=== PATIENT | male | born 1940 | race Caucasian/White ===

== ENCOUNTER → 2017-01-19 | Outpatient (CLI) | payer OTHER ==
[~2017-01-19] MED LIST: ASCO10003 PO; ASPI81TA28 PO; ATOR-24 PO; CHOL1CAP67 PO; CLR/5 PO; CRG25 PO; CYAN100T PO; DUTA0.5C PO; FEBU80TA PO; HMLI SC; INSDGIPEN SQ; LEVO150T PO; MAGN400T6 PO; OXGN; POTA75TA PO; PRED20TA2 PO; SILO8CAP PO; TRAM-10 PO
--- NOTE | 2017-01-19 14:30 | DIAGNOSTIC IMAGING REPORT ---
CHEST 2 VIEWS ROUTINE CLINICAL HISTORY: R06.2 [id number] COMPARISON STUDY: 02/19/2014 FINDINGS: The cardiac and mediastinal contours are normal. There is no evidence of focal pulmonary consolidation. There is no evidence of failure. No pleural effusions are visualized.[ There are surgical clips at the cervicothoracic inlet. IMPRESSION: No active disease in the chest. Electronically signed by: Jet Rivero M.D. 01/19/2017 2:28 PM Dictated Date/Time: 01/19/2017 2:28 PM
== END | disposition home or self-care (01) ==
LOC: C.RAD1850 13:52
PROVIDERS: ATTEND Internal Medicine Pulmonary Disease
DX: R06.2 Wheezing (principal)

== ENCOUNTER → 2017-04-30 | Outpatient (CLI) | payer OTHER ==
[2017-04-30 12:39] LABS: URINE APPEARANCE CLEAR (CLEAR); URINE BILIRUBIN NEG (NEG); URINE COLOR YELLOW; URINE EPITHELIAL CELL AUTO 0-5 /lpf (0-5); URINE NITRITE NEG (NEG); URINE SPECIFIC GRAVITY 1.015 (1.000-1.030); UROBILINOGEN NEG (NEG)
[2017-04-30 12:40] LABS: MANUAL MICROSCOPIC REQUIRED? NO; REVIEW REQ? NO
[2017-04-30 12:53] LABS: HEMATOCRIT 38.5 % (42-52); MEAN CELL VOLUME 90.2 fL (80-100); MEAN CORPUSCULAR HEMOGLOBIN 31.4 pg (25-34); MEAN CORPUSCULAR HGB CONC 34.8 g/dl (32-36); MEAN PLATELET VOLUME 10.1 fL (7.4-10.4); PLATELET COUNT 127 K/uL (130-400); RED BLOOD COUNT 4.27 M/uL (4.7-6.1); WHITE BLOOD COUNT 5.67 K/uL (4.8-10.8)
[2017-04-30 13:12] LABS: BLOOD UREA NITROGEN 25 mg/dl (7-18); CALCIUM 9.2 mg/dl (8.5-10.1); CARBON DIOXIDE 29 mmol/L (21-32); CHLORIDE 105 mmol/L (98-107); GLUCOSE 118 mg/dl (70-99); POTASSIUM 4.4 mmol/L (3.5-5.1); SODIUM 141 mmol/L (136-145)
[2017-04-30 13:13] LABS: PHOSPHORUS 2.6 mg/dl (2.5-4.9)
[2017-04-30 13:21] LABS: ESTIMATED AVERAGE GLUCOSE 131 mg/dl; HA1C FLAG Normal (Normal)
[2017-04-30 13:59] LABS: URINE PROTIEN/CREAT RATIO 0.1 (0-0.2); URINE TOTAL PROTEIN 11.4 mg/dl (0-11.9)
== END | disposition home or self-care (01) ==
LOC: C.LABPVFM 10:58
PROVIDERS: ATTEND Internal Medicine Nephrology
DX: N28.1 Cyst of kidney, acquired (principal); D64.9 Anemia, unspecified; N18.3 Chronic kidney disease, stage 3 (moderate); I12.9 Hypertensive chronic kidney disease with stage 1 through stage 4 chronic kidney disease, or unspecified chronic kidney disease; E11.21 Type 2 diabetes mellitus with diabetic nephropathy; E11.22 Type 2 diabetes mellitus with diabetic chronic kidney disease

== ENCOUNTER → 2017-11-05 | Outpatient (CLI) | payer OTHER ==
[2017-11-05 12:49] LABS: HEMATOCRIT 38.2 % (42-52); HEMOGLOBIN 13.4 g/dL (14.0-18.0); MEAN CELL VOLUME 91.6 fL (80-100); MEAN CORPUSCULAR HEMOGLOBIN 32.1 pg (25-34); MEAN CORPUSCULAR HGB CONC 35.1 g/dl (32-36); PLATELET COUNT 141 K/uL (130-400); RED CELL DISTRIBUTION WIDTH CV 13.4 % (11.5-14.5); RED CELL DISTRIBUTION WIDTH SD 44.3 fL (36.4-46.3); WHITE BLOOD COUNT 5.63 K/uL (4.8-10.8)
[2017-11-05 12:58] LABS: ALBUMIN 3.8 gm/dl (3.4-5.0); ALT/SGPT 34 U/L (12-78); AST/SGOT 24 U/L (15-37); BLOOD UREA NITROGEN 21 mg/dl (7-18); CALCIUM 9.2 mg/dl (8.5-10.1); CARBON DIOXIDE 29 mmol/L (21-32); CREATININE 1.89 mg/dl (0.60-1.40); GLUCOSE 155 mg/dl (70-99); POTASSIUM 4.5 mmol/L (3.5-5.1); SODIUM 139 mmol/L (136-145); URIC ACID 6.8 mg/dl (2.6-7.2)
[2017-11-05 13:01] LABS: ALKALINE PHOSPHATASE 100 U/L (45-117); TOTAL PROTEIN 7.1 gm/dl (6.4-8.2)
== END | disposition home or self-care (01) ==
LOC: C.LABPVFM 09:32
PROVIDERS: ATTEND Internal Medicine Nephrology
DX: E03.9 Hypothyroidism, unspecified (principal); E78.5 Hyperlipidemia, unspecified; I10 Essential (primary) hypertension; R60.9 Edema, unspecified; N25.81 Secondary hyperparathyroidism of renal origin; E64.9 Sequelae of unspecified nutritional deficiency; N18.3 Chronic kidney disease, stage 3 (moderate)

== ENCOUNTER → 2018-01-07 | Outpatient (CLI) | payer OTHER ==
--- NOTE | 2018-01-07 16:54 | DIAGNOSTIC IMAGING REPORT ---
R HAND MIN 3 VIEWS ROUTINE HISTORY: 77 years-old Male HAND PAIN acute right hand pain without reported trauma COMPARISON: None available TECHNIQUE: 3 views of the right hand FINDINGS: Mild radiocarpal with mild to moderate triscaphe the and first carpometacarpal osteoarthritis. Subcortical cystic changes are seen within the lunate. Mostly mild degenerative changes are also seen throughout the metacarpophalangeal joints with multidigit mild to moderate interphalangeal degenerative changes. There is no acute fracture or subluxation identified. Mild marginal spurring about the ulnar styloid. Soft tissues are unremarkable without opaque foreign body. IMPRESSION: 1. No acute fracture or subluxation. 2. Degenerative changes as above. The above report was generated using voice recognition software. It may contain grammatical, syntax or spelling errors. Electronically signed by: Alfred Staley M.D. 01/07/2018 4:52 PM Dictated Date/Time: 01/07/2018 4:51 PM
== END | disposition home or self-care (01) ==
LOC: C.LAB1850 16:10
PROVIDERS: ATTEND Physician Assistant
DX: M79.641 Pain in right hand (principal)

== ENCOUNTER → 2018-05-29 | Outpatient (CLI) | payer OTHER | END | disposition home or self-care (01) | LOC: C.LABPVFM 11:06 | PROVIDERS: ATTEND Internal Medicine | DX: E03.9 Hypothyroidism, unspecified (principal); E11.21 Type 2 diabetes mellitus with diabetic nephropathy ==

== ENCOUNTER → 2018-06-03 | Day surgery (SDC) | payer OTHER ==
[~2018-06-03] VITALS: Ht 175.3 cm; Wt 108.0 kg
[2018-06-03 08:49] VITALS: BP 146/89; PULSE 57; TEMP 36.6; O2SAT 95; Ht 175.3 cm; Wt 108.0 kg
[2018-06-03 11:51] VITALS: BP 150/90; PULSE 55; TEMP 36.5; O2SAT 95
== END | disposition home or self-care (01) ==
LOC: C.MTU 08:29
PROVIDERS: ATTEND Internal Medicine
DX: R14.0 Abdominal distension (gaseous) (principal)

== ENCOUNTER 2020-01-02 08:08 | Observation (INO) ==
--- NOTE | 2019-12-26 12:41 | PAT Medication Instructions ---
Medication Instructions Date of Service December 26, 2019 Home Medications Medication Instructions Recorded desloratadine 5 mg tablet 5 mg PO DAILY PRN #90 tab 10/28/19 carvedilol 25 mg tablet 50 mg PO BID #360 tab 12/23/19 albuterol sulfate 90 mcg/actuation aerosol inhaler 2 puffs INH Q6H PRN aspirin 81 mg tablet,delayed release 81 mg PO QAM magnesium oxide 500 mg tablet 500 mg PO PM omega-3 fatty acids-fish oil 360 mg-1,200 mg capsule 1 cap PO BID potassium gluconate 595 mg (99 mg) tablet,extended release 595 mg PO PM insulin lispro 100 unit/mL subcutaneous pen 0 units SQ AC ] desloratadine 5 mg tablet 5 mg PO DAILY PRN clotrimazole 1 % topical cream 1 appln TOP QAM PRN carvedilol 25 mg tablet 50 mg PO BID atorvastatin [Lipitor] 40 mg PO PM cholecalciferol (vitamin D3) [Vitamin D3] 2,000 unit PO PM dutasteride 0.5 mg PO PM febuxostat [Uloric] 80 mg PO QAM insulin glargine [Lantus Solostar U-100 Insulin] 18 unit SQ QAM levothyroxine 175 mcg PO QAM silodosin 8 mg PO QAM venlafaxine 75 mg PO BID STOP taking 2 weeks before surgery (or as soon as possible if surgery is within 2 weeks) omega-3 fatty acids-fish oil 360 mg-1,200 mg capsule 1 cap PO BID STOP taking 48 hours before surgery febuxostat [Uloric] 80 mg PO QAM STOP taking 24 hours before surgery clotrimazole 1 % topical cream 1 appln TOP QAM PRN DO NOT take the morning of surgery insulin lispro 100 unit/mL subcutaneous pen 0 units SQ AC desloratadine 5 mg tablet 5 mg PO DAILY PRN Take morning of surgery With a small sip of water, OTHERWISE NOTHING TO EAT OR DRINK AFTER MIDNIGHT: albuterol sulfate 90 mcg/actuation aerosol inhaler 2 puffs INH Q6H PRN (use if needed; please bring with you to hospital day of surgery if possible) carvedilol 25 mg tablet 50 mg PO BID levothyroxine 175 mcg PO QAM venlafaxine 75 mg PO BID Take evening before surgery albuterol sulfate 90 mcg/actuation aerosol inhaler 2 puffs INH Q6H PRN (if needed) magnesium oxide 500 mg tablet 500 mg PO PM potassium gluconate 595 mg (99 mg) tablet,extended release 595 mg PO PM insulin lispro 100 unit/mL subcutaneous pen 0 units SQ AC desloratadine 5 mg tablet 5 mg PO DAILY PRN (if needed) carvedilol 25 mg tablet 50 mg PO BID atorvastatin [Lipitor] 40 mg PO PM cholecalciferol (vitamin D3) [Vitamin D3] 2,000 unit PO PM dutasteride 0.5 mg PO PM venlafaxine 75 mg PO BID Insulin Dependent Diabetic Patients * Test your blood sugar the morning of surgery * If Blood Sugar is GREATER THAN 150, take HALF of your regular dose of: insulin glargine [Lantus Solostar U-100 Insulin] take 9 units * If Blood Sugar is LESS THAN 150, DO NOT TAKE ANY: insulin glargine [Lantus Solostar U-100 Insulin] Other Notes If you have any questions please call us at [phone] or [phone] or [phone] or [phone]
--- NOTE | 2019-12-26 13:25 | Anesthesiology Consultation ---
Date of Service December 26, 2019 Assessment & Plan (1) Encounter for pre-operative examination: CHECK BSG AM DOS Chart Review Chart Review: Acceptable Risk for Surgery (pending stress test 12/31 and final cardiology clearance) and Patient seen in Pre Admission Testing Teaching & Discussion Instructed NPO after midnight before surgery, except medications with 15 cc of water. Medication instructions provided according to the PAT guidelines. History Surgery Operation Date: 01/02/20 12:30 Proposed Procedures p Right Total Knee Arthroplasty - Alhaji Aden MD Height/Weight Height: 5 ft 9.5 in Weight: 115.9 kg Allergies Allergy/AdvReac Type Severity Reaction Status Date / Time Penicillins Allergy Unknown RASH Verified 12/26/19 11:09 lactose Allergy Gastrointestinal Verified 12/26/19 11:09 Upset Medications Home Medications Medication Instructions Recorded Confirmed Last Taken albuterol sulfate 90 mcg/actuation 2 puffs INH Q6H PRN 05/28/19 12/26/19 Unknown aerosol inhaler aspirin 81 mg tablet,delayed 81 mg PO QAM tab 05/28/19 12/26/19 Unknown release magnesium oxide 500 mg tablet 500 mg PO PM tab 05/28/19 12/26/19 Unknown omega-3 fatty acids-fish oil 360 1 cap PO BID cap 05/28/19 12/26/19 Unknown mg-1,200 mg capsule potassium gluconate 595 mg (99 mg) 595 mg PO PM tab 05/28/19 12/26/19 Unknown tablet,extended release CPAP Machine #1 ea 10/13/19 12/26/19 Unknown insulin lispro 100 unit/mL 0 units SQ AC ml 10/13/19 12/26/19 Unknown subcutaneous pen desloratadine 5 mg tablet 5 mg PO DAILY PRN #90 tab 10/28/19 12/26/19 Unknown clotrimazole 1 % topical cream 1 appln TOP QAM PRN gm 11/17/19 12/26/19 Unknown pen needle, diabetic 32 gauge x #10 ea 11/17/19 12/26/19 Unknown " carvedilol 25 mg tablet 50 mg PO BID #360 tab 12/23/19 12/26/19 Unknown atorvastatin [Lipitor] 40 mg PO PM 12/25/19 12/26/19 Unknown cholecalciferol (vitamin D3) 2,000 unit PO PM 12/25/19 12/26/19 Unknown [Vitamin D3] dutasteride 0.5 mg PO PM 12/25/19 12/26/19 Unknown febuxostat [Uloric] 80 mg PO QAM 12/25/19 12/26/19 Unknown glucose sensor,implant-dexamet 12/25/19 12/26/19 Unknown insulin glargine [Lantus Solostar 18 unit SQ QAM 12/25/19 12/26/19 Unknown U-100 Insulin] levothyroxine 175 mcg PO QAM 12/25/19 12/26/19 Unknown silodosin 8 mg PO QAM 12/25/19 12/26/19 Unknown venlafaxine 75 mg PO BID 12/25/19 12/26/19 Unknown tamsulosin 0.4 mg capsule 0.4 mg PO DAILY #90 cap 12/26/19 Unknown Past Medical History Medical History (Updated 12/29/19 @ 09:30 by Raymond Costello) Acquired claw toe of left foot Acquired claw toe of right foot Acquired hallux valgus of right foot Anemia Attention or concentration deficit Benign prostatic hyperplasia Chronic back pain CKD (chronic kidney disease), stage III [place] [place] per [place]17 office visit note. Cor pulmonale Diabetes type 2, uncontrolled Dilated cardiomyopathy Per 12/23 cardio note, "Most recent echo with low normal LV systolic function. No current signs or symptoms of pulmonary vascular congestion." Dyslipidemia Erectile dysfunction Gout Hx of thyroid cancer WITH REMOVAL NO CHEMO Hypertension Lumbosacral radiculopathy at L5 Mild asthma Does not use Albuterol, has just in case Obstructive sleep apnea CPAP Osteoarthritis Personal history of diabetic foot ulcer No open wounds currently, skin being monitored by multiple specialties. Postural dizziness Hx, no issues with currently. Restrictive lung disease RARE RES. INH USE> WELL CONTROLLED Secondary hyperparathyroidism Sensorineural hearing loss (SNHL) of both ears Spinal stenosis Type 2 diabetes mellitus with diabetic neuropathy Exercise / Class Metabolic Activity III < 4 Walking/Shop/Light housework (USing walker for ambulation, denies SOB or CP but limited functional capacity due to knee pain/foot issues) Past Family History Family History Father Myocardial infarction Hypertension Sister Coronary heart disease Hypertension Brother Hypertension Thyroid cancer Mother Pulmonary embolism Grandmother (Maternal) Stroke Denies family history of Ovarian cancer Prostate cancer Breast cancer Colorectal cancer Past Surgical History Surgical History (Updated 12/29/19 @ 09:26 by Raymond Costello) H/O: knee surgery RIGHT History of cardiac cath [place] MANY YEARS AGO> NO STENTS History of colonoscopy History of thyroidectomy History of tonsillectomy History of tooth extraction Hx of bilateral cataract extraction Past Anesthesia History No Hx of Anesthesia Complications and No Family Hx of Anesthesia Complications History of PONV No Hx of Motion Sickness and History of PONV (only with ether as a child) Social History Smoking Status: Never smoker Do You Dip or Chew Tobacco: No Hx Alcohol Use: No Hx Substance Use: No substance use type: does not use Review of Systems Pt denies any recent chest pain, shortness of breath, palpitations, cough, fever or URI. Physical Exam Vital Signs BP: 153/72 P: 56bpm SPO2: 96% RA T: 98.0 F R: 18 ENMT Mouth: + macroglossia; no dental restorations, no chipped teeth and no loose teeth Mallampati Class: II Uvula and tonsils surgically absent. Neck + short neck, + thick neck and + limited neck extension (mildly) Respiratory normal respiratory effort Auscultation: lungs clear to auscultation bilaterally Cardiovascular Rate/Rhythm: regular rate and regular rhythm Heart Sounds: no murmur Extremities: no edema Testing Laboratory Results PT 10.8 Seconds (9.0-12.0) 12/26/19 13:40 INR 1.1 (0.9-1.1) 12/26/19 13:40 APTT 23.0 Seconds (21.0-31.0) 12/26/19 13:40 Hemoglobin A1c 6.7 % (4.5-5.6) H 12/26/19 13:40 Blood Type A Positive 12/26/19 13:40 Antibody Screen NEGATIVE 12/26/19 13:40 12/17/19 WBC: 6.47 H/H: 13.6/39.3 PLATELETS: 145 SODIUM: 139 POTASSIUM: 4.1 CHLORIDE: 102 CO2: 34 BUN: 19 CREATININE: 1.78 GLUCOSE: 166 Electrocardiogram Date: 12/26/19 Findings: + NSR @ (61bpm) Chest X-Ray Date: 12/26/19 Findings: + NAD
--- NOTE | 2019-12-26 14:06 | XRay Report ---
XR chest Pre-admission PA/Lat CLINICAL HISTORY: Preoperative chest COMPARISON STUDY: No previous studies for comparison. FINDINGS: The heart is borderline enlarged. There is no failure. There is no focal pulmonary consolid ation. There are no pleural effusions. There are surgical clips projected over the cervicothoracic in let in the midline. There is ankylosis of the dorsal spine. IMPRESSION: No active disease in the chest. ACT 112: Negative or not required by law. Electronically signed by: Jet Rivero M.D. 12/26/2019 2:04 PM
[2019-12-26 15:24] LABS: INR 1.1 (0.9-1.1); Partial Thromboplastin Ratio 0.8; Prothrombin Time 10.8 Seconds (9.0-12.0)
--- NOTE | 2019-12-26 18:38 | Electrocardiogram Report ---
Test Reason : Blood Pressure : / mmHG Vent. Rate : 061 BPM Atrial Rate : 061 BPM P-R Int : 144 ms QRS Dur : 098 ms QT Int : 446 ms P-R-T Axes : 064 048 050 degrees QTc Int : 448 ms Normal sinus rhythm Normal ECG When compared with ECG of 27-SEP-2018 20:09, No significant change was found Confirmed by Wally Friedman ([id number]) on 12/26/2019 6:37:50 PM Referred By: Alhaji dAen Confirmed By:Henry Friedman
[2019-12-27 06:22] LABS: Estimated Average Glucose 146 mg/dl; Hemoglobin A1C 6.7 % (4.5-5.6)
[~2020-01-02 08:08] MED LIST changes: +ACETAMINOPHEN 500 MG TAB PO SCH; -ASCO10003 PO; -ASPI81TA28 PO; -ATOR-24 PO; +BUPIVACAINE 0.5 % 5 MG/1 ML PF 10ML VIAL ONE; +BUPIVACAINE LIPOSOME/PF 266 MG, BUPIVACAINE/EPINEPHRINE 50 ML, SODIUM CHLORIDE 0.9% 30 ... INFIL SCH; +BUPIVACAINE/EPINEPHRINE 0.25% 1:200,000 30 ML VIAL ONE; +CEFAZOLIN 2000MG 2,000 MG/15 ML SYR IV SCH; -CHOL1CAP67 PO; -CLR/5 PO; -CRG25 PO; -CYAN100T PO; +DEXAMETHASONE SOD INJ 4 MG/ML VIAL ONE; -DUTA0.5C PO; +EPINEPHrine INJ 1 MG/ML AMP ONE; +FAMOTIDINE 20 MG TAB PO SCH; -FEBU80TA PO; +GABAPENTIN 300 MG CAP PO SCH; -HMLI SC; -INSDGIPEN SQ; -LEVO150T PO; +LR 500ML BOLUS, THEN 15ML/HR IV SCH; +LR 60ML/HR IV SCH; -MAGN400T6 PO; +METOCLOPRAMIDE HCL 10 MG TABLET PO SCH; -OXGN; -POTA75TA PO; -PRED20TA2 PO; +ROPIVACAINE 0.5% 5 MG/ML 30 ML VIAL ONE; -SILO8CAP PO; -TRAM-10 PO; +TRANEXAMIC ACID 1,000 MG x 1 **For Topical Use TOP SCH
--- NOTE | 2020-01-02 08:44 | History & Physical Bridge Note ---
Date of Service January 02, 2020 History & Physical Bridge Note I have examined the patient, reviewed the History & Physical and in the interval since the performance of the History & Physical I have noted the following changes of clinical significance: no changes noted
[2020-01-02] MEDS ORDERED: TRANEXAMIC ACID / 0.7% NACL 1000MG/100ML BAG IV ONE (09:23)
[2020-01-02 09:35] LABS: Basophils # (auto) 0.02 K/uL (0-0.2); Basophils % (auto) 0.3 %; Eosinophils # (auto) 0.24 K/uL (0-0.5); Eosinophils % (auto) 3.5 %; Hematocrit (blood only) 36.4 % (42-52); Hemoglobin 12.4 g/dL (14.0-18.0); Immature Granulocytes # (auto) 0.02 K/uL (0.00-0.02); Immature Granulocytes % (auto) 0.3 %; Lymphocytes # (auto) 1.17 K/uL (1.2-3.4); Lymphocytes % (auto) 16.8 %; Mean Corpuscular Hemoglobin 31.7 pg (25-34); Mean Corpuscular Volume 93.1 fL (80-100); Mean Platelet Volume 10.1 fL (7.4-10.4); Monocytes # (auto) 0.52 K/uL (0.11-0.59); Monocytes % (auto) 7.5 %; Neutrophils # (auto) 4.98 K/uL (1.4-6.5); Neutrophils % (auto) 71.6 %; Platelet Count 128 K/uL (130-400); RDW Coefficient of Variation 13.6 % (11.5-14.5); RDW Standard Deviation 45.6 fL (36.4-46.3); Red Blood Count 3.91 M/uL (4.7-6.1); White Blood Count 6.95 K/uL (4.8-10.8)
[2020-01-02 09:43] LABS: Mean Corpuscular Hgb Conc 34.1 g/dL (32-36)
[2020-01-02] MEDS ORDERED: MIDAZOLAM HCL 1 MG/ML 2ML VIAL ONE ×2 (09:46)
[2020-01-02] MEDS ORDERED: PROPOFOL IV EMULSION 10 MG/ML 20 ML VIAL IV ONE (10:07)
[2020-01-02] MEDS ORDERED: LIDOCAINE HCL 2% 2 ML VIAL/AMP(20MG/ML) INFIL ONE (10:07)
[2020-01-02] MEDS ORDERED: BUPIVACAINE LIPOSOME 1.3% 266 MG/20 ML VIAL ONE (10:32)
[2020-01-02] MEDS ORDERED: SODIUM CHLORIDE 0.9% PF 50 ML VIAL ONE (10:32)
[2020-01-02] MEDS ORDERED: BUPIVACAINE/EPINEPHRINE 0.25% 1:200,000 30 ML VIAL ONE (10:32)
[2020-01-02] MEDS ORDERED: BACITRACIN INJ 50,000 UNIT VIAL ONE (10:32)
[2020-01-02] MEDS ORDERED: ePHEDrine sulfate 50 MG/ML AMP IV PRN (11:34)
[2020-01-02] MEDS ORDERED: ATROPINE SULFATE 0.1 MG/ML 10ML SYR IV PRN (11:34)
[2020-01-02] MEDS ORDERED: LABETALOL HCL IV 5 MG/ML 20ML IV ONE (11:42)
[2020-01-02] MEDS ORDERED: HydrALAZINE HCL 20 MG/ML VIAL ONE (11:42)
[2020-01-02] MEDS ORDERED: TRANEXAMIC ACID 1,000 MG **IV Intra-op IV SCH (12:08)
--- NOTE | 2020-01-02 12:38 | Post Operative Brief Note ---
PG Immediate Post Op with CF Date of Surgery January 02, 2020 Pre & Post Diagnosis Operation Date: 01/02/20 10:40 Pre-Op Diagnosis: Right Knee Degenerative Joint disease Post-Op Diagnosis: Right Knee Degenerative Joint disease I identified the patient and participated in the time-out.: Yes Procedure Operation Date: 01/02/20 10:40 Actual Procedures p Right Total Knee Arthroplasty cemented(Right) - Alhaji Aden MD Surgeon Alhaji Aden MD Credit Intern Panfilo, PAC Estimated Blood Loss 100 Findings Consistent with Post-Op Diagnosis Fluids 1500 cc Specimens Specimen Description: A. Right knee bone and tissue Drains Pabon Catheter Anesthesia Type Spinal MAC Disposition Accompanied Patient To Recovery: No Disposition: Recovery Room
--- NOTE | 2020-01-02 12:53 | Operative Report ---
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 He had pretty extensive grade 4 pave-at-pckb disease in all 3 compartments most severe in the medial side. He had an area of punctate hemorrhage of the medial femoral condyle which looks quite ulcerated. He had a moderate-sized joint effusion. Fixed varus deformity to his knee. He had osteophytes in all 3 compartments. Fluids 1500 cc. Specimens Right knee sent for pathology. Drains None. Anesthesia Type Spinal MAC Complications none Disposition Accompanied Patient To Recovery: No Disposition: Recovery Room Indications Patient is a 79-year-old gentleman is had a several year history of increasing right knee pain discomfort. This is unresponsive conservative care. X-rays showed advanced medial compartment arthritis. Failed all conservative care and elected proceed with total knee arthroplasty. Description of Procedure Operative implants consist of: 1. Biomet Vanguard size 65 right posterior by femoral component. 2. Biomet size 75 tibial tray. 3. 12 mm posterior box polyethylene insert. 4. 31 x 8 all poly-patella. Patient was taken to the operating room identified and placed on the operating table supine position protectors were properly padded. IV antibiotics arrived by anesthesia team. A spinal anesthetic and abductor canal block had provided in the holding area. Pabon catheter was placed in sterile fashion. Right thigh turn was then placed in the right lower extremities and prepped draped in usual sterile fashion. The right leg was elevated exsanguinated use of an Esmarch interspace at 300 mmHg. An anterior approach to the right knee was then performed to longitudinal incision centered over the patella. Sharp dissection was carried through subcutaneous tissue down to the extensor mechanism. A medial parapatellar arthrotomy incision was made. Some subperiosteal dissection was carried out medially. The fat pad was resected from each patella tendon. Lateral patellofemoral ligament was released. Patella was subluxated laterally and the knee was flexed. The osteophytes were taken off distal femur. The ACL and PCL were then released from distal femur the tibia subluxated anteriorly. The external tibial alignment jig was then placed in the interface of the tibia and adjusted 14 mm medially. Proximal tibial cut was made to move about 2 mm of bone from most efficient aspect medial tibial plateau. Some osteophytes were taken off medial and posterior medially. The tibia sized to a size 75. Attention drawn the femur. The distal femur was entered with a sharp drop with intramedullary canal was suction. A right 6 degree valgus cutting guide was placed. This femoral cutting block was pinned in place but distal femoral cut was made to take an additional 3 mm bone off distal femur. Femur was then sized to a size 65. We did downsize a slightly. The AP cutting block was pinned parallel to the epicondylar axis which was 3 degrees of external rotation. Anterior cut, anterior chamfer, posterior cut, posterior chamfer cuts were made. Box cutting guide was placed in just slight lateral box cut was made. The knee was flexed. The remnants of the medial lateral menisci were excised. The osteophytes were taken off the posterior aspect of the femur. Trial femoral component was placed. The tibial tray was pinned in maximum external rotation and the drill and stem punch were used to create defect in proximal tip for the tibial tray. Knee was then trialed and the 12 mm insert fit most appropriately. Attention drawn the patella. The patella was cleaned of all soft tissues. Patella thickness measured 23 mm in thickness was cut down to 14. Was sized to a size 31 patella. Locals were drilled for 31 patella. Lateral osteophyte is moved. Patella button was placed. Knee was taken through range of motion and the patella tracked nicely with no thumbs test. Attention drawn to placing permanent components. All trial components were removed and removed. Bone plug was placed in the disc femur limit blood loss put a double batch [place]os G cement was mixed. Biomet Vanguard size 65 right posterior by femoral component, size 75 tibial tray, a 12 mm posterior box polyethylene insert, and a 31 x 8 all poly-patella were then cemented in place. Knee was brought out into full extension total cement hardened. Final cement check was then performed. The wound was irrigated with extensive muscle pulsatile lavage solution. The patient did receive 1 g of tranexamic acid. The tourniquet was then let down for final tourniquet time of 62 minutes. Hemostasis assured use electrocautery. Extensor mechanism closed with combination 1 PDS suture and #1 Vicryl suture in [id number] fashion. Extensor mechanism checked found to be intact and subcutaneous tissue then closed with 2 Dexon suture in buried knot fashion skin was closed skin gayathri. Leg was then cleaned dried a sterile dressing composed Xeroform, 4 x 4's, sterile cast padding, Emre bandage were applied. Patient then transferred to the recovery room in stable condition. Patient tolerated procedure well no complications. I attest to the content of the Intraoperative Record and any orders documented therein. Any exceptions are noted below.
--- NOTE | 2020-01-02 13:16 | XRay Report ---
RIGHT KNEE 2 VIEWS History: Right total knee arthroplasty. Degenerative arthritis. Postop. FINDINGS: The patient is status post a right total knee arthroplasty. The hardware is intact. No frac ture or dislocation. Skin gayathri are in place. IMPRESSION: Right total knee arthroplasty. No evidence for hardware complication. ACT 112: Negative or not required by law. Electronically signed by: Chris Adam M.D. 01/02/2020 1:15 PM
--- NOTE | 2020-01-02 13:51 | Anesthesiology Progress Note ---
Date of Service January 02, 2020 Anesthesia Post Procedure Vital Signs Vital Signs: Temp Pulse Pulse Resp BP Pulse Ox 01/02/20 13:40 36.5 C 60 12 145/78 H 95 01/02/20 13:30 58 L 19 137/78 97 01/02/20 13:20 56 L 23 144/75 H 98 01/02/20 13:10 59 L 13 142/77 H 98 01/02/20 13:00 61 13 149/80 H 98 01/02/20 12:50 60 14 152/82 H 98 01/02/20 12:44 36.8 C 62 14 139/84 98 01/02/20 09:02 36.7 C 62 18 178/94 H 95 Pain Intensity Right Knee: Pain Intensity: 0 Transfer of Care Handoff Completed per policy Notes Mental Status: alert / awake / arousable Patient Amnestic to Procedure: Yes Nausea / Vomiting: adequately controlled Pain: adequately controlled Airway Patency, RR, SpO2: stable & adequate BP & HR: stable & adequate Hydration State: stable & adequate Neuraxial Anesthesia: was administered and sensory block is resolving Anesthetic Complications: no major complications apparent
[2020-01-02] MEDS: SODIUM CHLORIDE 0.9% 1000ML 1,000 ML IV SCH ×2 (14:00→21:45)
[2020-01-02] MEDS ORDERED: NO NSAIDS SCH (14:08)
[2020-01-02] MEDS ORDERED: CARBOHYDRATES FOR HYPOGLYCEMIA PO PRN (14:08)
[2020-01-02] MEDS ORDERED: METOCLOPRAMIDE HCL INJ 5 MG/ML 2 ML VIAL IV PRN (14:08)
[2020-01-02] MEDS ORDERED: DEXTROSE 50% 50 ML SYRINGE IV PRN (14:08)
[2020-01-02] MEDS ORDERED: ALBUTEROL HFA INHALER 8.5 GM INH PRN (14:08)
[2020-01-02] MEDS ORDERED: GLUCAGON FOR INJ 1 MG VIAL SQ PRN (14:08)
[2020-01-02] MEDS ORDERED: CLOTRIMAZOLE 1% CR 15 GM TUBE TOP PRN (14:08)
[2020-01-02] MEDS ORDERED: bisacodyL 10 MG SUPP PR PRN (14:08)
[2020-01-02] MEDS ORDERED: MAGNESIUM HYDROXIDE SUSP 30 ML UDC PO PRN (14:08)
[2020-01-02] MEDS ORDERED: LORATADINE 10 MG TAB PO PRN (14:08)
[2020-01-02] MEDS ORDERED: GLUCOSE 10 TABS/TUBE PO PRN (14:08)
[2020-01-02] MEDS ORDERED: ONDANSETRON INJ 2 MG/ML 2 ML VIAL IV PRN (14:08)
[2020-01-02] MEDS ORDERED: GLUCOSE 40% GEL 15 GM TUBE PO PRN (14:08)
[2020-01-02] MEDS ORDERED: ALUMINUM/MAGNESIUM SUSP 30 ML UDC PO PRN (14:08)
[2020-01-02] MEDS ORDERED: NALOXONE HCL 0.4 MG/1 ML VIAL/CARP IV PRN (14:08)
[2020-01-02] MEDS ORDERED: PHARMACY GLYCEMIC MGMT CONSULT PRN (14:24)
[2020-01-02] MEDS: ACETAMINOPHEN 500 MG TAB PO SCH ×2 (15:22→21:47)
--- NOTE | 2020-01-02 15:54 | Pharmacy Report ---
Glycemic Control Consultation - Date of Service January 02, 2020 - Scope Scope: Glycemic Pharmacist consulted for glycemic control and to write orders per [facility] inpatient glycemic control protocol. - Objective Weight: 114.3 kg Accuchecks BSG (last 24hrs): 01/02/20 01/02/20 09:42 12:50 POC Glucose 146 H 123 H HbA1c: Hemoglobin A1c 6.7 % (4.5-5.6) H 12/26/19 13:40 - Recent Pertinent Medications Outpatient Anti-diabetic Regimen: * Lantus 18 units daily * Humalog 12 units w/ breakfast, 10 w/ lunch, 10 / dinner (this is per a sliding scale depending on his BSG, these are usual doses) * A1c = 6.7 % 12/26/19 The patient received this AM: * Lantus 8 units Risk Factors for Insulin Resistance: * Steroids: no dexamethasone administered perioperatively * Recent Surgery: POD 0 s/p R TKA * Diet: NPO -> T2DM - Assessment & Plan Assessment & Plan: ASSESSMENT: * 79 y/o male admitted s/p R TKA. He is well controlled on basal + bolus insulin as an outpatient. * He took ~half of his basal dose this AM in preparation for surgery. When I spoke with him and his , he had barely eaten lunch. Postop BSG was 123 mg/dL. Will not plan to give additional basal today, in light of reduced PO intake and current BSGs. Can plan to increase to full outpatient dose of basal tomorrow, depending on fasting BSG. * Bolus insulin will be provided using patient's weight/ stress level ~2 PLAN FOR INPATIENT GLYCEMIC CONTROL: * Basal insulin * Lantus qAM per the following scale: * 13 units for BSG < 140 * 18 units for BSG 140 or above * Bolus insulin * NovoLog per scale ACHS or Q6hrs while NPO * Goal Range: Low 110 mg/dL - High 140 mg/dL * Correction Factor: 25 mg/dL/unit * Nutritional / Prandial insulin per carb ratio of 1 unit per 8 grams CHO consumed Discharge Recommendations: * A1c 6.7% on 12/26/19 * Goal A1c < 7% * Recommend to resume outpatient regimen on discharge Thank you.
--- NOTE | 2020-01-02 16:07 | Hospitalist Consultation ---
Date of Consultation January 02, 2020 Assessment & Plan (1) Status post total right knee replacement: -Pain management, bowel regimen and DVT prophylaxis per the primary team -Follow a.m. CBC and BMP -Continue NSS at 125 mL an hour overnight then DC -PT/OT consults (2) Dilated cardiomyopathy: (3) Cor pulmonale: (4) Hypertension: (5) Dyslipidemia: -The patient follows with Dr. Carias as outpatient, underwent dobutamine stress echocardiogram prior to surgery -Continue carvedilol 50 mg bid, atorvastatin 40 mg qpm, baby aspirin ( currently asa BID for dvt ppx) (6) Restrictive lung disease: -Patient does not require albuterol inhaler as outpatient (7) Obstructive sleep apnea: -Continue CPAP (8) Diabetes type 2, uncontrolled: -HH/DM diet -ISS with Ppqm-[id number]-gwimuhcn insulin glargine 18 U qam -A1c = 6.8 on 12/26/2019 (9) Anemia: -History of such, hemoglobin stable at 12.4, baseline is around 13, follow with a.m. CBC (10) Gout: -Continue Uloric (11) Vitamin D deficiency: -Continue supplementation 2000 u qpm (12) Obesity: -BMI = 37.2 (13) Lumbosacral radiculopathy at L5: -Noted, continue pain management, PT/OT (14) History of thyroidectomy: - hx of such, continue levothyroxine 175 mcg daily (15) Benign prostatic hyperplasia: -Continue Rapaflo, Flomax, Avodart (16) DVT prophylaxis: -asa 81 mg BID, ambulatory per primary team CODE: FULL Dispo: From home Thank you for involving us in the care of Mr. Bass. Please do not hesitate to call with questions or concerns. At this time medicine service will follow along. Supervising Physician Co-Signing Physician Notes I have seen and examined patient with Rose Marie Gay PA-C and I agree with the assessment and plan. History of Present Illness Attending Physician: Alhaji Aden MD History of Present Illness This is a 79 yo M with PMHx of dilated cardiomyopathy, HTN, HLD, cor pulmonale, and DM type II, CKD stage III, restrictive lung disease, secondary hyperparathyroidism, CAROLANN on CPAP, mild asthma, gout, anemia, BPH, spinal stenosis, osteoarthritis, and history of thyroid cancer s/p thyroidectomy who presented for elective total right knee arthroplasty by Dr. Aden on 01/02/2020. The patient is doing well, his pain is very well controlled, he has no acute complaints. [facility] He lives at home with his . Patient notes that his last bowel movement was 2 days ago, typically has 1 every day. Discussion regarding bowel regimen was held at bedside. Patient has eaten lunch without any difficulty, nausea or vomiting. He has not yet gotten up out of bed. Allergies Allergy/AdvReac Type Severity Reaction Status Date / Time Penicillins Allergy Unknown RASH Verified 01/02/20 08:52 lactose Allergy Gastrointestinal Verified 12/26/19 11:09 Upset Home Medications Home Medications Medication Instructions Recorded Confirmed Type albuterol sulfate 90 mcg/actuation 2 puffs INH Q6H PRN 05/28/19 01/02/20 History aerosol inhaler aspirin 81 mg tablet,delayed 81 mg PO QAM tab 05/28/19 01/02/20 History release magnesium oxide 500 mg tablet 500 mg PO PM tab 05/28/19 01/02/20 History omega-3 fatty acids-fish oil 360 1 cap PO BID cap 05/28/19 01/02/20 History mg-1,200 mg capsule potassium gluconate 595 mg (99 mg) 595 mg PO PM tab 05/28/19 01/02/20 History tablet,extended release CPAP Machine #1 ea 10/13/19 12/26/19 History insulin lispro 100 unit/mL 0 units SQ AC ml 10/13/19 01/02/20 History subcutaneous pen desloratadine 5 mg tablet 5 mg PO DAILY PRN #90 tab 10/28/19 12/26/19 Rx clotrimazole 1 % topical cream 1 appln TOP QAM PRN gm 11/17/19 12/26/19 History pen needle, diabetic 32 gauge x #10 ea 11/17/19 12/26/19 History " carvedilol 25 mg tablet 50 mg PO BID #360 tab 12/23/19 01/02/20 Rx atorvastatin [Lipitor] 40 mg PO PM 12/25/19 01/02/20 History cholecalciferol (vitamin D3) 2,000 unit PO PM 12/25/19 01/02/20 History [Vitamin D3] dutasteride [Avodart] 0.5 mg PO PM 12/25/19 01/02/20 History febuxostat [Uloric] 80 mg PO QAM 12/25/19 01/02/20 History glucose sensor,implant-dexamet 12/25/19 12/26/19 History insulin glargine [Lantus Solostar 18 unit SQ QAM 12/25/19 01/02/20 History U-100 Insulin] levothyroxine 175 mcg PO QAM 12/25/19 01/02/20 History silodosin [Rapaflo] 8 mg PO QAM 12/25/19 01/02/20 History venlafaxine 75 mg PO BID 12/25/19 12/26/19 History tamsulosin [Flomax] 0.4 mg PO DAILY 01/02/20 01/02/20 History Patient History Family History Father Myocardial infarction Hypertension Sister Coronary heart disease Hypertension Brother Hypertension Thyroid cancer Mother Pulmonary embolism Grandmother (Maternal) Stroke Denies family history of Ovarian cancer Prostate cancer Breast cancer Colorectal cancer Social History Preferred Language: [place] Communication Ability: Effective Visual Impairment: No Limitations Hearing Ability: Normal Casing Soaker Required: No Beliefs That Will Affect Care: None marital status: Current Living Situation: Family Other Information That Helps Us Care for You: No Feels Safe at Home: Yes Safety Concerns: Feels Safe At This Time Smoking Status: Never smoker Do You Dip or Chew Tobacco: No ; Second Hand Exposure: No ; Tobacco Cessation Education Requested by Patient: No Hx Alcohol Use: No Hx Substance Use: No Childhood Exposure to Second-Hand Smoke: Yes (Uncle and Aunts) Review of Systems Review of Systems: Constitutional: No fever, sweats or chills Eyes: No diplopia, no worsening or blurred vision ENT: normal hearing, no trouble swallowing Respiratory: No cough, sputum, dyspnea at rest or on exertion Cardiovascular: No chest pain, tightness or palpitations Abdomen: No pain, nausea, vomiting, diarrhea or constipation, Last bm 2d ago Musculoskeletal: No joint pain, calf pain, swelling Neurologic: No weakness, + slight numbness into the R foot s/p surgery but improving. No other numbness/tingling, or balance problems Psychiatric: No anxiety or depression Skin: No rash or itch Physical Exam Physical Exam: General: awake, alert, no apparent distress Head: Normocephalic, atraumatic ENT: PERRL, EOMI, no pharyngeal exudate, mucous membranes moist Chest: Clear to auscultation, on room air, no adventitious breath sounds Cardiac: Regular rate and rhythm, no murmur, no JVD, normal peripheral pulses, good capillary refill Abdominal: NABS x 4 quadrants, soft, nontender to palpation, no rebound, guarding or tenderness, + urinary catheter in place draining clear yellow urine Extremities: Normal inspection, +Right knee in CYNTHIA, icepack in place, hemovac, no peripheral edema or erythema, calfs nontender to palpation Psych: Normal mood and affect Neuro: AAO x 3, strength intact bilaterally and rated 5/5, no motor deficits, speech is clear, no peripheral sensory deficits Results & Data ([facility]) Vital Signs (Past 12 Hours) Vital Signs Temp Pulse Pulse Pulse Pulse Resp BP 01/02/20 14:56 36.5 C 56 L 16 119/77 01/02/20 14:30 54 L 18 139/81 01/02/20 14:08 36.4 C L 58 L 14 136/74 01/02/20 13:40 36.5 C 60 12 145/78 H 01/02/20 13:30 58 L 19 137/78 01/02/20 13:20 56 L 23 144/75 H 01/02/20 13:10 59 L 13 142/77 H 01/02/20 13:00 61 13 149/80 H 01/02/20 12:50 60 14 152/82 H 01/02/20 12:44 36.8 C 62 14 139/84 01/02/20 09:02 36.7 C 62 18 178/94 H Pulse Ox 01/02/20 14:56 95 01/02/20 14:30 96 01/02/20 14:08 98 01/02/20 13:40 95 01/02/20 13:30 97 01/02/20 13:20 98 01/02/20 13:10 98 01/02/20 13:00 98 01/02/20 12:50 98 01/02/20 12:44 98 01/02/20 09:02 95 PG Care Time/CCT Total # of Minutes Spent Total Time Spent with Patient: Total time spent is greater than 50% in coordination of care (as documented) at patient's floor/unit and/or counseling patient: Coding Level of Care Code 25125 Inpt Consult Level 3 Diagnoses Status post total right knee replacement Z96.651 Dilated cardiomyopathy I42.0 Cor pulmonale I27.81 Hypertension I10 Dyslipidemia E78.5 Restrictive lung disease J98.4 Obstructive sleep apnea G47.33 Diabetes type 2, uncontrolled E11.65 Anemia D64.9 Gout M10.9 Vitamin D deficiency E55.9 Obesity E66.9 Lumbosacral radiculopathy at L5 M54.17 History of thyroidectomy Z98.890 Benign prostatic hyperplasia N40.0 DVT prophylaxis Z29.9
[2020-01-02] MEDS ORDERED: NON-FORMULARY MEDICATION (Insulin Lispro [Humalog Kwikpen Insulin] 0 UNITS) SQ SCH (16:30)
[2020-01-02] MEDS: FERROUS GLUCONATE 324 MG TAB PO SCH (17:47)
[2020-01-02] MEDS: ASCORBIC ACID 500 MG TAB PO SCH (17:47)
[2020-01-02] MEDS: INSULIN ASPART 100 UNITS/ML 3 ML PEN SC SCH ×2 (17:49→20:46)
[2020-01-02] MEDS: CEFAZOLIN 2000MG 2,000 MG/15 ML SYR IV SCH (17:51)
--- NOTE | 2020-01-02 18:32 | Progress Notes ---
DATE: 01/02/2020 SUBJECTIVE: 79-year-old gentleman postop from right knee replacement. He is doing well. Not having any pain yet. No chest pain or shortness of breath. Not feeling dizzy or lightheaded. OBJECTIVE: VITAL SIGNS: Temperature 36.6. Vital signs stable. GENERAL: Shows a pleasant, middle-aged male. He is sitting up in bed, looks pretty comfortable. LUNGS: Clear to auscultation. HEART: Regular rate and rhythm. ABDOMEN: Soft, nontender, nondistended. EXTREMITIES: Grossly neurovascularly intact except as follows: Examination of the right leg reveals the leg to be well aligned. Dressing is clean, dry, and intact. He can dorsiflex and plantarflex his foot appropriately. He is neurologically intact. X-RAYS: X-rays of the right knee from recovery room reviewed. It shows right cemented posterior stabilized total knee arthroplasty. Components looked to be in good position. No signs of problems. ASSESSMENT: 79-year-old gentleman with multiple medical comorbidities including diabetes and cardiomyopathy postop from right knee replacement, doing well. His pain is controlled. He is neurologically intact. PLAN: 1. DVT prophylaxis including thigh-high TEDS, SCDs, and aspirin. We are going to use one baby aspirin twice a day. He normally takes one aspirin a day. His creatinine is normally elevated. We are going to avoid all other additional NSAIDs to protect his kidneys. 2. PT/OT. Weight bear as tolerated. Right total knee protocol. 3. Pain control. We are going to use Tylenol around the clock for pain control along with oxycodone as needed. We will use some Nucynta twice a day. We will hold on any NSAIDs due to his renal function. 4. IV antibiotics x24 hours. 5. Medical management. We have consulted the medicine service for medical assistance with any medical issues including diabetes. 6. Disposition: He is hoping to be discharged to rehab or longterm facility for a brief rehab stay once medically stable.
[2020-01-02] MEDS ORDERED: TRANEXAMIC ACID / 0.7% NACL 1,000 MG/100 ML BAG IV SCH (19:00)
[2020-01-02] MEDS: OXYCODONE HCL IR 5 MG TAB (IMMEDIATE RELEASE) PO PRN (20:00)
[2020-01-02] MEDS ORDERED: NON-FORMULARY MEDICATION (Potassium Gluconate 595 MG) PO SCH (21:00)
[2020-01-02] MEDS: SENNA 8.6 MG TAB PO SCH (21:45)
[2020-01-02] MEDS: carvediloL 25 MG TAB PO SCH (21:46)
[2020-01-02] MEDS: ATORVASTATIN 40 MG TAB PO SCH (21:46)
[2020-01-02] MEDS: MAGNESIUM OXIDE 400 MG TAB PO SCH (21:46)
[2020-01-02] MEDS: OMEGA-3 (PURIFIED FISH OIL) 1 GM CAP PO SCH (21:46)
[2020-01-02] MEDS: DOCUSATE SODIUM 100 MG CAP PO SCH (21:46)
[2020-01-02] MEDS: ASPIRIN 81 MG ECTAB PO SCH (21:47)
[2020-01-02] MEDS: CHOLECALCIFEROL 1,000 UNITS 25 MCG TAB PO SCH (21:48)
[2020-01-02] MEDS: TAPENTADOL HCL ER 50 MG TABCR PO SCH (21:49)
[2020-01-02] MEDS: HYDROmorphone INJ 0.5 MG/0.5 ML SYR IV PRN (23:48)
[2020-01-03] MEDS: CEFAZOLIN 2000MG 2,000 MG/15 ML SYR IV SCH (02:04)
[2020-01-03] MEDS: OXYCODONE HCL IR 5 MG TAB (IMMEDIATE RELEASE) PO PRN ×4 (02:14→21:55)
[2020-01-03] MEDS: HYDROmorphone INJ 0.5 MG/0.5 ML SYR IV PRN ×2 (06:00→20:44)
[2020-01-03] MEDS: LEVOTHYROXINE SODIUM 175 MCG TABLET PO SCH (06:01)
[2020-01-03] MEDS: ACETAMINOPHEN 500 MG TAB PO SCH ×3 (06:01→21:54)
[2020-01-03 06:12] LABS: Hematocrit (blood only) 32.3 % (42-52); Hemoglobin 11.2 g/dL (14.0-18.0); Mean Corpuscular Hemoglobin 32.3 pg (25-34); Mean Corpuscular Hgb Conc 34.7 g/dL (32-36); Mean Corpuscular Volume 93.1 fL (80-100); Mean Platelet Volume 10.1 fL (7.4-10.4); Platelet Count 114 K/uL (130-400); RDW Coefficient of Variation 13.8 % (11.5-14.5); RDW Standard Deviation 46.1 fL (36.4-46.3); Red Blood Count 3.47 M/uL (4.7-6.1)
[2020-01-03 06:50] LABS: BUN Creatinine Ratio 11.5 (10-20); Calcium 8.3 mg/dl (8.5-10.1); Creatinine Clr Calc Pharmacy 41.7 ml/min; Est GFR (African American) 39.8; Est GFR (Non-African American) 34.4
[2020-01-03] MEDS: DOCUSATE SODIUM 100 MG CAP PO SCH ×2 (07:48→20:40)
[2020-01-03] MEDS: TAMSULOSIN HCL 0.4 MG CAP PO SCH (08:41)
[2020-01-03] MEDS: TAPENTADOL HCL ER 50 MG TABCR PO SCH ×2 (08:41→20:44)
[2020-01-03] MEDS: ASPIRIN 81 MG ECTAB PO SCH ×2 (08:41→20:41)
[2020-01-03] MEDS: OMEGA-3 (PURIFIED FISH OIL) 1 GM CAP PO SCH ×2 (08:41→20:41)
[2020-01-03] MEDS: VENLAFAXINE HCL XR 75 MG CAPXR PO SCH (08:41)
[2020-01-03] MEDS: ASCORBIC ACID 500 MG TAB PO SCH ×2 (08:41→17:33)
[2020-01-03] MEDS: FERROUS GLUCONATE 324 MG TAB PO SCH ×2 (08:41→17:33)
[2020-01-03] MEDS: carvediloL 25 MG TAB PO SCH ×2 (08:41→20:41)
[2020-01-03] MEDS: MULTIVITAMIN TAB PO SCH (08:41)
[2020-01-03] MEDS: INSULIN GLARGINE SOLOSTAR 100 UNITS/ML 3 ML PEN SQ SCH (08:46)
[2020-01-03] MEDS: INSULIN ASPART 100 UNITS/ML 3 ML PEN SC SCH ×4 (08:46→22:20)
--- NOTE | 2020-01-03 10:16 | Orthopedic Progress Note ---
Date of Service January 03, 2020 Assessment & Plan (1) Status post total right knee replacement: ASSESSMENT: 79-year-old gentleman with multiple medical comorbidities including diabetes and cardiomyopathy postop from right knee replacement, doing well on postop day 1. Continues to require parenteral pain control. Should remain inpatient for mobilization. Appreciate multidisciplinary care. PLAN: Continue plan of care directed by Dr. Aden 1. DVT prophylaxis including thigh-high TEDS, SCDs, and aspirin. We are going to use one baby aspirin twice a day. He normally takes one aspirin a day. His creatinine is normally elevated. We are going to avoid all other additional NSAIDs to protect his kidneys. 2. PT/OT. Weight bear as tolerated. Right total knee protocol. 3. Pain control. We are going to use Tylenol around the clock for pain control along with oxycodone as needed. We will use some Nucynta twice a day. We will hold on any NSAIDs due to his renal function. 4. Medical management. Appreciate medicine service for medical assistance with any medical issues including diabetes. 6. Disposition: He is hoping to be discharged to rehab or residential facility for a brief rehab stay once medically stable, potentially tomorrow or Sunday. Present on Admission?: Yes Subjective He states that he does have significant pain. Nursing is provided medications just within the hour. Otherwise, he denies any nausea/vomiting, shortness of breath and feels otherwise well. Review of Systems Review of Systems: All systems reviewed & are unremarkable except as noted in HPI & below Physical Exam Constitutional: WD/WN, vitals as above well developed, well nourished and + well hydrated; no acute distress Respiratory: normal respiratory effort; no respiratory distress and no labored breathing Cardiovascular: Extremities: normal capillary refill; no calf tenderness and no pedal edema Musculoskeletal: Right lower extremity: Emre wrap clean dry and intact. Positive quadricep activity, tib ant, gastrocsoleus, EHL. Sensation grossly intact to light touch. 2+ DP pulse. Results & Data ([facility]) Vital Signs (Past 12 Hours) Vital Signs Temp Pulse Resp BP Pulse Ox 01/03/20 07:24 37.1 C 73 18 129/76 93 01/03/20 02:45 36.4 C L 64 18 128/77 92 01/02/20 23:40 37.2 C 66 16 138/86 94 Laboratory Tests 01/03/20 05:51 Hgb 11.2 L Hct 32.3 L PG Care Time/CCT Total # of Minutes Spent Total Time Spent with Patient: Total time spent is greater than 50% in coordination of care (as documented) at patient's floor/unit and/or counseling patient: Coding Level of Care Code None Diagnoses Status post total right knee replacement Z96.651
[2020-01-03] MEDS ORDERED: SODIUM CHLORIDE 0.9% 1000ML 1,000 ML IV SCH (14:30)
--- NOTE | 2020-01-03 16:28 | Hospitalist Progress Note ---
Date of Service January 03, 2020 Assessment & Plan (1) Status post total right knee replacement: -Pain management, bowel regimen and DVT prophylaxis per the primary team - Will continue gentle hydration of 1 L at 80 mL/hr - monitor urine output - DVT prophylaxis - ASA 81 mg BID - Continue PT/OT (2) Dilated cardiomyopathy: - No H/O obstructive CAD; no ischemic changes on prior stress testing - STABLE - Continue ASA; Atorvastatin 40 mg daily, Carvedilol 50 mg BID (3) Cor pulmonale: - No acute decompensation - monitor fluid balance (4) Hypertension: - Continue Carvedilol (5) Dyslipidemia: - Continue Atorvastatin (6) Restrictive lung disease: - Patient does not require albuterol inhaler as outpatient; stable pulmonary status (7) Obstructive sleep apnea: - Continue CPAP HS (8) Diabetes type 2, uncontrolled: - BSGs acceptable - Appreciate glycemic management (9) Anemia: -History of such, hemoglobin stable, baseline is around 13 - continue to monitor (10) Lumbosacral radiculopathy at L5: - Noted, continue pain management, PT/OT (11) History of thyroidectomy: - Continue Levothyroxine 175 mcg daily (12) Benign prostatic hyperplasia: - Continue Rapaflo, Flomax, Avodart (13) DVT prophylaxis: - ASA 81 mg BID, ambulatory per primary team Thank you for involving us in the care of Mr. Bass. Please do not hesitate to call with questions or concerns. At this time medicine service will follow along. Admission and Anticipated Discharge Date Admission Date: January 02, 2020 Subjective Biggest complaint is pain. Reports having some oxycodone before my visit. Tolerating his diet without issue. No CP or SOB. Verbalizes no other complaints. Review of Systems Constitutional: no fever and no chills Respiratory: no cough and no dyspnea Cardiovascular: no chest pain and no lightheadedness Gastrointestinal: no abdominal pain, no nausea, no vomiting, no constipation and no diarrhea/loose stools Genitourinary: no dysuria Musculoskeletal: + joint pain (Right knee) Integumentary: no rash Physical Exam Constitutional: WD/WN, vitals as above Eyes: + anicteric sclerae ENMT: Ears: no hearing impairment Neck: trachea midline Respiratory: normal respiratory effort, lungs clear to auscultation Cardiovascular: RRR, no murmur, no edema Vessels: no JVD Gastrointestinal (Abdomen): Inspection/Auscultation: normal bowel sounds Percussion/Palpation: abdomen soft; abdomen nontender Musculoskeletal: Head/Neck/Chest: normocephalic and head atraumatic CYNTHIA wrap applied to majority of RLE - did not remove Skin: no rashes, warm and dry Psychiatric: A+Ox3, euthymic affect Results & Data ([facility]) Vital Signs (Past 12 Hours) Vital Signs Temp Pulse Resp BP Pulse Ox 01/03/20 15:52 37.3 C 87 18 163/93 H 92 01/03/20 11:50 37.2 C 73 16 155/90 H 96 01/03/20 07:24 37.1 C 73 18 129/76 93 PG Care Time/CCT Total # of Minutes Spent Total Time Spent with Patient: Total time spent is greater than 50% in coordination of care (as documented) at patient's floor/unit and/or counseling patient: Coding Level of Care Code 48693 Inpt Consult Level 2 Diagnoses Status post total right knee replacement Z96.651 Dilated cardiomyopathy I42.0 Cor pulmonale I27.81 Hypertension I10 Dyslipidemia E78.5 Restrictive lung disease J98.4 Obstructive sleep apnea G47.33 Diabetes type 2, uncontrolled E11.65 Anemia D64.9 Lumbosacral radiculopathy at L5 M54.17 History of thyroidectomy Z98.890 Benign prostatic hyperplasia N40.0 DVT prophylaxis Z29.9
[2020-01-03] MEDS ORDERED: SILODOSIN PO SCH (17:00)
[2020-01-03] MEDS ORDERED: DUTASTERIDE PO SCH (17:00)
[2020-01-03] MEDS: SENNA 8.6 MG TAB PO SCH (20:40)
[2020-01-03] MEDS: ATORVASTATIN 40 MG TAB PO SCH (20:41)
[2020-01-03] MEDS: CHOLECALCIFEROL 1,000 UNITS 25 MCG TAB PO SCH (20:41)
[2020-01-03] MEDS: MAGNESIUM OXIDE 400 MG TAB PO SCH (20:42)
[2020-01-04] MEDS: OXYCODONE HCL IR 5 MG TAB (IMMEDIATE RELEASE) PO PRN ×2 (06:04→12:34)
[2020-01-04] MEDS: LEVOTHYROXINE SODIUM 175 MCG TABLET PO SCH (06:05)
[2020-01-04] MEDS: ACETAMINOPHEN 500 MG TAB PO SCH (06:05)
[2020-01-04] MEDS: INSULIN ASPART 100 UNITS/ML 3 ML PEN SC SCH ×2 (08:37→12:30)
[2020-01-04] MEDS: INSULIN GLARGINE SOLOSTAR 100 UNITS/ML 3 ML PEN SQ SCH (08:38)
[2020-01-04] MEDS: VENLAFAXINE HCL XR 75 MG CAPXR PO SCH (08:39)
[2020-01-04] MEDS: carvediloL 25 MG TAB PO SCH (08:39)
[2020-01-04] MEDS: MULTIVITAMIN TAB PO SCH (08:39)
[2020-01-04] MEDS: DOCUSATE SODIUM 100 MG CAP PO SCH (08:39)
[2020-01-04] MEDS: OMEGA-3 (PURIFIED FISH OIL) 1 GM CAP PO SCH (08:39)
[2020-01-04] MEDS: FERROUS GLUCONATE 324 MG TAB PO SCH (08:39)
[2020-01-04] MEDS: TAMSULOSIN HCL 0.4 MG CAP PO SCH (08:39)
[2020-01-04] MEDS: ASCORBIC ACID 500 MG TAB PO SCH (08:39)
[2020-01-04] MEDS: ASPIRIN 81 MG ECTAB PO SCH (08:39)
[2020-01-04] MEDS: TAPENTADOL HCL ER 50 MG TABCR PO SCH (08:45)
[2020-01-04] MEDS ORDERED: ULORIC PO SCH (09:00)
[2020-01-04] MEDS ORDERED: DUTASTERIDE PO SCH (09:00)
--- NOTE | 2020-01-04 10:14 | Orthopedic Progress Note ---
Date of Service January 04, 2020 Assessment & Plan (1) Status post total right knee replacement: ASSESSMENT: 79-year-old gentleman with multiple medical comorbidities including diabetes and cardiomyopathy postop from right knee replacement, doing well on postop day 2. PLAN: Continue plan of care directed by Dr. Aden 1. DVT prophylaxis including thigh-high TEDS, SCDs, and aspirin. We are going to use one baby aspirin twice a day. He normally takes one aspirin a day. His creatinine is normally elevated. We are going to avoid all other additional NSAIDs to protect his kidneys. 2. PT/OT. Weight bear as tolerated. Right total knee protocol. 3. Pain control. We are going to use Tylenol around the clock for pain control along with oxycodone as needed. We will hold on any NSAIDs due to his renal function. 4. Medical management. [facility] medicine service for medical assistance with any medical issues including diabetes. 6. Disposition: Plan for discharge to [facility] today Present on Admission?: Yes Subjective Sitting at the bedside with his son in the room. He reports no issues. He thinks pains and recently well controlled with current oral regimen. He is aware that [facility] would be the next destination and agreeable for transfer there today. Review of Systems Review of Systems: All systems reviewed & are unremarkable except as noted in HPI & below Physical Exam Constitutional: WD/WN, vitals as above well developed, well nourished and + well hydrated; no acute distress Respiratory: normal respiratory effort; no respiratory distress and no labored breathing Cardiovascular: Extremities: normal capillary refill; no calf tenderness and no pedal edema Musculoskeletal: Right lower extremity: Wound covered by his KATEY hose with some areas of spotting serosanguineous drainage, as expected. Positive quadricep activity, tib ant, gastrocsoleus, EHL. Sensation grossly intact to light touch. 2+ DP pulse. Results & Data ([facility]) Vital Signs (Past 12 Hours) Vital Signs Temp Pulse Resp BP Pulse Ox 01/04/20 07:55 36.7 C 81 16 149/81 H 92 01/03/20 23:28 36.9 C 01/03/20 23:11 38.1 C H 94 H 18 161/82 H 91 PG Care Time/CCT Total # of Minutes Spent Total Time Spent with Patient: Total time spent is greater than 50% in coordination of care (as documented) at patient's floor/unit and/or counseling patient: Coding Level of Care Code None Diagnoses Status post total right knee replacement Z96.651
--- NOTE | 2020-01-04 10:58 | Discharge Summary ---
Date of Service January 04, 2020 Admission HPI Per Admitting Provider 79-year-old male with active related right knee pain who is indicated for right total knee replacement by Dr. Aden Admission Exam Per Admitting Provider Appears well, no acute distress, pleasant and conversant Right knee range of motion limited by pain Principal Diagnosis Right knee degenerative joint disease Discharge Exam Constitutional WD/WN, vitals as above well developed, well nourished and + well hydrated; no acute distress ENMT external ear and nose normal, oropharynx normal Neck trachea midline, no thyromegaly Respiratory normal respiratory effort; no respiratory distress and no labored breathing Cardiovascular Extremities: normal capillary refill; no calf tenderness and no edema Musculoskeletal Right knee wound well approximated with expected spotting serous sanguinous drainage. Range of motion 5 to 95 degrees. Discharge Data Allergies Allergy/AdvReac Type Severity Reaction Status Date / Time Penicillins Allergy Unknown RASH Verified 01/02/20 08:52 lactose Allergy Gastrointestinal Verified 12/26/19 11:09 Upset Consultations 01/02/20 14:08 Consult Case Management - Discharge Planning Routine Consult Hospitalist Stat Procedures Performed Operation Date: 01/02/20 10:40 Actual Procedures p Right Total Knee Arthroplasty cemented(Right) - Alhaji Aden MD Ordered Studies 01/02/20 05:00 US - OR guided needle placemen Routine Hospital Course (1) Status post total right knee replacement: He was admitted after right total knee arthroplasty for standard postoperative care. He made progress without complication regards to mobilization, pain control and stability with regard to his medical comorbidities. On postoperative day 2, he was found stable for transfer to an available bed at [facility] for inpatient rehabilitation. He will follow- up as an outpatient with Dr. Aden. Total Time Total Time Spent Total Time Spent (In Minutes): 30 Total Time Includes: Examination of the Patient, Discharge Planning, Medication Reconciliation and Other Discharge Plan Discharge Items Patient Disposition: Transfer Inpatient Rehab Fac Reason For Visit: Right Knee DJD Discharge Diagnosis: Right knee degenerative joint disease Activity: Per Instructions section Non-emergency contact: Surgeon Call non-emergency contact if: your pain is not controlled and your temperature is above 101.5 Follow-up/Referrals: Tien Jeter MD [Primary Care Provider] - Alhaji Aden MD [Physician] - Diet: Carb Consistent or DM2 Addtl Attending Provider Instructions: See discharge planning section Stand-Alone Forms: [facility] Skilled Items Patient informed of condition?: Yes Discharge Level of Care: Acute rehab Communicable Disease: No Lines: None Urinary Catheter: No Medications and DC Order Prescriptions: New multivitamin [Daily-Jonathon] Tablet 1 tab PO QAM 90 Days Qty: 90 RF: 0 sennosides [Senokot] 8.6 mg Tablet 17.2 mg PO HS 30 Days Qty: 60 RF: 0 aspirin 81 mg Tablet,Delayed Release (Dr/Ec) 81 mg PO BID 42 Days Qty: 84 RF: 0 acetaminophen 500 mg Tablet 1,000 mg PO Q8 60 Days Qty: 360 RF: 0 ascorbic acid (vitamin C) [Vitamin C] 500 mg Tablet 500 mg PO BIDM 30 Days Qty: 60 RF: 0 docusate sodium 100 mg Capsule 100 mg PO BID 30 Days Qty: 60 RF: 0 oxycodone 5 mg Tablet 5 - 10 mg PO Q6H PRN (Reason: pain) 14 Days Qty: 20 RF: 0 ferrous gluconate 324 mg (38 mg iron) Tablet 324 mg PO BIDM 30 Days Qty: 60 RF: 0 Continued desloratadine [Clarinex] 5 mg tablet 5 mg PO DAILY PRN (Reason: allergies) Qty: 90 RF: 3 clotrimazole 1 % cream 1 appln TOP QAM PRN (Reason: Rash) RF: 0 albuterol sulfate [ProAir HFA] 90 mcg/actuation HFA aerosol inhaler 2 puffs INH Q6H PRN (Reason: Shortness Of Breath) RF: 0 (DME) CPAP Machine Misc See Dose Instructions .ROUTE .MEDSUPPLY Qty: 1 RF: 0 insulin lispro [Humalog KwikPen Insulin] 100 unit/mL insulin pen 0 units SQ AC RF: 0 (DME) pen needle, diabetic [BD Ultra-Fine Uzma Pen Needle] 32 gauge x 5/32" needle See Dose Instructions .ROUTE .MEDSUPPLY Qty: 10 RF: 0 carvedilol [Coreg] 25 mg tablet 50 mg PO BID Qty: 360 RF: 3 omega-3 fatty acids-fish oil [Fish Oil] 360-1,200 mg capsule 1 cap PO BID RF: 0 magnesium oxide 500 mg tablet 500 mg PO PM RF: 0 potassium gluconate 595 mg (99 mg) tablet extended release 595 mg PO PM RF: 0 atorvastatin [Lipitor] 40 mg tablet 40 mg PO PM RF: 0 levothyroxine 175 mcg tablet 175 mcg PO QAM RF: 0 venlafaxine 75 mg capsule,extended release 24hr 75 mg PO BID RF: 0 dutasteride [Avodart] 0.5 mg capsule 0.5 mg PO PM RF: 0 Lantus Solostar U-100 Insulin 100 unit/mL (3 mL) insulin pen 18 unit SQ QAM RF: 0 cholecalciferol (vitamin D3) [Vitamin D3] 2,000 unit tablet 2,000 unit PO PM RF: 0 febuxostat [Uloric] 80 mg tablet 80 mg PO QAM RF: 0 silodosin [Rapaflo] 8 mg capsule 8 mg PO QAM RF: 0 (DME) glucose sensor,implant-dexamet Device SUBCUT RF: 0 tamsulosin [Flomax] 0.4 mg capsule 0.4 mg PO DAILY RF: 0 Discontinued aspirin 81 mg tablet,delayed release (DR/EC) 81 mg PO QAM RF: 0 Discharge Orders: Discharge Order (Routine); Ordered 01/04/20 Ordered By: Heath Alvarez Admission Data Admit Date/Time: 01/02/20 12:45 Attending Provider: Alhaji Aden Admit Provider: Alhaji Aden Primary Care Provider: Tien Jeter Other Providers: [facility] ; Candido Friedman Other Interventions: Discharge Summary Assessment (RN) Last Done: 01/04/20 10:12 Coding Level of Care Code D/C Day Management <30 mins Diagnoses Status post total right knee replacement Z96.651
== END 2020-01-04 13:32 ==
LOC: ASU 08:08 → 3E 08:08

== ENCOUNTER 2024-02-17 16:16 | Inpatient (IN) ==
--- OUTSIDE RECORDS SUMMARY | 2024-02-17 16:19 | External Medical Summary | Continuity of Care Document ---
Author Name Unknown Organization [facility] [address] [facility] [address] [id number] Care Team Providers Care Leading Firefighter Name Role Phone Tien Jeter Primary Care Physician [phone] [facility]counter [facility] [id number] Date(s): 02/14/24 - 02/14/24 [facility] [address] [facility] [address] [place] [phone] [place] Encounter Diagnosis History of basal cell carcinoma of skin(Discharge Diagnosis) - 02/14/24 History of malignant melanoma of skin(Discharge Diagnosis) - 02/14/24 Seborrheic keratoses(Discharge Diagnosis) - 02/14/24 Discharge Disposition: Home or Self Care Attending Physician: MD Blair Thomas A Allergies, Adverse Reactions, Alerts Substance Reaction Severity Status penicillins unknown Active Assessment and Plan Extracted from: Title:Clinical Document Author:MD Rossy, Tomeka Todd Date:02/14/24 OUTPATIENT NOTE Name: JONY SAMUEL Patient Number:1 [id number] : 1940 Date of Service: 02/14/2024 _ Jony Samuel returns for reevaluation. 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 Both sites are clear of recurrence. He occasionally picks at keratotic papules present on the arm. These appears inflamed seborrheic keratoses. They are not otherwise bothering him and he would prefer not to have them treated. He has numerous seborrheic keratoses present on the back which require no further treatment unless they bother him. Review of systems medications allergies as noted on the chart. The patient is in stable health. Recently moved from [facility] back to the [place] area on [facility]. Examination reveals pleasant well-nourished white male with type I skin is alert and oriented x 3 with normal mood and affect. Examination of the scalp, head, neck, back, chest, arms, hands, fingers, abdominal area reveals findings as noted above, many seborrheic keratoses present on the back which do not appear atypical and is otherwise unremarkable. The patient will return in 6 months for reevaluation. Medications alfuzosin 10 mg oral tablet, extended release Start: 07/04/18 17:00:00 EDT, 1 tab, PO, Daily Start Date: 07/04/18 Status: Ordered aspirin 81 mg oral tablet Start: 12/26/12 16:25:00, 1 tab, PO, Daily, tab Start Date: 12/26/12 Status: Ordered Coreg 25 mg oral tablet Start: 12/26/12 16:26:00, 2 tab, PO, bid Start Date: 12/26/12 Status: Ordered desloratadine 5 mg oral tablet, disintegrating Start: 06/03/14 8:30:00, 1 tab, PO, Daily, PRN: as needed for allergy symptoms Start Date: 06/03/14 Status: Ordered finasteride 5 mg oral tablet Start: 07/04/18 17:01:00 EDT, 1 tab, PO, Daily Start Date: 07/04/18 Status: Ordered HumaLOG Start: 06/03/14 8:33:00, 5 unit =, subQ, plus sliding scale at supper Start Date: 06/03/14 Status: Ordered HumaLOG KwikPen Start: 07/04/18 17:01:00 EDT, See Instructions, Inject 3-4 units with dinner plus sliding scale Start Date: 07/04/18 Status: Ordered hydrocortisone 2.5% topical cream Start: 02/08/22 11:04:00 EDT, 1 appl, topical, bid, Disp# 20 g, Refills: 0, apply to face until clear and then as needed, Pharmacy: [facility] Start Date: 02/08/22 Status: Ordered Lantus Start: 06/03/14 8:33:00 EDT, 9 unit =, subQ, Daily, 12-15 units depending on bs Start Date: 06/03/14 Status: Ordered levothyroxine Start: 05/19/20 14:54:00 EDT, 175 mcg =, takes for 6 days Start Date: 05/19/20 Status: Ordered Lipitor 40 mg oral tablet Start: 12/26/12 16:27:00, 1 tab, PO, Daily Start Date: 12/26/12 Status: Ordered magnesium oxide 500 mg oral tablet Start: 07/04/18 17:05:00 EDT, 1 tab, PO, Daily Start Date: 07/04/18 Status: Ordered MiraLax oral powder for reconstitution Start: 08/06/18 15:00:00 EDT, 17 g =, PO, Daily, Disp# 255 g, Refills: 11, , other Start Date: 08/06/18 Status: Ordered potassium gluconate 595 mg (99 mg elemental potassium) oral tablet Start: 07/04/18 17:06:00 EDT, See Instructions, 1 tab po daily Start Date: 07/04/18 Status: Ordered ProAir HFA 90 mcg/inh inhalation aerosol Start: 07/04/18 17:07:00 EDT, 2 puff, inhaled, qid, PRN: as needed for wheezing Start Date: 07/04/18 Status: Ordered Rapaflo 4 mg oral capsule Start: 05/19/20 14:54:00 EDT, 1 cap, PO, Daily Start Date: 05/19/20 Status: Ordered triamcinolone 0.1% topical cream Start: 03/17/21 15:28:00 EDT, 1 appl, topical, bid, Disp# 15 g, Refills: 2, apply to dermatitis on trunk until clear, Pharmacy: [facility] Start Date: 03/17/21 Status: Ordered Uloric 80 mg oral tablet Start: 07/04/18 17:08:00 EDT, 1 tab, PO, Daily Start Date: 07/04/18 Status: Ordered venlafaxine 225 mg oral tablet, extended release Start: 06/24/19 11:08:00 EDT, 1 tab, PO, Daily Start Date: 06/24/19 Status: Ordered Vitamin C Start: 06/03/14 8:31:00, 500 mg =, PO, Daily Start Date: 06/03/14 Status: Ordered Vitamin D3 2000 intl units oral capsule Start: 07/04/18 17:09:00 EDT, 1 cap, PO, bid Start Date: 07/04/18 Status: Ordered Mental Status 02/14/24 Barriers to Learning one year None evide nt Mandatory Health Literacy Documentation Yes Health Literacy Communication Barriers N ever Primary Language Occitan Problem List Condition Confirmation Course Effective Dates Status Health St atus Informant Abnormal Kidney Function Confirmed Active Chronic heart failure Confirmed Active Diabetes mellitus Confirmed Active Dysplastic nevus Confirmed Active Hypertension Confirmed Active Hypothyroid Confirmed Active Joint pain Confirmed Active Lentigo maligna Confirmed Active SK (seborrheic keratosis) Confirmed Active Sleep apnea Confirmed Active SOB (shortness of breath) Confirmed Active Toric intraocular lens implant 1 Confirmed Active 1right and left eye. Diagnosis Diagnosis Type Effective Dates Health Status Clinical Service Informant History of basal cell carcinoma of skin Discharge Diagnosis 02/14/24 History of malignant melanoma of skin Discharge Diagnosis 02/14/24 Seborrheic keratoses Discharge Diagnosis 02/14/24 Procedures Procedure Date Related Diagnosis Body Site Status Mohs' micrographic surgery 11/07/21 Completed Shave biopsy 09/28/21 Completed Shave biopsy of skin 06/24/19 Comp leted Shave biopsy and cauterisati on of skin 1 12/17/18 Completed Hydrogen breath test 2 10/08/18 Co mpleted Ultrasound 3 09/11/18 Completed Mohs surgery 06/2015 Completed Shave biopsy 4 06/03/15 Completed Colonoscopy 5 03/04/14 Completed 1ED&C left extensor forearm 2The elevation of hydrogen 22 points above its baseline associated with symptoms of nausea and gas is consistent with a diagnosis of lactose intolerance. 3Fatty infiltration of liver 4cm upper pole right renal cyst Mild prominence extra hepatic common bile duct at 8mm. The intrahepatic ducts are normal 4left cheek 5The examined portion of the ileum was normal. One 3 mm polyp in the cecum. Resected and retrieved. Diverticulosis in the sigmoid colon. Internal hemorrhoids. pathology results: 1) Duodenun, biopsy: benign duodenal mucosa. No diagnostic abnormality 2) Cecum, polypectomy: Colonic mucosa with hyperplastic changes 3) Colon, transverse polypectomy: tubular adenoma. Social History Social History Type Response Smoking Status Never smoked cigaret anupam Sex Male Outpatient Note * MD Rossy, Elder Todd: PERFORM Event Display: .Outpt Note Authored Date: [id number] OUTPATIENT NOTE Name: JONY SAMUEL Patient Number:[id number] : 1940 Date of Service: 02/14/2024 _ Jony Samuel returns for reevaluation. 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 Both sites are clear of recurrence. He occasionally picks at keratotic papules present on the arm. These appears inflamed seborrheic keratoses. They are not otherwise bothering him and he would prefer not to have them treated. He has numerous seborrheic keratoses present on the back which require no further treatment unless they bother him. Review of systems medications allergies as noted on the chart. The patient is in stable health. Recently moved from [facility] to the [facility] on [facility]. Examination reveals pleasant well-nourished white male with type I skin is alert and oriented x 3 with normal mood and affect. Examination of the scalp, head, neck, back, chest, arms, hands, fingers,abdominal area reveals findings as noted above, many seborrheic keratoses present on the back whichdo not appear atypical and is otherwise unremarkable. The patient will return in 6 months for reevaluation. Electronic Signature on File Electronically Reviewed/Signed by: Elder Blair MD Author Signature Dt/Tm:02/14/2024 02:56 PM Department of Dermatology [facility] Patient Care team information Care Team Personnel Name: MD Jeter Jeffrey W Position: Referring DIRECT Member Role: Primary Care Provider Address: Address: [facility] [address] [place] [address] Care Team Related Persons Name: LIZZIE PEEWEE Deutsch Address: [address] [phone]
[2024-02-17 16:59] LABS: Basophils # (auto) 0.03 K/uL (0.00-0.20); Basophils % (auto) 0.4 %; Eosinophils % (auto) 2.5 %; Hematocrit (blood only) 39.3 % (42.0-52.0); Hemoglobin 14.1 g/dl (14.0-18.0); Immature Granulocytes # (auto) 0.03 K/uL (0.01-0.20); Immature Granulocytes % (auto) 0.4 %; Lymphocytes # (auto) 1.56 K/uL (1.20-3.40); Lymphocytes % (auto) 19.6 %; Mean Corpuscular Hemoglobin 32.4 pg (25.0-34.0); Mean Corpuscular Hgb Conc 35.9 g/dL (32.0-36.0); Mean Corpuscular Volume 90.3 fL (80.0-100.0); Mean Platelet Volume 10.3 fL (9.4-12.4); Monocytes % (auto) 7.5 %; Neutrophils # (auto) 5.55 K/uL (1.40-6.50); Neutrophils % (auto) 69.6 %; Platelet Count 155 K/uL (130-400); RDW Coefficient of Variation 12.8 % (11.5-14.5); RDW Standard Deviation 42.5 fL (36.4-46.3); Red Blood Count 4.35 M/uL (4.70-6.10); White Blood Count 7.97 K/ul (4.8-10.8)
--- NOTE | 2024-02-17 17:05 | Emergency Department Note ---
Impression & Plan Acute respiratory failure with hypoxia, CHF (congestive heart failure) ED Provider Note NAME: NAVDEEP SAMUEL AGE: 83 SEX: M : 1940 ARRIVES VIA: Walk-In INFORMANT: Patient, ED PROVIDER(S): Josiah Hayward MD CHIEF COMPLAINT: Chest heaviness, shortness of breath MEDICAL DECISION MAKING: Patient presented due to concern for worsening shortness of breath and chest heaviness. The patient was noted to be fairly hypertensive and I was concerned for hypertensive urgency and associated heart failure. IV was established and blood work was obtained. EKG performed along with a chest x-ray. Patient was also ordered IV Lasix nitro and BiPAP. Patient's blood work shows a normal white count hemoglobin and platelet count with normal kidney function and electrolytes BSG at 231 troponin is not elevated. The patient's BNP was elevated at 331. Urinalysis does not show evidence of blood or infection. Upon reassessment the patient's breathing difficulties were significantly improved. Chest x-ray without overt pulmonary edema the patient does not have significant pretibial edema I do believe the patient's hypertension playing a role. I did speak to the on-call hospitalist Dr. Patterson and the patient was admitted to the medicine service. Critical Care: I have personally spent 45 minutes of critical care time in direct management of this patient. This includes bedside care, interpretation of diagnostic studies, and testing, discussion with consultants, patient, and family members, and other require inpatient management activities. This 45 minutes is in excess of all separately billable procedures. Discussion w/ other healthcare providers: Dr. Patterson, inpatient medicine service Prior /Outside records reviewed: I reviewed a cardiology visit from November 08, [address] Shields. Known history of dilated cardiomyopathy dyslipidemia hypertension CAROLANN CKD. Per assessment patient with prior history of cardiomyopathy with follow-up echoes with normal LV and RV systolic function. Known history of peripheral edema. Reviewed a dobutamine stress echocardiogram from January 01, 2020 which was negative echo and EKG for myocardial ischemia 62% max predicted heart rate. Resting echo with normal biventricular systolic function moderate concentric LVH and grade 1 left ventricular diastolic dysfunction. Differential diagnosis: Reactive airway disease, pneumonia, pneumothorax, COPD, CHF, ACS, pulmonary embolism, musculoskeletal, GERD as well as other pathologies were considered. Diagnostics, as interpreted by me: ECG: Normal sinus rhythm, rate 69, prolonged QT, no ST elevations Cardiac monitoring: An order was placed for continuous cardiac monitoring. The monitor shows a rate of 72 with sinus rhythm. Patient was placed on pulse oximetry Medical decision rules: none Imaging studies: I informally interpreted the patient's chest x-ray does not show obvious pneumonia or pneumothorax with formal report to follow. HPI: Patient presents with at bedside due to concern for worsening weakness fatigue and shortness of breath. The patient does have a prior history of heart failure and has followed with Dr. Bearden although has been told that he has been doing quite well from heart failure standpoint with fairly normal function. does not know the last time that he had an echocardiogram that are scheduled for 1 the next time that they go to the office. Patient has been too weak to even get up to go to the bathroom as the patient has required sitting on the floor. Patient has had cough with productive sputum beginning on Sunday. Patient does feel as though his chest is heavy and full. Patient is also had some associated urinary incontinence. Patient also does complain of burning with urination does have a history of UTI and the is unsure as whether or not he had similar symptoms at that time. They have had some recent stress as [facility] Patient denies any increase in salt or processed foods in the diet. No significant leg swelling. PAST MEDICAL HISTORY: See Below PAST SURGICAL HISTORY: See Below SOCIAL HISTORY: See Below HOME MEDICATIONS: See Below ALLERGIES: See Below VITALS: See Below PHYSICAL EXAMINATION: GENERAL: Mildly ill but nontoxic in appearance. EYE EXAM: Normal conjunctiva. PERRL, no anisocoria and EOM's grossly intact w/o pain. OROPHARYNX: Moist mucus membranes, grossly normal dentition. NECK: Trachea midline, no stridor. LUNGS: Decreased breath sounds at the right base. Normal chest wall mechanics. HEART: NSR, no MRG. ABDOMEN: Abdomen soft, non-tender, no masses, no rebound or guarding. BACK: No CVA TTP. SKIN: No rashes and no bruising. UPPER EXTREMITIES: Upper extremities are grossly normal. LOWER EXTREMITIES: Grossly normal, trace pretibial edema without any calf pain or erythema no asymmetry. NEURO EXAM: Fatigable GCS 14 opens eyes to voice,, cranial nerves II-XII grossly intact, normal speech, moves all 4 extremities. 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 Postural dizziness Hx, no issues with currently. Osteoarthritis Hx of thyroid cancer WITH REMOVAL NO CHEMO Spinal stenosis Diabetes type 2, uncontrolled Gout Anemia Attention or concentration deficit Benign prostatic hyperplasia CKD (chronic kidney disease), stage III Cor pulmonale Dilated cardiomyopathy Per 12/23 cardio note, "Most recent echo with low normal LV systolic function. No current signs or symptoms of pulmonary vascular congestion." Dyslipidemia Erectile dysfunction Lumbosacral radiculopathy at L5 Obstructive sleep apnea CPAP Restrictive lung disease RARE RES. INH USE> WELL CONTROLLED Secondary hyperparathyroidism 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 Acquired claw toe of left foot Acquired claw toe of right foot Acquired hallux valgus of right foot Chronic back pain Mild asthma Does not use Albuterol, has just in case Hypertension Surgical History Hx of bilateral cataract extraction History of colonoscopy History of tooth extraction History of tonsillectomy History of cardiac cath [place] MANY YEARS AGO> NO STENTS H/O: knee surgery RIGHT History of thyroidectomy Family History Father Myocardial infarction Hypertension Sister Coronary heart disease Hypertension Brother Hypertension Thyroid cancer Mother Pulmonary embolism Grandmother (Maternal) Stroke Denies family history of Ovarian cancer Prostate cancer Breast cancer Colorectal cancer Social History Smoking Status: Former smoker Second Hand Exposure: No; Do You Dip or Chew Tobacco: No; Hx Alcohol Use: No Hx Substance Use: No Preferred Language: Persian Communication Ability: Effective Visual Impairment: No Limitations Hearing Ability: Normal Garment Alteration Examiner Required: No Beliefs That Will Affect Care: None marital status: Current Living Situation: Spouse current occupational status: retired Feels Safe at Home: Yes Safety Concerns: Feels Safe At This Time Childhood Exposure to Second-Hand Smoke: Yes (Uncle and Aunts) Physical Activity Frequency: Does not Exercise Seatbelt Use: always Assistive Devices: Cane and CPAP Allergies Allergies Allergy/AdvReac Type Severity Reaction Status Date / Time Penicillins Allergy Unknown HAPPENED Verified 02/17/24 22:10 A CHILD--RASH lactose AdvReac Intermediate Gastrointestinal Verified 02/17/24 22:10 Upset Home Meds Home Medications Medication Instructions Recorded Confirmed magnesium oxide 400 mg PO PM 05/28/19 02/17/24 potassium gluconate 595 mg (99 mg) 595 mg PO PM 05/28/19 02/17/24 tablet,extended release cholecalciferol (vitamin D3) 50 2,000 unit PO QAM 12/25/19 02/17/24 mcg (2,000 unit) tablet (Vitamin D3) blood-glucose sensor (Dexcom G6 01/23/22 11/08/23 Sensor device) multivitamin (Daily Multi-Vitamin 1 tab PO DAILY 02/07/23 02/17/24 tablet) blood sugar diagnostic (Contour 03/28/23 11/08/23 Next Test Strips) aspirin 81 mg tablet,delayed 81 mg PO DAILY 05/03/23 02/17/24 release (Adult Low Dose Aspirin) Previous Rx's Medication Instructions Recorded albuterol sulfate 90 mcg/actuation 2 puff inhalation Q6H PRN 01/10/22 aerosol inhaler (ProAir HFA) Shortness Of Breath #6.7 grams CPAP Machine #1 ea 02/15/22 clindamycin HCl 300 mg capsule 600 mg (2 x 300 mg) PO ONCE #4 caps 02/27/23 clotrimazole 1 % topical cream 1 applic topical BID PRN Rash 90 03/28/23 days #90 grams atorvastatin 40 mg tablet (Lipitor) 40 mg PO PM #90 tabs 11/06/23 desloratadine 5 mg tablet 5 mg PO DAILY PRN allergies #90 11/06/23 (Clarinex) tabs BD Ultra-Fine Uzma Pen Needle 32 #400 ea 12/13/23 gauge x 5/32" (pen needle, diabetic) dutasteride 0.5 mg capsule 0.5 mg PO DAILY #30 caps 12/13/23 silodosin 8 mg capsule (Rapaflo) 8 mg PO DAILY #30 caps 12/13/23 levothyroxine 137 mcg tablet 137 mcg PO DAILY 90 days #90 tabs 03/13/24 carvedilol 25 mg tablet (Coreg) 50 mg (2 x 25 mg) PO BID #360 tabs 01/25/24 febuxostat 80 mg tablet (Uloric) 80 mg PO QAM #90 tabs 01/25/24 venlafaxine 75 mg capsule,extended 75 mg PO TID #270 caps 01/25/24 release 24 hr Basaglar KwikPen U-100 Insulin 100 40 unit (0.4 mL) subcut DAILY #15 02/11/24 unit/mL (3 mL) subcutaneous mL (insulin glargine) insulin lispro 100 unit/mL See Rx Instructions subcut 02/11/24 subcutaneous pen (Admelog SoloStar USEASDIRECTD #15 mL U-) Results & Data (ED) Vital Signs Vital Signs - 24 hr 02/17/24 16:24 02/17/24 16:29 02/17/24 16:30 Temperature 36.9 C Temperature Source Temporal Artery Scan Pulse Rate 67 Pulse Rate from SpO2 Sensor Respiratory Rate 16 Respiratory Effort / Characteristics Non-Labored Spontaneous Respiratory Depth Normal Respiratory Pattern Blood Pressure 165/99 H Blood Pressure Mean 121 Pulse Oximetry 94 96 Oxygen Delivery Method Room Air Room Air Room Air Fraction of Inspired Oxygen Sepsis Recent Fever Within 48 Hours No Sepsis New/Unexplained Change in Mental Status No Sepsis Action Taken by Nursing No Action Required Pulse Oximetry Post Tiitration 94 02/17/24 16:50 02/17/24 17:00 02/17/24 17:00 Temperature Temperature Source Pulse Rate 66 66 Pulse Rate from SpO2 Sensor 65 66 Respiratory Rate 16 13 Respiratory Effort / Characteristics Respiratory Depth Respiratory Pattern Blood Pressure 180/101 H Blood Pressure Mean 129 Pulse Oximetry 98 95 Oxygen Delivery Method Fraction of Inspired Oxygen Sepsis Recent Fever Within 48 Hours Sepsis New/Unexplained Change in Mental Status Sepsis Action Taken by Nursing Pulse Oximetry Post Tiitration 02/17/24 17:15 02/17/24 17:30 02/17/24 17:31 Temperature Temperature Source Pulse Rate 66 69 Pulse Rate from SpO2 Sensor 70 Respiratory Rate 16 Respiratory Effort / Characteristics Respiratory Depth Respiratory Pattern Blood Pressure 192/104 H Blood Pressure Mean 149 Pulse Oximetry 97 Oxygen Delivery Method Fraction of Inspired Oxygen Sepsis Recent Fever Within 48 Hours Sepsis New/Unexplained Change in Mental Status Sepsis Action Taken by Nursing Pulse Oximetry Post Tiitration 02/17/24 17:31 04/21/24 17:46 02/17/24 17:46 Temperature Temperature Source Pulse Rate 71 67 Pulse Rate from SpO2 Sensor 71 67 Respiratory Rate 22 16 Respiratory Effort / Characteristics Respiratory Depth Respiratory Pattern Blood Pressure 186/113 H Blood Pressure Mean 148 Pulse Oximetry 96 97 Oxygen Delivery Method Fraction of Inspired Oxygen Sepsis Recent Fever Within 48 Hours Sepsis New/Unexplained Change in Mental Status Sepsis Action Taken by Nursing Pulse Oximetry Post Tiitration 02/17/24 18:00 02/17/24 18:00 02/17/24 18:05 Temperature Temperature Source Pulse Rate 65 64 Pulse Rate from SpO2 Sensor 64 Respiratory Rate 20 16 Respiratory Effort / Characteristics Spontaneous Respiratory Depth Normal Respiratory Pattern Regular Blood Pressure 185/106 H Blood Pressure Mean 149 Pulse Oximetry 96 96 Oxygen Delivery Method Fraction of Inspired Oxygen 24 Sepsis Recent Fever Within 48 Hours Sepsis New/Unexplained Change in Mental Status Sepsis Action Taken by Nursing Pulse Oximetry Post Tiitration Home Medications Current Medication List: was personally reviewed by me Laboratory Data Attestation: I reviewed the patient's lab results. 02/20/24 06:10 02/21/24 06:20 Lab Results 02/17/24 02/17/24 02/17/24 Range/Units 16:41 17:15 17:30 WBC 7.97 (4.8-10.8) K/ul RBC 4.35 L (4.70-6.10) M/uL Hgb 14.1 (14.0-18.0) g/dl Hct 39.3 L (42.0-52.0) % MCV 90.3 (80.0-100.0) fL MCH 32.4 (25.0-34.0) pg MCHC 35.9 (32.0-36.0) g/dL RDW Std Deviation 42.5 (36.4-46.3) fL RDW Coeff of [place] 12.8 (11.5-14.5) % Plt Count 155 (130-400) K/uL MPV 10.3 (9.4-12.4) fL Immature Gran % (Auto) 0.4 % Neut % (Auto) 69.6 % Lymph % (Auto) 19.6 % M[place]racken % (Auto) 7.5 % Eos % (Auto) 2.5 % Baso % (Auto) 0.4 % Neut # (Auto) 5.55 (1.40-6.50) K/uL Lymph # (Auto) 1.56 (1.20-3.40) K/uL [place] # (Auto) 0.60 H (0.11-0.59) K/uL Eos # (Auto) 0.20 (0.00-0.50) K/uL Baso # (Auto) 0.03 (0.00-0.20) K/uL Immature Gran # (Auto) 0.03 (0.01-0.20) K/uL PT 10.9 (9.0-12.0) Seconds INR 1.0 (0.9-1.1) APTT 25 (21-31) Seconds PTT Ratio 0.9 Sodium 137 (136-145) mmol/L Potassium 4.2 (3.5-5.1) mmol/L Chloride 103 (98-107) mmol/L Carbon Dioxide 27 (21-32) mmol/L Anion Gap 7 (3-11) BUN 22 (6-23) mg/dl Creatinine 1.40 (0.6-1.4) mg/dl Est Cr Clr Drug Dosing Not Reportable Est GFR ( Amer) 54.2 ml/min Est GFR (Non-Af Amer) 46.8 ml/min BUN/Creatinine Ratio 15.7 (10-20) Glucose 231 H (70-99(Fasting)) mg/dl Calcium 9.5 (8.6-10.3) mg/dl Magnesium (1.7-2.4) mg/dl Total Bilirubin 0.8 (0.2-1.0) mg/dl AST 21 (13-39) U/L ALT 21 (7-52) U/L Alkaline Phosphatase 99 (34-104) U/L Troponin I High Sens 18.1 (0-20) pg/ml B-Natriuretic Peptide (0-100) pg/ml Total Protein 6.9 (6.0-8.3) gm/dl Albumin 3.9 (3.4-5.0) gm/dl Globulin 3.0 (2.5-4.0) gm/dl Albumin/Globulin Ratio 1.3 (0.9-2) Urine Color Yellow Urine Appearance Clear (Clear) Urine pH 7.5 (4.5-7.5) Ur Specific [place] 1.016 (1.000-1.030) Urine Protein 1+ H (Negative) Urine Glucose (UA) Trace H (Negative) Urine Ketones Negative (Negative) Urine Blood Negative (Negative) Urine Nitrite Negative (Negative) Urine Bilirubin Negative (Negative) Urine Urobilinogen Negative (Negative) Ur Leukocyte Esterase Negative (Negative) Urine WBC (Auto) 0-5 (0-5) /hpf Urine RBC (Auto) 0-2 (0-2) /hpf U Hyaline Cast (Auto) 0-2 (0-2) /lpf U Epithel Cells (Auto) 0-2 (0-2) /hpf Urine Bacteria (Auto) None Seen (None Seen) SARS-CoV-2 (PCR) NEGATIVE (Negative) Influenza Type A (PCR) Negative (Neg) Influenza Type B (PCR) Negative (Neg) RSV (RT-PCR) Negative (Neg) 02/17/24 Range/Units 18:25 WBC (4.8-10.8) K/ul RBC (4.70-6.10) M/uL Hgb (14.0-18.0) g/dl Hct (42.0-52.0) % MCV (80.0-100.0) fL MCH (25.0-34.0) pg MCHC (32.0-36.0) g/dL RDW Std Deviation (36.4-46.3) fL RDW Coeff of [place] (11.5-14.5) % Plt Count (130-400) K/uL MPV (9.4-12.4) fL Immature Gran % (Auto) % Neut % (Auto) % Lymph % (Auto) % M[place]racken % (Auto) % Eos % (Auto) % Baso % (Auto) % Neut # (Auto) (1.40-6.50) K/uL Lymph # (Auto) (1.20-3.40) K/uL [place]rack[place] # (Auto) (0.11-0.59) K/uL Eos # (Auto) (0.00-0.50) K/uL Baso # (Auto) (0.00-0.20) K/uL Immature Gran # (Auto) (0.01-0.20) K/uL PT (9.0-12.0) Seconds INR (0.9-1.1) APTT (21-31) Seconds PTT Ratio Sodium (136-145) mmol/L Potassium (3.5-5.1) mmol/L Chloride (98-107) mmol/L Carbon Dioxide (21-32) mmol/L Anion Gap (3-11) BUN (6-23) mg/dl Creatinine (0.6-1.4) mg/dl Est Cr Clr Drug Dosing Est GFR ( Amer) ml/min Est GFR (Non-Af Amer) ml/min BUN/Creatinine Ratio (10-20) Glucose (70-99(Fasting)) mg/dl Calcium (8.6-10.3) mg/dl Magnesium 1.8 (1.7-2.4) mg/dl Total Bilirubin (0.2-1.0) mg/dl AST (13-39) U/L ALT (7-52) U/L Alkaline Phosphatase (34-104) U/L Troponin I High Sens 21.1 H (0-20) pg/ml B-Natriuretic Peptide 331 H (0-100) pg/ml Total Protein (6.0-8.3) gm/dl Albumin (3.4-5.0) gm/dl Globulin (2.5-4.0) gm/dl Albumin/Globulin Ratio (0.9-2) Urine Color Urine Appearance (Clear) Urine pH (4.5-7.5) Ur Specific [place] (1.000-1.030) Urine Protein (Negative) Urine Glucose (UA) (Negative) Urine Ketones (Negative) Urine Blood (Negative) Urine Nitrite (Negative) Urine Bilirubin (Negative) Urine Urobilinogen (Negative) Ur Leukocyte Esterase (Negative) Urine WBC (Auto) (0-5) /hpf Urine RBC (Auto) (0-2) /hpf U Hyaline Cast (Auto) (0-2) /lpf U Epithel Cells (Auto) (0-2) /hpf Urine Bacteria (Auto) (None Seen) SARS-CoV-2 (PCR) (Negative) Influenza Type A (PCR) (Neg) Influenza Type B (PCR) (Neg) RSV (RT-PCR) (Neg) Administered Medications Aspirin (Aspirin 81 Mg Ectab) 81 mg PO DAILY FANI Stop: 03/19/24 08:59 Last Admin: 02/21/24 08:29 Dose: 81 mg Documented By: Admin: 02/20/24 08:39 Dose: 81 mg Documented By: WIL(2) Admin: 02/19/24 09:09 Dose: 81 mg Documented By: RUTH ANN Admin: 02/18/24 09:01 Dose: 81 mg Documented By: Atorvastatin Calcium (Atorvastatin 40 Mg Tab) 40 mg PO PM FANI Stop: 03/19/24 20:59 Last Admin: 02/20/24 20:42 Dose: 40 mg Documented By: Admin: 02/19/24 19:54 Dose: 40 mg Documented By: Admin: 02/18/24 20:32 Dose: 40 mg Documented By: REJI Carvedilol (Carvedilol 25 Mg Tab) 50 mg PO BID FANI Stop: 03/19/24 08:59 Last Admin: 02/21/24 08:30 Dose: 50 mg Documented By: Admin: 02/20/24 20:42 Dose: 50 mg Documented By: Admin: 02/20/24 08:39 Dose: 50 mg Documented By: WIL(2) Admin: 02/19/24 19:54 Dose: 50 mg Documented By: Admin: 02/19/24 09:10 Dose: 50 mg Documented By: RUTH ANN Admin: 02/18/24 21:14 Dose: 50 mg Documented By: Admin: 02/18/24 09:01 Dose: 50 mg Documented By: Clopidogrel Bisulfate (Clopidogrel Bisulfate 75 Mg Tab) 75 mg PO QAM FANI Stop: 03/21/24 08:59 Last Admin: 02/21/24 08:30 Dose: 75 mg Documented By: Admin: 02/20/24 09:27 Dose: 75 mg Documented By: WIL(2) Heparin Sodium (Porcine) (Heparin Sod 5,000 Unit/0.5 Ml Vial) 5,000 units SQ Q8 FANI Stop: 03/18/24 22:48 Last Admin: 02/21/24 13:42 Dose: 5,000 units Documented By: Admin: 02/21/24 05:27 Dose: 5,000 units Documented By: Admin: 02/20/24 20:41 Dose: 5,000 units Documented By: Admin: 02/20/24 13:13 Dose: 5,000 units Documented By: WIL(2) Admin: 02/20/24 06:20 Dose: 5,000 units Documented By: Admin: 02/19/24 21:58 Dose: 5,000 units Documented By: Admin: 02/19/24 12:43 Dose: 5,000 units Documented By: Admin: 02/19/24 06:08 Dose: 5,000 units Documented By: Admin: 02/18/24 20:32 Dose: 5,000 units Documented By: Admin: 02/18/24 14:54 Dose: 5,000 units Documented By: [facility] Admin: 02/18/24 05:48 Dose: 5,000 units Documented By: Admin: 02/17/24 23:46 Dose: 5,000 units Documented By: DAVID Insulin Aspart (Insulin Aspart Per Unit Charge) 0 units SC ACHS FANI Stop: 03/19/24 00:00 Last Admin: 02/21/24 12:13 Dose: 7 units Documented By: WIL Co-signed By: EDUARD Admin: 02/21/24 08:28 Dose: 5 units Documented By: WIL Co-signed By: KJS Admin: 02/20/24 20:42 Dose: Not Given Documented By: Admin: 02/20/24 17:21 Dose: Not Given Documented By: WIL(2) Admin: 02/20/24 12:21 Dose: Not Given Documented By: WIL(2) Admin: 02/20/24 08:42 Dose: Not Given Documented By: WIL(2) Admin: 02/19/24 19:53 Dose: Not Given Documented By: Admin: 02/19/24 17:27 Dose: 4 units Documented By: RUTH ANN Co-signed By: OO Admin: 02/19/24 12:41 Dose: 3 units Documented By: RUTH ANN Co-signed By: OO Admin: 02/19/24 08:48 Dose: Not Given Documented By: Admin: 02/18/24 19:39 Dose: Not Given Documented By: Admin: 02/18/24 17:18 Dose: Not Given Documented By: Admin: 02/18/24 11:52 Dose: Not Given Documented By: Insulin Glargine (Lantus Per Unit Charge) 20 units SQ DAILY FANI Stop: 03/19/24 08:59 Last Admin: 02/21/24 08:28 Dose: 20 units Documented By: WIL Co-signed By: EDUARD Admin: 02/20/24 08:44 Dose: 20 units Documented By: WIL(2) Co-signed By: KIA Admin: 02/19/24 09:10 Dose: 20 units Documented By: RUTH ANN Co-signed By: KIA Admin: 02/18/24 09:37 Dose: 20 units Documented By: Co-signed By: MORGAN Levothyroxine Sodium (Levothyroxine Sodium 137 Mcg Tablet) 137 mcg PO DAILYBB FANI Stop: 03/20/24 09:29 Last Admin: 02/21/24 05:27 Dose: 137 mcg Documented By: Admin: 02/20/24 07:15 Dose: 137 mcg Documented By: WIL(2) Admin: 02/19/24 10:10 Dose: 137 mcg Documented By: RUTH ANN Melatonin (Melatonin 3 Mg Tab) 3 mg PO HS PRN PRN Reason: Sleep Stop: 03/19/24 21:26 Last Admin: 02/21/24 00:34 Dose: 3 mg Documented By: Admin: 02/19/24 23:30 Dose: 3 mg Documented By: Admin: 02/18/24 21:47 Dose: 3 mg Documented By: REJI Miscellaneous (Febuxostat 80mg: Order Awaiting Action) 1 each N/A QS FANI Stop: 03/20/24 15:59 Last Admin: 02/21/24 14:13 Dose: Not Given Documented By: Admin: 02/21/24 08:27 Dose: Not Given Documented By: Admin: 02/20/24 22:44 Dose: Not Given Documented By: Admin: 02/20/24 16:06 Dose: Not Given Documented By: WIL(2) Admin: 02/20/24 08:42 Dose: Not Given Documented By: WIL(2) Admin: 02/20/24 01:30 Dose: Not Given Documented By: Admin: 02/19/24 13:56 Dose: Not Given Documented By: RUTH ANN Pantoprazole Sodium (Pantoprazole 40 Mg Tab) 40 mg PO DAILY FANI Stop: 02/23/24 09:01 Last Admin: 02/21/24 08:29 Dose: 40 mg Documented By: Admin: 02/20/24 13:12 Dose: 40 mg Documented By: WIL(2) Polyethylene Glycol (Polyethylene (Miralax) 17 Gm Pack) 17 gm PO DAILY FANI Stop: 03/22/24 09:44 Last Admin: 02/21/24 12:13 Dose: 17 gm Documented By: WIL Venlafaxine HCl (Venlafaxine Hcl Xr 75 Mg Capxr) 75 mg PO TID FANI Stop: 03/19/24 08:59 Last Admin: 02/21/24 13:42 Dose: 75 mg Documented By: Admin: 02/21/24 08:29 Dose: 75 mg Documented By: Admin: 02/20/24 20:41 Dose: 75 mg Documented By: Admin: 02/20/24 13:13 Dose: 75 mg Documented By: WIL(2) Admin: 02/20/24 08:41 Dose: 75 mg Documented By: WIL(2) Admin: 02/19/24 19:54 Dose: 75 mg Documented By: Admin: 02/19/24 12:43 Dose: 75 mg Documented By: Admin: 02/19/24 09:10 Dose: 75 mg Documented By: Admin: 02/18/24 20:32 Dose: 75 mg Documented By: Admin: 02/18/24 15:08 Dose: 75 mg Documented By: Admin: 02/18/24 09:01 Dose: 75 mg Documented By: Vitamin D (Cholecalciferol 25 Mcg (1000 Units) Tab) 50 mcg PO QAM [facility] Stop: 03/20/24 09:29 Last Admin: 02/21/24 08:29 Dose: 50 mcg Documented By: Admin: 02/20/24 08:41 Dose: 50 mcg Documented By: WIL(2) Admin: 02/19/24 10:09 Dose: 50 mcg Documented By: KTManpreet Discontinued Medications Bisacodyl (Bisacodyl 10 Mg Supp) 10 mg CA NOW STA Stop: 02/21/24 09:36 Last Admin: 02/21/24 11:51 Dose: Not Given Documented By: WIL Bupivacaine HCl/Epinephrine Bitart (Bupivacaine/Epinephrine 0.25% 1:200,000 30 Ml Vial) Confirm Administered Dose 30 ml .ROUTE .STK-MED ONE Stop: 02/21/24 09:10 Last Admin: 02/21/24 11:27 Dose: Not Given Documented By: WIL Carvedilol (Carvedilol 25 Mg Tab) 50 mg PO NOW ONE Stop: 02/17/24 21:55 Last Admin: 02/17/24 23:02 Dose: 50 mg Documented By: BHUMIKA Furosemide (Furosemide 40 Mg/4 Ml Vial) 40 mg IV NOW STA Stop: 02/17/24 17:52 Last Admin: 02/17/24 18:13 Dose: 40 mg Documented By: MEGGAN Cefepime HCl 2,000 mg/ Syringe 20 mls @ 5 mls/min IV NOW STA; Protocol Stop: 02/17/24 20:13 Last Admin: 02/17/24 21:14 Dose: 5 mls/min Documented By: MAXX Cefepime HCl 2,000 mg/ Syringe 20 mls @ 5 mls/min IV Q12H FANI; Protocol Stop: 02/25/24 07:59 Last Admin: 02/20/24 08:45 Dose: 5 mls/min Documented By: WIL(2) Admin: 02/19/24 19:53 Dose: 5 mls/min Documented By: Admin: 02/19/24 09:09 Dose: 5 mls/min Documented By: RUTH ANN Admin: 02/18/24 19:39 Dose: 5 mls/min Documented By: AKJolene Admin: 02/18/24 08:59 Dose: 5 mls/min Documented By: MS Pantoprazole Sodium 40 mg/ (Syringe) 10 mls @ 5 mls/min IV DAILY@1100 FANI Stop: 03/19/24 10:59 Last Admin: 02/19/24 10:10 Dose: 5 mls/min Documented By: Admin: 02/18/24 11:50 Dose: 5 mls/min Documented By: MS Sodium Chloride (Nss) 500 mls @ 80 mls/hr IV .Q6H15M FANI Stop: 03/20/24 11:29 Last Infusion: 02/20/24 12:20 Dose: Infused Documented By: WIL(2) Admin: 02/20/24 08:42 Dose: Not Given Documented By: CM(2) Admin: 02/20/24 05:09 Dose: 80 mls/hr Documented By: Infusion: 02/20/24 01:30 Dose: Infused Documented By: AKJolene Admin: 02/19/24 19:53 Dose: 80 mls/hr Documented By: AKJolene Infusion: 02/19/24 19:40 Dose: Infused Documented By: Admin: 02/19/24 12:42 Dose: 80 mls/hr Documented By: KTS Insulin Aspart (Insulin Aspart Per Unit Charge) 0 units SC ACHS FANI Stop: 03/18/24 22:48 Last Admin: 02/17/24 22:55 Dose: Not Given Documented By: DLH Insulin Aspart (Insulin Aspart Per Unit Charge) 0 units SC Q6 FANI Stop: 03/18/24 22:48 Last Admin: 02/18/24 05:48 Dose: Not Given Documented By: Admin: 02/17/24 23:52 Dose: Not Given Documented By: DL Nitroglycerin (Nitroglycerin Sl 0.4 Mg/Tab Tab) 0.4 mg SL NOW STA Stop: 02/17/24 17:52 Last Admin: 02/17/24 18:11 Dose: 0.4 mg Documented By: YURYE Nitroglycerin (Nitroglycerin 2% Ointment 30gm Tube) 1 inch EXT Q6H [facility] Stop: 03/18/24 20:44 Last Admin: 02/18/24 08:59 Dose: Not Given Documented By: Admin: 02/18/24 03:51 Dose: Not Given Documented By: Admin: 02/17/24 21:14 Dose: 1 inch Documented By: MAXX Perflutren Lipid Microsphere (Perflutren Lipid Microsphere (Definity)) 2 ml IV ONCE ONE Stop: 02/20/24 07:17 Last Admin: 02/20/24 07:17 Dose: 2 ml Documented By: NENA Triamcinolone Acetonide (Triamcinolone Acet 40 Mg/Ml Vial) 40 mg IA ONCE ONE Stop: 02/21/24 08:23 Last Admin: 02/21/24 11:27 Dose: Not Given Documented By: WIL Imaging Data Radiologist's Impression: Chest X-Ray 02/17/24 16:30 XR chest 1V not portable CLINICAL HISTORY: Chest pain, nonspecific COMPARISON STUDY: Chest radiograph September 07, 2023. Chest CT December 27, 2020. FINDINGS: Lung volumes are normal. Lungs are clear. There is no pneumothorax or pleural effusion. There is mild cardiomegaly. Mediastinal contours are normal. There is no evidence for pulmonary edema. Surgical clips from thyroidectomy are incidentally noted. IMPRESSION: No acute cardiopulmonary findings. ACT 112: Negative or not required by law. Electronically signed by: Cristian Bach M.D. 02/17/2024 5:08 PM Discharge Plan Visit Data Chief Complaint: Shortness of Breath/Dyspnea Stated Complaint: DIFFICULTY BREATHING ED Provider: Josiah Hayward Discharge Problem: Acute respiratory failure with hypoxia, CHF (congestive heart failure) Patient Disposition: Admitted As Inpatient Discharge Instructions Interventions: ED Discharge Assessment Last Done: 02/17/24 22:30 Discharge Problem: CHF (congestive heart failure) Qualifiers: Heart failure type: unspecified Heart failure chronicity: acute Qualified Code(s): I50.9 - Heart failure, unspecified
--- NOTE | 2024-02-17 17:09 | XRay Report ---
XR chest 1V not portable CLINICAL HISTORY: Chest pain, nonspecific COMPARISON STUDY: Chest radiograph September 07, 2023. Chest CT December 27, 2020. FINDINGS: Lung volumes are normal. Lungs are clear. There is no pneumothorax or pleural effusion. The re is mild cardiomegaly. Mediastinal contours are normal. There is no evidence for pulmonary edema. S urgical clips from thyroidectomy are incidentally noted. IMPRESSION: No acute cardiopulmonary findings. ACT 112: Negative or not required by law. Electronically signed by: Cristian Bach M.D. 02/17/2024 5:08 PM
[2024-02-17 17:16] LABS: Alanine Aminotransferase 21 U/L (7-52); Albumin Globulin Ratio 1.3 (0.9-2); Albumin Level 3.9 gm/dl (3.4-5.0); Alkaline Phosphatase 99 U/L (34-104); Anion Gap 7 (3-11); Aspartate Aminotransferase 21 U/L (13-39); BUN Creatinine Ratio 15.7 (10-20); Bilirubin,Total 0.8 mg/dl (0.2-1.0); Blood Urea Nitrogen 22 mg/dl (6-23); Calcium 9.5 mg/dl (8.6-10.3); Carbon Dioxide 27 mmol/L (21-32); Chloride 103 mmol/L (98-107); Est GFR (African American) 54.2 ml/min; Est GFR (Non-African American) 46.8 ml/min; Glucose 231 mg/dl (70-99(Fasting)); Potassium 4.2 mmol/L (3.5-5.1); Sodium 137 mmol/L (136-145); Total Protein 6.9 gm/dl (6.0-8.3)
[2024-02-17 17:23] LABS: Troponin I High Sensitivity 18.1 pg/ml (0-20)
[2024-02-17 17:26] LABS: Partial Thromboplastin Ratio 0.9; Partial Thromboplastin Time 25 Seconds (21-31); Prothrombin Time 10.9 Seconds (9.0-12.0)
[2024-02-17 17:46] LABS: Appearance Urine Clear (Clear); Bacteria Urine Automated None Seen (None Seen); Bilirubin Urine Negative (Negative); Blood Urine Negative (Negative); Cast Urine Automated 0-2 /lpf (0-2); Color Urine Yellow; Epithelial Cell Urine Auto 0-2 /hpf (0-2); Glucose Urine UA Trace (Negative); Ketones Urine Negative (Negative); Leukocyte Esterase Urine Negative (Negative); Nitrite Urine Negative (Negative); Protein Urine 1+ (Negative); RBC Urine Automated 0-2 /hpf (0-2); Specific Gravity Urine 1.016 (1.000-1.030); Urobilinogen Urine Negative (Negative); WBC Urine Automated 0-5 /hpf (0-5); pH Urine 7.5 (4.5-7.5)
[2024-02-17] MEDS: NITROGLYCERIN SL 0.4 MG/TAB TAB SL STA (18:11)
[2024-02-17 18:13] LABS: Influenza A virus by PCR Negative (Neg); Influenza B virus by PCR Negative (Neg); RSV by PCR Negative (Neg); SARS CoV2 RNA(COVID-19) Ceph NEGATIVE (Negative)
[2024-02-17] MEDS: FUROSEMIDE 40 MG/4 ML VIAL IV STA (18:13)
[2024-02-17 19:04] LABS: Magnesium 1.8 mg/dl (1.7-2.4)
[2024-02-17 19:10] LABS: Troponin I High Sensitivity 21.1 pg/ml (0-20)
--- NOTE | 2024-02-17 20:09 | History & Physical Report ---
Date of Service February 17, 2024 Assessment & Plan (1) Acute respiratory failure with hypoxia: (2) Diabetic nephropathy associated with type 2 diabetes mellitus: (3) Type 2 diabetes mellitus with insulin therapy: (4) DM (diabetes mellitus), type 2 with neurological complications: (5) Complex sleep apnea syndrome: (6) Aspiration pneumonitis: (7) BPH with obstruction/lower urinary tract symptoms: (8) CKD (chronic kidney disease), stage III: (9) Dilated cardiomyopathy: (10) Obstructive sleep apnea: (11) Restrictive lung disease: Plan Acute respiratory failure with hypoxia/complex sleep apnea syndrome- Likely combination of aspiration pneumonitis and CHF Placed on BiPAP by the ED with improved comfort of breathing, will attempt to taper as his symptoms improve. He does usually wear CPAP at bedtime The patient will be admitted to telemetry for serial cardiac enzymes, serial EKG's, cardiac rhythm monitoring and a 2-D echocardiogram with Dopplers. Aspiration pneumonitis- Patient had an episode of nausea and vomiting 2 nights ago, and reports he developed shortness of breath shortly thereafter He also has an intermittent history of coughing with eating Order MRSA swab Cefepime 2 g IV every 12 hours DuoNebs every 2 hours as needed His episode of aspiration appeared to be an isolated event associated with an episode of nausea and vomiting, as opposed to an ongoing issue. He may however if he looks to be recurrent, need a speech evaluation Elevated troponin/dilated cardiomyopathy/hypertension- The patient will be admitted to telemetry for serial cardiac enzymes, serial EKG's, cardiac rhythm monitoring and a 2-D echocardiogram with Dopplers. Most recent echo from 01/01/2020 with ejection fraction 55% Troponin 21.1, likely associated with CKD Blood pressure was significantly elevated in the emergency department to 180s to 190s systolic He was placed on Nitropaste for blood pressure control, as at the time was unclear if he will be able to take oral medications He did receive his evening carvedilol with subsequent good control of his blood pressure, and we will continue He did receive furosemide 40 mg IV x 1 in the ED He probably does have some element of volume overload, indicated by his creatinine 1.40, which is significantly better than his baseline creatinine of 1.67 Repeat laboratories in a.m. Diabetes mellitus- Reduce glargine from 40 to 20 units subcu daily, until diet normalizes CKD- Baseline creatinine appears to be around 1.67, with admission creatinine 1.40, which presumptively secondary to some mild fluid overload Repeat laboratories in a.m. BPH with LUTS- Follow urine culture and sensitivity results Question of possibility of prostatitis contributing to general lethargy symptoms Cefepime IV as above History of Present Illness Chief Complaint: The patient presents to the emergency department due to worsening shortness of breath, nausea and vomiting, cough with eating, and generalized chest discomfort for the past 2 days Primary Care Provider: Tien Jeter MD The patient is a 83-year-old male with past medical history including diabetes mellitus on chronic insulin, peripheral neuropathy, complex sleep apnea syndrome, BPH with LUTS, urinary tract infection, gout, hypothyroidism, CKD stage III, dilated cardiomyopathy, dyslipidemia, hypertension and chronic back pain. The patient has had worsening shortness of breath and coughing over the past 48 hours. His notes that he has been having some nausea with vomiting, and coughs regularly when he eats. The symptoms began shortly after a episode of nausea and vomiting 2 nights ago. Allergies Allergy/AdvReac Type Severity Reaction Status Date / Time Penicillins Allergy Unknown HAPPENED Verified 02/17/24 22:10 A CHILD--RASH lactose AdvReac Intermediate Gastrointestinal Verified 02/17/24 22:10 Upset Home Medications Medication Instructions Recorded Confirmed Type magnesium oxide 400 mg PO PM 05/28/19 02/17/24 History potassium gluconate 595 mg (99 mg) 595 mg PO PM 05/28/19 02/17/24 History tablet,extended release cholecalciferol (vitamin D3) 50 2,000 unit PO QAM 12/25/19 02/17/24 History mcg (2,000 unit) tablet (Vitamin D3) albuterol sulfate 90 mcg/actuation 2 puff inhalation Q6H PRN 01/10/22 02/17/24 Rx aerosol inhaler (ProAir HFA) Shortness Of Breath #6.7 grams blood-glucose sensor (Dexcom G6 01/23/22 11/08/23 History Sensor device) CPAP Machine #1 ea 02/15/22 11/08/23 Rx multivitamin (Daily Multi-Vitamin 1 tab PO DAILY 02/07/23 02/17/24 History tablet) clindamycin HCl 300 mg capsule 600 mg (2 x 300 mg) PO ONCE #4 caps 02/27/23 02/17/24 Rx blood sugar diagnostic (Contour 03/28/23 11/08/23 History Next Test Strips) clotrimazole 1 % topical cream 1 applic topical BID PRN Rash 90 03/28/23 02/17/24 Rx days #90 grams aspirin 81 mg tablet,delayed 81 mg PO DAILY 05/03/23 02/17/24 History release (Adult Low Dose Aspirin) atorvastatin 40 mg tablet (Lipitor) 40 mg PO PM #90 tabs 11/06/23 02/17/24 Rx desloratadine 5 mg tablet 5 mg PO DAILY PRN allergies #90 11/06/23 02/17/24 Rx (Clarinex) tabs BD Ultra-Fine Uzma Pen Needle 32 #400 ea 12/13/23 Rx gauge x 5/32" (pen needle, diabetic) dutasteride 0.5 mg capsule 0.5 mg PO DAILY #30 caps 12/13/23 02/17/24 Rx silodosin 8 mg capsule (Rapaflo) 8 mg PO DAILY #30 caps 12/13/23 02/17/24 Rx levothyroxine 137 mcg tablet 137 mcg PO DAILY 90 days #90 tabs 01/09/24 02/17/24 Rx carvedilol 25 mg tablet (Coreg) 50 mg (2 x 25 mg) PO BID #360 tabs 01/25/24 02/17/24 Rx febuxostat 80 mg tablet (Uloric) 80 mg PO QAM #90 tabs 01/25/24 02/17/24 Rx venlafaxine 75 mg capsule,extended 75 mg PO TID #270 caps 01/25/24 02/17/24 Rx release 24 hr Basaglar KwikPen U-100 Insulin 100 40 unit (0.4 mL) subcut DAILY #15 02/11/24 02/17/24 Rx unit/mL (3 mL) subcutaneous mL (insulin glargine) insulin lispro 100 unit/mL See Rx Instructions subcut 02/11/24 02/17/24 Rx subcutaneous pen (Admelog SoloStar USEASDIRECTD #15 mL U-) Past Med/Surg History Medical History Diabetes mellitus type 2, uncontrolled Left knee DJD Risk for falls 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 Injury of cervical spine Fracture of T7 vertebra BPH loc w urin obs/LUTS Personal history of diabetic foot ulcer Postural dizziness Osteoarthritis Hx of thyroid cancer Spinal stenosis Diabetes type 2, uncontrolled Gout Anemia Attention or concentration deficit Benign prostatic hyperplasia CKD (chronic kidney disease), stage III Cor pulmonale Dilated cardiomyopathy Dyslipidemia Erectile dysfunction Lumbosacral radiculopathy at L5 Obstructive sleep apnea Restrictive lung disease Secondary hyperparathyroidism 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 Acquired claw toe of left foot Acquired claw toe of right foot Acquired hallux valgus of right foot Chronic back pain Mild asthma Hypertension Surgical History Hx of bilateral cataract extraction History of colonoscopy History of tooth extraction History of tonsillectomy History of cardiac cath H/O: knee surgery History of thyroidectomy Family History Father Myocardial infarction Hypertension Sister Coronary heart disease Hypertension Brother Hypertension Thyroid cancer Mother Pulmonary embolism Grandmother (Maternal) Stroke Denies family history of Ovarian cancer Prostate cancer Breast cancer Colorectal cancer Social History Smoking Status: Former smoker Second Hand Exposure: No; Do You Dip or Chew Tobacco: No; Hx Alcohol Use: No Hx Substance Use: No Preferred Language: Turkish Communication Ability: Effective Visual Impairment: No Limitations Hearing Ability: Normal [employer] Information Center Required: No Beliefs That Will Affect Care: None marital status: Current Living Situation: Spouse current occupational status: retired Feels Safe at Home: Yes Safety Concerns: Feels Safe At This Time Childhood Exposure to Second-Hand Smoke: Yes (Uncle and Aunts) Physical Activity Frequency: Does not Exercise Seatbelt Use: always Assistive Devices: Glasses Review of Systems Review of Systems: The patient denies palpitations, lower extremity swelling, sore throat, fevers, chills, sweats, diarrhea , constipation, abdominal pain, pelvic pain, blood in urine or stool, dysuria, urinary frequency or urgency, lightheadedness, dizziness, headache, memory loss, loss of consciousness, rash, abnormal bruising or bleeding, focal weakness, numbness or tingling in arms or legs, generalized arthralgias or myalgias, back or neck pain, or night sweats. The review of systems is otherwise negative other than for that already noted above, and at least 10 systems have been reviewed. Physical Exam Physical Exam: The patient is awake, alert and oriented 3, well developed and well nourished, normocephalic and atraumatic, lying in bed and in no acute distress. HEENT--PERRL, EOMI, mucous membranes and oropharynx dry. Neck--supple. No JVD. No bruits. Thyroid normal, trachea midline, no adenopathy. Heart--normal S1 and S2. No murmurs, rubs or gallops. Lungs--clear bilaterally, no respiratory distress, no accessory muscle use. Abdomen--normal bowel sounds and soft. Nontender. Nondistended, no hernias or masses, no organomegaly. Extremities--no cyanosis or clubbing. No edema. Dermatologic--normal skin turgor, normal color, no abnormal lymph nodes, no rash. Neurologic--cranial nerves II through XII grossly intact. Rheumatologic--normal range of motion. Psychiatric--normal affect. Results & Data Results & Data Vital Signs (Past 12 Hours) Vital Signs Temp Pulse Resp BP Pulse Ox O2 Del Method FiO2 02/17/24 18:05 64 16 96 24 02/17/24 18:00 185/106 H 02/17/24 18:00 65 20 96 02/17/24 17:46 67 16 97 02/17/24 17:46 186/113 H 02/17/24 17:31 71 22 96 02/17/24 17:31 192/104 H 02/17/24 17:30 69 16 97 02/17/24 17:15 66 02/17/24 17:00 66 13 95 02/17/24 17:00 180/101 H 02/17/24 16:50 66 16 98 02/17/24 16:30 96 Room Air 02/17/24 16:29 Room Air 02/17/24 16:24 36.9 C 67 16 165/99 H 94 Room Air Laboratory Results Laboratory Results WBC 7.97 K/ul (4.8-10.8) 02/17/24 16:41 RBC 4.35 M/uL (4.70-6.10) L 02/17/24 16:41 Hgb 14.1 g/dl (14.0-18.0) 02/17/24 16:41 Hct 39.3 % (42.0-52.0) L 02/17/24 16:41 MCV 90.3 fL (80.0-100.0) 02/17/24 16:41 MCH 32.4 pg (25.0-34.0) 02/17/24 16:41 MCHC 35.9 g/dL (32.0-36.0) 02/17/24 16:41 RDW Std Deviation 42.5 fL (36.4-46.3) 02/17/24 16:41 RDW Coeff of [place] 12.8 % (11.5-14.5) 02/17/24 16:41 Plt Count 155 K/uL (130-400) 02/17/24 16:41 MPV 10.3 fL (9.4-12.4) 02/17/24 16:41 Immature Gran % (Auto) 0.4 % 02/17/24 16:41 Neut % (Auto) 69.6 % 02/17/24 16:41 Lymph % (Auto) 19.6 % 02/17/24 16:41 [place] % (Auto) 7.5 % 02/17/24 16:41 Eos % (Auto) 2.5 % 02/17/24 16:41 Baso % (Auto) 0.4 % 02/17/24 16:41 Neut # (Auto) 5.55 K/uL (1.40-6.50) 02/17/24 16:41 Lymph # (Auto) 1.56 K/uL (1.20-3.40) 02/17/24 16:41 [place] # (Auto) 0.60 K/uL (0.11-0.59) H 02/17/24 16:41 Eos # (Auto) 0.20 K/uL (0.00-0.50) 02/17/24 16:41 Baso # (Auto) 0.03 K/uL (0.00-0.20) 02/17/24 16:41 Immature Gran # (Auto) 0.03 K/uL (0.01-0.20) 02/17/24 16:41 PT 10.9 Seconds (9.0-12.0) 02/17/24 16:41 INR 1.0 (0.9-1.1) 02/17/24 16:41 APTT 25 Seconds (21-31) 02/17/24 16:41 PTT Ratio 0.9 02/17/24 16:41 Sodium 137 mmol/L (136-145) 02/17/24 16:41 Potassium 4.2 mmol/L (3.5-5.1) 02/17/24 16:41 Chloride 103 mmol/L (98-107) 02/17/24 16:41 Carbon Dioxide 27 mmol/L (21-32) 02/17/24 16:41 Anion Gap 7 (3-11) 02/17/24 16:41 BUN 22 mg/dl (6-23) 02/17/24 16:41 Creatinine 1.40 mg/dl (0.6-1.4) 02/17/24 16:41 Est Cr Clr Drug Dosing Not Reportable 02/17/24 16:41 Est GFR ( Amer) 54.2 ml/min 02/17/24 16:41 Est GFR (Non-Af Amer) 46.8 ml/min 02/17/24 16:41 BUN/Creatinine Ratio 15.7 (10-20) 02/17/24 16:41 Glucose 231 mg/dl (70-99(Fasting)) H 02/17/24 16:41 POC Glucose 85 mg/dl (70-99) 02/17/24 22:54 Calcium 9.5 mg/dl (8.6-10.3) 02/17/24 16:41 Magnesium 1.8 mg/dl (1.7-2.4) 02/17/24 18:25 Total Bilirubin 0.8 mg/dl (0.2-1.0) 02/17/24 16:41 AST 21 U/L (13-39) 02/17/24 16:41 ALT 21 U/L (7-52) 02/17/24 16:41 Alkaline Phosphatase 99 U/L (34-104) 02/17/24 16:41 Troponin I High Sens 25.6 pg/ml (0-20) H 02/17/24 20:39 B-Natriuretic Peptide 331 pg/ml (0-100) H 02/17/24 18:25 Total Protein 6.9 gm/dl (6.0-8.3) 02/17/24 16:41 Albumin 3.9 gm/dl (3.4-5.0) 02/17/24 16:41 Globulin 3.0 gm/dl (2.5-4.0) 02/17/24 16:41 Albumin/Globulin Ratio 1.3 (0.9-2) 02/17/24 16:41 Urine Color Yellow 02/17/24 17:30 Urine Appearance Clear (Clear) 02/17/24 17:30 Urine pH 7.5 (4.5-7.5) 02/17/24 17:30 Ur Specific [place] 1.016 (1.000-1.030) 02/17/24 17:30 Urine Protein 1+ (Negative) H 02/17/24 17:30 Urine Glucose (UA) Trace (Negative) H 02/17/24 17:30 Urine Ketones Negative (Negative) 02/17/24 17:30 Urine Blood Negative (Negative) 02/17/24 17:30 Urine Nitrite Negative (Negative) 02/17/24 17:30 Urine Bilirubin Negative (Negative) 02/17/24 17:30 Urine Urobilinogen Negative (Negative) 02/17/24 17:30 Ur Leukocyte Esterase Negative (Negative) 02/17/24 17:30 Urine WBC (Auto) 0-5 /hpf (0-5) 02/17/24 17:30 Urine RBC (Auto) 0-2 /hpf (0-2) 02/17/24 17:30 U Hyaline Cast (Auto) 0-2 /lpf (0-2) 02/17/24 17:30 U Epithel Cells (Auto) 0-2 /hpf (0-2) 02/17/24 17:30 Urine Bacteria (Auto) None Seen (None Seen) 02/17/24 17:30 Nasal Screen MRSA (PCR) Negative (Negative) 02/17/24 23:00 SARS-CoV-2 (PCR) NEGATIVE (Negative) 02/17/24 17:15 Influenza Type A (PCR) Negative (Neg) 02/17/24 17:15 Influenza Type B (PCR) Negative (Neg) 02/17/24 17:15 RSV (RT-PCR) Negative (Neg) 02/17/24 17:15 Impressions Chest X-Ray 02/17/24 16:30 XR chest 1V not portable CLINICAL HISTORY: Chest pain, nonspecific COMPARISON STUDY: Chest radiograph September 07, 2023. Chest CT December 27, 2020. FINDINGS: Lung volumes are normal. Lungs are clear. There is no pneumothorax or pleural effusion. There is mild cardiomegaly. Mediastinal contours are normal. There is no evidence for pulmonary edema. Surgical clips from thyroidectomy are incidentally noted. IMPRESSION: No acute cardiopulmonary findings. ACT 112: Negative or not required by law. Electronically signed by: Cristian Bach M.D. 02/17/2024 5:[address] 02/17/24 19:58 Exam(s): CT CHEST Without Contrast EXAM: CT Chest Without Intravenous Contrast CLINICAL HISTORY: Reason for exam: acute respiratory failure with hypoxia. TECHNIQUE: Axial computed tomography images of the chest without intravenous contrast. Automated exposure control was utilized for the study. A dose lowering technique was utilized adhering to the principles of ALARA. COMPARISON: No relevant prior studies available. FINDINGS: Lungs: Unremarkable. No mass. No consolidation. Pleural space: Unremarkable. No pneumothorax. No significant effusion. Heart: Cardiomegaly. No significant pericardial effusion. No significant coronary artery calcifications. Bones/joints: Degenerative changes of the spine. No acute fracture. No dislocation. Soft tissues: Unremarkable. Vasculature: Atherosclerotic changes of the aorta. No thoracic aortic aneurysm. Lymph nodes: Unremarkable. No enlarged lymph nodes. IMPRESSION: No acute findings in the chest. Electronically signed by: Mando Pan MD 02/17/24 20:56 PM Code Status & VTE Plan Code Status DNR/DNI VTE Prophylaxis Plan VTE Prophylaxis will be ordered: Yes PG Care Time/CCT Total # of Minutes Spent Total Time Spent with Patient: Total time spent is greater than 50% in coordination of care (as documented) at patient's floor/unit and/or counseling patient: Coding Level of Care Code 71608 INT INP/OBS CARE 3/75MIN Diagnoses Acute respiratory failure with hypoxia J96.01 Diabetic nephropathy associated with type 2 diabetes mellitus E11.21 Type 2 diabetes mellitus with insulin therapy E11.9; Z79.4 DM (diabetes mellitus), type 2 with neurological complications E11.49 Complex sleep apnea syndrome G47.31 Aspiration pneumonitis J69.0 BPH with obstruction/lower urinary tract symptoms N40.1; N13.8 CKD (chronic kidney disease), stage III N18.3 Dilated cardiomyopathy I42.0 Obstructive sleep apnea G47.33 Restrictive lung disease J98.4
--- NOTE | 2024-02-17 20:57 | CT Scan Report ---
Exam(s): CT CHEST Without Contrast EXAM: CT Chest Without Intravenous Contrast CLINICAL HISTORY: Reason for exam: acute respiratory failure with hypoxia. TECHNIQUE: Axial computed tomography images of the chest without intravenous contrast. Automated exposure control was utilized for the study. A dose lowering technique was utilized adhering to the principles of ALARA. COMPARISON: No relevant prior studies available. FINDINGS: Lungs: Unremarkable. No mass. No consolidation. Pleural space: Unremarkable. No pneumothorax. No significant effusion. Heart: Cardiomegaly. No significant pericardial effusion. No significant coronary artery calcifications. Bones/joints: Degenerative changes of the spine. No acute fracture. No dislocation. Soft tissues: Unremarkable. Vasculature: Atherosclerotic changes of the aorta. No thoracic aortic aneurysm. Lymph nodes: Unremarkable. No enlarged lymph nodes. IMPRESSION: No acute findings in the chest. Electronically signed by: Mando Pan MD 02/17/24 20:56 PM
[2024-02-17] MEDS: CEFEPIME 2,000 MG in SYRINGE 0 ML IV STA (21:14)
[2024-02-17] MEDS: NITROGLYCERIN 2% OINTMENT 30GM TUBE EXT SCH (21:14)
[2024-02-17] MEDS ORDERED: GLUCOSE 40% GEL 15 GM TUBE PO PRN (22:49)
[2024-02-17] MEDS ORDERED: ONDANSETRON INJ 2 MG/ML 2 ML VIAL IV PRN (22:49)
[2024-02-17] MEDS ORDERED: ACETAMINOPHEN 1000 MG/100 ML IV IV PRN (22:49)
[2024-02-17] MEDS ORDERED: GLUCAGON FOR INJ 1 MG VIAL SQ PRN (22:49)
[2024-02-17] MEDS ORDERED: DEXTROSE 50% 50 ML SYRINGE IV PRN (22:49)
[2024-02-17] MEDS ORDERED: GLUCOSE 10 TAB/TUBE PO PRN (22:49)
[2024-02-17] MEDS ORDERED: CARBOHYDRATES FOR HYPOGLYCEMIA PO PRN (22:49)
[2024-02-17] MEDS: INSULIN ASPART PER UNIT CHARGE SC SCH ×2 (22:55→23:52)
[2024-02-17] MEDS: carvediloL 25 MG TAB PO ONE (23:02)
[2024-02-17] MEDS ORDERED: ACETAMINOPHEN 1,000 MG/100 ML VIAL IV PRN (23:45)
[2024-02-17] MEDS: HEPARIN SOD 5,000 UNIT/0.5 ML VIAL SQ SCH (23:46)
[2024-02-18] MEDS ORDERED: ALBUT/IPRATROP 3MG/0.5MG NEB 3 ML VIAL NEB PRN (02:25)
[2024-02-18 07:45] LABS: Basophils # (auto) 0.04 K/uL (0.00-0.20); Basophils % (auto) 0.4 %; Eosinophils # (auto) 0.21 K/uL (0.00-0.50); Eosinophils % (auto) 2.1 %; Hemoglobin 14.8 g/dl (14.0-18.0); Immature Granulocytes # (auto) 0.04 K/uL (0.01-0.20); Immature Granulocytes % (auto) 0.4 %; Lymphocytes % (auto) 20.2 %; Mean Corpuscular Hemoglobin 32.1 pg (25.0-34.0); Mean Corpuscular Hgb Conc 35.2 g/dL (32.0-36.0); Mean Corpuscular Volume 91.1 fL (80.0-100.0); Mean Platelet Volume 10.2 fL (9.4-12.4); Monocytes # (auto) 0.72 K/uL (0.11-0.59); Monocytes % (auto) 7.3 %; Neutrophils # (auto) 6.87 K/uL (1.40-6.50); Neutrophils % (auto) 69.6 %; Platelet Count 158 K/uL (130-400); RDW Coefficient of Variation 13.2 % (11.5-14.5); RDW Standard Deviation 43.6 fL (36.4-46.3); Red Blood Count 4.61 M/uL (4.70-6.10); White Blood Count 9.88 K/ul (4.8-10.8)
[2024-02-18 08:16] LABS: Albumin Level 3.9 gm/dl (3.4-5.0); BUN Creatinine Ratio 16.2 (10-20); Calcium 9.8 mg/dl (8.6-10.3); Creatinine Clr Calc Pharmacy 46.3 ml/min; Est GFR (African American) 48.3 ml/min; Est GFR (Non-African American) 41.7 ml/min; Magnesium 1.8 mg/dl (1.7-2.4); Phosphorus 4.1 mg/dl (2.5-4.9); Potassium 3.6 mmol/L (3.5-5.1)
[2024-02-18 08:22] LABS: Troponin I High Sensitivity 20.7 pg/ml (0-20)
[2024-02-18] MEDS: CEFEPIME 2,000 MG in SYRINGE 0 ML IV SCH (08:59)
[2024-02-18] MEDS: VENLAFAXINE HCL XR 75 MG CAPXR PO SCH (09:01)
[2024-02-18] MEDS: carvediloL 25 MG TAB PO SCH (09:01)
[2024-02-18] MEDS: ASPIRIN 81 MG ECTAB PO SCH (09:01)
[2024-02-18 09:07] LABS: Estimated Average Glucose 160 mg/dl; Hemoglobin A1C 7.2 % (4.5-5.6)
[2024-02-18] MEDS: LANTUS PER UNIT CHARGE SQ SCH (09:37)
--- NOTE | 2024-02-18 10:43 | Electrocardiogram Report ---
Test Reason : Blood Pressure : / mmHG Vent. Rate : 069 BPM Atrial Rate : 069 BPM P-R Int : 142 ms QRS Dur : 112 ms QT Int : 468 ms P-R-T Axes : -01 005 024 degrees QTc Int : 501 ms Normal sinus rhythm Incomplete left bundle block Minimal voltage criteria for LVH, may be normal variant ( R in aVL ) Nonspecific ST abnormality Prolonged QT Abnormal ECG When compared with ECG of 26-APR-2021 14:35, No significant change was found Confirmed by Tien Lyons ([id number]) on 02/18/2024 10:43:07 AM Referred By: Tein Jeter Confirmed By:Tien Lyons
--- NOTE | 2024-02-18 10:58 | Electrocardiogram Report ---
Test Reason : Blood Pressure : / mmHG Vent. Rate : 066 BPM Atrial Rate : 066 BPM P-R Int : 164 ms QRS Dur : 112 ms QT Int : 498 ms P-R-T Axes : 057 032 042 degrees QTc Int : 522 ms Sinus rhythm with occasional Premature atrial complexes Incomplete left bundle block Prolonged QT Abnormal ECG When compared with ECG of 17-FEB-2024 16:33, (unconfirmed) No significant change Confirmed by Tien Lyons ([id number]) on 02/18/2024 10:57:52 AM Referred By: Tein Jeter Confirmed By:Tien Lyons
[2024-02-18] MEDS ORDERED: Nursing to Pharmacy Communication SCH (11:00)
--- NOTE | 2024-02-18 11:05 | Hospitalist Progress Note ---
Date of Service February 18, 2024 Assessment & Plan (1) Acute respiratory failure with hypoxia: (2) Diabetic nephropathy associated with type 2 diabetes mellitus: (3) Type 2 diabetes mellitus with insulin therapy: (4) DM (diabetes mellitus), type 2 with neurological complications: (5) Complex sleep apnea syndrome: (6) Aspiration pneumonitis: (7) BPH with obstruction/lower urinary tract symptoms: (8) CKD (chronic kidney disease), stage III: (9) Dilated cardiomyopathy: (10) Obstructive sleep apnea: (11) Restrictive lung disease: Plan Transient hypoxia following suspected aspiration pneumonitis Now resolved following BiPAP and supplemental oxygen. Patient currently saturating well on room air. Will continue CPAP at bedtime which he wears at home. Aspiration pneumonitis- Patient had an episode of nausea and vomiting 2 nights prior to admission, and reports he developed shortness of breath shortly thereafter He also has an intermittent history of coughing with eating MRSA is negative Empirically continue cefepime 2 g IV every 12 hours DuoNebs every 2 hours as needed History of dilated cardiomyopathy: Repeat 2D echo pending, last ejection fraction was 55% Patient appears compensated, BNP 300 Will continue to monitor input and output Daily weight Continue home medications. Elevated troponin: Probably due to demand ischemia from transient hypoxia, could also be chronically elevated due to CKD No evidence of chest pain or ST changes on EKG. Deconditioning: Patient's describes physical deconditioning weakness lethargy Has a history of thyroidectomy, will check free T4 levels Physical therapy on board Diabetes mellitus- Reduce glargine from 40 to 20 units subcu daily, until diet normalizes CKD- Baseline creatinine appears to be around 1.67, with admission creatinine 1.40, which presumptively secondary to some mild fluid overload Repeat laboratories in a.m. BPH with LUTS- Follow urine culture and sensitivity results Question of possibility of prostatitis contributing to general lethargy symptoms Cefepime IV as above Admission and Anticipated Discharge Date Admission Date: February 17, 2024 Subjective Patient seen and examined, awake and alert but appears very lethargic Review of Systems Review of Systems: All systems reviewed are negative, apart from the ones contained in the history. Physical Exam Physical Exam: The patient is awake, alert and oriented 3, well developed and well nourished, normocephalic and atraumatic, lying in bed and in no acute distress. HEENT--PERRL, EOMI, mucous membranes and oropharynx mildly dry Neck--supple. No JVD. No bruits. Thyroid normal, trachea midline, no adenopathy. Heart--normal S1 and S2. No murmurs, rubs or gallops. Lungs--clear bilaterally, no respiratory distress, no accessory muscle use. Abdomen--normal bowel sounds and soft. Extremities--no cyanosis or clubbing. No edema. Dermatologic--normal skin turgor, normal color, no abnormal lymph nodes, no rash. Neurologic--cranial nerves II through XII grossly intact. Rheumatologic--normal range of motion. Psychiatric--normal affect. Results & Data Results & Data Vital Signs (Past 12 Hours) Vital Signs Temp Pulse Pulse Resp BP BP Pulse Ox 02/18/24 10:13 63 17 97 02/18/24 08:00 02/18/24 07:08 97.7 F 76 19 145/82 H 94 02/18/24 07:00 65 02/18/24 03:00 97.7 F 64 16 97/64 L 96 02/18/24 02:32 64 18 94 02/18/24 01:58 63 137/83 94 02/18/24 00:00 72 02/17/24 23:20 02/17/24 23:09 97.5 F L 72 19 161/104 H 98 O2 Del Method FiO2 02/18/24 10:13 25 02/18/24 08:00 Room Air 02/18/24 07:08 Room Air 02/18/24 07:00 02/18/24 03:00 BiPAP 02/18/24 02:32 25 02/18/24 01:58 BiPAP 02/18/24 00:00 02/17/24 23:20 BiPAP 02/17/24 23:09 BiPAP PG Care Time/CCT Total # of Minutes Spent Total Time Spent with Patient: Total time spent is greater than 50% in coordination of care (as documented) at patient's floor/unit and/or counseling patient: Coding Level of Care Code 73827 SUB INP/OBS CARE 2/35MIN Diagnoses Acute respiratory failure with hypoxia J96.01 Diabetic nephropathy associated with type 2 diabetes mellitus E11.21 Type 2 diabetes mellitus with insulin therapy E11.9; Z79.4 DM (diabetes mellitus), type 2 with neurological complications E11.49 Complex sleep apnea syndrome G47.31 Aspiration pneumonitis J69.0 BPH with obstruction/lower urinary tract symptoms N40.1; N13.8 CKD (chronic kidney disease), stage III N18.3 Dilated cardiomyopathy I42.0 Obstructive sleep apnea G47.33 Restrictive lung disease J98.4 Time Spent (min) 35
[2024-02-18 11:46] LABS: T4 Free Thyroxine 1.23 ng/dl (0.61-1.60)
[2024-02-18] MEDS: PANTOprazole 40 MG in SYRINGE 0 ML IV SCH (11:50)
[2024-02-18] MEDS: INSULIN ASPART PER UNIT CHARGE SC SCH (11:52)
--- NOTE | 2024-02-18 17:09 | CT Scan Report ---
HEAD CT NONCONTRAST CT DOSE: 703.85 mGy.cm HISTORY: encephalopathy, right arm weakness TECHNIQUE: Multiaxial CT images of the head were performed without the use of intravenous contrast. A utomated exposure control was utilized for this study. A dose lowering technique was utilized adheri ng to the principles of ALARA. Comparison: Head CT 04/26/2021. Findings: The paranasal sinuses and mastoid air cells are clear. The calvarium and skull base are int act. There is no mass, hematoma, midline shift, acute infarct. White matter hypodensity is nonspecifi c but suggestive of microvascular ischemic change. The ventricles and sulci demonstrate mild age-rela stew involutional changes. Impression: No acute intracranial abnormality. Atrophy and microvascular ischemic changes. ACT 112: Negative or not required by law. Electronically signed by: Chris Adam M.D. 02/18/2024 5:08 PM
[2024-02-18] MEDS: ATORVASTATIN 40 MG TAB PO SCH (20:32)
[2024-02-18] MEDS: MELATONIN 3 MG TAB PO PRN (21:47)
[2024-02-19 07:28] LABS: Basophils # (auto) 0.04 K/uL (0.00-0.20); Basophils % (auto) 0.5 %; Eosinophils # (auto) 0.25 K/uL (0.00-0.50); Eosinophils % (auto) 2.9 %; Hematocrit (blood only) 40.8 % (42.0-52.0); Hemoglobin 14.1 g/dl (14.0-18.0); Immature Granulocytes # (auto) 0.03 K/uL (0.01-0.20); Immature Granulocytes % (auto) 0.4 %; Lymphocytes # (auto) 1.22 K/uL (1.20-3.40); Lymphocytes % (auto) 14.3 %; Mean Corpuscular Hemoglobin 32.3 pg (25.0-34.0); Mean Corpuscular Hgb Conc 34.6 g/dL (32.0-36.0); Mean Corpuscular Volume 93.6 fL (80.0-100.0); Mean Platelet Volume 10.2 fL (9.4-12.4); Monocytes # (auto) 0.73 K/uL (0.11-0.59); Monocytes % (auto) 8.5 %; Neutrophils # (auto) 6.28 K/uL (1.40-6.50); Neutrophils % (auto) 73.4 %; Platelet Count 142 K/uL (130-400); RDW Coefficient of Variation 13.2 % (11.5-14.5); RDW Standard Deviation 45.5 fL (36.4-46.3); Red Blood Count 4.36 M/uL (4.70-6.10); White Blood Count 8.55 K/ul (4.8-10.8)
[2024-02-19 08:09] LABS: Albumin Level 3.8 gm/dl (3.4-5.0); Calcium 9.5 mg/dl (8.6-10.3); Magnesium 1.9 mg/dl (1.7-2.4); Potassium 4.1 mmol/L (3.5-5.1)
[2024-02-19 08:15] LABS: BUN Creatinine Ratio 18.5 (10-20); Creatinine Clr Calc Pharmacy 35.6 ml/min; Est GFR (African American) 35.2 ml/min; Est GFR (Non-African American) 30.4 ml/min; Phosphorus 4.2 mg/dl (2.5-4.9)
[2024-02-19] MEDS ORDERED: ALBUTEROL HFA 8 GM INHALER INH PRN (09:23)
[2024-02-19] MEDS: CHOLECALCIFEROL 25 MCG (1000 UNITS) TAB PO SCH (10:09)
[2024-02-19] MEDS: LEVOTHYROXINE SODIUM 137 MCG TABLET PO SCH (10:10)
--- NOTE | 2024-02-19 11:32 | Hospitalist Progress Note ---
Date of Service February 19, 2024 Assessment & Plan (1) Acute respiratory failure with hypoxia: (2) Diabetic nephropathy associated with type 2 diabetes mellitus: (3) Type 2 diabetes mellitus with insulin therapy: (4) DM (diabetes mellitus), type 2 with neurological complications: (5) Complex sleep apnea syndrome: (6) Aspiration pneumonitis: (7) BPH with obstruction/lower urinary tract symptoms: (8) CKD (chronic kidney disease), stage III: (9) Dilated cardiomyopathy: (10) Obstructive sleep apnea: (11) Restrictive lung disease: Plan Transient hypoxia following suspected aspiration pneumonitis Now resolved following BiPAP and supplemental oxygen. Patient currently saturating well on room air. Will continue CPAP at bedtime which he wears at home. Aspiration pneumonitis- Patient had an episode of nausea and vomiting 2 nights prior to admission, and reports he developed shortness of breath shortly thereafter He also has an intermittent history of coughing with eating MRSA is negative Empirically continue cefepime 2 g IV every 12 hours DuoNebs every 2 hours as needed Cultures are negative so far History of dilated cardiomyopathy: Appears compensated, chest x-ray did not show any evidence of pulmonary congestion. Repeat 2D echo pending, last ejection fraction was 55% Patient appears compensated, BNP 300 Will continue to monitor input and output Daily weight Continue home medications. Elevated troponin: Probably due to demand ischemia from transient hypoxia, could also be chronically elevated due to CKD No evidence of chest pain or ST changes on EKG. Deconditioning: Patient's describes physical deconditioning weakness lethargy Has a history of thyroidectomy, will check free T4 levels Physical therapy on board Diabetes mellitus- Reduce glargine from 40 to 20 units subcu daily, until diet normalizes CKD- Baseline creatinine appears to be around 1.67, with admission creatinine 1.40, which presumptively secondary to some mild fluid overload Repeat laboratories in a.m. BPH with LUTS- Follow urine culture and sensitivity results Question of possibility of prostatitis contributing to general lethargy symptoms Cefepime IV as above Obstructive sleep apnea: At home patient uses BiPAP at night Will continue the same here in the hospital. Admission and Anticipated Discharge Date Admission Date: February 17, 2024 Subjective Patient seen and examined, awake and alert, on BiPAP Review of Systems Review of Systems: All systems reviewed are negative, apart from the ones contained in the history. Physical Exam Physical Exam: The patient is awake, alert and oriented 3, well developed and well nourished, normocephalic and atraumatic, lying in bed and in no acute distress. HEENT--PERRL, EOMI, mucous membranes and oropharynx mildly dry Neck--supple. No JVD. No bruits. Thyroid normal, trachea midline, no adenopathy. Heart--normal S1 and S2. No murmurs, rubs or gallops. Lungs--clear bilaterally, no respiratory distress, no accessory muscle use. Abdomen--normal bowel sounds and soft. Extremities--no cyanosis or clubbing. No edema. Dermatologic--normal skin turgor, normal color, no abnormal lymph nodes, no rash. Neurologic--cranial nerves II through XII grossly intact. Rheumatologic--normal range of motion. Psychiatric--normal affect. Results & Data Results & Data Vital Signs (Past 12 Hours) Vital Signs Temp Pulse Pulse Resp BP Pulse Ox O2 Del Method 02/19/24 07:30 98.6 F 79 20 155/98 H 95 BiPAP 02/19/24 07:20 85 22 96 02/19/24 03:06 98.2 F 75 19 134/77 98 BiPAP 02/19/24 02:54 16 94 FiO2 02/19/24 07:30 02/19/24 07:20 25 02/19/24 03:06 02/19/24 02:54 25 PG Care Time/CCT Total # of Minutes Spent Total Time Spent with Patient: Total time spent is greater than 50% in coordination of care (as documented) at patient's floor/unit and/or counseling patient: Coding Level of Care Code 18503 SUB INP/OBS CARE 2/35MIN Diagnoses Acute respiratory failure with hypoxia J96.01 Diabetic nephropathy associated with type 2 diabetes mellitus E11.21 Type 2 diabetes mellitus with insulin therapy E11.9; Z79.4 DM (diabetes mellitus), type 2 with neurological complications E11.49 Complex sleep apnea syndrome G47.31 Aspiration pneumonitis J69.0 BPH with obstruction/lower urinary tract symptoms N40.1; N13.8 CKD (chronic kidney disease), stage III N18.3 Dilated cardiomyopathy I42.0 Obstructive sleep apnea G47.33 Restrictive lung disease J98.4 Time Spent (min) 35
[2024-02-19] MEDS: SODIUM CHLORIDE 0.9% 500 ML IV SCH (12:42)
--- NOTE | 2024-02-19 18:42 | Fluoroscopy Report ---
MODIFIED BARIUM SWALLOW CLINICAL HISTORY: assess for aspiration COMPARISON STUDY: None. FLUOROSCOPY TIME: 1.54 minutes. Ka, r: 23.3 mGy. TECHNIQUE: A modified barium swallow was performed in conjunction with Speech Pathology. The patient ingested varying consistencies of barium containing material. Video fluoroscopy was performed. FINDINGS: No aspiration was identified within liquids, nectar thick liquids, pudding or cookie and pu dding consistencies. Moderate residuals were noted within the vallecula with multiple consistencies. Epiglottic inversion was normal. Laryngeal elevation was normal. IMPRESSION: 1. No tracheal aspiration. Mild residuals with several consistencies. 2. Full recommendations by Speech pathology to follow. ACT 112: Negative or not required by law. Electronically signed by: Cristian Bach M.D. 02/19/2024 6:41 PM
--- NOTE | 2024-02-20 01:20 | Magnetic Resonance Report ---
Exam(s): MRI HEAD Without Contrast EXAM: MR Head Without Intravenous Contrast CLINICAL HISTORY: Reason for exam: right weakness. TECHNIQUE: Magnetic resonance images of the head/brain without intravenous contrast in multiple planes. COMPARISON: CT head 02/18/24 FINDINGS: Brain: Diffusion restriction measuring 7 mm in the posterior limb of the left internal capsule consistent with acute/subacute lacunar infarct. No other foci of diffusion restriction. No hemorrhage. Confluent periventricular and deep cerebral white matter FLAIR signal hyperintensity in keeping with chronic small vessel ischemic disease. Generalized parenchymal volume loss. Proximal intracranial flow voids appear normal. Ventricles: Enlarged ventricles due to volume loss. No hydrocephalus. Bones/joints: Unremarkable. No acute fracture. Sinuses: Unremarkable as visualized. No acute sinusitis. Mastoid air cells: Unremarkable as visualized. No mastoid effusion. Orbits: Bilateral lens replacements. IMPRESSION: Patient restriction measuring 7 mm in the posterior limb of the left internal capsule consistent with acute/subacute lacunar infarct. Communications: Call Doctor Other Electronically signed by: Mike Clark M.D. 02/20/24 01:20 AM
[2024-02-20] MEDS ORDERED: PHARMACIST DISCHARGE MED REC CONSULT PRN (01:48)
--- NOTE | 2024-02-20 01:53 | Communication Note ---
Date of Service: February 20, 2024 Notified by [facility] of new acute infarct involving the posterior limb of the left internal capsule consistent with lacunar infarct. -Will order NIHSS q shift and NeuroChecks -Echo with bubble study -Continue ASA and Atorvastatin -PT/OT evaluation [place], [place] [phone] Magnetic Resonance Report Patient: NAVDEEP SAMUEL Admit Date: 02/17/24 MR#: [id number] Address[address]: [address] [facility] Acct ID:[id number] Address[address]: [address] Date: 1940 [facility] Zip: [place] [address] Age: 83 Location: 2S Sex: M Room/Bed: [facility] Att Phy: Aneesh Lenz MD Diagnosis: ACUTE RESPIRATORY FAILURE WITH HYPOXIA Mag Phy: Tien Jeter MD Service Date: 02/20/24 Fam Phy: Interpreting Phy: Mike Clark MDAdmit Phy: Ever Carrasco MD Ordering Phy: Aneesh Lenz MD cc: ~ ADDENDUM ADDENDUM: 02/20/24 01:49 Call Doctor Regarding Other, called on 02/19 01: 49 (-04:00) Electronically signed by: Mike Clark M.D. Electronically signed by: Mike Clark M.D. 02/20/24 01:20 AM ADDENDUM END Exam(s): MRI HEAD Without Contrast EXAM: MR Head Without Intravenous Contrast CLINICAL HISTORY: Reason for exam: right weakness. TECHNIQUE: Magnetic resonance images of the head/brain without intravenous contrast in multiple planes. COMPARISON: CT head 02/18/24 FINDINGS: Brain: Diffusion restriction measuring 7 mm in the posterior limb of the left internal capsule consistent with acute/subacute lacunar infarct. No other foci of diffusion restriction. No hemorrhage. Confluent periventricular and deep cerebral white matter FLAIR signal hyperintensity in keeping with chronic small vessel ischemic disease. Generalized parenchymal volume loss. Proximal intracranial flow voids appear normal. Ventricles: Enlarged ventricles due to volume loss. No hydrocephalus. Bones/joints: Unremarkable. No acute fracture. Sinuses: Unremarkable as visualized. No acute sinusitis. Mastoid air cells: Unremarkable as visualized. No mastoid effusion. Orbits: Bilateral lens replacements. IMPRESSION: Patient restriction measuring 7 mm in the posterior limb of the left internal capsule consistent with acute/subacute lacunar infarct. Communications: Call Doctor Other Electronically signed by: Mike Clark M.D. 02/20/24 01:20 AM Dictated: 02/20/24119 Transcribed: 02/20/24119
--- NOTE | 2024-02-20 03:29 | Magnetic Resonance Report ---
Exam(s): MRI RIGHT SHOULDER Without Contrast EXAM: MR Right Upper Extremity Without Intravenous Contrast, Shoulder CLINICAL HISTORY: Reason for exam: pain, weakness. TECHNIQUE: Multiplanar magnetic resonance images of the right shoulder without intravenous contrast. COMPARISON: No relevant prior studies available. FINDINGS: Acromion is type 1/2 on sagittal images. There is moderate osteoarthritis of the acromioclavicular joint. There is no significant subacromial enthesopathy. There is trace volume of fluid in the subacromial/subdeltoid bursa. There is tendinopathy of the supraspinatus tendon with partial-thickness low-grade articular-sided tearing of the anterior tendon near the footprint. There is mild muscle atrophy. There is no significant muscle edema. There is low-grade partial-thickness, articular-sided and intrasubstance tearing of the infraspinatus tendon at the footprint. There is no significant muscle atrophy or edema. Teres minor muscle and tendon are unremarkable. There is tendinopathy of the subscapularis tendon with low-grade partial- thickness articular-sided tearing of the tendon at the footprint. There is no significant muscle atrophy or edema. There is moderate osteoarthritis of the glenohumeral joint with regions of moderate chondral loss. There is global degeneration and tearing of the labrum. Long head biceps tendon is intact and demonstrates tendinopathy of the intra-articular segment and mild medial subluxation of the level of the charlie. There is a glenohumeral joint effusion which is decompressed and of the subscapularis recess. There is an 18 mm body within the subscapularis recess. Cystic change in the greater tuberosity reflects overlying enthesopathy. There is no acute fracture or dislocation. Deltoid muscle appears unremarkable. IMPRESSION: 1. Moderate osteoarthritis of the glenohumeral joint. Global labral degeneration and tearing. Joint effusion with 18 mm body in the subscapularis recess. 2. Rotator cuff tendinopathy, with partial-thickness tears of the supraspinatus, infraspinatus, subscapularis tendons. Atrophy of the supraspinatus muscle. 3. Intact long head biceps tendon with tendinopathy of the intra- articular segment and mild medial subluxation at the level of the charlie. 4. Moderate osteoarthritis of the acromioclavicular joint. 5. Trace fluid in the subacromial/subdeltoid bursa. Electronically signed by: Mike Clark M.D. 02/20/24 03:27 AM
[2024-02-20 06:57] LABS: Basophils # (auto) 0.04 K/uL (0.00-0.20); Basophils % (auto) 0.5 %; Eosinophils # (auto) 0.23 K/uL (0.00-0.50); Eosinophils % (auto) 2.8 %; Hematocrit (blood only) 39.6 % (42.0-52.0); Hemoglobin 13.2 g/dl (14.0-18.0); Immature Granulocytes # (auto) 0.03 K/uL (0.01-0.20); Immature Granulocytes % (auto) 0.4 %; Lymphocytes # (auto) 1.23 K/uL (1.20-3.40); Mean Corpuscular Hemoglobin 31.7 pg (25.0-34.0); Mean Corpuscular Hgb Conc 33.3 g/dL (32.0-36.0); Mean Corpuscular Volume 95.2 fL (80.0-100.0); Mean Platelet Volume 10.6 fL (9.4-12.4); Monocytes # (auto) 0.66 K/uL (0.11-0.59); Neutrophils # (auto) 6.02 K/uL (1.40-6.50); Neutrophils % (auto) 73.3 %; Platelet Count 130 K/uL (130-400); RDW Coefficient of Variation 13.2 % (11.5-14.5); RDW Standard Deviation 45.6 fL (36.4-46.3); Red Blood Count 4.16 M/uL (4.70-6.10); White Blood Count 8.21 K/ul (4.8-10.8)
[2024-02-20] MEDS: PERFLUTREN LIPID MICROSPHERE (DEFINITY) IV ONE (07:17)
[2024-02-20 07:30] LABS: Albumin Level 3.8 gm/dl (3.4-5.0); BUN Creatinine Ratio 21.8 (10-20); Calcium 9.2 mg/dl (8.6-10.3); Chol HDL Ratio 4.1 (0-5); Est GFR (African American) 35.9 ml/min; Phosphorus 3.3 mg/dl (2.5-4.9); Potassium 4.1 mmol/L (3.5-5.1)
[2024-02-20] MEDS: CLOPIDOGREL BISULFATE 75 MG TAB PO SCH (09:27)
--- NOTE | 2024-02-20 10:09 | Neurology Consultation ---
Date of Consultation February 20, 2024 Assessment & Plan (1) Ischemic stroke: History of Present Illness Attending Physician: Aneesh Lenz MD History of Present Illness pt noted rt side weakness since Sunday (2 days). he felt his rt arm weak and rt leg feeling weak. this morning about the same. mri brain noted for ischemic stroke on left posterior internal capsule. pt otherwise stable. admission HPI: The patient is a 83-year-old male with past medical history including diabetes mellitus on chronic insulin, peripheral neuropathy, complex sleep apnea syndrome, BPH with LUTS, urinary tract infection, gout, hypothyroidism, CKD stage III, dilated cardiomyopathy, dyslipidemia, hypertension and chronic back pain. The patient has had worsening shortness of breath and coughing over the past 48 hours. His notes that he has been having some nausea with vomiting, and coughs regularly when he eats. The symptoms began shortly after a episode of nausea and vomiting 2 nights ago. Allergies Allergy/AdvReac Type Severity Reaction Status Date / Time Penicillins Allergy Unknown HAPPENED Verified 02/17/24 22:10 A CHILD--RASH lactose AdvReac Intermediate Gastrointestinal Verified 02/17/24 22:10 Upset Home Medications Medication Instructions Recorded Confirmed Type magnesium oxide 400 mg PO PM 05/28/19 02/17/24 History potassium gluconate 595 mg (99 mg) 595 mg PO PM 05/28/19 02/17/24 History tablet,extended release cholecalciferol (vitamin D3) 50 2,000 unit PO QAM 12/25/19 02/17/24 History mcg (2,000 unit) tablet (Vitamin D3) albuterol sulfate 90 mcg/actuation 2 puff inhalation Q6H PRN 01/10/22 02/17/24 Rx aerosol inhaler (ProAir HFA) Shortness Of Breath #6.7 grams blood-glucose sensor (Dexcom G6 01/23/22 11/08/23 History Sensor device) CPAP Machine #1 ea 02/15/22 11/08/23 Rx multivitamin (Daily Multi-Vitamin 1 tab PO DAILY 02/07/23 02/17/24 History tablet) clindamycin HCl 300 mg capsule 600 mg (2 x 300 mg) PO ONCE #4 caps 02/27/23 02/17/24 Rx blood sugar diagnostic (Contour 03/28/23 11/08/23 History Next Test Strips) clotrimazole 1 % topical cream 1 applic topical BID PRN Rash 90 03/28/23 02/17/24 Rx days #90 grams aspirin 81 mg tablet,delayed 81 mg PO DAILY 05/03/23 02/17/24 History release (Adult Low Dose Aspirin) atorvastatin 40 mg tablet (Lipitor) 40 mg PO PM #90 tabs 11/06/23 02/17/24 Rx desloratadine 5 mg tablet 5 mg PO DAILY PRN allergies #90 11/06/23 02/17/24 Rx (Clarinex) tabs BD Ultra-Fine Uzma Pen Needle 32 #400 ea 12/13/23 Rx gauge x 5/32" (pen needle, diabetic) dutasteride 0.5 mg capsule 0.5 mg PO DAILY #30 caps 12/13/23 02/17/24 Rx silodosin 8 mg capsule (Rapaflo) 8 mg PO DAILY #30 caps 12/13/23 02/17/24 Rx levothyroxine 137 mcg tablet 137 mcg PO DAILY 90 days #90 tabs 01/09/24 02/17/24 Rx carvedilol 25 mg tablet (Coreg) 50 mg (2 x 25 mg) PO BID #360 tabs 01/25/24 02/17/24 Rx febuxostat 80 mg tablet (Uloric) 80 mg PO QAM #90 tabs 01/25/24 02/17/24 Rx venlafaxine 75 mg capsule,extended 75 mg PO TID #270 caps 01/25/24 02/17/24 Rx release 24 hr Basaglar KwikPen U-100 Insulin 100 40 unit (0.4 mL) subcut DAILY #15 02/11/24 02/17/24 Rx unit/mL (3 mL) subcutaneous mL (insulin glargine) insulin lispro 100 unit/mL See Rx Instructions subcut 02/11/24 02/17/24 Rx subcutaneous pen (Admelog SoloStar USEASDIRECTD #15 mL U-) Patient History Medical History (Updated 02/20/24 @ 10:08 by Markell Veras MD) Ischemic stroke Diabetes mellitus type 2, uncontrolled Left knee DJD Risk for falls 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 Injury of cervical spine Fracture of T7 vertebra BPH loc w urin obs/LUTS Personal history of diabetic foot ulcer No open wounds currently, skin being monitored by multiple specialties. Postural dizziness Hx, no issues with currently. Osteoarthritis Hx of thyroid cancer WITH REMOVAL NO CHEMO Spinal stenosis Diabetes type 2, uncontrolled Gout Anemia Attention or concentration deficit Benign prostatic hyperplasia CKD (chronic kidney disease), stage III Cor pulmonale Dilated cardiomyopathy Per 12/23 cardio note, "Most recent echo with low normal LV systolic function. No current signs or symptoms of pulmonary vascular congestion." Dyslipidemia Erectile dysfunction Lumbosacral radiculopathy at L5 Obstructive sleep apnea CPAP Restrictive lung disease RARE RES. INH USE> WELL CONTROLLED Secondary hyperparathyroidism 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 Acquired claw toe of left foot Acquired claw toe of right foot Acquired hallux valgus of right foot Chronic back pain Mild asthma Does not use Albuterol, has just in case Hypertension Surgical History Hx of bilateral cataract extraction History of colonoscopy History of tooth extraction History of tonsillectomy History of cardiac cath [place] MANY YEARS AGO> NO STENTS H/O: knee surgery RIGHT History of thyroidectomy Family History Father Myocardial infarction Hypertension Sister Coronary heart disease Hypertension Brother Hypertension Thyroid cancer Mother Pulmonary embolism Grandmother (Maternal) Stroke Denies family history of Ovarian cancer Prostate cancer Breast cancer Colorectal cancer Social History Smoking Status: Former smoker Second Hand Exposure: No; Do You Dip or Chew Tobacco: No; Hx Alcohol Use: No Hx Substance Use: No Preferred Language: Polish Communication Ability: Effective Visual Impairment: No Limitations Hearing Ability: Normal Bag Cutter Required: No Beliefs That Will Affect Care: None marital status: Current Living Situation: Spouse current occupational status: retired Feels Safe at Home: Yes Safety Concerns: Feels Safe At This Time Childhood Exposure to Second-Hand Smoke: Yes (Uncle and Aunts) Physical Activity Frequency: Does not Exercise Seatbelt Use: always Assistive Devices: Cane and CPAP Review of Systems Review of Systems: All systems reviewed & are unremarkable except as noted in Subjective Constitutional: as per Subjective / HPI Eyes: as per Subjective / HPI Ear, Nose, Mouth, Throat: as per Subjective / HPI Respiratory: as per Subjective / HPI Cardiovascular: as per Subjective / HPI Gastrointestinal: as per Subjective / HPI Musculoskeletal: as per Subjective / HPI Integumentary: as per Subjective / HPI Neurologic: as per Subjective / HPI Psychiatric: as per Subjective / HPI Endocrine: as per Subjective / HPI Hematologic / Lymphatic: as per Subjective / HPI Allergy / Immunological: as per Subjective / HPI Exam (Neuro) Physical Exam: HEENT: normocephalic Neuro: Mental: AOx4, fluent speech, normal comprehension, no apraxia, no L/R confusion, no neglect CN: PERRL, Full EOM, rt lower face droop, intact sensation t/o face, midline T/U/P, 5/5 SCM/traps. Motor: No abnormal movements, normal tone and bulk, RUE: 2/5 t/o proximally, 3/5 distally, RLE: 4/5 t/o. left side 5/5 t/o. Coord: intact left arm. DTR: 1+ sym b/l Gait: deferred. Impression: 83 yo male with acute rt hemiparesis (arm greater than leg) from left ischemic stroke at the poterior limb of internal capsule. Likely lacunar infarct from vascular changes and perhaps hypoxic event. overall stable. he had onset of symptoms 2 days ago. Recommendations: 1. Standard stroke work up as planned 2. antiplatelet therapy: * DAPT (dual antiplatelet therapy): start for pts with ABCD2 score 4 or higher. Initial loading dose with ASA 325mg and Plavix 300mg (if pt has not been started), then ASA 81mg daily and Plavix 75mg daily. continue for 90 days . After that, can continue single antiplatelet therapy (either ASA or Plavix). 3. Images: TTE with bubble, carotid u/s for this pt given his poor kidney function rather than CTA. 4. Permissive Hypertension for next 24 h rs. Keep SBP goal range less than 220. Avoid hypotension. Do not stop beta-madelin if on it. 6. Long-term SBP goal less than 130. 7. Plenty of hydration including IV flui d if possible (use isotonic solution) next 1-2 days. Avoid hypovolemia and hypotension. 8. Initiate DVT prevention therapy. 9. Avoid hypoglycemia, serum glucose goa l during hospitalization: 140-180. 10. Long-term HgA1c goal less than 7. 11. Start statin if not on it and no abs olute contraindication, long-term LDL goal less than 70. 12. Head of bed up 30 degrees if possibl e. 14. Telemetry monitoring. Consider intermediate cardiac monitoring, i.e. MCOT (mobile cardiac outpatient telemetry) or ICM (insertable quality assurance monitor chassis, e.g. LINQ), if never had intermediate cardiac monitoring done previously. And if found to have atrial flutter or fibrillation, should consider anticoagulation therapy if no contraindication. 15. Fall precaution and aspiration preca ution. 16. Consult physical and occupational th erapy evaluation. please call again if new question. Chart reviewed I have spent more than 50% educating patient about potential diagnosis and neurological evaluation and coordinating care with patient's treatment team. Total time spent (including chart review and coordination of care): 60 min (this includes chart review). Results & Data Vital Signs (Past 12 Hours) Vital Signs Temp Pulse Pulse Resp BP Pulse Ox O2 Del Method 02/20/24 08:00 Nasal Cannula 02/20/24 07:21 36.5 C 65 19 141/68 H 96 Nasal Cannula 02/20/24 03:00 37 C 62 18 105/70 95 Room Air, CPAP 02/20/24 02:32 73 16 95 02/19/24 22:30 36.8 C 64 18 150/80 H 94 Nasal Cannula 02/19/24 22:21 64 O2 Flow Rate FiO2 02/20/24 08:00 2 02/20/24 07:21 2.0 02/20/24 03:00 02/20/24 02:32 25 02/19/24 22:30 1 02/19/24 22:21 PG Care Time/CCT Total # of Minutes Spent Total Time Spent with Patient: Total time spent is greater than 50% in coordination of care (as documented) at patient's floor/unit and/or counseling patient: Coding Level of Care Code 02439 IN/OBS CONSULT LVL 4,60M Diagnoses Ischemic stroke I63.9
--- NOTE | 2024-02-20 10:32 | Orthopedic Consultation ---
Date of Service February 20, 2024 Assessment & Plan (1) Osteoarthritis of right shoulder: I had a long discussion today with the patient about his right shoulder pathology with ample amount of time for the patient ask any questions or state any concerns. All questions and concerns were answered to the patient's satisfaction. At this point, it does look like most of his findings to the right shoulder are chronic in nature. I do not feel that with everything going on that he would benefit from a shoulder injection at this time. He will more than likely need to start working with therapy for his stroke. This may also help him with his shoulder pain as well. If his shoulder pain does become a new issue, I did discuss that he would more likely benefit from an glenohumeral intra-articular steroid injection. I also discussed that this would be better completed by interventional radiology under fluoroscopy or he can follow-up in our office with one of our sports medicine physicians who utilizes ultrasound to better pinpoint the glenohumeral joint. He may follow-up with found any orthopedics upon discharge if he wishes. Please [place] text to reach out to [facility] orthopedics if this patient situation is to change. History of Present Illness Reason for Consultation: . Right shoulder pain/effusion Requesting Physician: . Attending Physician: Aneesh Lenz MD . Jony is an 83-year-old gentleman who is quite fatigued this morning who does not provide a great history to me on evaluation. I did discuss patient presentation with the nurse today to get a history on him today. He notes that the patient arrived here at [facility] on February 17, 2024 after having worsening of shortness of breath and coughing. He was admitted onto the floor with respiratory failure with hypoxia/complex sleep apnea syndrome, aspiration pneumonia, elevated troponin/dilated cardiomyopathy/hypertension and numerous other chronic medical issues. Unfortunately, earlier this morning he had a new acute infarct that is affecting his right side of his body. He is currently not able to perform any functions with the right arm. Orthopedics was consulted this morning due to right shoulder pain that was present yesterday. Today, the patient does not note any discomfort to the right shoulder most likely secondary to the ischemic stroke that he underwent earlier this morning. He denies any other concerns today. Allergies Allergy/AdvReac Type Severity Reaction Status Date / Time Penicillins Allergy Unknown HAPPENED Verified 02/17/24 22:10 A CHILD--RASH lactose AdvReac Intermediate Gastrointestinal Verified 02/17/24 22:10 Upset Home Medications Medication Instructions Recorded Confirmed Type magnesium oxide 400 mg PO PM 05/28/19 02/17/24 History potassium gluconate 595 mg (99 mg) 595 mg PO PM 05/28/19 02/17/24 History tablet,extended release cholecalciferol (vitamin D3) 50 2,000 unit PO QAM 12/25/19 02/17/24 History mcg (2,000 unit) tablet (Vitamin D3) albuterol sulfate 90 mcg/actuation 2 puff inhalation Q6H PRN 01/10/22 02/17/24 Rx aerosol inhaler (ProAir HFA) Shortness Of Breath #6.7 grams blood-glucose sensor (Dexcom G6 01/23/22 11/08/23 History Sensor device) CPAP Machine #1 ea 02/15/22 11/08/23 Rx multivitamin (Daily Multi-Vitamin 1 tab PO DAILY 02/07/23 02/17/24 History tablet) clindamycin HCl 300 mg capsule 600 mg (2 x 300 mg) PO ONCE #4 caps 02/27/23 02/17/24 Rx blood sugar diagnostic (Contour 03/28/23 11/08/23 History Next Test Strips) clotrimazole 1 % topical cream 1 applic topical BID PRN Rash 90 03/28/23 02/17/24 Rx days #90 grams aspirin 81 mg tablet,delayed 81 mg PO DAILY 05/03/23 02/17/24 History release (Adult Low Dose Aspirin) atorvastatin 40 mg tablet (Lipitor) 40 mg PO PM #90 tabs 11/06/23 02/17/24 Rx desloratadine 5 mg tablet 5 mg PO DAILY PRN allergies #90 11/06/23 02/17/24 Rx (Clarinex) tabs BD Ultra-Fine Uzma Pen Needle 32 #400 ea 12/13/23 Rx gauge x 5/32" (pen needle, diabetic) dutasteride 0.5 mg capsule 0.5 mg PO DAILY #30 caps 12/13/23 02/17/24 Rx silodosin 8 mg capsule (Rapaflo) 8 mg PO DAILY #30 caps 12/13/23 02/17/24 Rx levothyroxine 137 mcg tablet 137 mcg PO DAILY 90 days #90 tabs 01/09/24 02/17/24 Rx carvedilol 25 mg tablet (Coreg) 50 mg (2 x 25 mg) PO BID #360 tabs 01/25/24 02/17/24 Rx febuxostat 80 mg tablet (Uloric) 80 mg PO QAM #90 tabs 01/25/24 02/17/24 Rx venlafaxine 75 mg capsule,extended 75 mg PO TID #270 caps 01/25/24 02/17/24 Rx release 24 hr Basaglar KwikPen U-100 Insulin 100 40 unit (0.4 mL) subcut DAILY #15 02/11/24 02/17/24 Rx unit/mL (3 mL) subcutaneous mL (insulin glargine) insulin lispro 100 unit/mL See Rx Instructions subcut 02/11/24 02/17/24 Rx subcutaneous pen (Admelog SoloStar USEASDIRECTD #15 mL U-) Past Med/Surg History Medical History (Updated 02/20/24 @ 10:34 by Allen Shoemaker PA-C) Ischemic stroke Diabetes mellitus type 2, uncontrolled Left knee DJD Risk for falls 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 Injury of cervical spine Fracture of T7 vertebra BPH loc w urin obs/LUTS Personal history of diabetic foot ulcer No open wounds currently, skin being monitored by multiple specialties. Postural dizziness Hx, no issues with currently. Osteoarthritis Hx of thyroid cancer WITH REMOVAL NO CHEMO Spinal stenosis Diabetes type 2, uncontrolled Gout Anemia Attention or concentration deficit Benign prostatic hyperplasia CKD (chronic kidney disease), stage III Cor pulmonale Dilated cardiomyopathy Per 12/23 cardio note, "Most recent echo with low normal LV systolic function. No current signs or symptoms of pulmonary vascular congestion." Dyslipidemia Erectile dysfunction Lumbosacral radiculopathy at L5 Obstructive sleep apnea CPAP Restrictive lung disease RARE RES. INH USE> WELL CONTROLLED Secondary hyperparathyroidism 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 Acquired claw toe of left foot Acquired claw toe of right foot Acquired hallux valgus of right foot Chronic back pain Mild asthma Does not use Albuterol, has just in case Hypertension Surgical History Hx of bilateral cataract extraction History of colonoscopy History of tooth extraction History of tonsillectomy History of cardiac cath [place] MANY YEARS AGO> NO STENTS H/O: knee surgery RIGHT History of thyroidectomy Family History Father Myocardial infarction Hypertension Sister Coronary heart disease Hypertension Brother Hypertension Thyroid cancer Mother Pulmonary embolism Grandmother (Maternal) Stroke Denies family history of Ovarian cancer Prostate cancer Breast cancer Colorectal cancer Social History Smoking Status: Former smoker Second Hand Exposure: No; Do You Dip or Chew Tobacco: No; Hx Alcohol Use: No Hx Substance Use: No Preferred Language: Guyanese Communication Ability: Effective Visual Impairment: No Limitations Hearing Ability: Normal Neurosurgery Physician Required: No Beliefs That Will Affect Care: None marital status: Current Living Situation: Spouse current occupational status: retired Feels Safe at Home: Yes Safety Concerns: Feels Safe At This Time Childhood Exposure to Second-Hand Smoke: Yes (Uncle and Aunts) Physical Activity Frequency: Does not Exercise Seatbelt Use: always Assistive Devices: Cane and CPAP Review of Systems All systems reviewed & are unremarkable except as noted in HPI & below. Physical Exam .HEENT: normocephalic Mental: AOx4, fluent speech, normal comprehension, no apraxia, no L/R confusion, no neglect CN: PERRL, Full EOM, rt lower face droop, intact sensation t/o face, midline T/U/P, 5/5 SCM/traps. Musculoskeletal On physical examination of right shoulder, exam is severely limited due to ischemic stroke affecting the right right side. His right arm is flaccid and not able to do active range of motion. Passive range of motion in all planes with the right shoulder did not elicit any discomfort. +2 radial pulse. Less than 2-second capillary refill. Results & Data Results & Data Laboratory Results . Diagnostic Findings Shoulder MRI 02/20/24 00:01 Exam(s): MRI RIGHT SHOULDER Without Contrast EXAM: MR Right Upper Extremity Without Intravenous Contrast, Shoulder CLINICAL HISTORY: Reason for exam: pain, weakness. TECHNIQUE: Multiplanar magnetic resonance images of the right shoulder without intravenous contrast. COMPARISON: No relevant prior studies available. FINDINGS: Acromion is type 1/2 on sagittal images. There is moderate osteoarthritis of the acromioclavicular joint. There is no significant subacromial enthesopathy. There is trace volume of fluid in the subacromial/subdeltoid bursa. There is tendinopathy of the supraspinatus tendon with partial-thickness low-grade articular-sided tearing of the anterior tendon near the footprint. There is mild muscle atrophy. There is no significant muscle edema. There is low-grade partial-thickness, articular-sided and intrasubstance tearing of the infraspinatus tendon at the footprint. There is no significant muscle atrophy or edema. Teres minor muscle and tendon are unremarkable. There is tendinopathy of the subscapularis tendon with low-grade partial- thickness articular-sided tearing of the tendon at the footprint. There is no significant muscle atrophy or edema. There is moderate osteoarthritis of the glenohumeral joint with regions of moderate chondral loss. There is global degeneration and tearing of the labrum. Long head biceps tendon is intact and demonstrates tendinopathy of the intra-articular segment and mild medial subluxation of the level of the charlie. There is a glenohumeral joint effusion which is decompressed and of the subscapularis recess. There is an 18 mm body within the subscapularis recess. Cystic change in the greater tuberosity reflects overlying enthesopathy. There is no acute fracture or dislocation. Deltoid muscle appears unremarkable. IMPRESSION: 1. Moderate osteoarthritis of the glenohumeral joint. Global labral degeneration and tearing. Joint effusion with 18 mm body in the subscapularis recess. 2. Rotator cuff tendinopathy, with partial-thickness tears of the supraspinatus, infraspinatus, subscapularis tendons. Atrophy of the supraspinatus muscle. 3. Intact long head biceps tendon with tendinopathy of the intra- articular segment and mild medial subluxation at the level of the charlie. 4. Moderate osteoarthritis of the acromioclavicular joint. 5. Trace fluid in the subacromial/subdeltoid bursa. Electronically signed by: Mike Clark M.D. 02/20/24 03:27 AM PG Care Time/CCT Total # of Minutes Spent Total Time Spent with Patient: Total time spent is greater than 50% in coordination of care (as documented) at patient's floor/unit and/or counseling patient: Coding Level of Care Code 04070 IN/OBS CONSULT LVL 2,35M Diagnoses Primary osteoarthritis of right shoulder M19.011 Osteoarthritis type: primary (1) Osteoarthritis of right shoulder Osteoarthritis type: primary Qualified Code(s): M19.011 - Primary osteoarthritis, right shoulder
--- NOTE | 2024-02-20 10:47 | Pharmacy Report ---
- Date of Service February 20, 2024 - Pharmacy CVA/TIA Medication Review Medications to Prevent Stroke handout has been added to the patients discharge packet. Antiplatelet(s) * aspirin 81 mg daily * plavix 75 mg daily Cholesterol * High intensity statin: atorvastatin 40 mg daily DVT Prophylaxis * Heparin SQ Therapeutic Anticoagulation * No history of Afib/Aflutter noted per provider notes Type 2 Diabetes * Patient has T2DM, but per provider, a diabetes medication with proven CVD benefit will be deferred to their outpatient provider due to familiarity with risks/benefits of such therapies. "Medications to prevent stroke" handout has already been added to the patient's discharge packet, which instructs the patient to follow up with their outpatient provider to evaluate which diabetes medication with proven CVD benefit is best for them
--- NOTE | 2024-02-20 11:53 | Hospitalist Progress Note ---
Date of Service February 20, 2024 Assessment & Plan (1) Acute respiratory failure with hypoxia: (2) Diabetic nephropathy associated with type 2 diabetes mellitus: (3) Type 2 diabetes mellitus with insulin therapy: (4) DM (diabetes mellitus), type 2 with neurological complications: (5) Complex sleep apnea syndrome: (6) Aspiration pneumonitis: (7) BPH with obstruction/lower urinary tract symptoms: (8) CKD (chronic kidney disease), stage III: (9) Dilated cardiomyopathy: (10) Obstructive sleep apnea: (11) Restrictive lung disease: (12) Acute CVA (cerebrovascular accident): (13) Osteoarthritis: Plan Patient was noted to have weakness in the right upper extremity and also some facial asymmetry CT scan did not show any acute pathology, however MRI was done MRI showed a 7 mm posterior limb of the left internal capsule acute/subacute lacunar infarct Patient already on aspirin and statin, Plavix has been added 2D echo has been done, result pending Physical therapy has been consulted Appreciate neurology recommendations. Transient hypoxia following suspected aspiration pneumonitis Now resolved following BiPAP and supplemental oxygen. Patient currently saturating well on room air. Will continue CPAP at bedtime which he wears at home. Aspiration pneumonitis- Patient had an episode of nausea and vomiting 2 nights prior to admission, and reports he developed shortness of breath shortly thereafter He also has an intermittent history of coughing with eating MRSA is negative, cultures negative Discontinue antibiotics DuoNebs every 2 hours as needed History of dilated cardiomyopathy: Appears compensated, chest x-ray did not show any evidence of pulmonary congestion. Repeat 2D echo pending, last ejection fraction was 55% Patient appears compensated, BNP 300 Will continue to monitor input and output Daily weight Continue home medications. Elevated troponin: Probably due to demand ischemia from transient hypoxia, could also be chronically elevated due to CKD No evidence of chest pain or ST changes on EKG. Deconditioning: Patient's describes physical deconditioning weakness lethargy Has a history of thyroidectomy, will check free T4 levels Physical therapy on board Diabetes mellitus- Reduce glargine from 40 to 20 units subcu daily, until diet normalizes CKD- Baseline creatinine appears to be around 1.67, with admission creatinine 1.40, which presumptively secondary to some mild fluid overload Repeat laboratories in a.m. BPH with LUTS- Continue home medications. Obstructive sleep apnea: At home patient uses BiPAP at night Will continue the same here in the hospital. Right shoulder osteoarthritis: Some pain and tenderness in the right shoulder MRI shoulder showed evidence of small 18 mm effusion and signs of degenerative changes consistent with osteoarthritis Orthopedics consulted no treatment for now. Recommend IR if shoulder injection is needed. Admission and Anticipated Discharge Date Admission Date: February 17, 2024 Subjective Patient seen and examined, awake and alert, on BiPAP Review of Systems Review of Systems: All systems reviewed are negative, apart from the ones contained in the history. Physical Exam Physical Exam: The patient is awake, alert and oriented 3, well developed and well nourished, normocephalic and atraumatic, lying in bed and in no acute distress. HEENT--PERRL, EOMI, mucous membranes and oropharynx mildly dry Neck--supple. No JVD. No bruits. Thyroid normal, trachea midline, no adenopathy. Heart--normal S1 and S2. No murmurs, rubs or gallops. Lungs--clear bilaterally, no respiratory distress, no accessory muscle use. Abdomen--normal bowel sounds and soft. Extremities--no cyanosis or clubbing. No edema. Dermatologic--normal skin turgor, normal color, no abnormal lymph nodes, no rash. Neurologic--cranial nerves II through XII grossly intact. Rheumatologic--normal range of motion. Psychiatric--normal affect. Results & Data Results & Data Vital Signs (Past 12 Hours) Vital Signs Temp Pulse Pulse Resp BP Pulse Ox O2 Del Method 02/20/24 08:00 Nasal Cannula 02/20/24 07:21 97.7 F 65 19 141/68 H 96 Nasal Cannula 02/20/24 03:00 98.6 F 62 18 105/70 95 Room Air, CPAP 02/20/24 02:32 73 16 95 O2 Flow Rate FiO2 02/20/24 08:00 2 02/20/24 07:21 2.0 02/20/24 03:00 02/20/24 02:32 25 PG Care Time/CCT Total # of Minutes Spent Total Time Spent with Patient: Total time spent is greater than 50% in coordination of care (as documented) at patient's floor/unit and/or counseling patient: Coding Level of Care Code 66455 SUB INP/OBS CARE 2/35MIN Diagnoses Acute respiratory failure with hypoxia J96.01 Diabetic nephropathy associated with type 2 diabetes mellitus E11.21 Type 2 diabetes mellitus with insulin therapy E11.9; Z79.4 DM (diabetes mellitus), type 2 with neurological complications E11.49 Complex sleep apnea syndrome G47.31 Aspiration pneumonitis J69.0 BPH with obstruction/lower urinary tract symptoms N40.1; N13.8 CKD (chronic kidney disease), stage III N18.3 Dilated cardiomyopathy I42.0 Obstructive sleep apnea G47.33 Restrictive lung disease J98.4 Acute CVA (cerebrovascular accident) I63.9 Osteoarthritis M19.90 Time Spent (min) 35
[2024-02-20] MEDS: PANTOprazole 40 MG TAB PO SCH (13:12)
--- NOTE | 2024-02-20 14:58 | XCELERA ---
[id number] \\[id number]
[2024-02-21 07:08] LABS: BUN Creatinine Ratio 26.1 (10-20); Calcium 9.1 mg/dl (8.6-10.3); Creatinine Clr Calc Pharmacy 40.1 ml/min; Est GFR (African American) 41.1 ml/min; Est GFR (Non-African American) 35.5 ml/min
--- NOTE | 2024-02-21 11:22 | Hospitalist Progress Note ---
Date of Service February 21, 2024 Assessment & Plan (1) Acute respiratory failure with hypoxia: (2) Diabetic nephropathy associated with type 2 diabetes mellitus: (3) Type 2 diabetes mellitus with insulin therapy: (4) DM (diabetes mellitus), type 2 with neurological complications: (5) Complex sleep apnea syndrome: (6) Aspiration pneumonitis: (7) BPH with obstruction/lower urinary tract symptoms: (8) CKD (chronic kidney disease), stage III: (9) Dilated cardiomyopathy: (10) Obstructive sleep apnea: (11) Restrictive lung disease: (12) Acute CVA (cerebrovascular accident): (13) Osteoarthritis: Plan Patient was noted to have weakness in the right upper extremity and also some facial asymmetry CT scan did not show any acute pathology, however MRI was done MRI showed a 7 mm posterior limb of the left internal capsule acute/subacute lacunar infarct Patient already on aspirin and statin, Plavix has been added 2D echo has been done, no evidence of shunt Physical therapy has been consulted Appreciate neurology recommendations. Transient hypoxia following suspected aspiration pneumonitis Now resolved following BiPAP and supplemental oxygen. Patient currently saturating well on room air. Will continue CPAP at bedtime which he wears at home. Aspiration pneumonitis- Patient had an episode of nausea and vomiting 2 nights prior to admission, and reports he developed shortness of breath shortly thereafter He also has an intermittent history of coughing with eating MRSA is negative, cultures negative Discontinue antibiotics DuoNebs every 2 hours as needed History of dilated cardiomyopathy: Appears compensated, chest x-ray did not show any evidence of pulmonary congestion. Repeat 2D echo pending, last ejection fraction was 55% Patient appears compensated, BNP 300 Will continue to monitor input and output Daily weight Continue home medications. Elevated troponin: Probably due to demand ischemia from transient hypoxia, could also be chronically elevated due to CKD No evidence of chest pain or ST changes on EKG. Deconditioning: Patient's describes physical deconditioning weakness lethargy Has a history of thyroidectomy, will check free T4 levels Physical therapy on board Diabetes mellitus- Reduce glargine from 40 to 20 units subcu daily, until diet normalizes CKD-stage III Creatinine is at baseline BPH with LUTS- Continue home medications. Obstructive sleep apnea: At home patient uses BiPAP at night Will continue the same here in the hospital. Right shoulder osteoarthritis: Some pain and tenderness in the right shoulder MRI showed evidence of a low-grade partial-thickness, articular sided and intrasubstance tearing of the infraspinatus tendon at the footprint. Also moderate osteoarthritis of the glenohumeral joint. There is global degeneration and tearing of the labrum. Orthopedics consulted no treatment for now. Recommend IR if shoulder injection as needed. Admission and Anticipated Discharge Date Admission Date: February 17, 2024 Subjective Patient seen and examined, awake and alert, on BiPAP Review of Systems Review of Systems: All systems reviewed are negative, apart from the ones contained in the history. Physical Exam Physical Exam: The patient is awake, alert and oriented 3, well developed and well nourished, normocephalic and atraumatic, lying in bed and in no acute distress. HEENT--PERRL, EOMI, mucous membranes and oropharynx mildly dry Neck--supple. No JVD. No bruits. Thyroid normal, trachea midline, no adenopathy. Heart--normal S1 and S2. No murmurs, rubs or gallops. Lungs--clear bilaterally, no respiratory distress, no accessory muscle use. Abdomen--normal bowel sounds and soft. Extremities--no cyanosis or clubbing. No edema. Dermatologic--normal skin turgor, normal color, no abnormal lymph nodes, no rash. Neurologic--cranial nerves II through XII grossly intact. Rheumatologic--normal range of motion. Psychiatric--normal affect. Results & Data Results & Data Vital Signs (Past 12 Hours) Vital Signs Temp Pulse Pulse Resp BP Pulse Ox O2 Del Method 02/21/24 08:00 64 02/21/24 07:12 97.9 F 59 L 17 146/74 H 96 Nasal Cannula 02/21/24 03:53 98.1 F 61 20 131/79 96 CPAP 02/21/24 03:30 54 L 19 97 02/20/24 23:50 60 17 96 O2 Flow Rate FiO2 02/21/24 08:00 02/21/24 07:12 2.0 02/21/24 03:53 02/21/24 03:30 25 02/20/24 23:50 25 PG Care Time/CCT Total # of Minutes Spent Total Time Spent with Patient: Total time spent is greater than 50% in coordination of care (as documented) at patient's floor/unit and/or counseling patient: Coding Level of Care Code 19025 SUB INP/OBS CARE 235MIN Diagnoses Acute respiratory failure with hypoxia J96.01 Diabetic nephropathy associated with type 2 diabetes mellitus E11.21 Type 2 diabetes mellitus with insulin therapy E11.9; Z79.4 DM (diabetes mellitus), type 2 with neurological complications E11.49 Complex sleep apnea syndrome G47.31 Aspiration pneumonitis J69.0 BPH with obstruction/lower urinary tract symptoms N40.1; N13.8 CKD (chronic kidney disease), stage III N18.3 Dilated cardiomyopathy I42.0 Obstructive sleep apnea G47.33 Restrictive lung disease J98.4 Acute CVA (cerebrovascular accident) I63.9 Osteoarthritis M19.90 Time Spent (min) 35
[2024-02-21] MEDS: BUPIVACAINE/EPINEPHRINE 0.25% 1:200,000 30 ML VIAL ONE (11:27)
[2024-02-21] MEDS: TRIAMCINOLONE ACET 40 MG/ML VIAL IA ONE (11:27)
[2024-02-21] MEDS: bisacodyL 10 MG SUPP PR STA (11:51)
[2024-02-21] MEDS: POLYETHYLENE (MIRALAX) 17 GM PACK PO SCH (12:13)
--- NOTE | 2024-02-21 12:47 | Fluoroscopy Report ---
Fluoroscopic-guided right shoulder steroid injection INDICATION: Osteoarthritis; right shoulder pain PROCEDURE: Procedure and risks were explained. Informed consent was obtained. A final timeout was com pleted. The right shoulder was prepped and draped in sterile fashion. 1% lidocaine was utilized for s kin anesthesia. Utilizing fluoroscopic guidance, a 22-gauge spinal needle was advanced into the right shoulder joint space. Approximately 1 mL of iodinated contrast was injected confirming intra-articular needle positi on. Permanent spot images were obtained. Next, a solution consisting of 40 mg/mL of Kenalog and 3 mL of 0.25% Marcaine was injected into the shoulder joint. The needle was removed and Band-Aid applied. The patient tolerated the procedure well. Total fluoroscopy time 31 seconds. Study dose 8.53 mGy. IMPRESSION: Right shoulder injection as detailed above. Performed, dictated, and signed by Isaac Cruz PA-C; to be co-signed by Dr. Chris Adam. Electronically signed by: Chris Adam M.D. 02/21/2024 12:55 PM
[2024-02-21 17:49] LABS: Appearance Urine Clear (Clear); Bilirubin Urine Negative (Negative); Blood Urine 2+ (Negative); Color Urine Yellow; Glucose Urine UA Negative (Negative); Ketones Urine Negative (Negative); Leukocyte Esterase Urine Negative (Negative); Nitrite Urine Negative (Negative); Protein Urine 2+ (Negative); Specific Gravity Urine 1.025 (1.000-1.030); Urobilinogen Urine Negative (Negative); pH Urine 5.5 (4.5-7.5)
[2024-02-21 18:22] LABS: Bacteria Urine None Seen (None Seen); Hyaline Casts Urine Present /lpf (None Presnt)
[2024-02-22 07:11] LABS: BUN Creatinine Ratio 26.2 (10-20); Calcium 8.9 mg/dl (8.6-10.3); Creatinine Clr Calc Pharmacy 41.5 ml/min; Est GFR (African American) 42.3 ml/min; Est GFR (Non-African American) 36.5 ml/min; Potassium 4.7 mmol/L (3.5-5.1)
--- NOTE | 2024-02-22 10:33 | Hospitalist Progress Note ---
Date of Service February 22, 2024 Assessment & Plan (1) Acute respiratory failure with hypoxia: (2) Diabetic nephropathy associated with type 2 diabetes mellitus: (3) Type 2 diabetes mellitus with insulin therapy: (4) DM (diabetes mellitus), type 2 with neurological complications: (5) Complex sleep apnea syndrome: (6) Aspiration pneumonitis: (7) BPH with obstruction/lower urinary tract symptoms: (8) CKD (chronic kidney disease), stage III: (9) Dilated cardiomyopathy: (10) Obstructive sleep apnea: (11) Restrictive lung disease: (12) Acute CVA (cerebrovascular accident): (13) Osteoarthritis: (14) HFrEF (heart failure with reduced ejection fraction): Plan Acute/sub acute stroke: Patient was noted to have weakness in the right upper extremity and also some facial asymmetry CT scan did not show any acute pathology, however MRI was done MRI showed a 7 mm posterior limb of the left internal capsule acute/subacute lacunar infarct Patient already on aspirin and statin, Plavix has been added 2D echo has been done, no evidence of shunt Physical therapy has been consulted Appreciate neurology recommendations. Transient hypoxia following suspected aspiration pneumonitis Now resolved following BiPAP and supplemental oxygen. Patient currently saturating well on room air. Will continue CPAP at bedtime which he wears at home. Aspiration pneumonitis- Patient had an episode of nausea and vomiting 2 nights prior to admission, and reports he developed shortness of breath shortly thereafter He also has an intermittent history of coughing with eating MRSA is negative, cultures negative Discontinue antibiotics DuoNebs every 2 hours as needed History of dilated cardiomyopathy: Appears compensated, chest x-ray did not show any evidence of pulmonary congestion. Repeat 2D echo EF35-45%, in December 2023, ECHO ejection fraction was 55% Patient appears compensated, BNP 79 Will continue to monitor input and output Daily weight Continue home medications. Elevated troponin: Probably due to demand ischemia from transient hypoxia, could also be chronically elevated due to CKD No evidence of chest pain or ST changes on EKG. Deconditioning: Patient's describes physical deconditioning weakness lethargy Physical therapy on board Diabetes mellitus- Reduce glargine from 40 to 20 units subcu daily, until diet normalizes Blood glucose has been under good control CKD-stage III Creatinine is at baseline BPH with LUTS- Continue home medications. Obstructive sleep apnea: At home patient uses BiPAP at night Will continue the same here in the hospital. Right shoulder osteoarthritis: Some pain and tenderness in the right shoulder MRI showed evidence of a low-grade partial-thickness, articular sided and intrasubstance tearing of the infraspinatus tendon at the footprint. Also moderate osteoarthritis of the glenohumeral joint. There is global degeneration and tearing of the labrum. Pain is better after steroid injection Heart failure with Reduced EF: 2 D ECHO shoed EF 35-40% Patient appears compensated BNP 79 Refer to outpatient cardiology follow up [facility] has approved Admission and Anticipated Discharge Date Admission Date: February 17, 2024 Subjective Patient seen and examined, awake and alert, right sided weakness, shoulkder pain is better Review of Systems Review of Systems: All systems reviewed are negative, apart from the ones contained in the history. Physical Exam Physical Exam: The patient is awake, alert and oriented 3, well developed and well nourished, normocephalic and atraumatic, lying in bed and in no acute distress. HEENT--PERRL, EOMI, mucous membranes and oropharynx mildly dry Neck--supple. No JVD. No bruits. Thyroid normal, trachea midline, no adenopathy. Heart--normal S1 and S2. No murmurs, rubs or gallops. Lungs--clear bilaterally, no respiratory distress, no accessory muscle use. Abdomen--normal bowel sounds and soft. Extremities--no cyanosis or clubbing. No edema. Dermatologic--normal skin turgor, normal color, no abnormal lymph nodes, no rash. Neurologic--cranial nerves II through XII grossly intact. Rheumatologic--normal range of motion. Psychiatric--normal affect. Results & Data Results & Data Vital Signs (Past 12 Hours) Vital Signs Temp Pulse Pulse Resp BP Pulse Ox O2 Del Method 02/22/24 07:41 53 L 02/22/24 07:41 Nasal Cannula 02/22/24 07:15 97.3 F L 59 L 17 175/73 H 97 Nasal Cannula 02/22/24 03:30 56 L 20 96 02/22/24 03:00 97.5 F L 59 L 16 167/100 H 97 CPAP 02/21/24 23:35 76 24 96 02/21/24 23:00 97.5 F L 68 16 156/101 H 96 CPAP O2 Flow Rate FiO2 02/22/24 07:41 02/22/24 07:41 2 02/22/24 07:15 2 02/22/24 03:30 25 02/22/24 03:00 02/21/24 23:35 25 02/21/24 23:00 PG Care Time/CCT Total # of Minutes Spent Total Time Spent with Patient: Total time spent is greater than 50% in coordination of care (as documented) at patient's floor/unit and/or counseling patient: Coding Level of Care Code 79570 SUB INP/OBS CARE 2/35MIN Diagnoses Acute respiratory failure with hypoxia J96.01 Diabetic nephropathy associated with type 2 diabetes mellitus E11.21 Type 2 diabetes mellitus with insulin therapy E11.9; Z79.4 DM (diabetes mellitus), type 2 with neurological complications E11.49 Complex sleep apnea syndrome G47.31 Aspiration pneumonitis J69.0 BPH with obstruction/lower urinary tract symptoms N40.1; N13.8 CKD (chronic kidney disease), stage III N18.3 Dilated cardiomyopathy I42.0 Obstructive sleep apnea G47.33 Restrictive lung disease J98.4 Acute CVA (cerebrovascular accident) I63.9 Osteoarthritis M19.90 HFrEF (heart failure with reduced ejection fraction) I50.20 Time Spent (min) 35
[2024-02-22] MEDS: amLODIPine BESYLATE 5 MG TAB PO ONE (12:08)
--- NOTE | 2024-02-22 12:38 | Electrocardiogram Report ---
Test Reason : Blood Pressure : / mmHG Vent. Rate : 066 BPM Atrial Rate : 066 BPM P-R Int : 146 ms QRS Dur : 110 ms QT Int : 472 ms P-R-T Axes : 026 007 049 degrees QTc Int : 494 ms Poor data quality, interpretation may be adversely affected Normal sinus rhythm Incomplete left bundle block Prolonged QT Abnormal ECG When compared with ECG of 18-FEB-2024 06:05, Premature atrial complexes are no longer Present Incomplete left bundle block is now Present Confirmed by Tien Lyons ([id number]) on 02/22/2024 12:38:27 PM Referred By: Tien Jeter Confirmed By:Tien Lyons
[2024-02-22] MEDS: bisacodyL 10 MG SUPP PR STA (13:01)
--- NOTE | 2024-02-22 15:22 | Discharge Summary ---
Date of Service February 22, 2024 Admission HPI Per Admitting Provider The patient is a 83-year-old male with past medical history including diabetes mellitus on chronic insulin, peripheral neuropathy, complex sleep apnea syndrome, BPH with LUTS, urinary tract infection, gout, hypothyroidism, CKD stage III, dilated cardiomyopathy, dyslipidemia, hypertension and chronic back pain. The patient has had worsening shortness of breath and coughing over the past 48 hours. His notes that he has been having some nausea with vomiting, and coughs regularly when he eats. The symptoms began shortly after a episode of nausea and vomiting 2 nights ago. Principal Diagnosis acute stroke Discharge Exam The patient is awake, alert and oriented 3, well developed and well nourished, normocephalic and atraumatic, lying in bed and in no acute distress. HEENT--PERRL, EOMI, mucous membranes and oropharynx mildly dry Neck--supple. No JVD. No bruits. Thyroid normal, trachea midline, no adenop athy. Heart--normal S1 and S2. No murmurs, rubs or gallops. Lungs--clear bilaterally, no respiratory distress, no accessory muscle use. Abdomen--normal bowel sounds and soft. Extremities--no cyanosis or clubbing. No edema. Dermatologic--normal skin turgor, normal color, no abnormal lymph nodes, no rash. Neurologic--right hemiparesis, facial droop, slurred speech Rheumatologic--normal range of motion. Psychiatric--normal affect. Discharge Data Allergies Allergy/AdvReac Type Severity Reaction Status Date / Time Penicillins Allergy Unknown HAPPENED Verified 02/17/24 22:10 A CHILD--RASH lactose AdvReac Intermediate Gastrointestinal Verified 02/17/24 22:10 Upset Consultations 02/17/24 19:09 ED Decision to Admit Stat 02/20/24 08:30 Consult Orthopedic Surgery Routine 02/20/24 09:44 Consult Neurology Routine Ordered Studies 02/17/24 19:58 CT chest diagnostic wo con Stat 02/18/24 15:28 CT head/brain wo con Routine 02/19/24 13:45 FL video swallow Routine 02/20/24 00:01 MR brain wo con Routine MR shoulder RT wo con Routine 02/21/24 10:30 IR inj majr joint sh,hip,kn RT Routine Hospital Course (1) Acute respiratory failure with hypoxia: (2) Diabetic nephropathy associated with type 2 diabetes mellitus: (3) Type 2 diabetes mellitus with insulin therapy: (4) DM (diabetes mellitus), type 2 with neurological complications: (5) Complex sleep apnea syndrome: (6) Aspiration pneumonitis: (7) BPH with obstruction/lower urinary tract symptoms: (8) CKD (chronic kidney disease), stage III: (9) Dilated cardiomyopathy: (10) Obstructive sleep apnea: (11) Restrictive lung disease: (12) Acute CVA (cerebrovascular accident): (13) Osteoarthritis: (14) HFrEF (heart failure with reduced ejection fraction): Plan Acute/sub acute stroke: Patient was noted to have weakness in the right upper extremity and also some facial asymmetry CT scan did not show any acute pathology, however MRI was done MRI showed a 7 mm posterior limb of the left internal capsule acute/subacute lacunar infarct Patient already on aspirin and statin, Plavix has been added for 21 days, then discontinue and continue only ASA and Statin 2D echo has been done, no evidence of shunt Physical therapy has been consulted Appreciate neurology recommendations. Transient hypoxia following suspected aspiration pneumonitis Now resolved following BiPAP and supplemental oxygen. Patient currently saturating well on room air. Will continue CPAP at bedtime which he wears at home. Aspiration pneumonitis- Patient had an episode of nausea and vomiting 2 nights prior to admission, and reports he developed shortness of breath shortly thereafter He also has an intermittent history of coughing with eating MRSA is negative, cultures negative Discontinue antibiotics DuoNebs every 2 hours as needed History of dilated cardiomyopathy: Appears compensated, chest x-ray did not show any evidence of pulmonary congestion. Repeat 2D echo EF35-45%, in December 2023, ECHO ejection fraction was 55% Patient appears compensated, BNP 79 Will continue to monitor input and output Daily weight Continue home medications. Elevated troponin: Probably due to demand ischemia from transient hypoxia, could also be chronically elevated due to CKD No evidence of chest pain or ST changes on EKG. Deconditioning: Patient's describes physical deconditioning weakness lethargy Physical therapy on board Diabetes mellitus- Reduce glargine from 40 to 20 units subcu daily, until diet normalizes Blood glucose has been under good control CKD-stage III Creatinine is at baseline BPH with LUTS- Continue home medications. Obstructive sleep apnea: At home patient uses BiPAP at night Will continue the same here in the hospital. Right shoulder osteoarthritis: Some pain and tenderness in the right shoulder MRI showed evidence of a low-grade partial-thickness, articular sided and intrasubstance tearing of the infraspinatus tendon at the footprint. Also moderate osteoarthritis of the glenohumeral joint. There is global degeneration and tearing of the labrum. Pain is better after steroid injection Heart failure with Reduced EF: 2 D ECHO shoed EF 35-40% Patient appears compensated BNP 79 Refer to outpatient cardiology follow up [facility] has approved Total Time Total Time Spent Total Time Spent (In Minutes): 35 Discharge Plan Discharge Items Patient Disposition: Transfer Inpatient Rehab Fac Reason For Visit: ACUTE RESPIRATORY FAILURE WITH HYPOXIA Discharge Diagnosis: Acute stroke Activity: Resume your previous activity Non-emergency contact: Primary Care Provider and Medical Records Coordinator Call non-emergency contact if: you have any medication questions Follow-up/Referrals: Tien Jeter MD [Primary Care Provider] - Diet: Regular Addtl Attending Provider Instructions: Please make appointment to see a steam drier operator regarding your 2D echo results which showed that the ejection fraction dropped from 55% to 40% Also make appointment to follow-up with a regular PCP. Pending Studies at Discharge: No Stand-Alone Forms: My [facility] [place] [facility], Medications to Prevent Stroke Skilled Items Patient informed of condition?: Yes DNR: Yes Discharge Level of Care: Skilled Communicable Disease: No Discharge Prognosis: Improving Lines: None Urinary Catheter: No Medications and DC Order Prescriptions: New clopidogrel 75 mg Tablet 75 mg PO QAM 20 Days Qty: 20 0RF amlodipine [Norvasc] 5 mg Tablet 5 mg PO QAM 30 Days Qty: 30 0RF pantoprazole 40 mg Tablet,Delayed Release (Dr/Ec) 40 mg PO DAILY 30 Days Qty: 30 0RF Continued albuterol sulfate [ProAir HFA] 90 mcg/actuation HFA aerosol inhaler 2 puff INH Q6H PRN (Reason: Shortness Of Breath) Qty: 6.7 1RF atorvastatin [Lipitor] 40 mg tablet 40 mg PO PM Qty: 90 3RF desloratadine [Clarinex] 5 mg tablet 5 mg PO DAILY PRN (Reason: allergies) Qty: 90 3RF (DME) pen needle, diabetic [BD Ultra-Fine Uzma Pen Needle] 32 gauge x 5/32" needle See Dose Instructions .ROUTE .MEDSUPPLY Qty: 400 3RF Rx Instructions: Inject insulin 4 times a day dutasteride 0.5 mg capsule 0.5 mg PO DAILY Qty: 30 5RF silodosin [Rapaflo] 8 mg capsule 8 mg PO DAILY Qty: 30 5RF Rx Instructions: must administer with a meal/food levothyroxine 137 mcg tablet 137 mcg PO DAILY 90 Days Qty: 90 1RF carvedilol [Coreg] 25 mg tablet 50 mg PO BID Qty: 360 3RF venlafaxine 75 mg capsule,extended release 24hr 75 mg PO TID Qty: 270 3RF Rx Instructions: 75 mg PO three times a day; febuxostat [Uloric] 80 mg tablet 80 mg PO QAM Qty: 90 3RF insulin glargine [Basaglar KwikPen U-100 Insulin] 100 unit/mL (3 mL) insulin pen 40 unit subcut DAILY Qty: 15 0RF insulin lispro [Admelog SoloStar U-100 Insulin] 100 unit/mL insulin pen See Rx Instructions subcut USEASDIRECTD Qty: 15 2RF Rx Instructions: Subcut, per sliding scale, typically 28 units with breakfast; 6 units with lunch; 6 units with supper; MDD 50 units (DME) Dexcom G6 Sensor Device See Rx Instructions .Route Patient Comments: Per patient, new script is needed. Rx Instructions: As directed (DME) CPAP Machine Misc See Dose Instructions .ROUTE .MEDSUPPLY Qty: 1 0RF Rx Instructions: ASV EPAP 5-15, PS 5-18, max pressure 25, auto rate T&B aspirin [Adult Low Dose Aspirin] 81 mg tablet,delayed release (DR/EC) 81 mg PO DAILY multivitamin [Daily Multi-Vitamin] Tablet 1 tab PO DAILY (DME) Contour Next Test Strips Strip See Rx Instructions .ROUTE .MEDSUPPLY Rx Instructions: Test blood sugar once daily PRN-Dexcom clotrimazole 1 % cream 1 applic TOP BID PRN (Reason: Rash) 90 Days Qty: 90 0RF Rx Instructions: apply to affected area of feet for 1 month magnesium oxide 500 mg tablet 400 mg PO PM cholecalciferol (vitamin D3) [Vitamin D3] 2,000 unit tablet 2,000 unit PO QAM Discontinued clindamycin HCl 300 mg capsule 600 mg PO ONCE Qty: 4 2RF Rx Instructions: TAKE 2 300MG TABLETS 1 HOUR BEFORE DENTAL PROCEDURE potassium gluconate 595 mg (99 mg) tablet extended release 595 mg PO PM Discharge Orders: Discharge Order (Routine); Ordered 02/22/24 Ordered By: Aneesh Lenz Admission Data Admit Date/Time: 02/17/24 20:08 Attending Provider: Aneesh Lenz Admit Provider: Ever Carrasco Primary Care Provider: Tien Jeter Other Providers: Ever Carrasco; Alhaji Aden; Markell Veras; [facility] Other Interventions: Discharge Summary Assessment (RN) Last Done: 02/22/24 12:17 Coding Level of Care Code 30947 INP/OBS DISCH >30 MIN Diagnoses Acute respiratory failure with hypoxia J96.01 Diabetic nephropathy associated with type 2 diabetes mellitus E11.21 Type 2 diabetes mellitus with insulin therapy E11.9; Z79.4 DM (diabetes mellitus), type 2 with neurological complications E11.49 Complex sleep apnea syndrome G47.31 Aspiration pneumonitis J69.0 BPH with obstruction/lower urinary tract symptoms N40.1; N13.8 CKD (chronic kidney disease), stage III N18.3 Dilated cardiomyopathy I42.0 Obstructive sleep apnea G47.33 Restrictive lung disease J98.4 Acute CVA (cerebrovascular accident) I63.9 Osteoarthritis M19.90 HFrEF (heart failure with reduced ejection fraction) I50.20 Time Spent (min) 35
[2024-02-23] MEDS ORDERED: amLODIPine BESYLATE 5 MG TAB PO SCH (09:00)
== END 2024-02-22 15:22 | DRG 189 ==
LOC: ED 16:16 → 2S 20:08 → SUATTDRO 20:08 → 2S 22:30
DX: I50.20 Unspecified systolic (congestive) heart failure; Z88.0 Allergy status to penicillin; N41.9 Inflammatory disease of prostate, unspecified; J69.0 Pneumonitis due to inhalation of food and vomit; E78.5 Hyperlipidemia, unspecified; I69.351 Hemiplegia and hemiparesis following cerebral infarction affecting right dominant side; E11.22 Type 2 diabetes mellitus with diabetic chronic kidney disease; G47.39 Other sleep apnea; I63.81 Other cerebral infarction due to occlusion or stenosis of small artery; Z66 Do not resuscitate; N40.1 Benign prostatic hyperplasia with lower urinary tract symptoms; I42.0 Dilated cardiomyopathy; Z79.82 Long term (current) use of aspirin; M10.9 Gout, unspecified; Z79.4 Long term (current) use of insulin; I24.89 Other forms of acute ischemic heart disease; I16.0 Hypertensive urgency; I13.0 Hypertensive heart and chronic kidney disease with heart failure and stage 1 through stage 4 chronic kidney disease, or unspecified chronic kidney disease; N18.30 Chronic kidney disease, stage 3 unspecified; Z87.891 Personal history of nicotine dependence; J98.4 Other disorders of lung; J96.01 Acute respiratory failure with hypoxia; E11.49 Type 2 diabetes mellitus with other diabetic neurological complication; M19.011 Primary osteoarthritis, right shoulder

== ENCOUNTER 2025-01-06 22:57 | Inpatient (IN) ==
[2025-01-06] MEDS: ALBUT/IPRATROP 3MG/0.5MG NEB 3 ML VIAL INH STA (23:37)
[2025-01-06 23:46] LABS: Base Excess VBG 5.8 mEq/L; HCO3 VBG 33 mmol/L; Oxygen Saturation VBG < 60.0 %; PCO2 VBG 55 mmHg (38-50); PO2 VBG 23 mmHg; pH VBG 7.38 (7.36-7.41)
[2025-01-06 23:51] LABS: Basophils # (auto) 0.03 K/uL (0.00-0.20); Basophils % (auto) 0.3 %; Eosinophils # (auto) 0.18 K/uL (0.00-0.50); Hemoglobin 13.3 g/dl (14.0-18.0); Immature Granulocytes # (auto) 0.02 K/uL (0.01-0.20); Immature Granulocytes % (auto) 0.2 %; Lymphocytes # (auto) 1.69 K/uL (1.20-3.40); Mean Corpuscular Hemoglobin 30.1 pg (25.0-34.0); Mean Corpuscular Hgb Conc 33.3 g/dL (32.0-36.0); Mean Corpuscular Volume 90.5 fL (80.0-100.0); Mean Platelet Volume 11.3 fL (9.4-12.4); Monocytes # (auto) 0.63 K/uL (0.11-0.59); Monocytes % (auto) 7.1 %; Neutrophils # (auto) 6.34 K/uL (1.40-6.50); Neutrophils % (auto) 71.4 %; Platelet Count 154 K/uL (130-400); RDW Coefficient of Variation 14.1 % (11.5-14.5); RDW Standard Deviation 46.3 fL (36.4-46.3); Red Blood Count 4.42 M/uL (4.70-6.10); White Blood Count 8.89 K/ul (4.8-10.8)
--- NOTE | 2025-01-06 23:56 | Emergency Department Note ---
History of Present Illness General Chief complaint: Shortness of Breath/Dyspnea Stated complaint: SOB Time Seen by Provider: 01/06/25 23:12 History of Present Illness This is an 84-year-old male presenting to the emergency department for evaluation of shortness of breath. Patient's symptoms began over the past 2 to 3 days and have progressively worsened. He does have a history of diabetes, dilated cardiomyopathy, sleep apnea, and CHF. He feels like he is unable to take a deep breath. No fevers or chills. He does not have any known exposure to disease. He does not require oxygen at home, but is requiring 4 L to stay close to 99% in the ER. No changes in medications. He rates his discomfort a 5/10. Home Medications Medication Instructions Recorded Confirmed Type magnesium oxide 400 mg PO PM 05/28/19 01/07/25 History cholecalciferol (vitamin D3) 50 2,000 unit PO QAM 12/25/19 01/07/25 History mcg (2,000 unit) tablet (Vitamin D3) blood-glucose sensor (Dexcom G6 01/23/22 12/03/24 History Sensor device) CPAP Machine #1 ea 02/15/22 12/03/24 Rx multivitamin (Daily Multi-Vitamin 1 tab PO QAM 02/07/23 01/07/25 History tablet) blood sugar diagnostic (Contour 03/28/23 12/03/24 History Next Test Strips) aspirin 81 mg tablet,delayed 81 mg PO QAM 05/03/23 01/07/25 History release (Adult Low Dose Aspirin) BD Ultra-Fine Uzma Pen Needle 32 #400 ea 04/09/24 12/03/24 Rx gauge x 5/32" (pen needle, diabetic) clindamycin HCl 300 mg capsule 600 mg (2 x 300 mg) PO ONCE #2 caps 09/08/24 01/07/25 Rx clotrimazole 1 % topical cream 1 applic topical BID PRN Rash #90 10/07/24 01/07/25 Rx grams insulin glargine 100 unit/mL (3 24 unit subcut QPM 10/07/24 01/07/25 History mL) subcutaneous pen (Basaglar KwikPen U-100 Insulin) insulin lispro 100 unit/mL See Rx Instructions subcut 10/07/24 01/07/25 History subcutaneous pen (Admelog SoloStar USEASDIRECTD U-) atorvastatin 40 mg tablet (Lipitor) 40 mg PO PM #90 tabs 11/18/24 01/07/25 Rx carvedilol 25 mg tablet (Coreg) 25 mg PO BID #180 tabs 11/18/24 01/07/25 Rx febuxostat 80 mg tablet (Uloric) 80 mg PO QAM #90 tabs 11/18/24 01/07/25 Rx venlafaxine 150 mg 150 mg PO .COMPLEX #90 caps 11/18/24 01/07/25 Rx capsule,extended release 24 hr venlafaxine 75 mg capsule,extended 75 mg PO .COMPLEX #90 caps 11/18/24 01/07/25 Rx release 24 hr desloratadine 5 mg tablet 5 mg PO DAILY PRN allergies #90 11/26/24 01/07/25 Rx (Clarinex) tabs silodosin 8 mg capsule (Rapaflo) 8 mg PO DAILY #90 caps 12/16/24 01/07/25 Rx ketoconazole 2 % topical cream 1 applic topical BID #60 grams 12/19/24 01/07/25 Rx albuterol sulfate 90 mcg/actuation 2 puff inhalation Q6H PRN 01/07/25 01/07/25 History aerosol inhaler Shortness Of Breath Or Wheezing dutasteride 0.5 mg capsule 0.5 mg PO QAM 01/07/25 01/07/25 History levothyroxine 150 mcg tablet 150 mcg PO DAILYBB 01/07/25 01/07/25 History Allergies Allergy/AdvReac Type Severity Reaction Status Date / Time Penicillins Allergy Unknown HAPPENED Verified 01/07/25 00:49 A CHILD--RASH lactose AdvReac Intermediate Gastrointestinal Verified 01/07/25 00:49 Upset Past Med/Surg History Problem List Elevated troponin (Acute) CHF (congestive heart failure) (Acute) Acute dyspnea (Acute) Abnormality of gait and mobility History of CVA with residual deficit Falls Bradycardia Pain of right calf (Acute) HFrEF (heart failure with reduced ejection fraction) CHF (congestive heart failure) (Acute) Osteoarthritis Osteoarthritis of right shoulder Ischemic stroke Acute respiratory failure with hypoxia (Acute) Aspiration pneumonitis 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), 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 Risk for falls Acromioclavicular joint separation, type 3 BPH with obstruction/lower urinary tract symptoms Loss of protective sensation of skin of foot Constipation Left knee DJD UTI symptoms Fall (Acute) Low back pain (Acute) Type 2 diabetes mellitus BPH loc w urin obs/LUTS Status post total right knee replacement Postural dizziness Gout attack Hypomagnesemia Hypothyroidism Foot deformity Diabetic peripheral neuropathy associated with type 2 diabetes mellitus Personal history of diabetic foot ulcer Tinea pedis Uncontrolled type 2 diabetes mellitus with neurologic complication, with long- term current use of insulin Obesity Right knee DJD Antiplatelet or antithrombotic long-term use PT'S REPORTS JUST ASPIRIN Vitamin D deficiency Anemia Attention or concentration deficit CKD (chronic kidney disease), stage III Cor pulmonale Dilated cardiomyopathy Per 12/23 cardio note, "Most recent echo with low normal LV systolic function. No current signs or symptoms of pulmonary vascular congestion." Dyslipidemia Erectile dysfunction Lumbosacral radiculopathy at L5 Obstructive sleep apnea CPAP Restrictive lung disease RARE RES. INH USE> WELL CONTROLLED Secondary hyperparathyroidism Sensorineural hearing loss (SNHL) of both ears Acquired claw toe of left foot Acquired claw toe of right foot Acquired hallux valgus of right foot Hypertension Mild asthma Does not use Albuterol, has just in case Chronic back pain History of thyroidectomy Medical History Acute CVA (cerebrovascular accident) Diabetes mellitus type 2, uncontrolled Injury of cervical spine Fracture of T7 vertebra Personal history of diabetic foot ulcer No open wounds currently, skin being monitored by multiple specialties. Postural dizziness Hx, no issues with currently. Hx of thyroid cancer WITH REMOVAL NO CHEMO Spinal stenosis Diabetes type 2, uncontrolled Gout Benign prostatic hyperplasia Type 2 diabetes mellitus with diabetic neuropathy Surgical History Hx of bilateral cataract extraction History of colonoscopy History of tooth extraction History of tonsillectomy History of cardiac cath [place] MANY YEARS AGO> NO STENTS H/O: knee surgery RIGHT Family History Father Myocardial infarction Hypertension Sister Coronary heart disease Hypertension Brother Hypertension Thyroid cancer Mother Pulmonary embolism Grandmother (Maternal) Stroke Denies family history of Ovarian cancer Prostate cancer Breast cancer Colorectal cancer Social History Smoking Status: Unknown if ever smoked Second Hand Exposure: No; Do You Dip or Chew Tobacco: No; Hx Alcohol Use: No Hx Substance Use: No Preferred Language: Sinhala Communication Ability: Effective Visual Impairment: No Limitations Hearing Ability: Normal Scrubber Machine Tender Required: No Beliefs That Will Affect Care: None marital status: Current Living Situation: Spouse current occupational status: retired Other Information That Helps Us Care for You: No Feels Safe at Home: Yes Childhood Exposure to Second-Hand Smoke: Yes (Uncle and Aunts) Physical Activity Frequency: Does not Exercise Seatbelt Use: always Assistive Devices: Cane, Glasses and Walker Review of Systems A total of 10 systems reviewed and were otherwise negative Physical Exam Vital Signs Vital Signs - 24 hr 01/06/25 23:03 01/06/25 23:05 01/06/25 23:05 Temperature 36.7 C Temperature Source Oral Pulse Rate 81 80 Pulse Rate from SpO2 Sensor 81 Pulse Rhythm Regular Pulse Strength Normal Respiratory Rate 21 28 H Respiratory Effort / Characteristics Non-Labored Spontaneous Respiratory Depth Deep Blood Pressure 162/104 H 162/104 H Blood Pressure Mean 123 123 Pulse Oximetry 96 97 Oxygen Delivery Method Room Air Room Air Room Air Oxygen Flow Rate 93 Sepsis Recent Fever Within 48 Hours No Sepsis New/Unexplained Change in Mental Status No Sepsis Action Taken by Nursing No Action Required 01/06/25 23:36 01/06/25 23:41 01/07/25 00:12 Temperature Temperature Source Pulse Rate 75 70 Pulse Rate from SpO2 Sensor 75 66 Pulse Rhythm Pulse Strength Respiratory Rate 27 H 20 Respiratory Effort / Characteristics Respiratory Depth Blood Pressure 174/111 H 161/111 H Blood Pressure Mean 132 127 Pulse Oximetry 100 100 99 Oxygen Delivery Method Nasal Cannula Nasal Cannula Nasal Cannula Oxygen Flow Rate 4 4 4 Sepsis Recent Fever Within 48 Hours Sepsis New/Unexplained Change in Mental Status Sepsis Action Taken by Nursing VITALS: Vitals are noted on the nurse's note and reviewed by myself. Vital signs with hypoxia on room air. This improves with nasal cannula oxygen. GENERAL: Elderly white male, who is speaking in short sentences HEAD: Normocephalic atraumatic. MOUTH: Mucous membranes moist. Tonsils are not enlarged. Pharynx without erythema, blood, or exudate. Uvula midline. Airway patent. NECK: Supple without nuchal rigidity. No lymphadenopathy. No thyromegaly. Cervical spine is nontender. HEART: Regular rate and rhythm without murmurs gallops or rubs. LUNGS: Diminished breath sounds throughout with scattered rhonchi ABDOMEN: Positive normal bowel sounds x 4. Soft, nontender, without masses or organomegaly. No guarding or rebound tenderness. MUSCULOSKELETAL: No muscle atrophy, erythema, or edema noted. Full range of motion in all extremities. Course Administered Medications Cefepime HCl (Maxipime 2000mg) 2,000 mg in 20 mls @ 5 mls/min IV Q12H [facility]; Protocol Stop: 01/14/25 00:59 Last Admin: 01/07/25 01:17 Dose: 5 mls/min Documented By: SOFIE Discontinued Medications Albuterol (Albut/Ipratrop 3mg/0.5mg Neb 3 Ml Vial) 3 ml INH NOW STA Stop: 01/06/25 23:19 Last Admin: 01/06/25 23:37 Dose: 3 ml Documented By: SOFIE Azithromycin (Azithromycin 250 Mg Tab) 500 mg PO NOW ONE Stop: 01/07/25 00:24 Last Admin: 01/07/25 01:17 Dose: 500 mg Documented By: SOFIE Furosemide (Furosemide 40 Mg/4 Ml Vial) 40 mg IV ONE ONE Stop: 01/07/25 00:17 Last Admin: 01/07/25 00:23 Dose: 40 mg Documented By: SOFIE Ceftriaxone Sodium (Rocephin) 2,000 mg in 50 mls @ 100 mls/hr IV NOW STA Stop: 01/07/25 00:52 Last Admin: 01/07/25 00:39 Dose: Not Given Documented By: SOFIE Medical Decision Making Differential Diagnosis Differential diagnosis includes, but is not limited to: Myocardial infarction, dysrhythmia, pericarditis, pneumothorax, aortic aneurysm/dissection, DVT/PE, anxiety, GERD, PUD, electrolyte imbalance, thyroid disorder, pneumonia, bronchitis, pancreatitis, and others Laboratory Data 01/06/25 23:30 01/06/25 23:30 Lab Results 01/06/25 Range/Units 23:30 WBC 8.89 (4.8-10.8) K/ul RBC 4.42 L (4.70-6.10) M/uL Hgb 13.3 L (14.0-18.0) g/dl Hct 40.0 L (42.0-52.0) % MCV 90.5 (80.0-100.0) fL MCH 30.1 (25.0-34.0) pg MCHC 33.3 (32.0-36.0) g/dL RDW Std Deviation 46.3 (36.4-46.3) fL RDW Coeff of [place] 14.1 (11.5-14.5) % Plt Count 154 (130-400) K/uL MPV 11.3 (9.4-12.4) fL Immature Gran % (Auto) 0.2 % Neut % (Auto) 71.4 % Lymph % (Auto) 19.0 % [place] % (Auto) 7.1 % Eos % (Auto) 2.0 % Baso % (Auto) 0.3 % Neut # (Auto) 6.34 (1.40-6.50) K/uL Lymph # (Auto) 1.69 (1.20-3.40) K/uL [place] # (Auto) 0.63 H (0.11-0.59) K/uL Eos # (Auto) 0.18 (0.00-0.50) K/uL Baso # (Auto) 0.03 (0.00-0.20) K/uL Immature Gran # (Auto) 0.02 (0.01-0.20) K/uL PT 11.7 (9.0-12.0) Seconds INR 1.1 (0.9-1.1) APTT 25 (21-31) Seconds PTT Ratio 0.9 VBG pH 7.38 (7.36-7.41) VBG pCO2 55 H (38-50) mmHg VBG pO2 23 mmHg VBG HCO3 33 mmol/L VBG O2 Saturation < 60.0 % VBG Base Excess 5.8 mEq/L Sodium 141 (136-145) mmol/L Potassium 4.1 (3.5-5.1) mmol/L Chloride 103 (98-107) mmol/L Carbon Dioxide 34 H (21-32) mmol/L Anion Gap 4 (3-11) BUN 27 H (6-23) mg/dl Creatinine 1.39 (0.6-1.4) mg/dl Est Cr Clr Drug Dosing 48.9 ml/min eGFR 50.62 BUN/Creatinine Ratio 19.4 (10-20) Glucose 202 H (70-99(Fasting)) mg/dl Calcium 9.6 (8.6-10.3) mg/dl Magnesium 1.8 (1.7-2.4) mg/dl Total Bilirubin 1.1 H (0.2-1.0) mg/dl AST 16 (13-39) U/L ALT 14 (7-52) U/L Alkaline Phosphatase 106 H (34-104) U/L Troponin I High Sens 26.8 H (0-20) pg/ml B-Natriuretic Peptide 805 H (0-100) pg/ml Total Protein 7.0 (6.0-8.3) gm/dl Albumin 4.2 (3.4-5.0) gm/dl Globulin 2.8 (2.5-4.0) gm/dl Albumin/Globulin Ratio 1.5 (0.9-2) Adenovirus (PCR) Not Detected (NotDetected) B. pertussis DNA (PCR) Not Detected (NotDetected) B.parapertussis DNA PCR Not Detected (NotDetected) C. pneumoniae DNA (PCR) Not Detected (NotDetected) Coronavirus OC43 (PCR) Not Detected (NotDetected) Coronavirus HKU1 (PCR) Not Detected (NotDetected) Coronavirus 229E (PCR) Not Detected (NotDetected) SARS-CoV-2 (PCR) Not Detected (NotDetected) Coronavirus NL63 (PCR) Not Detected (NotDetected) Human Metapneumovir PCR Not Detected (NotDetected) Influenza Type A (PCR) Not Detected (NotDetected) Influenza Type B (PCR) Not Detected (NotDetected) M. pneumoniae (PCR) Not Detected (NotDetected) Parainfluenza 1 (PCR) Not Detected (NotDetected) Parainfluenza 2 (PCR) Not Detected (NotDetected) Parainfluenza 3 (PCR) Not Detected (NotDetected) Parainfluenza 4 (PCR) Not Detected (NotDetected) RSV (PCR) Not Detected (NotDetected) Entero/Rhino (PCR) Not Detected (NotDetected) Imaging Data Radiologist's Impression: Chest X-Ray 01/06/25 23:18 Exam(s): XR CXR 1 VIEW EXAM: XR Chest, 1 View CLINICAL HISTORY: Reason for exam: Dyspnea. TECHNIQUE: Frontal view of the chest. COMPARISON: 02/17/2024. FINDINGS: Surgical clips are seen Lungs: There is some increased opacity at the lung bases.. Pleural space: No pleural effusion is seen. No pneumothorax. Heart: The heart is top normal in size.. Mediastinum: There is uncoiling of thoracic aorta.. Bones/joints: There are degenerative changes in the spine.. IMPRESSION: There are bibasilar areas of infiltrate and/or atelectasis. Electronically signed by: Mario Mcgee MD 01/07/25 00:34 AM MDM Narrative Physical exam and history were performed. Nursing notes, EMR, and Medication List were personally reviewed. No social concerns were identified as barriers to patients care. History was provided by the Patient and who is at bedside. Patient appears to have difficulty breathing bringing him to the ER. On arrival to the ER he is concerning. He is speaking in short sentences and with some poor air movement. IV access was established and labs were obtained. Chest x-ray performed. Patient was given a DuoNeb here in the ER. An order was placed for continuous cardiac monitoring. The monitor shows a rate of 81 with normal sinus rhythm. Patient's blood work is as above and was reviewed. He does not have a significantly elevated white blood cell count, gross anemia, bandemia, or significant electrolyte imbalance. pCO2 is elevated at 55. BUN is 27 and creatinine 1.39. Glucose is 202 and BNP is 805. He was given IV Lasix. Troponin is slightly elevated at 26, however he has had an elevated troponin in the past and this could be from his shortness of breath or chronic underlying cardiac disease. Chest x-ray was performed and reviewed by myself and radiology, appearing to show bibasilar infiltrates. Case was discussed with my attending who remained involved in care decision making. Antibiotics were ordered. Escalation of care was considered, and felt necessary. The patient did have some improvement of symptoms after the DuoNeb, however clinically he will likely need more attention to stabilize. I did discuss the case with the [facility]. Please see their dictation for further patient course, plan, and disposition. The chart was completed utilizing Dragon Speech Voice Recognition Software. Grammatical errors, random word insertions, pronoun errors, and incomplete sentences are an occasional consequence of this system due to software limitations, ambient noise, and hardware issues. Any formal questions or concerns about the content, text, or information contained within the body of this dictation should be directly addressed to the provider for clarification. Impression & Plan Acute dyspnea, CHF (congestive heart failure), Elevated troponin Discharge Plan Visit Data Chief Complaint: Shortness of Breath/Dyspnea Stated Complaint: SOB ED Provider: Basilia Tyson ED Midlevel Provider: Alhaji Corbett Discharge Problem: Acute dyspnea, CHF (congestive heart failure), Elevated troponin Patient Disposition: Admitted As Inpatient Discharge Instructions Interventions: ED Discharge Assessment Last Done: 01/07/25 01:26
[2025-01-07 00:08] LABS: Albumin Globulin Ratio 1.5 (0.9-2); Albumin Level 4.2 gm/dl (3.4-5.0); BUN Creatinine Ratio 19.4 (10-20); Bilirubin,Total 1.1 mg/dl (0.2-1.0); Calcium 9.6 mg/dl (8.6-10.3); Creatinine Clr Calc Pharmacy 48.9 ml/min; Globulin 2.8 gm/dl (2.5-4.0); Magnesium 1.8 mg/dl (1.7-2.4); Potassium 4.1 mmol/L (3.5-5.1)
[2025-01-07 00:14] LABS: Troponin I High Sensitivity 26.8 pg/ml (0-20)
[2025-01-07 00:19] LABS: INR 1.1 (0.9-1.1); Partial Thromboplastin Ratio 0.9; Partial Thromboplastin Time 25 Seconds (21-31); Prothrombin Time 11.7 Seconds (9.0-12.0)
[2025-01-07] MEDS: FUROSEMIDE 40 MG/4 ML VIAL IV ONE (00:23)
[2025-01-07] MEDS ORDERED: ALBUT/IPRATROP 3MG/0.5MG NEB 3 ML VIAL NEB PRN (00:29)
[2025-01-07 00:34] LABS: Adenovirus PCR Not Detected (NotDetected); Bordetella parapertussis PCR Not Detected (NotDetected); Bordetella pertussis PCR Not Detected (NotDetected); Chlamydia pneumoniae PCR Not Detected (NotDetected); Coronavirus 229E PCR Not Detected (NotDetected); Coronavirus CoV-2 (COVID19)PCR Not Detected (NotDetected); Coronavirus HKU1 PCR Not Detected (NotDetected); Coronavirus NL63 PCR Not Detected (NotDetected); Coronavirus OC43PCR Not Detected (NotDetected); Human Metapneumovirus PCR Not Detected (NotDetected); Influenza A PCR Not Detected (NotDetected); Influenza B PCR Not Detected (NotDetected); Mycoplasma pneumoniae PCR Not Detected (NotDetected); Parainfluenza Virus 1 PCR Not Detected (NotDetected); Parainfluenza Virus 2 PCR Not Detected (NotDetected); Parainfluenza Virus 3 PCR Not Detected (NotDetected); Parainfluenza Virus 4 PCR Not Detected (NotDetected); Respiratory Syncytial VirusPCR Not Detected (NotDetected); Rhinovirus/Enterovirus PCR Not Detected (NotDetected)
--- NOTE | 2025-01-07 00:35 | XRay Report ---
Exam(s): XR CXR 1 VIEW EXAM: XR Chest, 1 View CLINICAL HISTORY: Reason for exam: Dyspnea. TECHNIQUE: Frontal view of the chest. COMPARISON: 02/17/2024. FINDINGS: Surgical clips are seen Lungs: There is some increased opacity at the lung bases.. Pleural space: No pleural effusion is seen. No pneumothorax. Heart: The heart is top normal in size.. Mediastinum: There is uncoiling of thoracic aorta.. Bones/joints: There are degenerative changes in the spine.. IMPRESSION: There are bibasilar areas of infiltrate and/or atelectasis. Electronically signed by: Mario Mcgee MD 01/07/25 00:34 AM
[2025-01-07] MEDS: cefTRIAXone SODIUM 2,000 MG/50 ML BAG IV STA (00:39)
--- NOTE | 2025-01-07 00:42 | History & Physical Report ---
Date of Service January 07, 2025 Assessment & Plan (1) Acute respiratory failure with hypoxia: (2) Multifocal pneumonia: (3) HFrEF (heart failure with reduced ejection fraction): (4) Aspiration pneumonitis: (5) Elevated troponin: Plan The patient is a 84-year-old male with a past medical history including CVA with residual deficits, HFrEF, ischemic stroke, history of acute respiratory failure with hypoxia, history of aspiration pneumonitis, diabetic nephropathy, diabetes mellitus with insulin therapy, complex sleep apnea syndrome wearing BiPAP, BPH with LUTS, hypothyroidism, personal history of diabetic foot ulcer, dilated cardiomyopathy, cor pulmonale, CKD stage III, and history of thyroidectomy.The patient presents to the emergency department with complaint of 2 to 3 days of progressively worsening shortness of breath, dyspnea on exertion, and productive cough,, as noted by his , who is in attendance. His most recent hospitalization was 02/16-02/21/2026, for similar symptoms with acute respiratory failure with hypoxia, pneumonia and COPD exacerbation at that time. His reports that he does not go outside at all, that she does all the shopping for him and takes care of him. Upon questioning, she does report that he oftentimes clears his throat when he eats, and tends to cough a bit when he eats. There have been questions about whether he may be an aspiration risk in the past. Workup in the emergency department included BioFire testing which was negative, chest x-ray suggestive of bibasilar infiltrates and right middle lobe infiltrate. From the ED he received the following: Ceftriaxone 2 g IV which was discontinued for given, azithromycin 500 mg p.o., furosemide 40 mg IV, and a DuoNeb treatment. He was then referred for evaluation for admission to the [facility]. Acute respiratory failure with hypoxia/multifocal-aspiration pneumonia/HFrEF exacerbation- Cefepime 2 g IV every 12 hours Doxycycline 100 mg IV every 12 hours DuoNebs every 2 hours as needed Mucinex 600 mg p.o. every 12 hours Aspiration precautions Patient has had multiple speech evaluations in the past per his Elevated troponin/HFrEF/hypertension- The patient will be admitted to telemetry for serial cardiac enzymes, serial EKG's, cardiac rhythm monitoring Continue aspirin, carvedilol Given furosemide 40 mg IV in ED, continue every morning Troponin 26.8, with follow-up pending BNP 803 Chronic medical conditions: Diabetes mellitus-insulin glargine and SSI as noted BPH with LUTS-continue silodosin or substitute and dutasteride Anxiety/depression-continue venlafaxine Hyperlipidemia-continue atorvastatin and aspirin Hypothyroidism-continue levothyroxine Obstructive sleep apnea-continue CPAP machine/BiPAP with settings as marked History of Present Illness Chief Complaint: The patient presents to the emergency department with complaint of 2 to 3 days of progressively worsening shortness of breath, dyspnea on exertion, and productive cough,, as noted by his , who is in attendance. His most recent hospitalization was 02/16-02/21/2026, for similar symptoms with acute respiratory failure with hypoxia, pneumonia and COPD exacerbation at that time. His reports that he does not go outside at all, that she does all the shopping for him and takes care of him. Upon questioning, she does report that he oftentimes clears his throat when he eats, and tends to cough a bit when he eats. There have been questions about whether he may be an aspiration risk in the past. Primary Care Provider: Tien Jeter MD The patient is a 84-year-old male with a past medical history including CVA with residual deficits, HFrEF, ischemic stroke, history of acute respiratory failure with hypoxia, history of aspiration pneumonitis, diabetic nephropathy, diabetes mellitus with insulin therapy, complex sleep apnea syndrome wearing BiPAP, BPH with LUTS, hypothyroidism, personal history of diabetic foot ulcer, dilated cardiomyopathy, cor pulmonale, CKD stage III, and history of thyroidectomy.The patient presents to the emergency department with complaint of 2 to 3 days of progressively worsening shortness of breath, dyspnea on exertion, and productive cough,, as noted by his , who is in attendance. His most recent hospitalization was 02/16-02/21/2026, for similar symptoms with acute respiratory failure with hypoxia, pneumonia and COPD exacerbation at that time. His reports that he does not go outside at all, that she does all the shopping for him and takes care of him. Upon questioning, she does report that he oftentimes clears his throat when he eats, and tends to cough a bit when he eats. There have been questions about whether he may be an aspiration risk in the past. Workup in the emergency department included BioFire testing which was negative, chest x-ray suggestive of bibasilar infiltrates and right middle lobe infiltrate. From the ED he received the following: Ceftriaxone 2 g IV which was discontinued for given, azithromycin 500 mg p.o., furosemide 40 mg IV, and a DuoNeb treatment. [facility] Allergies Allergy/AdvReac Type Severity Reaction Status Date / Time Penicillins Allergy Unknown HAPPENED Verified 01/07/25 00:49 A CHILD--RASH lactose AdvReac Intermediate Gastrointestinal Verified 01/07/25 00:49 Upset Home Medications Medication Instructions Recorded Confirmed Type magnesium oxide 400 mg PO PM 05/28/19 01/07/25 History cholecalciferol (vitamin D3) 50 2,000 unit PO QAM 12/25/19 01/07/25 History mcg (2,000 unit) tablet (Vitamin D3) blood-glucose sensor (Dexcom G6 01/23/22 12/03/24 History Sensor device) CPAP Machine #1 ea 02/15/22 12/03/24 Rx multivitamin (Daily Multi-Vitamin 1 tab PO QAM 02/07/23 01/07/25 History tablet) blood sugar diagnostic (Contour 03/28/23 12/03/24 History Next Test Strips) aspirin 81 mg tablet,delayed 81 mg PO QAM 05/03/23 01/07/25 History release (Adult Low Dose Aspirin) BD Ultra-Fine Uzma Pen Needle 32 #400 ea 04/09/24 12/03/24 Rx gauge x 5/32" (pen needle, diabetic) clindamycin HCl 300 mg capsule 600 mg (2 x 300 mg) PO ONCE #2 caps 09/08/24 01/07/25 Rx clotrimazole 1 % topical cream 1 applic topical BID PRN Rash #90 10/07/24 01/07/25 Rx grams insulin glargine 100 unit/mL (3 24 unit subcut QPM 10/07/24 01/07/25 History mL) subcutaneous pen (Basaglar KwikPen U-100 Insulin) insulin lispro 100 unit/mL See Rx Instructions subcut 10/07/24 01/07/25 History subcutaneous pen (Admelog SoloStar USEASDIRECTD U-) atorvastatin 40 mg tablet (Lipitor) 40 mg PO PM #90 tabs 11/18/24 01/07/25 Rx carvedilol 25 mg tablet (Coreg) 25 mg PO BID #180 tabs 11/18/24 01/07/25 Rx febuxostat 80 mg tablet (Uloric) 80 mg PO QAM #90 tabs 11/18/24 01/07/25 Rx venlafaxine 150 mg 150 mg PO .COMPLEX #90 caps 11/18/24 01/07/25 Rx capsule,extended release 24 hr venlafaxine 75 mg capsule,extended 75 mg PO .COMPLEX #90 caps 11/18/24 01/07/25 Rx release 24 hr desloratadine 5 mg tablet 5 mg PO DAILY PRN allergies #90 11/26/24 01/07/25 Rx (Clarinex) tabs silodosin 8 mg capsule (Rapaflo) 8 mg PO DAILY #90 caps 12/16/24 01/07/25 Rx ketoconazole 2 % topical cream 1 applic topical BID #60 grams 12/19/24 01/07/25 Rx albuterol sulfate 90 mcg/actuation 2 puff inhalation Q6H PRN 01/07/25 01/07/25 History aerosol inhaler Shortness Of Breath Or Wheezing dutasteride 0.5 mg capsule 0.5 mg PO QAM 01/07/25 01/07/25 History levothyroxine 150 mcg tablet 150 mcg PO DAILYBB 01/07/25 01/07/25 History Past Med/Surg History Problem List Multifocal pneumonia Elevated troponin (Acute) CHF (congestive heart failure) (Acute) Acute dyspnea (Acute) Abnormality of gait and mobility History of CVA with residual deficit Falls Bradycardia Pain of right calf (Acute) HFrEF (heart failure with reduced ejection fraction) CHF (congestive heart failure) (Acute) Osteoarthritis Osteoarthritis of right shoulder Ischemic stroke Acute respiratory failure with hypoxia (Acute) Aspiration pneumonitis 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), 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 Risk for falls Acromioclavicular joint separation, type 3 BPH with obstruction/lower urinary tract symptoms Loss of protective sensation of skin of foot Constipation Left knee DJD UTI symptoms Fall (Acute) Low back pain (Acute) Type 2 diabetes mellitus BPH loc w urin obs/LUTS Status post total right knee replacement Postural dizziness Gout attack Hypomagnesemia Hypothyroidism Foot deformity Diabetic peripheral neuropathy associated with type 2 diabetes mellitus Personal history of diabetic foot ulcer Tinea pedis Uncontrolled type 2 diabetes mellitus with neurologic complication, with long- term current use of insulin Obesity Right knee DJD Antiplatelet or antithrombotic long-term use PT'S REPORTS JUST ASPIRIN Vitamin D deficiency Anemia Attention or concentration deficit CKD (chronic kidney disease), stage III Cor pulmonale Dilated cardiomyopathy Per 12/23 cardio note, "Most recent echo with low normal LV systolic function. No current signs or symptoms of pulmonary vascular congestion." Dyslipidemia Erectile dysfunction Lumbosacral radiculopathy at L5 Obstructive sleep apnea CPAP Restrictive lung disease RARE RES. INH USE> WELL CONTROLLED Secondary hyperparathyroidism Sensorineural hearing loss (SNHL) of both ears Acquired claw toe of left foot Acquired claw toe of right foot Acquired hallux valgus of right foot Hypertension Mild asthma Does not use Albuterol, has just in case Chronic back pain History of thyroidectomy Medical History Acute CVA (cerebrovascular accident) Diabetes mellitus type 2, uncontrolled Injury of cervical spine Fracture of T7 vertebra Personal history of diabetic foot ulcer No open wounds currently, skin being monitored by multiple specialties. Postural dizziness Hx, no issues with currently. Hx of thyroid cancer WITH REMOVAL NO CHEMO Spinal stenosis Diabetes type 2, uncontrolled Gout Benign prostatic hyperplasia Type 2 diabetes mellitus with diabetic neuropathy Surgical History Hx of bilateral cataract extraction History of colonoscopy History of tooth extraction History of tonsillectomy History of cardiac cath [place] MANY YEARS AGO> NO STENTS H/O: knee surgery RIGHT Family History Father Myocardial infarction Hypertension Sister Coronary heart disease Hypertension Brother Hypertension Thyroid cancer Mother Pulmonary embolism Grandmother (Maternal) Stroke Denies family history of Ovarian cancer Prostate cancer Breast cancer Colorectal cancer Social History Smoking Status: Unknown if ever smoked Second Hand Exposure: No; Do You Dip or Chew Tobacco: No; Hx Alcohol Use: No Hx Substance Use: No Preferred Language: [place] Communication Ability: Effective Visual Impairment: No Limitations Hearing Ability: Normal Medical Or Surgical Instrument Maker Required: No Beliefs That Will Affect Care: None marital status: Current Living Situation: Spouse current occupational status: retired Other Information That Helps Us Care for You: No Feels Safe at Home: Yes Childhood Exposure to Second-Hand Smoke: Yes (Uncle and Aunts) Physical Activity Frequency: Does not Exercise Seatbelt Use: always Assistive Devices: Cane, Glasses and Walker Review of Systems Review of Systems: The patient denies chest pain, palpitations, lower extremity swelling, sore throat, fevers, chills, sweats, nausea, vomiting, diarrhea , constipation, abdominal pain, pelvic pain, blood in urine or stool, dysuria, urinary frequency or urgency, lightheadedness, dizziness, headache, loss of consciousness, rash, abnormal bruising or bleeding, focal weakness, numbness or tingling in arms or legs, generalized arthralgias or myalgias, back or neck pain, or night sweats. The review of systems is otherwise negative other than for that already noted above, and at least 10 systems have been reviewed. Physical Exam Physical Exam: The patient is awake, alert and oriented 3, well developed and well nourished, normocephalic and atraumatic, lying in bed and in no acute distress. HEENT--PERRL, EOMI, mucous membranes and oropharynx dry. Neck--supple. No JVD. No bruits. Thyroid normal, trachea midline, no adenopathy. Heart--normal S1 and S2. No murmurs, rubs or gallops. Lungs--overall decreased breath sounds throughout, no respiratory distress, no accessory muscle use. Abdomen--normal bowel sounds and soft. Nontender. Nondistended, no hernias or masses, no organomegaly. Extremities--no cyanosis or clubbing. No edema. Dermatologic--normal skin turgor, normal color, no abnormal lymph nodes, no rash. Neurologic--cranial nerves II through XII grossly intact. Rheumatologic--normal range of motion. Psychiatric--normal affect. Results & Data Results & Data Vital Signs (Past 12 Hours) Vital Signs Temp Pulse Resp BP Pulse Ox O2 Del Method O2 Flow Rate 01/06/25 23:41 100 Nasal Cannula 4 01/06/25 23:05 Room Air 93 01/06/25 23:05 36.7 C 80 28 H 162/104 H 97 Room Air Laboratory Results Laboratory Results WBC 8.89 K/ul (4.8-10.8) 01/06/25 23: RBC 4.42 M/uL (4.70-6.10) L 01/06/25 23:30 Hgb 13.3 g/dl (14.0-18.0) L 01/06/25 23: Hct 40.0 % (42.0-52.0) L 01/06/25: MCV 90.5 fL (80.0-100.0) 01/06/25 23: MCH 30.1 pg (25.0-34.0) 01/06/25: MCHC 33.3 g/dL (32.0-36.0) 01/06/25: RDW Std Deviation 46.3 fL (36.4-46.3) 01/06/25: RDW Coeff of [place] 14.1 % (11.5-14.5) 01/06/25: Plt Count 154 K/uL (130-400) 01/06/25: MPV 11.3 fL (9.4-12.4) 01/06/25 23: Immature Gran % (Auto) 0.2 % 01/06/25: Neut % (Auto) 71.4 % 01/06/25: Lymph % (Auto) 19.0 % 01/06/25: [place] % (Auto) 7.1 % 01/06/25: Eos % (Auto) 2.0 % 01/06/25: Baso % (Auto) 0.3 % 01/06/25 23:30 Neut # (Auto) 6.34 K/uL (1.40-6.50) 01/06/25 23:30 Lymph # (Auto) 1.69 K/uL (1.20-3.40) 01/06/25 23: [place] # (Auto) 0.63 K/uL (0.11-0.59) H 01/06/25 23:30 Eos # (Auto) 0.18 K/uL (0.00-0.50) 01/06/25 23: Baso # (Auto) 0.03 K/uL (0.00-0.20) 01/06/25 23:30 Immature Gran # (Auto) 0.02 K/uL (0.01-0.20) 01/06/25 23:30 PT 11.7 Seconds (9.0-12.0) 01/06/25 23:30 INR 1.1 (0.9-1.1) 01/06/25 23:30 APTT 25 Seconds (21-31) 01/06/25 23:30 PTT Ratio 0.9 01/06/25 23:30 VBG pH 7.38 (7.36-7.41) 01/06/25 23:30 VBG pCO2 55 mmHg (38-50) H 01/06/25 23:30 VBG pO2 23 mmHg 01/06/25 23:30 VBG HCO3 33 mmol/L 01/06/25 23:30 VBG O2 Saturation < 60.0 % 01/06/25 23:30 VBG Base Excess 5.8 mEq/L 01/06/25 23:30 Sodium 141 mmol/L (136-145) 01/06/25 23:30 Potassium 4.1 mmol/L (3.5-5.1) 01/06/25 23:30 Chloride 103 mmol/L (98-107) 01/06/25 23:30 Carbon Dioxide 34 mmol/L (21-32) H 01/06/25 23:30 Anion Gap 4 (3-11) 01/06/25 23:30 BUN 27 mg/dl (6-23) H 01/06/25 23:30 Creatinine 1.39 mg/dl (0.6-1.4) 01/06/25 23:30 Est Cr Clr Drug Dosing 48.9 ml/min 01/06/25 23:30 eGFR 50.62 01/06/25 23:30 BUN/Creatinine Ratio 19.4 (10-20) 01/06/25 23:30 Glucose 202 mg/dl (70-99(Fasting)) H 01/06/25 23:30 Lactate 1.8 mmol/L (0.4-2.0) 01/07/25 01:11 Calcium 9.6 mg/dl (8.6-10.3) 01/06/25 23:30 Magnesium 1.8 mg/dl (1.7-2.4) 01/06/25 23:30 Total Bilirubin 1.1 mg/dl (0.2-1.0) H 01/06/25 23:30 AST 16 U/L (13-39) 01/06/25 23:30 ALT 14 U/L (7-52) 01/06/25 23:30 Alkaline Phosphatase 106 U/L (34-104) H 01/06/25 23:30 Troponin I High Sens 26.1 pg/ml (0-20) H 01/07/25 01:13 B-Natriuretic Peptide 805 pg/ml (0-100) H 01/06/25 23:30 Total Protein 7.0 gm/dl (6.0-8.3) 01/06/25 23:30 Albumin 4.2 gm/dl (3.4-5.0) 01/06/25 23: Globulin 2.8 gm/dl (2.5-4.0) 01/06/25 23:30 Albumin/Globulin Ratio 1.5 (0.9-2) 01/06/25 23:30 Urine Color Yellow 01/07/25 00:50 Urine Appearance Clear (Clear) 01/07/25 00:50 Urine pH 6.0 (4.5-7.5) 01/07/25 00:50 Ur Specific [place] 1.020 (1.000-1.030) 01/07/25 00:50 Urine Protein 1+ (Negative) H 01/07/25 00:50 Urine Glucose (UA) Negative (Negative) 01/07/25 00:50 Urine Ketones Negative (Negative) 01/07/25 00:50 Urine Blood Negative (Negative) 01/07/25 00:50 Urine Nitrite Negative (Negative) 01/07/25 00:50 Urine Bilirubin Negative (Negative) 01/07/25 00:50 Urine Urobilinogen Negative (Negative) 01/07/25 00:50 Ur Leukocyte Esterase Negative (Negative) 01/07/25 00:50 Urine WBC (Auto) 0-5 /hpf (0-5) 01/07/25 00:50 Urine RBC (Auto) 0-2 /hpf (0-2) 01/07/25 00:50 U Hyaline Cast (Auto) 0-2 /lpf (0-2) 01/07/25 00:50 U Epithel Cells (Auto) 0-2 /hpf (0-2) 01/07/25 00:50 Urine Bacteria (Auto) None Seen (None Seen) 01/07/25 00:50 Adenovirus (PCR) Not Detected (NotDetected) 01/06/25 23:30 B. pertussis DNA (PCR) Not Detected (NotDetected) 01/06/25 23:30 B.parapertussis DNA PCR Not Detected (NotDetected) 01/06/25 23:30 C. pneumoniae DNA (PCR) Not Detected (NotDetected) 01/06/25 23:30 Coronavirus OC43 (PCR) Not Detected (NotDetected) 01/06/25 23:30 Coronavirus HKU1 (PCR) Not Detected (NotDetected) 01/06/25 23:30 Coronavirus 229E (PCR) Not Detected (NotDetected) 01/06/25 23:30 SARS-CoV-2 (PCR) Not Detected (NotDetected) 01/06/25 23:30 Coronavirus NL63 (PCR) Not Detected (NotDetected) 01/06/25 23:30 Human Metapneumovir PCR Not Detected (NotDetected) 01/06/25 23:30 Influenza Type A (PCR) Not Detected (NotDetected) 01/06/25 23:30 Influenza Type B (PCR) Not Detected (NotDetected) 01/06/25 23:30 M. pneumoniae (PCR) Not Detected (NotDetected) 01/06/25 23:30 Parainfluenza 1 (PCR) Not Detected (NotDetected) 01/06/25 23:30 Parainfluenza 2 (PCR) Not Detected (NotDetected) 01/06/25 23:30 Parainfluenza 3 (PCR) Not Detected (NotDetected) 01/06/25 23:30 Parainfluenza 4 (PCR) Not Detected (NotDetected) 01/06/25 23:30 RSV (PCR) Not Detected (NotDetected) 01/06/25 23:30 Entero/Rhino (PCR) Not Detected (NotDetected) 01/06/25 23:30 Impressions Chest X-Ray 01/06/25 23:18 Exam(s): XR CXR 1 VIEW EXAM: XR Chest, 1 View CLINICAL HISTORY: Reason for exam: Dyspnea. TECHNIQUE: Frontal view of the chest. COMPARISON: 02/17/2024. FINDINGS: Surgical clips are seen Lungs: There is some increased opacity at the lung bases.. Pleural space: No pleural effusion is seen. No pneumothorax. Heart: The heart is top normal in size.. Mediastinum: There is uncoiling of thoracic aorta.. Bones/joints: There are degenerative changes in the spine.. IMPRESSION: There are bibasilar areas of infiltrate and/or atelectasis. Electronically signed by: Mario Mcgee MD 01/07/25 00:34 AM Code Status & VTE Plan VTE Prophylaxis Plan VTE Prophylaxis will be ordered: Yes PG Care Time/CCT Total # of Minutes Spent Total Time Spent with Patient: Total time spent is greater than 50% in coordination of care (as documented) at patient's floor/unit and/or counseling patient: Coding Level of Care Code 84673 INT INP/OBS CARE 3/75MIN Diagnoses Acute respiratory failure with hypoxia J96.01 Multifocal pneumonia J18.9 HFrEF (heart failure with reduced ejection fraction) I50.20 Aspiration pneumonitis J69.0 Elevated troponin R79.89
[2025-01-07] MEDS: CEFEPIME 2000MG 2,000 MG/20 ML SYR IV SCH (01:17)
[2025-01-07] MEDS: AZITHROMYCIN 250 MG TAB PO ONE (01:17)
[2025-01-07 01:21] LABS: Appearance Urine Clear (Clear); Bacteria Urine Automated None Seen (None Seen); Bilirubin Urine Negative (Negative); Blood Urine Negative (Negative); Cast Urine Automated 0-2 /lpf (0-2); Color Urine Yellow; Epithelial Cell Urine Auto 0-2 /hpf (0-2); Glucose Urine UA Negative (Negative); Ketones Urine Negative (Negative); Leukocyte Esterase Urine Negative (Negative); Nitrite Urine Negative (Negative); Protein Urine 1+ (Negative); RBC Urine Automated 0-2 /hpf (0-2); Urobilinogen Urine Negative (Negative); WBC Urine Automated 0-5 /hpf (0-5)
[2025-01-07] MEDS ORDERED: ACETAMINOPHEN 325 MG TAB PO PRN (01:37)
[2025-01-07] MEDS ORDERED: ONDANSETRON INJ 2 MG/ML 2 ML VIAL IV PRN (01:37)
--- NOTE | 2025-01-07 03:31 | Emergency Department Note ---
ED Visit Note I was consulted by the Advanced Practice Provider. I personally made/approved the management plan and take responsibility for the patient management. I performed a substantive portion of the visit. This includes the aspects of X- ray interpretation, bedside physical exam and history taking. Patient was medicated with IV Lasix and a DuoNeb treatment. Chest x-ray is concerning for a right perihilar infiltrate. IV ceftriaxone and azithromycin were added. Patient's case was discussed with Dr. Patterson of the hospitalist service to evaluate the patient for admission and further management. Please refer to Alhaji Corbett PA-C's notes for further details of the history, physical and visit. .
[2025-01-07] MEDS ORDERED: ALBUTEROL HFA 8 GM INHALER INH PRN (04:23)
[2025-01-07] MEDS ORDERED: NON-FORMULARY MEDICATION (Cpap Machine misc) SCH (04:30)
[2025-01-07] MEDS ORDERED: GLUCOSE 10 TAB/TUBE PO PRN (04:45)
[2025-01-07] MEDS ORDERED: DEXTROSE 50% 50 ML SYRINGE IV PRN (04:45)
[2025-01-07] MEDS ORDERED: GLUCOSE 40% GEL 15 GM TUBE PO PRN (04:45)
[2025-01-07] MEDS ORDERED: GLUCAGON FOR INJ 1 MG VIAL SQ PRN (04:45)
[2025-01-07] MEDS ORDERED: CARBOHYDRATES FOR HYPOGLYCEMIA PO PRN (04:45)
[2025-01-07] MEDS: LEVOTHYROXINE SODIUM 150 MCG TABLET PO SCH (06:26)
[2025-01-07 07:53] LABS: Albumin Level 3.8 gm/dl (3.4-5.0); Calcium 9.4 mg/dl (8.6-10.3); Creatinine Clr Calc Pharmacy 49.1 ml/min; Phosphorus 3.9 mg/dl (2.5-4.9); Potassium 3.7 mmol/L (3.5-5.1)
[2025-01-07] MEDS: CHOLECALCIFEROL 25 MCG (1000 UNITS) TAB PO SCH (08:51)
[2025-01-07] MEDS: FINASTERIDE 5 MG TAB PO SCH (08:52)
[2025-01-07] MEDS: TAMSULOSIN HCL 0.4 MG CAP PO SCH (08:52)
[2025-01-07] MEDS: ASPIRIN 81 MG ECTAB PO SCH (08:52)
[2025-01-07] MEDS: LORATADINE 10 MG TAB PO PRN (08:52)
[2025-01-07] MEDS: carvediloL 25 MG TAB PO SCH (08:52)
[2025-01-07] MEDS: VENLAFAXINE HCL XR 150 MG CAPXR PO SCH (08:52)
[2025-01-07] MEDS: FEBUXOSTAT 40 MG TABLET PO SCH (08:52)
[2025-01-07] MEDS: guaiFENesin 600 MG TABCR PO SCH (08:52)
[2025-01-07] MEDS: FUROSEMIDE 40 MG/4 ML VIAL IV SCH (08:53)
[2025-01-07] MEDS: DOXYCYCLINE HYCLATE 100 MG in DEXTROSE 5% MINI-B 100 ML IV SCH (08:53)
[2025-01-07] MEDS: MULTIVITAMIN TAB PO SCH (08:55)
[2025-01-07] MEDS: HEPARIN SOD 5,000 UNIT/0.5 ML VIAL SQ SCH (08:59)
[2025-01-07] MEDS: VENLAFAXINE HCL XR 75 MG CAPXR PO SCH (10:01)
--- NOTE | 2025-01-07 11:05 | Hospitalist Progress Note ---
Date of Service January 07, 2025 Assessment & Plan (1) Acute respiratory failure with hypoxia: (2) Multifocal pneumonia: (3) HFrEF (heart failure with reduced ejection fraction): (4) Aspiration pneumonitis: (5) Elevated troponin: Plan The patient is a 84-year-old male with a past medical history including CVA with residual deficits, HFrEF, ischemic stroke, history of acute respiratory failure with hypoxia, history of aspiration pneumonitis, diabetic nephropathy, diabetes mellitus with insulin therapy, complex sleep apnea syndrome wearing BiPAP, BPH with LUTS, hypothyroidism, personal history of diabetic foot ulcer, dilated cardiomyopathy, cor pulmonale, CKD stage III, and history of thyroidectomy.The patient presents to the emergency department with complaint of 2 to 3 days of progressively worsening shortness of breath, dyspnea on exertion, and productive cough, Acute respiratory failure with hypoxia/multifocal-aspiration pneumonia/HFrEF exacerbation- Presents with cough, SOB Found to have PNA on chest x ray cultures obtained Emprircally started on Cefepime 2 g IV every 12 hours and Doxycycline 100 mg IV every 12 hours DuoNebs every 2 hours as needed Mucinex 600 mg p.o. every 12 hours Aspiration precautions Patient has had multiple speech evaluations in the past per his Elevated troponin Likely due to demand ischemia monitor on telemetry for serial cardiac enzymes, serial EKG's, cardiac rhythm monitoring Continue aspirin, carvedilol Troponin 26.8, with follow-up pending HFwrEF BNP 803 Continue Lasix 40mg monitor I/O, daily weights Chronic medical conditions: Diabetes mellitus-insulin glargine and SSI as noted BPH with LUTS-continue silodosin or substitute and dutasteride Anxiety/depression-continue venlafaxine Hyperlipidemia-continue atorvastatin and aspirin Hypothyroidism-continue levothyroxine Obstructive sleep apnea-continue CPAP machine/BiPAP with settings as marked Admission and Anticipated Discharge Date Admission Date: January 07, 2025 Subjective Patient seen and examined, says his symptoms improved Review of Systems Review of Systems: All systems reviewed are negative, apart from the ones contained in the history. Physical Exam Physical Exam: The patient is awake, alert and oriented 3, well developed and well nourished, normocephalic and atraumatic, lying in bed and in no acute distress. HEENT--PERRL, EOMI, mucous membranes and oropharynx mildly dry Neck--supple. No JVD. No bruits. Thyroid normal, trachea midline, no adenopathy. Heart--normal S1 and S2. No murmurs, rubs or gallops. Lungs--clear bilaterally, no respiratory distress, no accessory muscle use. Abdomen--normal bowel sounds and soft. Extremities--no cyanosis or clubbing. No edema. Dermatologic--normal skin turgor, normal color, no abnormal lymph nodes, no rash. Neurologic--cranial nerves II through XII grossly intact. Rheumatologic--normal range of motion. Psychiatric--normal affect. Results & Data Results & Data Vital Signs (Past 12 Hours) Vital Signs Temp Pulse Pulse Resp BP BP Pulse Ox 01/07/25 09:06 01/07/25 08:27 97.9 F 69 18 146/81 H 93 01/07/25 06:31 16 97 01/07/25 02:59 98.2 F 76 18 107/68 96 01/07/25 01:53 01/07/25 01:43 97.5 F L 18 128/83 100 01/07/25 01:26 01/07/25 01:06 71 16 168/107 H 99 01/07/25 00:42 69 18 157/90 H 98 01/07/25 00:12 70 20 161/111 H 99 01/06/25 23:41 100 01/06/25 23:36 75 27 H 174/111 H 100 01/06/25 23:05 01/06/25 23:05 98.1 F 80 28 H 162/104 H 97 01/06/25 23:03 81 21 162/104 H 96 O2 Del Method O2 Flow Rate 01/07/25 09:06 Nasal Cannula 2 01/07/25 08:27 Nasal Cannula 2 01/07/25 06:31 Nasal Cannula 2 01/07/25 02:59 Nasal Cannula 2.0 01/07/25 01:53 Nasal Cannula 01/07/25 01:43 Nasal Cannula 4 01/07/25 01:26 Nasal Cannula 4 01/07/25 01:06 Nasal Cannula 4 01/07/25 00:42 Nasal Cannula 4 01/07/25 00:12 Nasal Cannula 4 01/06/25 23:41 Nasal Cannula 4 01/06/25 23:36 Nasal Cannula 4 01/06/25 23:05 Room Air 93 01/06/25 23:05 Room Air 03/11/25 23:03 Room Air PG Care Time/CCT Total # of Minutes Spent Total Time Spent with Patient: Total time spent is greater than 50% in coordination of care (as documented) at patient's floor/unit and/or counseling patient: Coding Level of Care Code 43260 SUB INP/OBS CARE 2/35MIN Diagnoses Acute respiratory failure with hypoxia J96.01 Multifocal pneumonia J18.9 HFrEF (heart failure with reduced ejection fraction) I50.20 Aspiration pneumonitis J69.0 Elevated troponin R79.89 Time Spent (min) 35
[2025-01-07] MEDS: MAGNESIUM OXIDE 400 MG TAB PO SCH (20:14)
[2025-01-07] MEDS: ATORVASTATIN 40 MG TAB PO SCH (20:14)
[2025-01-07] MEDS: LANTUS PER UNIT CHARGE SQ SCH (20:14)
[2025-01-07] MEDS: MELATONIN 3 MG TAB PO PRN (23:24)
[2025-01-08 05:42] LABS: Basophils # (auto) 0.03 K/uL (0.00-0.20); Basophils % (auto) 0.4 %; Eosinophils # (auto) 0.26 K/uL (0.00-0.50); Eosinophils % (auto) 3.4 %; Hematocrit (blood only) 37.7 % (42.0-52.0); Hemoglobin 12.7 g/dl (14.0-18.0); Immature Granulocytes # (auto) 0.02 K/uL (0.01-0.20); Immature Granulocytes % (auto) 0.3 %; Lymphocytes # (auto) 1.06 K/uL (1.20-3.40); Lymphocytes % (auto) 14.1 %; Mean Corpuscular Hemoglobin 30.5 pg (25.0-34.0); Mean Corpuscular Hgb Conc 33.7 g/dL (32.0-36.0); Mean Corpuscular Volume 90.4 fL (80.0-100.0); Mean Platelet Volume 11.2 fL (9.4-12.4); Monocytes # (auto) 0.68 K/uL (0.11-0.59); Neutrophils # (auto) 5.49 K/uL (1.40-6.50); Neutrophils % (auto) 72.8 %; Platelet Count 132 K/uL (130-400); RDW Coefficient of Variation 14.1 % (11.5-14.5); RDW Standard Deviation 46.3 fL (36.4-46.3); Red Blood Count 4.17 M/uL (4.70-6.10); White Blood Count 7.54 K/ul (4.8-10.8)
[2025-01-08 05:58] LABS: Albumin Globulin Ratio 1.5 (0.9-2); Albumin Level 3.8 gm/dl (3.4-5.0); BUN Creatinine Ratio 18.3 (10-20); Bilirubin,Total 1.4 mg/dl (0.2-1.0); Calcium 9.4 mg/dl (8.6-10.3); Creatinine Clr Calc Pharmacy 33.7 ml/min; Globulin 2.6 gm/dl (2.5-4.0); Magnesium 1.8 mg/dl (1.7-2.4); Potassium 4.1 mmol/L (3.5-5.1); Total Protein 6.4 gm/dl (6.0-8.3)
--- NOTE | 2025-01-08 06:36 | Electrocardiogram Report ---
Test Reason : Blood Pressure : */* mmHG Vent. Rate : 77 BPM Atrial Rate : 77 BPM P-R Int : 152 ms QRS Dur : 114 ms QT Int : 434 ms P-R-T Axes : 45 34 55 degrees QTcB Int : 491 ms Normal sinus rhythm with fusion complex Nonspecific ST abnormality Prolonged QT Abnormal ECG When compared with ECG of 19-Feb-2024 11:14, Fusion comples is now present Confirmed by Isreal Franco ([id number] on 01/08/2025 6:36:40 AM Referred By: REFERRED SELF Confirmed By: Isreal Franco
--- NOTE | 2025-01-08 10:49 | Hospitalist Progress Note ---
Date of Service January 08, 2025 Assessment & Plan (1) Acute respiratory failure with hypoxia: (2) Multifocal pneumonia: (3) HFrEF (heart failure with reduced ejection fraction): (4) Aspiration pneumonitis: (5) Elevated troponin: Plan The patient is a 84-year-old male with a past medical history including CVA with residual deficits, HFrEF, ischemic stroke, history of acute respiratory failure with hypoxia, history of aspiration pneumonitis, diabetic nephropathy, diabetes mellitus with insulin therapy, complex sleep apnea syndrome wearing BiPAP, BPH with LUTS, hypothyroidism, personal history of diabetic foot ulcer, dilated cardiomyopathy, cor pulmonale, CKD stage III, and history of thyroidectomy.The patient presents to the emergency department with complaint of 2 to 3 days of progressively worsening shortness of breath, dyspnea on exertion, and productive cough, Acute respiratory failure with hypoxia/multifocal-aspiration pneumonia/HFrEF exacerbation- Presents with cough, SOB Found to have PNA on chest x ray cultures obtained Empirically started on Cefepime 2 g IV every 12 hours and Doxycycline 100 mg IV every 12 hours DuoNebs every 2 hours as needed Mucinex 600 mg p.o. every 12 hours Aspiration precautions Patient has had multiple speech evaluations in the past per his Elevated troponin Likely due to demand ischemia monitor on telemetry for serial cardiac enzymes, serial EKG's, cardiac rhythm monitoring Continue aspirin, carvedilol Troponin 26.8, with follow-up pending Cardiomyopathy: Follows up with cardiology Per cardiology outpatient note, "Prior history of cardiomyopathy. His left ventricular systolic function subsequently normalized on follow-up echoes. However, echocardiogram in January 2024 with moderate LV systolic dysfunction. Repeat echocardiogram March 2024 with moderate LV systolic dysfunction. ( EF 30- 35%). Moderate global LV hypokinesis. No obvious etiology for the decrease in LV systolic function. No signs of pulmonary vascular congestion on exam today. He and his have declined any significant changes in his medical therapy to be tailored to treatment of his left ventricular systolic dysfunction. Some therapies contraindicated by his renal dysfunction. They have declined referral for consideration of implant of ICD/biventricular pacemaker." BNP 803 Hold lasix on account of worsening renal function monitor I/O, daily weights RORO on CKD Slight worsening or renal function following diuresis will hold lasix Chronic medical conditions: Diabetes mellitus-insulin glargine and SSI as noted BPH with LUTS-continue silodosin or substitute and dutasteride Anxiety/depression-continue venlafaxine Hyperlipidemia-continue atorvastatin and aspirin Hypothyroidism-continue levothyroxine Obstructive sleep apnea-continue CPAP machine/BiPAP with settings as marked Disposition: Hopefully d/c in the next 24-48 hrs Admission and Anticipated Discharge Date Admission Date: January 07, 2025 Subjective Patient seen and examined, says his symptoms improved Review of Systems Review of Systems: All systems reviewed are negative, apart from the ones contained in the history. Physical Exam Physical Exam: The patient is awake, alert and oriented 3, well developed and well nourished, normocephalic and atraumatic, lying in bed and in no acute distress. HEENT--PERRL, EOMI, mucous membranes and oropharynx mildly dry Neck--supple. No JVD. No bruits. Thyroid normal, trachea midline, no adenopathy. Heart--normal S1 and S2. No murmurs, rubs or gallops. Lungs--clear bilaterally, no respiratory distress, no accessory muscle use. Abdomen--normal bowel sounds and soft. Extremities--no cyanosis or clubbing. No edema. Dermatologic--normal skin turgor, normal color, no abnormal lymph nodes, no rash. Neurologic--cranial nerves II through XII grossly intact. Rheumatologic--normal range of motion. Psychiatric--normal affect. Results & Data Results & Data Vital Signs (Past 12 Hours) Vital Signs Temp Pulse Resp BP BP Pulse Ox Pulse Ox 01/08/25 08:11 97.5 F L 74 19 139/86 93 01/08/25 03:10 98.1 F 69 16 105/67 92 01/08/25 01:37 92 O2 Del Method O2 Del Method O2 Flow Rate O2 Flow Rate 01/08/25 08:11 Nasal Cannula 2 01/08/25 03:10 Nasal Cannula 2.0 01/08/25 01:37 Nasal Cannula 2 PG Care Time/CCT Total # of Minutes Spent Total Time Spent with Patient: Total time spent is greater than 50% in coordination of care (as documented) at patient's floor/unit and/or counseling patient: Coding Level of Care Code 81984 SUB INP/OBS CARE 2/35MIN Diagnoses Acute respiratory failure with hypoxia J96.01 Multifocal pneumonia J18.9 HFrEF (heart failure with reduced ejection fraction) I50.20 Aspiration pneumonitis J69.0 Elevated troponin R79.89 Time Spent (min) 35
[2025-01-08 12:11] LABS: Appearance Urine Clear (Clear); Bacteria Urine Automated None Seen (None Seen); Bilirubin Urine Negative (Negative); Blood Urine 3+ (Negative); Cast Urine Automated 0-2 /lpf (0-2); Color Urine Dark Yellow; Epithelial Cell Urine Auto 0-2 /hpf (0-2); Glucose Urine UA Negative (Negative); Ketones Urine 1+ (Negative); Leukocyte Esterase Urine 1+ (Negative); Nitrite Urine Negative (Negative); Protein Urine 1+ (Negative); RBC Urine Automated >20 /hpf (0-2); Specific Gravity Urine 1.026 (1.000-1.030); Urobilinogen Urine Negative (Negative); pH Urine 5.5 (4.5-7.5)
[2025-01-08] MEDS: ALBUT/IPRATROP 3MG/0.5MG NEB 3 ML VIAL NEB PRN (13:02)
--- NOTE | 2025-01-08 13:15 | XRay Report ---
XR chest 1V portable CLINICAL HISTORY: SOB COMPARISON STUDY: 01/06/2025 FINDINGS: No significant interval changes have occurred allowing for technical differences. Cardiomeg darron and pulmonary vascular congestion are present. Prominent bibasilar mixed interstitial and alveola r markings are once again noted. The diaphragms are obscured. Small effusions are likely. IMPRESSION: No significant interval change. CHF versus bibasilar infiltrates. ACT 112: Negative or not required by law. Electronically signed by: Daysi Borges M.D. 01/08/2025 1:14 PM
[2025-01-08] MEDS: POLYETHYLENE (MIRALAX) 17 GM PACK PO SCH (14:15)
[2025-01-08] MEDS ORDERED: methylPREDNISolone 125 MG/2 ML VIAL IV SCH (16:45)
[2025-01-08] MEDS: FUROSEMIDE 40 MG/4 ML VIAL IV ONE (17:46)
[2025-01-08] MEDS: MoRPHine SULFATE 2 MG/ML CARP IV STA (17:46)
[2025-01-08] MEDS: methylPREDNISolone 40 MG in SYRINGE 0 ML IV SCH (17:46)
[2025-01-08 17:51] LABS: Base Excess ABG 4.5 mEq/L (-9-1.8); HCO3 ABG 30 mmol/L (19-24); PCO2 ABG 46 mmHg (35-46); PO2 ABG 58 mmHg (80-95); pH ABG 7.42 (7.35-7.45)
[2025-01-08 18:22] LABS: Allen Test Pos (Pos); Oxygen Saturation ABG 89.4 % (90-95)
[2025-01-09 06:38] LABS: Basophils # (auto) 0.01 K/uL (0.00-0.20); Basophils % (auto) 0.1 %; Eosinophils # (auto) 0.01 K/uL (0.00-0.50); Eosinophils % (auto) 0.1 %; Hematocrit (blood only) 40.4 % (42.0-52.0); Hemoglobin 13.6 g/dl (14.0-18.0); Immature Granulocytes # (auto) 0.04 K/uL (0.01-0.20); Immature Granulocytes % (auto) 0.6 %; Lymphocytes # (auto) 0.65 K/uL (1.20-3.40); Lymphocytes % (auto) 9.5 %; Mean Corpuscular Hemoglobin 30.1 pg (25.0-34.0); Mean Corpuscular Hgb Conc 33.7 g/dL (32.0-36.0); Mean Corpuscular Volume 89.4 fL (80.0-100.0); Mean Platelet Volume 11.5 fL (9.4-12.4); Monocytes # (auto) 0.12 K/uL (0.11-0.59); Monocytes % (auto) 1.8 %; Neutrophils # (auto) 5.98 K/uL (1.40-6.50); Neutrophils % (auto) 87.9 %; Platelet Count 150 K/uL (130-400); RDW Coefficient of Variation 13.9 % (11.5-14.5); RDW Standard Deviation 45.1 fL (36.4-46.3); Red Blood Count 4.52 M/uL (4.70-6.10); White Blood Count 6.81 K/ul (4.8-10.8)
[2025-01-09 06:57] LABS: Albumin Globulin Ratio 1.4 (0.9-2); BUN Creatinine Ratio 20.8 (10-20); Calcium 9.5 mg/dl (8.6-10.3); Creatinine Clr Calc Pharmacy 36.5 ml/min; Globulin 2.9 gm/dl (2.5-4.0); Potassium 4.7 mmol/L (3.5-5.1); Total Protein 6.9 gm/dl (6.0-8.3)
[2025-01-09 07:40] VITALS: RESP 18
--- NOTE | 2025-01-09 10:25 | Discharge Summary ---
Date of Service January 09, 2025 Admission HPI Per Admitting Provider The patient is a 84-year-old male with a past medical history including CVA with residual deficits, HFrEF, ischemic stroke, history of acute respiratory failure with hypoxia, history of aspiration pneumonitis, diabetic nephropathy, diabetes mellitus with insulin therapy, complex sleep apnea syndrome wearing BiPAP, BPH with LUTS, hypothyroidism, personal history of diabetic foot ulcer, dilated cardiomyopathy, cor pulmonale, CKD stage III, and history of thyroidectomy.The patient presents to the emergency department with complaint of 2 to 3 days of progressively worsening shortness of breath, dyspnea on exertion, and productive cough,, as noted by his , who is in attendance. His most recent hospitalization was 02/16-02/21/2026, for similar symptoms with acute respiratory failure with hypoxia, pneumonia and COPD exacerbation at that time. His reports that he does not go outside at all, that she does all the shopping for him and takes care of him. Upon questioning, she does report that he oftentimes clears his throat when he eats, and tends to cough a bit when he eats. There have been questions about whether he may be an aspiration risk in the past. Workup in the emergency department included BioFire testing which was negative, chest x-ray suggestive of bibasilar infiltrates and right middle lobe infiltrate. From the ED he received the following: Ceftriaxone 2 g IV which was discontinued for given, azithromycin 500 mg p.o., furosemide 40 mg IV, and a DuoNeb treatment. [facility] Exam (Per Admitting) Constitutional The patient is awake, alert and oriented 3, well developed and well nourished, normocephalic and atraumatic, lying in bed and in no acute distress. HEENT--PERRL, EOMI, mucous membranes and oropharynx mildly dry Neck--supple. No JVD. No bruits. Thyroid normal, trachea midline, no adenopathy. Heart--normal S1 and S2. No murmurs, rubs or gallops. Lungs--clear bilaterally, no respiratory distress, no accessory muscle use. Abdomen--normal bowel sounds and soft. Extremities--no cyanosis or clubbing. No edema. Dermatologic--normal skin turgor, normal color, no abnormal lymph nodes, no rash. Neurologic--cranial nerves II through XII grossly intact. Rheumatologic--normal range of motion. Psychiatric--normal affect. Discharge Data Consultations 01/07/25 00:37 ED Decision to Admit Stat Hospital Course (1) Acute respiratory failure with hypoxia: (2) Multifocal pneumonia: (3) HFrEF (heart failure with reduced ejection fraction): (4) Aspiration pneumonitis: (5) Elevated troponin: Plan The patient is a 84-year-old male with a past medical history including CVA with residual deficits, HFrEF, ischemic stroke, history of acute respiratory failure with hypoxia, history of aspiration pneumonitis, diabetic nephropathy, diabetes mellitus with insulin therapy, complex sleep apnea syndrome wearing BiPAP, BPH with LUTS, hypothyroidism, personal history of diabetic foot ulcer, dilated cardiomyopathy, cor pulmonale, CKD stage III, and history of thyroidectomy.The patient presents to the emergency department with complaint of 2 to 3 days of progressively worsening shortness of breath, dyspnea on exertion, and productive cough, Acute respiratory failure with hypoxia/multifocal-aspiration pneumonia/HFrEF exacerbation- Presents with cough, SOB Found to have PNA on chest x ray cultures obtained Empirically started on Cefepime 2 g IV every 12 hours and Doxycycline 100 mg IV every 12 hours DuoNebs every 2 hours as needed Mucinex 600 mg p.o. every 12 hours Aspiration precautions Patient has had multiple speech evaluations in the past per his Discharge on PO cefdinir 300mg BID for 5 days Elevated troponin Likely due to demand ischemia monitor on telemetry for serial cardiac enzymes, serial EKG's, cardiac rhythm monitoring Continue aspirin, carvedilol Troponin 26.8, with follow-up pending Cardiomyopathy: Follows up with cardiology Per cardiology outpatient note, "Prior history of cardiomyopathy. His left ventricular systolic function subsequently normalized on follow-up echoes. However, echocardiogram in January 2024 with moderate LV systolic dysfunction. Repeat echocardiogram March 2024 with moderate LV systolic dysfunction. ( EF 30- 35%). Moderate global LV hypokinesis. No obvious etiology for the decrease in LV systolic function. No signs of pulmonary vascular congestion on exam today. He and his have declined any significant changes in his medical therapy to be tailored to treatment of his left ventricular systolic dysfunction. Some therapies contraindicated by his renal dysfunction. They have declined referral for consideration of implant of ICD/biventricular pacemaker." BNP 803 Hold lasix on account of worsening renal function monitor I/O, daily weights RORO on CKD Slight worsening or renal function following diuresis will hold lasix Chronic medical conditions: Diabetes mellitus-insulin glargine and SSI as noted BPH with LUTS-continue silodosin or substitute and dutasteride Anxiety/depression-continue venlafaxine Hyperlipidemia-continue atorvastatin and aspirin Hypothyroidism-continue levothyroxine Obstructive sleep apnea-continue CPAP machine/BiPAP with settings as marked Disposition: d/c home Coding Level of Care Code 26573 INP/OBS DISCH >30 MIN Diagnoses Acute respiratory failure with hypoxia J96.01 Multifocal pneumonia J18.9 HFrEF (heart failure with reduced ejection fraction) I50.20 Aspiration pneumonitis J69.0 Elevated troponin R79.89 Time Spent (min) 35
[2025-01-09 12:07] VITALS: PULSE 76; TEMP 97.7
[2025-01-09 12:43] VITALS: BP 110/73; O2SAT 94
== END 2025-01-09 15:42 | disposition home or self-care (01) | DRG 189 ==
LOC: ED 22:57 → 4W 01-07 00:40 → SUATTDRO 01-07 00:40 → 4W 01-07 01:26

== ENCOUNTER 2025-02-27 18:35 | Inpatient (IN) ==
[2025-02-27 19:18] LABS: Base Excess VBG 4.9 mEq/L; HCO3 VBG 31 mmol/L; Oxygen Saturation VBG < 60.0 %; PCO2 VBG 53 mmHg (38-50); PO2 VBG 32 mmHg; pH VBG 7.38 (7.36-7.41)
[2025-02-27 19:21] LABS: Basophils # (auto) 0.03 K/uL (0.00-0.20); Basophils % (auto) 0.4 %; Eosinophils # (auto) 0.14 K/uL (0.00-0.50); Eosinophils % (auto) 1.8 %; Hemoglobin 12.3 g/dl (14.0-18.0); Immature Granulocytes # (auto) 0.03 K/uL (0.01-0.20); Immature Granulocytes % (auto) 0.4 %; Lymphocytes # (auto) 1.36 K/uL (1.20-3.40); Lymphocytes % (auto) 17.9 %; Mean Corpuscular Hemoglobin 30.4 pg (25.0-34.0); Mean Corpuscular Hgb Conc 33.2 g/dL (32.0-36.0); Mean Corpuscular Volume 91.6 fL (80.0-100.0); Mean Platelet Volume 11.8 fL (9.4-12.4); Monocytes # (auto) 0.51 K/uL (0.11-0.59); Monocytes % (auto) 6.7 %; Neutrophils # (auto) 5.52 K/uL (1.40-6.50); Neutrophils % (auto) 72.8 %; Platelet Count 134 K/uL (130-400); RDW Coefficient of Variation 14.6 % (11.5-14.5); RDW Standard Deviation 48.3 fL (36.4-46.3); Red Blood Count 4.04 M/uL (4.70-6.10); White Blood Count 7.59 K/ul (4.8-10.8)
[2025-02-27] MEDS: LEVALBUTEROL 1.25 MG/3 ML NEB NEB STA (19:26)
[2025-02-27 19:41] LABS: Alanine Aminotransferase 18 U/L (7-52); Albumin Globulin Ratio 1.4 (0.9-2); Albumin Level 3.8 gm/dl (3.4-5.0); Alkaline Phosphatase 105 U/L (34-104); Anion Gap 4 (3-11); BUN Creatinine Ratio 19.6 (10-20); Bilirubin,Total 0.9 mg/dl (0.2-1.0); Blood Urea Nitrogen 27 mg/dl (6-23); Calcium 9.1 mg/dl (8.6-10.3); Carbon Dioxide 33 mmol/L (21-32); Chloride 104 mmol/L (98-107); Creatinine Clr Calc Pharmacy 48.4 ml/min; Globulin 2.7 gm/dl (2.5-4.0); Glucose 186 mg/dl (70-99(Fasting)); Magnesium 1.9 mg/dl (1.7-2.4); Sodium 141 mmol/L (136-145); Total Protein 6.5 gm/dl (6.0-8.3)
--- NOTE | 2025-02-27 19:43 | Emergency Department Note ---
Impression & Plan Acute hypoxemic respiratory failure, CHF (congestive heart failure), WASHBURN (dyspnea on exertion), CAROLANN (obstructive sleep apnea) ED Provider Note NAME: NAVDEEP SAMUEL AGE: 84 SEX: M : 1940 ARRIVES VIA: Ambulance INFORMANT: Patient, EMS report ED PROVIDER(S): Josiah Hayward MD CHIEF COMPLAINT: Shortness of breath MEDICAL DECISION MAKING: Patient presents due to concern for worsening shortness of breath. IV was established and blood work was obtained. Patient with diminished breath sounds at the bilateral bases. Patient's weight is up slightly and the patient does have a known history of prior CHF. Patient did receive a Xopenex treatment as he stated the nebulizer mildly improved his symptoms. Blood work shows a normal white count hemoglobin of 12.3 with a normal platelet count. Kidney function is unremarkable. VBG with mild hypercarbia but compensated pH which is normal at 7.38. Bicarb also 33. Kidney function unremarkable BSG 186. Troponin is not elevated. Patient's chest x-ray does show concern for bilateral pulmonary edema. Patient was ordered IV Lasix and I did speak with the on-call hospitalist service the patient was admitted by Dr. Salazar. Patient also with some associated hypoxia. The patient was placed on 2 L nasal cannula. Critical Care: I have personally spent 42 minutes of critical care time in direct management of this patient. This includes bedside care, interpretation of diagnostic studies, and testing, discussion with consultants, patient, and family members, and other require inpatient management activities. This 42 minutes is in excess of all separately billable procedures. Discussion w/ other healthcare providers: Dr. Salazar inpatient medicine service Prior /Outside records reviewed: I reviewed part of a cardiology visit from Dr. Jo from January 28. Patient with known history of dilated cardiomyopathy CKD heart failure with reduced ejection fraction bronchospasm. Patient not on diuretic treatment. Differential diagnosis: Reactive airway disease, pneumonia, pneumothorax, COPD, CHF, ACS, pulmonary embolism, musculoskeletal, GERD as well as other pathologies were considered. Diagnostics, as interpreted by me: ECG: Normal sinus rhythm, rate of 84, borderline QRS duration, no obvious ST elevations. Cardiac monitoring: An order was placed for continuous cardiac monitoring. The monitor shows a rate of 85 with sinus rhythm. Patient was placed on pulse oximetry Medical decision rules: none Imaging studies: I informally interpreted the patient's chest x-ray shows concern for bilateral pleural effusions with formal report to follow. HPI: Patient presents due to concern for worsening shortness of breath. Patient reports that has been ongoing for several days but seem to acutely cause worsening symptoms around 4 PM. The patient states that he did take an albuterol nebulizer treatment seem to improve his symptoms. Patient states that he said mild cough but it has been nonproductive. Mild leg swelling. Patient states that he is taking his medications. No recent travel or sick contacts. Patient reportedly did have a recent admission for bilateral pneumonia back in December. Patient reports that he does have dyspnea on exertion as well as at rest. PAST MEDICAL HISTORY: See Below PAST SURGICAL HISTORY: See Below SOCIAL HISTORY: See Below HOME MEDICATIONS: See Below ALLERGIES: See Below VITALS: See Below PHYSICAL EXAMINATION: GENERAL: NAD, non-toxic. Wearing glasses. EYE EXAM: Normal conjunctiva. PERRL, no anisocoria and EOM's grossly intact w/o pain. OROPHARYNX: Moist mucus membranes, grossly normal dentition. NECK: Trachea midline, no stridor. LUNGS: Diminished breath sounds at the bilateral bases. Normal chest wall mechanics. HEART: NSR, no MRG. ABDOMEN: Abdomen soft, non-tender, no masses, no rebound or guarding. BACK: No CVA TTP. SKIN: No rashes and no bruising. UPPER EXTREMITIES: Upper extremities are grossly normal. LOWER EXTREMITIES: Grossly normal, pretibial edema noted. No calf pain or erythema. NEURO EXAM: A&O x3, cranial nerves II-XII grossly intact, normal speech, moves all 4 extremities. Past Med/Surg History Problem List CAROLANN (obstructive sleep apnea) (Acute) Acute hypoxemic respiratory failure (Acute) WASHBURN (dyspnea on exertion) (Acute) (HFpEF) heart failure with preserved ejection fraction Paroxysmal atrial fibrillation Nonsustained ventricular tachycardia Nonsustained supraventricular tachycardia Bronchospasm Multifocal pneumonia Elevated troponin (Acute) CHF (congestive heart failure) (Acute) Acute dyspnea (Acute) Abnormality of gait and mobility History of CVA with residual deficit Falls Bradycardia Pain of right calf (Acute) HFrEF (heart failure with reduced ejection fraction) CHF (congestive heart failure) (Acute) Osteoarthritis Osteoarthritis of right shoulder Ischemic stroke Acute respiratory failure with hypoxia (Acute) Aspiration pneumonitis 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), 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 Risk for falls Acromioclavicular joint separation, type 3 BPH with obstruction/lower urinary tract symptoms Loss of protective sensation of skin of foot Constipation Left knee DJD UTI symptoms Fall (Acute) Low back pain (Acute) Type 2 diabetes mellitus BPH loc w urin obs/LUTS Status post total right knee replacement Postural dizziness Gout attack Hypomagnesemia Hypothyroidism Foot deformity Diabetic peripheral neuropathy associated with type 2 diabetes mellitus Personal history of diabetic foot ulcer Tinea pedis Uncontrolled type 2 diabetes mellitus with neurologic complication, with long- term current use of insulin Obesity Right knee DJD Antiplatelet or antithrombotic long-term use PT'S REPORTS JUST ASPIRIN Vitamin D deficiency Anemia Attention or concentration deficit CKD (chronic kidney disease), stage III Cor pulmonale Dilated cardiomyopathy Per 12/23 cardio note, "Most recent echo with low normal LV systolic function. No current signs or symptoms of pulmonary vascular congestion." Dyslipidemia Erectile dysfunction Lumbosacral radiculopathy at L5 Obstructive sleep apnea CPAP Restrictive lung disease RARE RES. INH USE> WELL CONTROLLED Secondary hyperparathyroidism Sensorineural hearing loss (SNHL) of both ears Acquired claw toe of left foot Acquired claw toe of right foot Acquired hallux valgus of right foot Hypertension Mild asthma Does not use Albuterol, has just in case Chronic back pain History of thyroidectomy Medical History Acute CVA (cerebrovascular accident) Diabetes mellitus type 2, uncontrolled Injury of cervical spine Fracture of T7 vertebra Personal history of diabetic foot ulcer No open wounds currently, skin being monitored by multiple specialties. Postural dizziness Hx, no issues with currently. Hx of thyroid cancer WITH REMOVAL NO CHEMO Spinal stenosis Diabetes type 2, uncontrolled Gout Benign prostatic hyperplasia Type 2 diabetes mellitus with diabetic neuropathy Surgical History Hx of bilateral cataract extraction History of colonoscopy History of tooth extraction History of tonsillectomy History of cardiac cath [place] MANY YEARS AGO> NO STENTS H/O: knee surgery RIGHT Family History Father Myocardial infarction Hypertension Sister Coronary heart disease Hypertension Brother Hypertension Thyroid cancer Mother Pulmonary embolism Grandmother (Maternal) Stroke Other CHF (congestive heart failure) Denies family history of Ovarian cancer Prostate cancer Breast cancer Colorectal cancer Social History Smoking Status: Never smoker Second Hand Exposure: No; Do You Dip or Chew Tobacco: No; Tobacco Cessation Education Requested by Patient: No Hx Alcohol Use: No Hx Substance Use: No Preferred Language: Emirati Communication Ability: Effective Visual Impairment: No Limitations Hearing Ability: Normal Water Resource Project Manager Required: No Beliefs That Will Affect Care: None marital status: Current Living Situation: Spouse current occupational status: retired Other Information That Helps Us Care for You: No Feels Safe at Home: Yes Safety Concerns: Feels Safe At This Time Childhood Exposure to Second-Hand Smoke: Yes (Uncle and Aunts) Physical Activity Frequency: Does not Exercise Seatbelt Use: always Assistive Devices: CPAP, Glasses and Walker Allergies Allergies Allergy/AdvReac Type Severity Reaction Status Date / Time Penicillins Allergy Unknown HAPPENED Verified 02/27/25 20:45 A CHILD--RASH lactose AdvReac Intermediate Gastrointestinal Verified 02/27/25 20:45 Upset Home Meds Home Medications Medication Instructions Recorded Confirmed magnesium oxide 400 mg PO PM 05/28/19 02/27/25 cholecalciferol (vitamin D3) 50 2,000 unit PO QAM 12/25/19 02/27/25 mcg (2,000 unit) tablet (Vitamin D3) blood-glucose sensor (Dexcom G6 01/23/22 01/28/25 Sensor device) multivitamin (Daily Multi-Vitamin 1 tab PO QAM 02/07/23 02/27/25 tablet) blood sugar diagnostic (Contour 03/28/23 01/28/25 Next Test Strips) aspirin 81 mg tablet,delayed 81 mg PO QAM 05/03/23 02/27/25 release (Adult Low Dose Aspirin) insulin lispro 100 unit/mL See Rx Instructions subcut 10/07/24 02/27/25 subcutaneous pen (Admelog SoloStar USEASDIRECTD U-) albuterol sulfate 90 mcg/actuation 2 puff inhalation Q6H PRN 01/07/25 02/27/25 aerosol inhaler Shortness Of Breath Or Wheezing dutasteride 0.5 mg capsule 0.5 mg PO QAM 01/07/25 02/27/25 venlafaxine 150 mg 150 mg PO DAILY 02/27/25 02/27/25 capsule,extended release 24 hr venlafaxine 75 mg capsule,extended 75 mg PO DAILY 02/27/25 02/27/25 release 24 hr vit C 250 mg-vit E 90 mg-zinc 40 1 tab PO BID 02/27/25 02/27/25 mg-copper 1 [id number] capsule (PreserVision AREDS-2) Previous Rx's Medication Instructions Recorded CPAP Machine #1 ea 02/15/22 BD Ultra-Fine Uzma Pen Needle 32 #400 ea 04/09/24 gauge x 5/32" (pen needle, diabetic) clotrimazole 1 % topical cream 1 applic topical BID PRN Rash #90 10/07/24 grams atorvastatin 40 mg tablet (Lipitor) 40 mg PO PM #90 tabs 11/18/24 carvedilol 25 mg tablet (Coreg) 25 mg PO BID #180 tabs 11/18/24 febuxostat 80 mg tablet (Uloric) 80 mg PO QAM #90 tabs 11/18/24 desloratadine 5 mg tablet 5 mg PO DAILY PRN allergies #90 11/26/24 (Clarinex) tabs silodosin 8 mg capsule (Rapaflo) 8 mg PO DAILY #90 caps 12/16/24 ketoconazole 2 % topical cream 1 applic topical BID #60 grams 12/19/24 insulin glargine-yfgn 100 unit/mL 24 unit (0.24 mL) subcut DAILY #30 02/02/25 (3 mL) subcutaneous pen (Semglee mL (insulin glargine-yfgn) Pen) levothyroxine 150 mcg tablet 150 mcg PO DAILYBB #90 tabs 02/05/25 albuterol sulfate 1.25 mg/3 mL 1.25 mg (3 mL) inhalation QID PRN 02/19/25 solution for nebulization shortness of breath or wheezing #90 mL Results & Data (ED) Vital Signs Vital Signs - 24 hr 02/27/25 18:42 02/27/25 18:46 02/27/25 18:49 Temperature 36.4 C L Temperature Source Oral Pulse Rate 84 Pulse Rate [Apical] Pulse Rhythm [Apical] Respiratory Rate 28 H Respiratory Effort / Characteristics Spontaneous Short of Breath Short of Breath Respiratory Depth Respiratory Pattern Blood Pressure 142/96 H Blood Pressure [Left Arm] Blood Pressure Mean 111 Blood Pressure Mean [Left Arm] Blood Pressure Position [Left Arm] Pulse Oximetry 95 Oxygen Delivery Method Room Air Room Air Oxygen Flow Rate Sepsis Recent Fever Within 48 Hours No Sepsis New/Unexplained Change in Mental Status N/A Sepsis Action Taken by Nursing No Action Required Oxygen Flow Rate - Titration Pulse Oximetry Post Tiitration 02/27/25 19:01 02/27/25 19:30 02/27/25 19:47 Temperature Temperature Source Pulse Rate 79 Pulse Rate [Apical] 77 Pulse Rhythm [Apical] Regular Respiratory Rate 22 Respiratory Effort / Characteristics Non-Labored Spontaneous Respiratory Depth Normal Respiratory Pattern Regular Blood Pressure Blood Pressure [Left Arm] 145/70 H Blood Pressure Mean Blood Pressure Mean [Left Arm] 95 Blood Pressure Position [Left Arm] Semi-fowlers Pulse Oximetry 98 Oxygen Delivery Method Nasal Cannula Nasal Cannula Oxygen Flow Rate 2 Sepsis Recent Fever Within 48 Hours Sepsis New/Unexplained Change in Mental Status Sepsis Action Taken by Nursing Oxygen Flow Rate - Titration 2 Pulse Oximetry Post Tiitration 97 02/27/25 19:47 Temperature Temperature Source Pulse Rate Pulse Rate [Apical] Pulse Rhythm [Apical] Respiratory Rate Respiratory Effort / Characteristics Respiratory Depth Respiratory Pattern Blood Pressure Blood Pressure [Left Arm] Blood Pressure Mean Blood Pressure Mean [Left Arm] Blood Pressure Position [Left Arm] Pulse Oximetry 97 Oxygen Delivery Method Nasal Cannula Oxygen Flow Rate 2 Sepsis Recent Fever Within 48 Hours Sepsis New/Unexplained Change in Mental Status Sepsis Action Taken by Nursing Oxygen Flow Rate - Titration Pulse Oximetry Post Tiitration Home Medications Current Medication List: was personally reviewed by me Laboratory Data Attestation: I reviewed the patient's lab results. 02/28/25 06:23 02/28/25 06:23 Lab Results 02/27/25 02/27/25 02/27/25 Range/Units 18:55 19:11 19:30 WBC 7.59 (4.8-10.8) K/ul RBC 4.04 L (4.70-6.10) M/uL Hgb 12.3 L (14.0-18.0) g/dl Hct 37.0 L (42.0-52.0) % MCV 91.6 (80.0-100.0) fL MCH 30.4 (25.0-34.0) pg MCHC 33.2 (32.0-36.0) g/dL RDW Std Deviation 48.3 H (36.4-46.3) fL RDW Coeff of [place] 14.6 H (11.5-14.5) % Plt Count 134 (130-400) K/uL MPV 11.8 (9.4-12.4) fL Immature Gran % (Auto) 0.4 % Neut % (Auto) 72.8 % Lymph % (Auto) 17.9 % [place] % (Auto) 6.7 % Eos % (Auto) 1.8 % Baso % (Auto) 0.4 % Neut # (Auto) 5.52 (1.40-6.50) K/uL Lymph # (Auto) 1.36 (1.20-3.40) K/uL [place] # (Auto) 0.51 (0.11-0.59) K/uL Eos # (Auto) 0.14 (0.00-0.50) K/uL Baso # (Auto) 0.03 (0.00-0.20) K/uL Immature Gran # (Auto) 0.03 (0.01-0.20) K/uL PT 12.0 (9.0-12.0) Seconds INR 1.1 (0.9-1.1) APTT 24 (21-31) Seconds PTT Ratio 0.9 VBG pH 7.38 (7.36-7.41) VBG pCO2 53 H (38-50) mmHg VBG pO2 32 mmHg VBG HCO3 31 mmol/L VBG O2 Saturation < 60.0 % VBG Base Excess 4.9 mEq/L Sodium 141 (136-145) mmol/L Potassium TNP Chloride 104 (98-107) mmol/L Carbon Dioxide 33 H (21-32) mmol/L Anion Gap 4 (3-11) BUN 27 H (6-23) mg/dl Creatinine 1.38 (0.6-1.4) mg/dl Est Cr Clr Drug Dosing 48.4 ml/min eGFR 51.06 BUN/Creatinine Ratio 19.6 (10-20) Glucose 186 H (70-99(Fasting)) mg/dl Calcium 9.1 (8.6-10.3) mg/dl Magnesium 1.9 (1.7-2.4) mg/dl Total Bilirubin 0.9 (0.2-1.0) mg/dl AST TNP ALT 18 (7-52) U/L Alkaline Phosphatase 105 H (34-104) U/L Troponin I High Sens 15.1 (0-20) pg/ml Total Protein 6.5 (6.0-8.3) gm/dl Albumin 3.8 (3.4-5.0) gm/dl Globulin 2.7 (2.5-4.0) gm/dl Albumin/Globulin Ratio 1.4 (0.9-2) Procalcitonin 0.03 (0-0.5) ng/ml Adenovirus (PCR) Not Detected (NotDetected) B. pertussis DNA (PCR) Not Detected (NotDetected) B.parapertussis DNA PCR Not Detected (NotDetected) C. pneumoniae DNA (PCR) Not Detected (NotDetected) Coronavirus OC43 (PCR) Not Detected (NotDetected) Coronavirus HKU1 (PCR) Not Detected (NotDetected) Coronavirus 229E (PCR) Not Detected (NotDetected) SARS-CoV-2 (PCR) Not Detected (NotDetected) Coronavirus NL63 (PCR) Not Detected (NotDetected) Human Metapneumovir PCR Not Detected (NotDetected) Influenza Type A (PCR) Not Detected (NotDetected) Influenza Type B (PCR) Not Detected (NotDetected) M. pneumoniae (PCR) Not Detected (NotDetected) Parainfluenza 1 (PCR) Not Detected (NotDetected) Parainfluenza 2 (PCR) Not Detected (NotDetected) Parainfluenza 3 (PCR) Not Detected (NotDetected) Parainfluenza 4 (PCR) Not Detected (NotDetected) RSV (PCR) Not Detected (NotDetected) Entero/Rhino (PCR) Not Detected (NotDetected) 02/27/25 Range/Units 20:42 WBC (4.8-10.8) K/ul RBC (4.70-6.10) M/uL Hgb (14.0-18.0) g/dl Hct (42.0-52.0) % MCV (80.0-100.0) fL MCH (25.0-34.0) pg MCHC (32.0-36.0) g/dL RDW Std Deviation (36.4-46.3) fL RDW Coeff of [place] (11.5-14.5) % Plt Count (130-400) K/uL MPV (9.4-12.4) fL Immature Gran % (Auto) % Neut % (Auto) % Lymph % (Auto) % [place] % (Auto) % Eos % (Auto) % Baso % (Auto) % Neut # (Auto) (1.40-6.50) K/uL Lymph # (Auto) (1.20-3.40) K/uL [place] # (Auto) (0.11-0.59) K/uL Eos # (Auto) (0.00-0.50) K/uL Baso # (Auto) (0.00-0.20) K/uL Immature Gran # (Auto) (0.01-0.20) K/uL PT (9.0-12.0) Seconds INR (0.9-1.1) APTT (21-31) Seconds PTT Ratio VBG pH (7.36-7.41) VBG pCO2 (38-50) mmHg VBG pO2 mmHg VBG HCO3 mmol/L VBG O2 Saturation % VBG Base Excess mEq/L Sodium (136-145) mmol/L Potassium 4.3 Chloride (98-107) mmol/L Carbon Dioxide (21-32) mmol/L Anion Gap (3-11) BUN (6-23) mg/dl Creatinine (0.6-1.4) mg/dl Est Cr Clr Drug Dosing ml/min eGFR BUN/Creatinine Ratio (10-20) Glucose (70-99(Fasting)) mg/dl Calcium (8.6-10.3) mg/dl Magnesium (1.7-2.4) mg/dl Total Bilirubin (0.2-1.0) mg/dl AST 22 ALT (7-52) U/L Alkaline Phosphatase (34-104) U/L Troponin I High Sens (0-20) pg/ml Total Protein (6.0-8.3) gm/dl Albumin (3.4-5.0) gm/dl Globulin (2.5-4.0) gm/dl Albumin/Globulin Ratio (0.9-2) Procalcitonin (0-0.5) ng/ml Adenovirus (PCR) (NotDetected) B. pertussis DNA (PCR) (NotDetected) B.parapertussis DNA PCR (NotDetected) C. pneumoniae DNA (PCR) (NotDetected) Coronavirus OC43 (PCR) (NotDetected) Coronavirus HKU1 (PCR) (NotDetected) Coronavirus 229E (PCR) (NotDetected) SARS-CoV-2 (PCR) (NotDetected) Coronavirus NL63 (PCR) (NotDetected) Human Metapneumovir PCR (NotDetected) Influenza Type A (PCR) (NotDetected) Influenza Type B (PCR) (NotDetected) M. pneumoniae (PCR) (NotDetected) Parainfluenza 1 (PCR) (NotDetected) Parainfluenza 2 (PCR) (NotDetected) Parainfluenza 3 (PCR) (NotDetected) Parainfluenza 4 (PCR) (NotDetected) RSV (PCR) (NotDetected) Entero/Rhino (PCR) (NotDetected) Administered Medications Aspirin (Aspirin 81 Mg Ectab) [facility] [place] Stop: 03/30/25 08:59 Last Admin: 02/28/25 09:00 Dose: 81 mg Documented By: KIA Atorvastatin Calcium (Atorvastatin 40 Mg Tab) 40 mg PO PM [facility] Stop: 03/30/25 20:59 Last Admin: 02/28/25 20:50 Dose: 40 mg Documented By: VIVIAN Carvedilol (Carvedilol 25 Mg Tab) 25 mg PO BID [facility] Stop: 03/30/25 08:59 Last Admin: 02/28/25 20:50 Dose: 25 mg Documented By: Admin: 02/28/25 09:00 Dose: 25 mg Documented By: KIA Febuxostat (Febuxostat 40 Mg Tablet) 80 mg PO QAM [facility] Stop: 03/30/25 08:59 Last Admin: 02/28/25 08:59 Dose: 80 mg Documented By: KIA Finasteride (Finasteride 5 Mg Tab) 5 mg PO QAM [facility] Stop: 03/30/25 08:59 Last Admin: 02/28/25 09:00 Dose: 5 mg Documented By: KIA Furosemide (Furosemide Inj 20 Mg/2 Ml Vial) 20 mg IV QAM [facility] Stop: 03/30/25 08:59 Last Admin: 02/28/25 08:57 Dose: 20 mg Documented By: KIA Heparin Sodium (Porcine) (Heparin Sod 5,000 Unit/0.5 Ml Vial) 5,000 units SQ Q12 [facility] Stop: 03/30/25 08:59 Last Admin: 02/28/25 20:49 Dose: 5,000 units Documented By: Admin: 02/28/25 08:57 Dose: 5,000 units Documented By: KIA Insulin Aspart (Insulin Aspart Per Unit Charge) 0 units SC ACHS [facility] Stop: 03/29/25 22:14 Last Admin: 02/28/25 20:51 Dose: Not Given Documented By: VIVIAN Co-signed By: MANA Admin: 02/28/25 16:44 Dose: Not Given Documented By: Admin: 02/28/25 12:06 Dose: 1 units Documented By: KIA Co-signed By: ISAIAH Admin: 02/28/25 08:51 Dose: Not Given Documented By: Admin: 02/27/25 22:53 Dose: Not Given Documented By: VIVIAN Co-signed By: CHERYL Insulin Glargine (Lantus Per Unit Charge) 9 units SQ BID [facility] Stop: 03/29/25 22:14 Last Admin: 02/28/25 20:50 Dose: 9 units Documented By: VIVIAN Co-signed By: MANA Admin: 02/28/25 08:53 Dose: 9 units Documented By: KIA Co-signed By: EDUARD Admin: 02/27/25 22:52 Dose: 9 units Documented By: VIVIAN Co-signed By: CHERYL Levothyroxine Sodium (Levothyroxine Sodium 150 Mcg Tablet) 150 mcg PO DAILYBB [facility] Stop: 03/30/25 06:29 Last Admin: 02/28/25 06:27 Dose: 150 mcg Documented By: VIVIAN Magnesium Oxide (Magnesium Oxide 400 Mg Tab) 400 mg PO BID [facility] Stop: 03/29/25 22:14 Last Admin: 02/28/25 20:50 Dose: 400 mg Documented By: Admin: 02/28/25 09:00 Dose: 400 mg Documented By: Admin: 02/27/25 22:52 Dose: 400 mg Documented By: VIVIAN Tamsulosin HCl (Tamsulosin Hcl 0.4 Mg Cap) 0.4 mg PO DAILY [facility] Stop: 03/30/25 08:59 Last Admin: 02/28/25 08:59 Dose: 0.4 mg Documented By: KIA Venlafaxine HCl (Venlafaxine Hcl Xr 75 Mg Capxr) 75 mg PO DAILY [facility] Stop: 03/30/25 08:59 Last Admin: 02/28/25 08:59 Dose: 75 mg Documented By: OO Venlafaxine HCl (Venlafaxine Hcl Xr 150 Mg Capxr) 150 mg PO DAILY [facility] Stop: 03/30/25 08:59 Last Admin: 02/28/25 08:59 Dose: 150 mg Documented By: IvanaO Discontinued Medications Furosemide (Furosemide 40 Mg/4 Ml Vial) 40 mg IV ONE ONE Stop: 02/27/25 20:06 Last Admin: 02/27/25 21:21 Dose: 40 mg Documented By: WANDER Levalbuterol HCl (Levalbuterol 1.25 Mg/3 Ml Neb) 1.25 mg NEB NOW STA Stop: 02/27/25 19:02 Last Admin: 02/27/25 19:26 Dose: 1.25 mg Documented By: GilbertT Imaging Data Radiologist's Impression: Chest X-Ray 02/27/25 19:01 Clinical History: Dyspnea Technique: A frontal view of the chest was obtained Comparison is made to the prior examination dated 01/08/2025 Findings: There are no definite focal pulmonary infiltrates. The heart is mildly enlarged. No pleural effusion or pneumothorax is seen. There is suspected mild pulmonary edema No fracture is noted. No foreign body is seen Impression: Mild cardiomegaly and mild pulmonary edema ACT 112: Positive. There are findings on this exam that require communication between the performing entity and the patient following Patient Test Result Information Act ([place] ACT 112) guidelines. Electronically signed by Charli Thakkar 02-27-2025 7:50 PM Discharge Plan Visit Data Chief Complaint: Shortness of Breath/Dyspnea Stated Complaint: SOB ED Provider: Josiah Hayward Discharge Problem: Acute hypoxemic respiratory failure, CHF (congestive heart failure), WASHBURN (dyspnea on exertion), CAROLANN (obstructive sleep apnea) Patient Disposition: Admitted As Inpatient Condition: Fair Discharge Instructions Interventions: ED Discharge Assessment Last Done: 02/27/25 21:50 Discharge Problem: CHF (congestive heart failure) Qualifiers: Heart failure type: unspecified Heart failure chronicity: acute on chronic Q ualified Code(s): I50.9 - Heart failure, unspecified
[2025-02-27 19:49] LABS: Troponin I High Sensitivity 15.1 pg/ml (0-20)
[2025-02-27 19:50] LABS: INR 1.1 (0.9-1.1); Partial Thromboplastin Ratio 0.9; Partial Thromboplastin Time 24 Seconds (21-31)
--- NOTE | 2025-02-27 19:50 | XRay Report ---
Clinical History: Dyspnea Technique: A frontal view of the chest was obtained Comparison is made to the prior examination dated 01/08/2025 Findings: There are no definite focal pulmonary infiltrates. The heart is mildly enlarged. No pleural effusion or pneumothorax is seen. There is suspected mild pulmonary edema No fracture is noted. No foreign body is seen Impression: Mild cardiomegaly and mild pulmonary edema ACT 112: Positive. There are findings on this exam that require communication between the performing entity and the patient following Patient Test Result Information Act ([place] ACT 112) guidelines. Electronically signed by Charli Thakkar 02-27-2025 7:50 PM
[2025-02-27 20:39] LABS: Adenovirus PCR Not Detected (NotDetected); Bordetella parapertussis PCR Not Detected (NotDetected); Bordetella pertussis PCR Not Detected (NotDetected); Chlamydia pneumoniae PCR Not Detected (NotDetected); Coronavirus 229E PCR Not Detected (NotDetected); Coronavirus CoV-2 (COVID19)PCR Not Detected (NotDetected); Coronavirus HKU1 PCR Not Detected (NotDetected); Coronavirus NL63 PCR Not Detected (NotDetected); Coronavirus OC43PCR Not Detected (NotDetected); Human Metapneumovirus PCR Not Detected (NotDetected); Influenza A PCR Not Detected (NotDetected); Influenza B PCR Not Detected (NotDetected); Mycoplasma pneumoniae PCR Not Detected (NotDetected); Parainfluenza Virus 1 PCR Not Detected (NotDetected); Parainfluenza Virus 2 PCR Not Detected (NotDetected); Parainfluenza Virus 3 PCR Not Detected (NotDetected); Parainfluenza Virus 4 PCR Not Detected (NotDetected); Respiratory Syncytial VirusPCR Not Detected (NotDetected); Rhinovirus/Enterovirus PCR Not Detected (NotDetected)
--- NOTE | 2025-02-27 20:53 | History & Physical Report ---
Date of Service February 27, 2025 Assessment & Plan (1) Acute respiratory failure with hypoxia: (2) HFrEF (heart failure with reduced ejection fraction): (3) Paroxysmal atrial fibrillation: (4) Type 2 diabetes mellitus with insulin therapy: (5) BPH with obstruction/lower urinary tract symptoms: (6) CKD (chronic kidney disease), stage III: (7) Obstructive sleep apnea: (8) Hypertension: Plan Patient is an 84 y/o M with past medical history of paroxysmal atrial fibrillation (not currently on anticoagulation), HFrEF, history of CVA, Hypothyroidism, MDD, osteoarthritis, type 2 diabetes, BPH, CAROLANN (on home CPAP) who was admitted for acute hypoxic respiratory failure secondary to CHF exacerbation. AHRF // HFrEF - Patient with episodes of hypoxia at room air and feeling more SOB over the last week - Little improvement with albuterol decreases chance of this being related to bronchospasms, but will add Duoneb prn - TTE from 11/2024 showing EF of 30-35%, moderate LV systolic dysfunction - Given increase in creatinine with lasix 40 mg in previous admission, and due to concern for risk of overdiuresis, will order Lasix 20 mg IV qam for now; monitor renal function while on medication - Negative procal and lack of other clinical sxs to suggest PNA, will defer abx at this time, but if he develops fevers or deteriorates, can consider addition of this - Daily weights - Monitor Is ad Os - Wean off oxygen as tolerated - Admit to Med/Tele Paroxysmal a-fib - NSR in the ED - Not on anticoagulation due to concern of risk for ICH with falls - Monitor on Med/Tele - K goal > 4 and Mg goal > 2 - Continue home meds DM-2 - On home insulin - Hgb A1c from 01/12/2025 was 6.8% - Lantus and SSI - Bsg checks achs Hypothyroidism - Continue home levothyroxine CAROLANN - Continue CPAP MDD - Continue home venlafaxine Dispo: Admit to Med/Tele VTE ppx: Heparin Code status: FULL History of Present Illness Chief Complaint: Shortness of Breath Primary Care Provider: Tien Jeter MD Patient is an 84 y/o M with past medical history of paroxysmal atrial fibrillation (not currently on anticoagulation), HFpEF, history of CVA, osteoarthritis, type 2 diabetes, BPH, CAROLANN (on home CPAP) who comes to the emergency department due to progressively worsening shortness of breath. Patient has been feeling some shortness of breath and some dyspnea that began a little over a month ago but worsened over this last week. In addition to this, states that he has also been feeling some intermittent chest tightness without radiation or any other associated symptoms. Of note, patient was recently admitted on 12/2024 due to shortness of breath that was found to be associated to multifocal pneumonia plus or minus an acute CHF exacerbation. At that time he was given IV Lasix as management and was noted to have an increase in creatinine that was believed to be related to overdiuresis. He was seen by his shuttle buggy operator on 01/28/2025 where he also raise a concern of shortness of breath/dyspnea, and at that time he was sent a prescription for albuterol nebulizer treatments, which he has used over this last week that he noted the acute worsening of his shortness of breath with some minimal improvement in his symptoms. At the time that he was being evaluated by his shuttle buggy operator, he was believed to be euvolemic to exam and, after considering the bump in creatinine from his previous admission, he was not started on diuretic medications. Denies having any associated fevers, chills, weakness, bowel movement changes, nausea/vomiting, or any other associated systemic symptoms. ED Course: Given duoneb x1, given lasix 40 mg IV x1 Labs/Imaging: CBC without leukocytosis, hemoglobin 12.3, platelets 134. CMP without significant electrolyte abnormalities, potassium of..., glucose of 186, Creatinine 1.38 (was 1.5 in 01/20), magnesium 1.9. Pro-Luis of 0.03. Bio fire negative. Chest x-ray showing mild pulmonary edema and cardiomegaly but no changes suggestive of acute pneumonia or other infectious process. Medical History: [Reviewed] Medications: [Reviewed] Surgical History: [Reviewed] Family history: [Reviewed] Allergies: [Reviewed] Social History: [Reviewed] Code Status: FULL Allergies Allergy/AdvReac Type Severity Reaction Status Date / Time Penicillins Allergy Unknown HAPPENED Verified 02/27/25 20:45 A CHILD--RASH lactose AdvReac Intermediate Gastrointestinal Verified 02/27/25 20:45 Upset Home Medications Medication Instructions Recorded Confirmed Type magnesium oxide 400 mg PO PM 05/28/19 02/27/25 History cholecalciferol (vitamin D3) 50 2,000 unit PO QAM 12/25/19 02/27/25 History mcg (2,000 unit) tablet (Vitamin D3) blood-glucose sensor (Dexcom G6 01/23/22 01/28/25 History Sensor device) CPAP Machine #1 ea 02/15/22 01/28/25 Rx multivitamin (Daily Multi-Vitamin 1 tab PO QAM 02/07/23 02/27/25 History tablet) blood sugar diagnostic (Contour 03/28/23 01/28/25 History Next Test Strips) aspirin 81 mg tablet,delayed 81 mg PO QAM 05/03/23 02/27/25 History release (Adult Low Dose Aspirin) BD Ultra-Fine Uzma Pen Needle 32 #400 ea 04/09/24 01/28/25 Rx gauge x 5/32" (pen needle, diabetic) clotrimazole 1 % topical cream 1 applic topical BID PRN Rash #90 10/07/24 02/27/25 Rx grams insulin lispro 100 unit/mL See Rx Instructions subcut 10/07/24 02/27/25 History subcutaneous pen (Admelog SoloStar USEASDIRECTD U-) atorvastatin 40 mg tablet (Lipitor) 40 mg PO PM #90 tabs 11/18/24 02/27/25 Rx carvedilol 25 mg tablet (Coreg) 25 mg PO BID #180 tabs 11/18/24 02/27/25 Rx febuxostat 80 mg tablet (Uloric) 80 mg PO QAM #90 tabs 11/18/24 02/27/25 Rx desloratadine 5 mg tablet 5 mg PO DAILY PRN allergies #90 11/26/24 02/27/25 Rx (Clarinex) tabs silodosin 8 mg capsule (Rapaflo) 8 mg PO DAILY #90 caps 12/16/24 02/27/25 Rx ketoconazole 2 % topical cream 1 applic topical BID #60 grams 12/19/24 02/27/25 Rx albuterol sulfate 90 mcg/actuation 2 puff inhalation Q6H PRN 01/07/25 02/27/25 History aerosol inhaler Shortness Of Breath Or Wheezing dutasteride 0.5 mg capsule 0.5 mg PO QAM 01/07/25 02/27/25 History insulin glargine-yfgn 100 unit/mL 24 unit (0.24 mL) subcut DAILY #30 02/02/25 02/27/25 Rx (3 mL) subcutaneous pen (Semglee mL (insulin glargine-yfgn) Pen) levothyroxine 150 mcg tablet 150 mcg PO DAILYBB #90 tabs 02/05/25 02/27/25 Rx albuterol sulfate 1.25 mg/3 mL 1.25 mg (3 mL) inhalation QID PRN 02/19/25 02/27/25 Rx solution for nebulization shortness of breath or wheezing #90 mL venlafaxine 150 mg 150 mg PO DAILY 02/27/25 02/27/25 History capsule,extended release 24 hr venlafaxine 75 mg capsule,extended 75 mg PO DAILY 02/27/25 02/27/25 History release 24 hr vit C 250 mg-vit E 90 mg-zinc 40 1 tab PO BID 02/27/25 02/27/25 History mg-copper 1 [id number] capsule (PreserVision AREDS-2) Past Med/Surg History Problem List CAROLANN (obstructive sleep apnea) (Acute) Acute hypoxemic respiratory failure (Acute) WASHBURN (dyspnea on exertion) (Acute) (HFpEF) heart failure with preserved ejection fraction Paroxysmal atrial fibrillation Nonsustained ventricular tachycardia Nonsustained supraventricular tachycardia Bronchospasm Multifocal pneumonia Elevated troponin (Acute) CHF (congestive heart failure) (Acute) Acute dyspnea (Acute) Abnormality of gait and mobility History of CVA with residual deficit Falls Bradycardia Pain of right calf (Acute) HFrEF (heart failure with reduced ejection fraction) CHF (congestive heart failure) (Acute) Osteoarthritis Osteoarthritis of right shoulder Ischemic stroke Acute respiratory failure with hypoxia (Acute) Aspiration pneumonitis 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), 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 Risk for falls Acromioclavicular joint separation, type 3 BPH with obstruction/lower urinary tract symptoms Loss of protective sensation of skin of foot Constipation Left knee DJD UTI symptoms Fall (Acute) Low back pain (Acute) Type 2 diabetes mellitus BPH loc w urin obs/LUTS Status post total right knee replacement Postural dizziness Gout attack Hypomagnesemia Hypothyroidism Foot deformity Diabetic peripheral neuropathy associated with type 2 diabetes mellitus Personal history of diabetic foot ulcer Tinea pedis Uncontrolled type 2 diabetes mellitus with neurologic complication, with long- term current use of insulin Obesity Right knee DJD Antiplatelet or antithrombotic long-term use PT'S REPORTS JUST ASPIRIN Vitamin D deficiency Anemia Attention or concentration deficit CKD (chronic kidney disease), stage III Cor pulmonale Dilated cardiomyopathy Per 12/23 cardio note, "Most recent echo with low normal LV systolic function. No current signs or symptoms of pulmonary vascular congestion." Dyslipidemia Erectile dysfunction Lumbosacral radiculopathy at L5 Obstructive sleep apnea CPAP Restrictive lung disease RARE RES. INH USE> WELL CONTROLLED Secondary hyperparathyroidism Sensorineural hearing loss (SNHL) of both ears Acquired claw toe of left foot Acquired claw toe of right foot Acquired hallux valgus of right foot Hypertension Mild asthma Does not use Albuterol, has just in case Chronic back pain History of thyroidectomy Medical History (Updated 03/02/25 @ 22:50 by Isreal Franco MD) Mitral regurgitation Acute CVA (cerebrovascular accident) Diabetes mellitus type 2, uncontrolled Injury of cervical spine Fracture of T7 vertebra Personal history of diabetic foot ulcer No open wounds currently, skin being monitored by multiple specialties. Postural dizziness Hx, no issues with currently. Hx of thyroid cancer WITH REMOVAL NO CHEMO Spinal stenosis Diabetes type 2, uncontrolled Gout Benign prostatic hyperplasia Type 2 diabetes mellitus with diabetic neuropathy Surgical History Hx of bilateral cataract extraction History of colonoscopy History of tooth extraction History of tonsillectomy History of cardiac cath [place] MANY YEARS AGO> NO STENTS H/O: knee surgery RIGHT Family History Father Myocardial infarction Hypertension Sister Coronary heart disease Hypertension Brother Hypertension Thyroid cancer Mother Pulmonary embolism Grandmother (Maternal) Stroke Other CHF (congestive heart failure) Denies family history of Ovarian cancer Prostate cancer Breast cancer Colorectal cancer Social History Smoking Status: Never smoker Second Hand Exposure: No; Do You Dip or Chew Tobacco: No; Tobacco Cessation Education Requested by Patient: No Hx Alcohol Use: No Hx Substance Use: No Preferred Language: [place] Communication Ability: Effective Visual Impairment: No Limitations Hearing Ability: Normal Sap Payroll Consultant Required: No Beliefs That Will Affect Care: None marital status: Current Living Situation: Spouse current occupational status: retired Other Information That Helps Us Care for You: No Feels Safe at Home: Yes Safety Concerns: Feels Safe At This Time Childhood Exposure to Second-Hand Smoke: Yes (Uncle and Aunts) Physical Activity Frequency: Does not Exercise Seatbelt Use: always Assistive Devices: Walker Review of Systems Review of Systems: As per HPI Physical Exam Physical Exam: GENERAL: AAOx3, afebrile, NAD CARDIO: RRR , no r/m/g PULMONARY: decreased breath sounds in bilateral lung bases, rhonchi in upper airways, normal work of breathing, no respiratory distress, oxygen saturation decreased to 89% or 87-88% with exertion and increased to 90-94% with NC at 2 lpm GI: soft, non tender, non distended EXTREMITIES: no swelling or calf tenderness in b/l LE Results & Data Results & Data Vital Signs (Past 12 Hours) Vital Signs Temp Pulse Pulse Resp BP BP Pulse Ox 02/27/25 19:47 97 02/27/25 19:47 02/27/25 19:30 77 22 145/70 H 98 02/27/25 19:01 79 02/27/25 18:46 02/27/25 18:42 36.4 C L 84 28 H 142/96 H 95 O2 Del Method O2 Flow Rate 02/27/25 19:47 Nasal Cannula 2 02/27/25 19:47 Nasal Cannula 02/27/25 19:30 Nasal Cannula 2 02/27/25 19:01 02/27/25 18:46 Room Air 02/27/25 18:42 Room Air Supervising Physician Co-Signing Physician Notes I personally saw and examined the patient. I independently reviewed the labs, EKG, imaging, problem list, medication list, past medical history and family history. I verified all bender points and agree with resident physician Dr Garrett Dolan MD with the following exceptions and/or additions: 84 year old male presents to the ER with shortness of breath. Feels similar to December. O/E HS RRR, no murmurs, Chest bibasal crackles, Abdo SNT A/P Acute hypoxic respiratory failure, Acute HFrEF - similar presentation in December although that was suspected to be more pneumonia at that time. WBC and procalcitonin currently normal. He also received lasix last admission and developed a mild RORO but suspect this could have just been too much too fast. His BNP is back to close where it was at the beginning of that admission and given similar labs last admission may have been CHF in addition although I'd be cautious with diuretics. No wheezing to suggest reactive airway disease. Consider CT for PE if not improving or diuresis causing RORO. Resident Activity Tracking Resident Involvement: Resident Care Provided Care Provided: Adult Hospital Medicine
[2025-02-27 21:18] LABS: Potassium 4.3 mmol/L (3.5-5.1)
[2025-02-27] MEDS: FUROSEMIDE 40 MG/4 ML VIAL IV ONE (21:21)
[2025-02-27 21:56] LABS: Appearance Urine Clear (Clear); Bacteria Urine Automated None Seen (None Seen); Bilirubin Urine Negative (Negative); Blood Urine Negative (Negative); Cast Urine Automated 0-2 /lpf (0-2); Color Urine Yellow; Epithelial Cell Urine Auto 0-2 /hpf (0-2); Glucose Urine UA Negative (Negative); Ketones Urine Trace (Negative); Leukocyte Esterase Urine Negative (Negative); Nitrite Urine Negative (Negative); Protein Urine 1+ (Negative); RBC Urine Automated 0-2 /hpf (0-2); Specific Gravity Urine 1.021 (1.000-1.030); Urobilinogen Urine Negative (Negative); WBC Urine Automated 0-5 /hpf (0-5); pH Urine 6.5 (4.5-7.5)
[2025-02-27] MEDS ORDERED: MELATONIN 3 MG TAB PO PRN (22:15)
[2025-02-27] MEDS ORDERED: POLYETHYLENE (MIRALAX) 17 GM PACK PO PRN (22:15)
[2025-02-27] MEDS ORDERED: GLUCOSE 40% GEL 15 GM TUBE PO PRN (22:15)
[2025-02-27] MEDS ORDERED: ACETAMINOPHEN 325 MG TAB PO PRN (22:15)
[2025-02-27] MEDS ORDERED: ONDANSETRON INJ 2 MG/ML 2 ML VIAL IV PRN (22:15)
[2025-02-27] MEDS ORDERED: ALBUT/IPRATROP 3MG/0.5MG NEB 3 ML VIAL NEB PRN (22:15)
[2025-02-27] MEDS ORDERED: DEXTROSE 50% 50 ML SYRINGE IV PRN (22:15)
[2025-02-27] MEDS ORDERED: CARBOHYDRATES FOR HYPOGLYCEMIA PO PRN (22:15)
[2025-02-27] MEDS ORDERED: GLUCOSE 10 TAB/TUBE PO PRN (22:15)
[2025-02-27] MEDS ORDERED: GLUCAGON FOR INJ 1 MG VIAL SQ PRN (22:15)
--- OUTSIDE RECORDS SUMMARY | 2025-02-27 22:19 | External Medical Summary | Summary of Care ---
Author Name Unknown Organization [facility] Address [address] [place] [address] Phone [phone] Care Team Providers Care Power Equipment Technology Instructor Name Role Phone Jose Jeter MD Primary Care Provider [phone] Reason for Visit * Reason Comments Return Neuro Encounter Details Date Type Department Care Team (Late st Contact Info) Description 02/18/2025 11:20 AM EDT Office Visit Neurology 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 Active LANTUS SOLOSTAR 100 UNIT/ML SOPN 24units in AM , 5 Active BD PEN NEEDLE ELIZABETH U/F 32G X 4 MM As directed 5 Active Levothyroxine Sodium 150 MCG Oral Tablet (Levoxyl) Take 1 Tablet by mouth daily first thing in the morning. 1 daily 6 Active venlafaxine XR (EFFEXOR XR) 150 MG CP24 225 mg. 6 Active atorvaSTATin (LIPITOR) 40 MG Tablet Take 1 Tablet by mouth at bedtime. Active Magnesium Oxide 500 MG CAPS Take by mouth every afternoon. Active Cholecalciferol (VITAMIN D) 2000 UNITS Capsule Take 1 Capsule by mouth every afternoon. Active Febuxostat (ULORIC) 80 MG Tablet Take 1 Tablet by mouth in the morning. 90 Tab 3 6 Active Albuterol Sulfate (ALBUTEROL HFA) 108 (90 BASE) MCG/ACT inhaler Inhale 2 Puffs by mouth every 6 hours as needed. Active Silodosin (RAPAFLO) 8 MG Capsule Take 1 Capsule by mouth in the morning. Active dutasteride (AVODART) 0.5 MG Capsule Take 1 Capsule by mouth every afternoon. Active polyethylene glycol 3350 (MIRALAX) 255 gram powder Take 17 g by mouth as needed. Active docusate sodium (COLACE) 100 MG Capsule Take 1 Capsule by mouth as needed for Constipation. 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 2014 Osteoarthrosis involving shoulder region 015 CKD (chronic kidney disease) stage 3, GFR 30-59 ml/min Hypothyroid CAROLANN (obstructive sleep apnea) History of thyroid cancer documented as of this encounter (statuses as of 02/18/2025) Immunizations Name Administration Dates Next Due COVID-19 mRNA, LNP-s, No Pre serve, 2-Dose Series ([employer]) 08/03/2021,01/31/2021,01/10/2021 documented as of this encounter Social History Tobacco Use Types Packs/Day Years Used Date Smoking Tobacco: Never Smokeless Tobacco: Never Alcohol Use Standard Drinks/Week Comments No 0 (1 standard drink = 0.6 oz pur e alcohol) Hunger Vital Sign Answer Date Recorded Within the past 12 months, y ou worried that your food would run out before you got the money to buy more. Patient declined Within the past 12 months, t he food you bought just didn't last and you didn't have money to get more. Patient declined Childcare Answer Date Recorded Do you feel overwhelmed with taking care of a child, family member or friend? No 09/18/2024 Does your family need help f inding childcare? (Household - for ages 0-17 years) Not on file 09/18/2024 Clothing Answer Date Recorded Have you been unable to get clothing when it was really needed? No 09/18/2024 Is your family able to get c lothes or diapers when needed? (Household - for ages 0-17 years) Not on file 09/18/2024 Personal Safety Answer Date Recorded Do you feel unsafe or have concerns for your saf ety? No 09/18/2024 Do you have concerns for you r family's safety? (Household - for ages 0-17 years) Not on file 09/18/2024 Utilities Answer Date Recorded Do you have trouble paying y our heating, water, or electric bill? No 09/18/2024 Is your family able to pay t he heat, water, or electric bill? (Household - for ages 0-17 years) Not on file 09/18/2024 Does your family have access to good internet? (Household - for ages 0-17 years) Not on file 09/18/2024 Employment Status Answer Date Recorded Are you unemployed or without regular income? No 09/18/2024 Does the household have a re gular source of income? (Household - for ages 0-17 years) Not on file 09/18/2024 Social Connections Answer Date Recorded How often do you feel lonely or isolated from th ose around you? Never 09/18/2024 Financial Resource Strain Answer Date R ecorded Do you have any trouble payi ng for your medications, or do you think you might in the future? No 09/18/2024 Does your family have troubl e paying for medicine? (Household - for ages 0-17 years) Not on file 09/18/2024 Transportation Needs Answer Date Record ed Do you have trouble getting a ride to medical visits or work? (Adult - for ages 18 years and over) Not on file 09/18/2024 Does your family have a hard time getting a ride to doctors visits? (Household - for ages 0-17 years) Not on file 09/18/2024 Has lack of transportation k ept you from medical appointments, meetings, work, or from getting things needed for daily living? Check all that apply. No 09/18/2024 Do you (or your family) have trouble finding or paying for a ride (transportation)? (Household - for ages 0-17 years) Not on file 09/18/2024 Housing Stability Answer Date Recorded Do you currently live in a s helter or have no steady place to sleep at night? No 09/18/2024 Do you think you are at risk of becoming homeless? (Adult - for ages 18 years and over) Not on file 09/18/2024 Does your family worry about paying for your home or becoming homeless? (Household - for ages 0-17 years) Not on file 1 11/18/2023 Are you homeless or worried that you might be in the future? No 09/18/2024 Are you (or your family) vito eless or worried that you might be in the future? (Household - for ages 0-17 years) Not on file Food Insecurity Answer Date Recorded Do you need food for this week? No 09/18/2024 Are you able to get enough f ood for your family? (Household - for ages 0-17 years) Not on file 09/18/2024 Does your family need food t his week? (Household - for ages 0-17 years) Not on file 09/18/2024 Do you always have enough fo od for your family? (Household - for ages 0-17 years) Not on file 09/18/2024 Food Insecurity Answer Date Recorded Within the past 12 months, y ou worried that your food would run out before you got the money to buy more. Patient declined Within the past 12 months, t he food you bought just didn't last and you didn't have money to get more. Patient declined Do you need food for this week? 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 on file Not on file Not on file documented as of this encounter Last Filed Vital Signs Vital Sign Reading Time Taken Comments Blood Pressure 126/80 02/18/2025 11:29 AM EDT Pulse 68 02/18/2025 11:29 AM EDT Temperature 34.9 °C (94.9 °F) 02/18/2025 1 1:29 AM EDT Respiratory Rate - - Oxygen Saturation 96% 02/18/2025 11: 29 AM EDT Inhaled Oxygen Concentration - - Weight 101.3 kg (223 lb 4.8 oz) 025 11:29 AM EDT Height - - Body Mass Index 32.51 05/14/2020 9:27 AM EDT documented in this encounter Progress Notes * Quinton Oakley MD - 02/18/2025 11:39 AM EDT 02/18/2025 11:39 AM Jony Bass 84 year old male REF: JOSE JETER [facility] [place] [address] (office) [phone] (fax) Asked by Jose Jeter MD to render opinion regarding follow-up after stroke CC: Chief Complaint Patient presents with Return Neuro HPI: The patient was last seen 6 months ago. He has ambulatory difficulty due to right-sided weakness after left lacunar stroke affecting the posterior limb of the internal capsule about a year ago. He had a couple of falls in the aftermath. The initial treatment was at [facility]. He also has a history of diabetes with neuropathy. I had referred him to our vascular neurologists, Dr. Reyna who he saw in October of this year. The patient reports that the function in his right armhas gradually improved. Also his speech. He still needs a walker. When we saw him initially he was orthostatic and after adjusting his blood pressure medication this was no more issue. His other vascular risk factors include hypertension, hyperlipidemia obstructive sleep apnea and heart failure with reduced ejection fraction 35 to 40 percent. My colleague completed the stroke work up by adding a Zio patch to rule out AFib. He was recommended to continue with low-dose aspirin and Lipitor 40 milligrams. The Zio patch did show evidence of rare atrial fibrillation. There are also other episodes of supraventricular tachycardia. He has a history of subdural hematoma from a previous fall in October 2023 and March of 2021. He also has a history of mild cognitive impairment for the past couple years. He has been using the CPAP every night. Completed ST and OT. Still has PT for leg strengthening. I have personally reviewed the MRI images from month did the knee performed February 19 which not only shows the acute lacunar ischemia but also at least moderate degree of mostly periventricular subcortical ischemic changes. PAST MEDICAL HISTORY: Patient Active Problem List Diagnosis Date Noted Gouty arthropathy, chronic, without tophi [M1A.[id number]] 04/29/2015 Osteoarthrosis involving shoulder region [M19.019] 04/29/2015 CKD (chronic kidney disease) stage 3, GFR 30-59 ml/min ([facility]) [N18.30] Hypothyroid [E03.9] CAROLANN (obstructive sleep apnea) [G47.33] History of thyroid cancer [Z85.850] MEDICATIONS: Current Outpatient Medications Medication Sig Dispense Refill ASPIRIN 81 MG PO TABS one pill each day CARVEDILOL 25 MG PO TABS Take 1 Tablet by mouth 2 times a day with morning and evening meals. LANTUS SOLOSTAR 100 UNIT/ML SOPN 24units in AM , BD PEN NEEDLE ELIZABETH U/F 32G X 4 MM As directed Levothyroxine Sodium 150 MCG Oral Tablet (Levoxyl) Take 1 Tablet by mouth daily first thing in the morning. 1 daily venlafaxine XR (EFFEXOR XR) 150 MG CP24 225 mg. atorvaSTATin (LIPITOR) 40 MG Tablet Take 1 Tablet by mouth at bedtime. Magnesium Oxide 500 MG CAPS Take by mouth every afternoon. Cholecalciferol (VITAMIN D) 2000 UNITS Capsule Take 1 Capsule by mouth every afternoon. Febuxostat (ULORIC) 80 MG Tablet Take 1 Tablet by mouth in the morning. 90 Tab 3 Albuterol Sulfate (ALBUTEROL HFA) 108 (90 BASE) MCG/ACT inhaler Inhale 2 Puffs by mouth every 6 hours as needed. Silodosin (RAPAFLO) 8 MG Capsule Take 1 Capsule by mouth in the morning. dutasteride (AVODART) 0.5 MG Capsule Take 1 Capsule by mouth every afternoon. polyethylene glycol 3350 (MIRALAX) 255 gram powder Take 17 g by mouth as needed. NovoLOG FlexPen 100 UNIT/ML Subcutaneous Solution Pen-injector 4 units in the AM docusate sodium (COLACE) 100 MG Capsule Take 1 Capsule by mouth as needed for Constipation. (Patient not taking: Reported on 02/18/2025) No current facility-administered medications for this visit. 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 (Adult - for ages 18 years and over): No Does your family have trouble paying for medicine? (Household - for ages 0-17 years): Not on file Food Insecurity: Unknown (09/18/2024) Food Insecurity Worried About Running Out of Food in the Last Year: Patient declined Ran Out of Food in the Last Year: Patient declined Do you need food for this week? (Adult - for ages 18 years and over): No Transportation Needs: No Transportation Needs (09/18/2024) Transportation Needs Do you have trouble getting a ride to medical visits or work? (Adult - for ages 18 years and over):Not on file Does your family have a hard time getting a ride to doctors’ visits? (Household - for ages 0-17 years): Not on file Has lack of transportation kept you from medical appointments, meetings, work, or from getting things needed for daily living? Check all that apply. (Adult - for ages 18 years and over): No Do you (or your family) have trouble finding or paying for a ride (transportation)? (Household - for ages 0-17 years): Not on file Social Connections: Socially Integrated (09/18/2024) Social Connections How often do you feel lonely or isolated from those around you? (Adult - for ages 18 years and over): Never Housing Stability: Low Risk (09/18/2024) Housing Stability Do you currently live in a fci or have no steady place to sleep at night? (Adult - for ages 18 years and over): No Do you think you are at risk of becoming homeless? (Adult - for ages 18 years and over): Not on file Does your family worry about paying for your home or becoming homeless? (Household - for ages 0-17 years): Not on file Are you homeless or worried that you might be in the future? (Adult - for ages 18 years and over): No Are you (or your family) homeless or worried that you might be in the future? (Household - for ages0-17 years): Not on file Occupation: HIV risk factors: None FAMILY HISTORY No family history on file. Family Status Relation Status Mo at age 49 pulmonary embolism Fa at age 53 [place] Sis at age 12 hole in her heart Bro Alive Son Alive Son Alive Son Alive REVIEW OF SYSTEMS: The patient denies lung, kidney, liver, skin, thyroid, bladder, or digestive problems. The patient also denies acute changes in hearing or vision. Otherwise, all other systems are negative or as noted above. BP 126/80 | Pulse 68 | Temp (!) 34.9 °C (94.9 °F) | Wt 101.3 kg (223 lb 4.8 oz) | SpO2 96% | BMI 32.51 kg/m² | BSA 2.23 m² The patient is a 84 year old male who is well developed and appears to be their stated age. NEUROLOGIC EXAMINATION: Mental status: Intact higher integrative functions. Orientated to person, place, and time. Recent and remote memory functions are intact. Attention, concentration, language, and fund of knowledge arenormal. Judgment and insight are intact. Mood and affect are flat. Mild dysarthria, subtle R pronator drift. Mild tone increase in R UE and LE with modified Jami of 1+. Reduced sensation in stocking distribution. Can ambulate steadily with the walker. Gets short of breath easily. IMPRESSION: The patient has minimal motor and speech deficit after L lacunar IC ischemia. He does have brief Afib on Ziopatch. He is at increased fall risk, had 2 prior SDH. He also had diabetic neuropathy whichis a contributing factor. RECOMMENDATIONS: I recommend to just stay on antiplatelet tx. Would not risk anticoagulation. Cont with PT efforts. F/u prn. Thank-you for letting me participate in the care of this patient. Quinton Oakley MD Neurology [facility] [address] [facility] [place] [address] Please send copy to requesting physician, Jose Jeter MD documented in this encounter Nursing Notes * Aleena Rojo LPN - 02/18/2025 11:29 AM EDT Chief Complaint Patient presents with Return Neuro documented in this encounter Plan of Treatment Scheduled Procedures Name Priority Associated Diagnoses Date/Ti me COLONOSCOPY FLEXIBLE PROXIMAL DIAGNOSTIC Recall History of colon polyps Health Maintenance Due Date Last Done Comments Depression Screening 1952 Albumin/Creatinine Ratio 1960 DTap/Tdap Vaccines (1 - Tdap) 1961 CKD PHOS USE SMARTSET 48918 04/28/2022 04/28/2021, 0 04/27/2021 TSH 05/04/2022 05/04/2021 GFR 09/08/2024 03/08/2024, 05/0 06/2024, 03/04/2024, Additional history exists COVID-19 Vaccine ( season) 2024 08/06/2024, 08/29/2023, 08/08/2022, Additional history exists CKD HGB USE SMARTSET 60822 03/08/202503/08, 03/01/2024, 02/23/2024, Additional history exists Colonoscopy 05/14/2025 05/14/2020, 04/28, 11/03/2019, Additional history exists Zoster Vaccines Completed 09/24/2018, 07/09/2018 RETIRED - COLONOSCOPY-EVERY 5 YRS AGES 18-100 Discontinued 05/14/2020, 05/14/2020, 11/03/2019, Additional history exists Pneumococcal Vaccine: 50+ Years Completed 09/07/2023, 10/29/2012 Influenza Vaccine (FLU shot) Completed 09/05/2024, 08/22/2019, 08/29/2013 HPV (Gardasil) Vaccine Aged Out No lo nger eligible based on patient's age to complete this topic Hepatitis B Vaccine Aged Out No longe r eligible based on patient's age to complete this topic MENINGOCOCCAL (MENACTRA/MENVEO) Aged Out No longer eligible based on patient's age to complete this topic Meningitis B Vaccine (Bexsero/Trumemba) Aged Out No longer eligible based on patient's age to complete this topic documented as of this encounter Medical Devices Not on filedocumented as of this encounter Visit Diagnoses Diagnosis 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
[2025-02-27] MEDS: LANTUS PER UNIT CHARGE SQ SCH (22:52)
[2025-02-27] MEDS: MAGNESIUM OXIDE 400 MG TAB PO SCH (22:52)
[2025-02-27] MEDS: INSULIN ASPART PER UNIT CHARGE SC SCH (22:53)
[2025-02-28] MEDS: LEVOTHYROXINE SODIUM 150 MCG TABLET PO SCH (06:27)
[2025-02-28 06:43] LABS: Hematocrit (blood only) 37.7 % (42.0-52.0); Hemoglobin 12.6 g/dl (14.0-18.0); Mean Corpuscular Hemoglobin 30.2 pg (25.0-34.0); Mean Corpuscular Hgb Conc 33.4 g/dL (32.0-36.0); Mean Corpuscular Volume 90.4 fL (80.0-100.0); Mean Platelet Volume 11.4 fL (9.4-12.4); Platelet Count 151 K/uL (130-400); RDW Coefficient of Variation 14.6 % (11.5-14.5); RDW Standard Deviation 47.8 fL (36.4-46.3); Red Blood Count 4.17 M/uL (4.70-6.10); White Blood Count 10.06 K/ul (4.8-10.8)
[2025-02-28 07:12] LABS: BUN Creatinine Ratio 17.9 (10-20); Calcium 9.5 mg/dl (8.6-10.3); Potassium 3.6 mmol/L (3.5-5.1)
--- NOTE | 2025-02-28 08:31 | Hospitalist Progress Note ---
Date of Service February 28, 2025 Assessment & Plan (1) (HFpEF) heart failure with preserved ejection fraction: (2) Paroxysmal atrial fibrillation: (3) Diabetes mellitus type 2, uncontrolled: Plan Patient is an 84 y/o M with past medical history of paroxysmal atrial fibrillation (not currently on anticoagulation), HFrEF, history of CVA, Hypothyroidism, MDD, osteoarthritis, type 2 diabetes, BPH, CAROLANN (on home CPAP) who was admitted for acute hypoxic respiratory failure secondary to CHF exacerbation. Acute Respiratory failure with Hypoxia HFrEF - Patient with episodes of hypoxia at room air and feeling more SOB over the last week - Little improvement with albuterol decreases chance of this being related to bronchospasms, but will add Duoneb prn - TTE from 11/2024 showing EF of 30-35%, moderate LV systolic dysfunction - CXR on admission showing mild cardiomegaly and mild pulmonary edema - BNP: 718 (02/27) <-- 108 (12/2024) - Given increase in creatinine with lasix 40 mg in previous admission, and due to concern for risk of overdiuresis, Lasix 20 mg IV qam for now; monitor renal function while on medication - Negative procal and lack of other clinical sxs to suggest PNA, will defer abx at this time, but if he develops fevers or deteriorates, can consider addition of this - Daily weights - Monitor I/Os - Wean off oxygen as tolerated Paroxysmal a-fib - NSR in the ED - Not on anticoagulation due to concern of risk for ICH with falls - Monitor on Med/Tele - K goal > 4 and Mg goal > 2 - Continue home meds DM-2 - On home insulin - Hgb A1c from 01/12/2025 was 6.8% - Lantus and SSI - Bsg checks achs HLD - cont atorvastatin HTN - cont carvedilol Gout - cont febuxostat Hypothyroidism - Continue home levothyroxine CAROLANN - Continue CPAP MDD - Continue home venlafaxine BPH - cont finasteride and tamsulosin 02/28: spoke with pt's Admission and Anticipated Discharge Date Admission Date: February 27, 2025 Subjective Admitted overnight Currently no new complaints He states he is feeling better Review of Systems Review of Systems: Comprehensive ROS neg Physical Exam Physical Exam: Gen: in bed comfortable, no acute distress HEENT: NC/AT, MMM Lungs: bibasilar crackles, non labored breathing CVS: s1s2nl, rrr Abd: soft, NT, nl bowel sounds Ext: trace edema Neuro: awake Psych: calm, cooperative Results & Data Results & Data Vital Signs (Past 12 Hours) Vital Signs Temp Pulse Pulse Resp BP Pulse Ox O2 Del Method 02/28/25 07:35 Nasal Cannula 02/28/25 07:00 36.6 C 60 18 138/93 95 Nasal Cannula 02/28/25 03:03 36.4 C L 73 20 138/86 94 CPAP 02/28/25 02:29 75 24 96 02/28/25 00:29 76 02/27/25 23:07 73 26 H 98 02/27/25 22:15 Nasal Cannula, CPAP 02/27/25 22:15 36.6 C 78 20 149/104 H 98 Nasal Cannula 02/27/25 21:30 78 20 153/107 H 99 Nasal Cannula O2 Flow Rate 02/28/25 07:35 2 02/28/25 07:00 02/28/25 03:03 02/28/25 02:29 2 02/28/25 00:29 02/27/25 23:07 2 02/27/25 22:15 2 02/27/25 22:15 2 02/27/25 21:30 2 PG Care Time/CCT Total # of Minutes Spent Total Time Spent with Patient: Total time spent is greater than 50% in coordination of care (as documented) at patient's floor/unit and/or counseling patient: Coding Level of Care Code 86550 SUB INP/OBS CARE 2MIN Diagnoses (HFpEF) heart failure with preserved ejection fraction I50.30 Paroxysmal atrial fibrillation I48.0 Diabetes mellitus type 2, uncontrolled E11.65
[2025-02-28] MEDS: HEPARIN SOD 5,000 UNIT/0.5 ML VIAL SQ SCH (08:57)
[2025-02-28] MEDS: FUROSEMIDE INJ 20 MG/2 ML VIAL IV SCH (08:57)
[2025-02-28] MEDS: VENLAFAXINE HCL XR 75 MG CAPXR PO SCH (08:59)
[2025-02-28] MEDS: VENLAFAXINE HCL XR 150 MG CAPXR PO SCH (08:59)
[2025-02-28] MEDS: TAMSULOSIN HCL 0.4 MG CAP PO SCH (08:59)
[2025-02-28] MEDS: FEBUXOSTAT 40 MG TABLET PO SCH (08:59)
[2025-02-28] MEDS: ASPIRIN 81 MG ECTAB PO SCH (09:00)
[2025-02-28] MEDS: carvediloL 25 MG TAB PO SCH (09:00)
[2025-02-28] MEDS: FINASTERIDE 5 MG TAB PO SCH (09:00)
[2025-02-28] MEDS: ATORVASTATIN 40 MG TAB PO SCH (20:50)
[2025-03-01 06:43] LABS: Hematocrit (blood only) 38.7 % (42.0-52.0); Hemoglobin 12.9 g/dl (14.0-18.0); Mean Corpuscular Hemoglobin 30.5 pg (25.0-34.0); Mean Corpuscular Hgb Conc 33.3 g/dL (32.0-36.0); Mean Corpuscular Volume 91.5 fL (80.0-100.0); Mean Platelet Volume 11.5 fL (9.4-12.4); Platelet Count 154 K/uL (130-400); RDW Coefficient of Variation 14.5 % (11.5-14.5); RDW Standard Deviation 48.1 fL (36.4-46.3); Red Blood Count 4.23 M/uL (4.70-6.10); White Blood Count 8.48 K/ul (4.8-10.8)
[2025-03-01 07:08] LABS: BUN Creatinine Ratio 19.1 (10-20); Calcium 9.2 mg/dl (8.6-10.3)
--- NOTE | 2025-03-01 09:08 | Electrocardiogram Report ---
Test Reason : Blood Pressure : */* mmHG Vent. Rate : 84 BPM Atrial Rate : 84 BPM P-R Int : 142 ms QRS Dur : 120 ms QT Int : 418 ms P-R-T Axes : 30 32 76 degrees QTcB Int : 493 ms Normal sinus rhythm Incomplete left bundle block Minimal voltage criteria for LVH, may be normal variant ( Sokolow-Velez ) Nonspecific ST and T wave abnormality Abnormal ECG When compared with ECG of 06-Jan-2025 23:08, No significant change was found Confirmed by Madelyn Horn ([id number]) on 03/01/2025 9:08:10 AM Referred By: REFERRED SELF Confirmed By: Madelyn Horn
--- NOTE | 2025-03-01 15:52 | Hospitalist Progress Note ---
Date of Service March 01, 2025 Assessment & Plan (1) (HFpEF) heart failure with preserved ejection fraction: (2) Paroxysmal atrial fibrillation: (3) Diabetes mellitus type 2, uncontrolled: Plan Patient is an 84 y/o M with past medical history of paroxysmal atrial fibrillation (not currently on anticoagulation), HFrEF, history of CVA, Hypothyroidism, MDD, osteoarthritis, type 2 diabetes, BPH, CAROLANN (on home CPAP) who was admitted for acute hypoxic respiratory failure secondary to CHF exacerbation. Acute Respiratory failure with Hypoxia HFrEF - Patient with episodes of hypoxia at room air and feeling more SOB over the last week - Little improvement with albuterol decreases chance of this being related to bronchospasms, but will add Duoneb prn - TTE from 11/2024 showing EF of 30-35%, moderate LV systolic dysfunction - CXR on admission showing mild cardiomegaly and mild pulmonary edema - BNP: 718 (02/27) <-- 108 (12/2024) - Given increase in creatinine with lasix 40 mg in previous admission, and due to concern for risk of overdiuresis, Lasix 20 mg IV qam, held furosemide at this time - Negative procal and lack of other clinical sxs to suggest PNA, will defer abx at this time, but if he develops fevers or deteriorates, can consider addition of this - Daily weights - Monitor I/Os - Wean off oxygen as tolerated Elevated Cr - held lasix this morning, unfortunately got AM dose before it can be held - currently euvolemic, awaiting improvement in renal function Paroxysmal a-fib - NSR in the ED - Not on anticoagulation due to concern of risk for ICH with falls - Monitor on Med/Tele - K goal > 4 and Mg goal > 2 - Continue home meds DM-2 - On home insulin - Hgb A1c from 01/12/2025 was 6.8% - Lantus and SSI - Bsg checks achs HLD - cont atorvastatin HTN - cont carvedilol Gout - cont febuxostat Hypothyroidism - Continue home levothyroxine CAROLANN - Continue CPAP MDD - Continue home venlafaxine BPH - cont finasteride and tamsulosin 02/28: spoke with pt's Dispo: wean O2, await improvement in renal function Admission and Anticipated Discharge Date Admission Date: February 27, 2025 Subjective No acute events overnight Currently states he feels well and wants to go home Review of Systems Review of Systems: Comprehensive ROS neg Physical Exam Physical Exam: Gen: in bed comfortable, no acute distress HEENT: NC/AT, MMM Lungs: bibasilar crackles, non labored breathing CVS: s1s2nl, rrr Abd: soft, NT, nl bowel sounds Ext: no edema Neuro: awake Psych: calm, cooperative Results & Data Results & Data Vital Signs (Past 12 Hours) Vital Signs Temp Pulse Resp BP Pulse Ox O2 Del Method O2 Flow Rate 03/01/25 11:18 36.5 C 68 18 116/77 94 Nasal Cannula 03/01/25 08:49 Nasal Cannula 2 03/01/25 07:00 36.7 C 67 20 125/81 97 Nasal Cannula 2 PG Care Time/CCT Total # of Minutes Spent Total Time Spent with Patient: Total time spent is greater than 50% in coordination of care (as documented) at patient's floor/unit and/or counseling patient: Coding Level of Care Code 38549 SUB INP/OBS CARE 2/35MIN Diagnoses (HFpEF) heart failure with preserved ejection fraction I50.30 Paroxysmal atrial fibrillation I48.0 Diabetes mellitus type 2, uncontrolled E11.65
[2025-03-01 16:55] LABS: Appearance Urine Clear (Clear); Bilirubin Urine Negative (Negative); Blood Urine Negative (Negative); Color Urine Yellow; Glucose Urine UA Negative (Negative); Ketones Urine Negative (Negative); Leukocyte Esterase Urine Negative (Negative); Nitrite Urine Negative (Negative); Protein Urine Negative (Negative); Specific Gravity Urine 1.014 (1.000-1.030); Urobilinogen Urine Negative (Negative); pH Urine 6.5 (4.5-7.5)
[2025-03-02 08:05] LABS: Hemoglobin 12.4 g/dl (14.0-18.0); Mean Corpuscular Hemoglobin 30.1 pg (25.0-34.0); Mean Corpuscular Hgb Conc 33.5 g/dL (32.0-36.0); Mean Corpuscular Volume 89.8 fL (80.0-100.0); Platelet Count 147 K/uL (130-400); RDW Coefficient of Variation 14.5 % (11.5-14.5); RDW Standard Deviation 47.1 fL (36.4-46.3); Red Blood Count 4.12 M/uL (4.70-6.10); White Blood Count 8.13 K/ul (4.8-10.8)
[2025-03-02 08:29] LABS: BUN Creatinine Ratio 20.1 (10-20); Calcium 8.9 mg/dl (8.6-10.3); Creatinine Clr Calc Pharmacy 40.7 ml/min; Potassium 3.7 mmol/L (3.5-5.1)
--- NOTE | 2025-03-02 10:24 | Hospitalist Progress Note ---
Date of Service March 02, 2025 Assessment & Plan (1) (HFpEF) heart failure with preserved ejection fraction: (2) Paroxysmal atrial fibrillation: (3) Diabetes mellitus type 2, uncontrolled: Plan Patient is an 84 y/o M with past medical history of paroxysmal atrial fibrillation (not currently on anticoagulation), HFrEF, history of CVA, Hypothyroidism, MDD, osteoarthritis, type 2 diabetes, BPH, CAROLANN (on home CPAP) who was admitted for acute hypoxic respiratory failure secondary to CHF exacerbation. Acute Respiratory failure with Hypoxia HFrEF - Patient with episodes of hypoxia at room air and feeling more SOB over the last week - Little improvement with albuterol decreases chance of this being related to bronchospasms, but will add Duoneb prn - TTE from 11/2024 showing EF of 30-35%, moderate LV systolic dysfunction - CXR on admission showing mild cardiomegaly and mild pulmonary edema - BNP: 718 (02/27) <-- 108 (12/2024) - Given increase in creatinine with lasix 40 mg in previous admission, and due to concern for risk of overdiuresis, Lasix 20 mg IV qam, held furosemide at this time - Negative procal and lack of other clinical sxs to suggest PNA, will defer abx at this time, but if he develops fevers or deteriorates, can consider addition of this - Daily weights - Monitor I/Os - Wean off oxygen as tolerated Elevated Cr - held lasix this morning, unfortunately got AM dose before it can be held - currently euvolemic, awaiting improvement in renal function Paroxysmal a-fib - NSR in the ED - Not on anticoagulation due to concern of risk for ICH with falls - Monitor on Med/Tele - K goal > 4 and Mg goal > 2 - Continue home meds DM-2 - On home insulin - Hgb A1c from 01/12/2025 was 6.8% - Lantus and SSI - Bsg checks achs HLD - cont atorvastatin HTN - cont carvedilol Gout - cont febuxostat Hypothyroidism - Continue home levothyroxine CAROLANN - Continue CPAP MDD - Continue home venlafaxine BPH - cont finasteride and tamsulosin 02/28: spoke with pt's Dispo: wean O2, await improvement in renal function Admission and Anticipated Discharge Date Admission Date: February 27, 2025 Subjective 84-year-old male came in with shortness of breath had paroxysmal atrial fibrillation Patient is and neurology does not want him anticoagulated patient will follow-up with Dr. Bearden to determine if he needs Watchman device appreciate cardiology involved Physical Exam Physical Exam: Gen: in bed comfortable, no acute distress HEENT: NC/AT, MMM Lungs: bibasilar crackles, non labored breathing CVS: s1s2nl, rrr Abd: soft, NT, nl bowel sounds Ext: no edema Neuro: awake Psych: calm, cooperative Results & Data Results & Data Vital Signs (Past 12 Hours) Vital Signs Temp Pulse Pulse Resp BP Pulse Ox O2 Del Method 03/02/25 08:55 66 03/02/25 07:30 36.8 C 52 L 16 104/66 90 Room Air 03/02/25 02:39 20 03/02/25 02:37 36.6 C 69 18 105/71 96 BiPAP 03/02/25 01:00 71 03/01/25 22:45 70 24 93 03/01/25 22:38 36.7 C 72 18 131/86 93 Room Air O2 Flow Rate 03/02/25 08:55 03/02/25 07:30 03/02/25 02:39 2 03/02/25 02:37 03/02/25 01:00 03/01/25 22:45 2 03/01/25 22:38 PG Care Time/CCT Total # of Minutes Spent Total Time Spent with Patient: Total time spent is greater than 50% in coordination of care (as documented) at patient's floor/unit and/or counseling patient: Coding Level of Care Code 42706 SUB INP/OBS CARE 3/50MIN Diagnoses (HFpEF) heart failure with preserved ejection fraction I50.30 Paroxysmal atrial fibrillation I48.0 Diabetes mellitus type 2, uncontrolled E11.65 Time Spent (min) 50
[2025-03-02] MEDS: VALSARTAN/SACUBITRIL 26/24MG TAB PO SCH (20:01)
--- NOTE | 2025-03-02 22:35 | Cardiology Consultation ---
Date of Consultation March 02, 2025 Assessment & Plan (1) HFrEF (heart failure with reduced ejection fraction): (2) Dilated cardiomyopathy: (3) Hypertension: (4) Paroxysmal atrial fibrillation: (5) Acute hypoxemic respiratory failure: (6) Mitral regurgitation: Plan ASSESSMENT/PLAN: 1. Acute on chronic heart failure with reduced EF: He does not appear to be significantly hypervolemic today and is nearly back to baseline from a breathing standpoint. NYHA class II/III currently. We discussed the importance of a low- sodium diet, less than 2000 mg daily. Suggested that they read labels for meals. Strict I's and O's while hospitalized. Daily weights here and at home. Recommend heart failure program and patient/ were agreeable. Start Entresto low-dose tonight. Monitor renal function and electrolytes closely. Given abnormal renal function, would gradually titrate medical therapy and consider SGLT2 inhibitor in the outpatient setting as well as mineralocorticoid receptor antagonist. Continue carvedilol. 2. Cardiomyopathy: Reportedly nonischemic. Patient/ report cardiomyopathy for many years and had coronary angiography initially without significant CAD. Optimize medical therapy. Have declined ICD in the outpatient setting but stated that they would consider after further discussion in the outpatient setting with primary journalism professor, Dr. Carias. 3. Mitral regurgitation: Nonsevere. Can be monitored in the outpatient setting. 4. Paroxysmal atrial fibrillation: Sinus rhythm here. Has had 2 subdural hematomas secondary to trauma from falling. Patient/ have declined anticoagulation therapy (for stroke risk reduction) in the outpatient setting. His neurologist recommended against anticoagulation therapy due to prior subdural hematomas. Could consider Watchman device in the outpatient setting if able to tolerate anticoagulation therapy for short period of time and if patient is willing. Further discussions can be held in the outpatient setting with his primary journalism professor. 5. History of pneumonia: There was thought to be aspiration contributing potentially and he does have issues swallowing liquids at times. As per primary hospitalist service. 6. Hypertension: Blood pressure reasonably controlled. No changes made in this regard. 7. CKD: Renal function seems to be at baseline. As per primary hospitalist service. 8. Disposition: If doing well on 03/03/2025, can be discharged home from a cardiology perspective. Close follow-up in the heart failure program and with his primary journalism professor, Dr. Carias. Patient care communicated with primary hospitalist, Dr. Corley. Thank you for allowing me to participate in the care of your patient. Please call for any other questions or concerns. Sincerely, Salvador Franco M.D. History of Present Illness Reason for Consultation: hx of atrial fibrillation, not on anticoagulation Requesting Physician: Mikayla Corley MD Attending Physician: Mikayla Corley MD History of Present Illness Mr. Bass is a very pleasant 84-year-old gentleman with a history significant for nonischemic cardiomyopathy, heart failure with reduced EF, hypertension, dyslipidemia, paroxysmal atrial fibrillation, falls with recurrent subdural hematoma, nonsustained ventricular tachycardia, hypertension, dyslipidemia, CKD, multifocal pneumonia/possible aspiration, and sleep apnea on BiPAP. His primary journalism professor is Dr. Carias. He was last seen by Dr. Carias on 01/28/2025. He reported at that time that patient and his declined ICD and have declined anticoagulation therapy. He was also seen by neurology on 02/18/2025 through [facility] who also recommended against anticoagulation therapy due to his fall risk and 2 prior subdural hematomas with falls. Antiplatelet therapy was recommended. He was hospitalized on this particular occasion on 02/27/2025 with acute respiratory failure with hypoxia. He was placed on supplemental oxygen and given Lasix 20 mg IV. On a previous hospitalization, he reportedly developed azotemia with 40 mg of Lasix. He received a total of 2 doses of his 20 mg of Lasix this hospital stay with his last dose on 03/01/2025. He feels as though his breathing is nearly back to baseline. He acutely became short of breath while in a recliner. He had orthopnea and shortness of breath at rest. He has since been weaned off of his supplemental oxygen. He admits that he has coughing and choking episodes at times when d rinking fluids. He denies chest pain, syncope, near syncope, palpitations, edema, melena, hematochezia, or hematuria. He does not consume large amounts of sodium however he does eat canned vegetable s at times although his rinses them in a strainer prior to serving. Review of systems: As above. Family history: Father at 53 with [place]. Mother at 49 with a pulmonary embolus. Sister at 12 with congenital heart disease. Social history: He denies tobacco, alcohol, or drug abuse. He lives at home with his . He has 3 children. His was present at the bedside. Allergies Allergy/AdvReac Type Severity Reaction Status Date / Time Penicillins Allergy Unknown HAPPENED Verified 02/27/25 20:45 A CHILD--RASH lactose AdvReac Intermediate Gastrointestinal Verified 02/27/25 20:45 Upset Home Medications Medication Instructions Recorded Confirmed Type magnesium oxide 400 mg PO PM 05/28/19 02/27/25 History cholecalciferol (vitamin D3) 50 2,000 unit PO QAM 12/25/19 02/27/25 History mcg (2,000 unit) tablet (Vitamin D3) blood-glucose sensor (Dexcom G6 01/23/22 01/28/25 History Sensor device) CPAP Machine #1 ea 02/15/22 01/28/25 Rx multivitamin (Daily Multi-Vitamin 1 tab PO QAM 02/07/23 02/27/25 History tablet) blood sugar diagnostic (Contour 03/28/23 01/28/25 History Next Test Strips) aspirin 81 mg tablet,delayed 81 mg PO QAM 05/03/23 02/27/25 History release (Adult Low Dose Aspirin) BD Ultra-Fine Uzma Pen Needle 32 #400 ea 04/09/24 01/28/25 Rx gauge x 5/32" (pen needle, diabetic) clotrimazole 1 % topical cream 1 applic topical BID PRN Rash #90 10/07/24 02/27/25 Rx grams insulin lispro 100 unit/mL See Rx Instructions subcut 10/07/24 02/27/25 History subcutaneous pen (Admelog SolMarcos USEASDIRECTD U-) atorvastatin 40 mg tablet (Lipitor) 40 mg PO PM #90 tabs 11/18/24 02/27/25 Rx carvedilol 25 mg tablet (Coreg) 25 mg PO BID #180 tabs 11/18/24 02/27/25 Rx febuxostat 80 mg tablet (Uloric) 80 mg PO QAM #90 tabs 11/18/24 02/27/25 Rx desloratadine 5 mg tablet 5 mg PO DAILY PRN allergies #90 11/26/24 02/27/25 Rx (Clarinex) tabs silodosin 8 mg capsule (Rapaflo) 8 mg PO DAILY #90 caps 12/16/24 02/27/25 Rx ketoconazole 2 % topical cream 1 applic topical BID #60 grams 12/19/24 02/27/25 Rx albuterol sulfate 90 mcg/actuation 2 puff inhalation Q6H PRN 01/07/25 02/27/25 History aerosol inhaler Shortness Of Breath Or Wheezing dutasteride 0.5 mg capsule 0.5 mg PO QAM 01/07/25 02/27/25 History insulin glargine-yfgn 100 unit/mL 24 unit (0.24 mL) subcut DAILY #30 02/02/25 02/27/25 Rx (3 mL) subcutaneous pen (Semglee mL (insulin glargine-yfgn) Pen) levothyroxine 150 mcg tablet 150 mcg PO DAILYBB #90 tabs 02/05/25 02/27/25 Rx albuterol sulfate 1.25 mg/3 mL 1.25 mg (3 mL) inhalation QID PRN 02/19/25 02/27/25 Rx solution for nebulization shortness of breath or wheezing #90 mL venlafaxine 150 mg 150 mg PO DAILY 02/27/25 02/27/25 History capsule,extended release 24 hr venlafaxine 75 mg capsule,extended 75 mg PO DAILY 02/27/25 02/27/25 History release 24 hr vit C 250 mg-vit E 90 mg-zinc 40 1 tab PO BID 02/27/25 02/27/25 History mg-copper 1 [id number] capsule (PreserVision AREDS-2) Problem List CAROLANN (obstructive sleep apnea) (Acute) Acute hypoxemic respiratory failure (Acute) WASHBURN (dyspnea on exertion) (Acute) (HFpEF) heart failure with preserved ejection fraction Paroxysmal atrial fibrillation Nonsustained ventricular tachycardia Nonsustained supraventricular tachycardia Bronchospasm Multifocal pneumonia Elevated troponin (Acute) CHF (congestive heart failure) (Acute) Acute dyspnea (Acute) Abnormality of gait and mobility History of CVA with residual deficit Falls Bradycardia Pain of right calf (Acute) HFrEF (heart failure with reduced ejection fraction) CHF (congestive heart failure) (Acute) Osteoarthritis Osteoarthritis of right shoulder Ischemic stroke Acute respiratory failure with hypoxia (Acute) Aspiration pneumonitis 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), 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 Risk for falls Acromioclavicular joint separation, type 3 BPH with obstruction/lower urinary tract symptoms Loss of protective sensation of skin of foot Constipation Left knee DJD UTI symptoms Fall (Acute) Low back pain (Acute) Type 2 diabetes mellitus BPH loc w urin obs/LUTS Status post total right knee replacement Postural dizziness Gout attack Hypomagnesemia Hypothyroidism Foot deformity Diabetic peripheral neuropathy associated with type 2 diabetes mellitus Personal history of diabetic foot ulcer Tinea pedis Uncontrolled type 2 diabetes mellitus with neurologic complication, with long- term current use of insulin Obesity Right knee DJD Antiplatelet or antithrombotic long-term use PT'S REPORTS JUST ASPIRIN Vitamin D deficiency Anemia Attention or concentration deficit CKD (chronic kidney disease), stage III Cor pulmonale Dilated cardiomyopathy Per 12/23 cardio note, "Most recent echo with low normal LV systolic function. No current signs or symptoms of pulmonary vascular congestion." Dyslipidemia Erectile dysfunction Lumbosacral radiculopathy at L5 Obstructive sleep apnea CPAP Restrictive lung disease RARE RES. INH USE> WELL CONTROLLED Secondary hyperparathyroidism Sensorineural hearing loss (SNHL) of both ears Acquired claw toe of left foot Acquired claw toe of right foot Acquired hallux valgus of right foot Hypertension Mild asthma Does not use Albuterol, has just in case Chronic back pain History of thyroidectomy Patient History Medical History (Updated 03/02/25 @ 22:50 by Isreal Franco MD) Mitral regurgitation Acute CVA (cerebrovascular accident) Diabetes mellitus type 2, uncontrolled Injury of cervical spine Fracture of T7 vertebra Personal history of diabetic foot ulcer No open wounds currently, skin being monitored by multiple specialties. Postural dizziness Hx, no issues with currently. Hx of thyroid cancer WITH REMOVAL NO CHEMO Spinal stenosis Diabetes type 2, uncontrolled Gout Benign prostatic hyperplasia Type 2 diabetes mellitus with diabetic neuropathy Surgical History Hx of bilateral cataract extraction History of colonoscopy History of tooth extraction History of tonsillectomy History of cardiac cath [place] MANY YEARS AGO> NO STENTS H/O: knee surgery RIGHT Family History Father Myocardial infarction Hypertension Sister Coronary heart disease Hypertension Brother Hypertension Thyroid cancer Mother Pulmonary embolism Grandmother (Maternal) Stroke Other CHF (congestive heart failure) Denies family history of Ovarian cancer Prostate cancer Breast cancer Colorectal cancer Social History Smoking Status: Never smoker Second Hand Exposure: No; Do You Dip or Chew Tobacco: No; Tobacco Cessation Education Requested by Patient: No Hx Alcohol Use: No Hx Substance Use: No Preferred Language: Tuvaluan Communication Ability: Effective Visual Impairment: No Limitations Hearing Ability: Normal Behavioral Assistant Required: No Beliefs That Will Affect Care: None marital status: Current Living Situation: Spouse current occupational status: retired Other Information That Helps Us Care for You: No Feels Safe at Home: Yes Safety Concerns: Feels Safe At This Time Childhood Exposure to Second-Hand Smoke: Yes (Uncle and Aunts) Physical Activity Frequency: Does not Exercise Seatbelt Use: always Assistive Devices: Walker Physical Exam Physical Exam: Gen.: No acute distress. Alert. HEENT: Anicteric sclera. Neck: No JVD. No hepatojugular reflux. Normal carotid upstrokes bilaterally. Cardiac: Regular. Normal S1-S2. 1/6 systolic murmur. Pulmonary: Decreased breath sounds bilaterally, but otherwise clear to auscultation bilaterally without wheezes, rales, or rhonchi. Abdomen: Soft, nontender, nondistended, with normoactive bowel sounds. No bruits noted. Extremities: 2+ radial pulses bilaterally. 2+ posterior tibialis pulses bilaterally. No edema or cyanosis. Results & Data Vital Signs (Past 12 Hours) Vital Signs Temp Pulse Resp BP Pulse Ox O2 Del Method 03/02/25 19:30 36.6 C 65 18 117/78 95 Room Air 03/02/25 15:31 36.5 C 68 20 123/82 94 Room Air 03/02/25 10:39 36.8 C 70 20 134/86 95 Room Air Intake & Output 02/28/25 03/01/25 03/02/25 03/03/25 06:59 06:59 06:59 06:59 Intake Total 300 / 300 Output Total 860 / 860 1300 / 1300 1165 / 1165 675 / 675 Balance -860 / -860 -1300 / -1300 -865 / -865 -675 / -675 Weight 216 lb 4.375 oz 209 lb 10.554 oz 209 lb 7.026 oz Laboratory Results Laboratory Results - last 24 hr 03/02/25 03/02/25 03/02/25 07:17 07:28 11:12 WBC 8.13 RBC 4.12 L Hgb 12.4 L Hct 37.0 L MCV 89.8 MCH 30.1 MCHC 33.5 RDW Std Deviation 47.1 H RDW Coeff of Shelby 14.5 Plt Count 147 MPV 11.0 Sodium 141 Potassium 3.7 Chloride 100 Carbon Dioxide 35 H Anion Gap 6 BUN 32 H Creatinine 1.59 H Est Cr Clr Drug Dosing 40.7 eGFR 43.07 BUN/Creatinine Ratio 20.1 H Glucose 81 POC Glucose 84 113 H Calcium 8.9 03/02/25 03/02/25 16:04 20:20 WBC RBC Hgb Hct MCV MCH MCHC RDW Std Deviation RDW Coeff of [place] Plt Count MPV Sodium Potassium Chloride Carbon Dioxide Anion Gap BUN Creatinine Est Cr Clr Drug Dosing eGFR BUN/Creatinine Ratio Glucose POC Glucose 116 H 200 H Calcium Diagnostic Findings Labs reviewed and notable for elevated BNP, normal high-sensitivity troponin, abnormal but stable renal function, normal magnesium, normal transaminase levels, normal TSH on 01/12/2025, excellent LDL, mild but stable anemia. ECG personally reviewed from 02/27/2025: Sinus rhythm 84 bpm. Incomplete LBBB. LVH. Nonspecific ST abnormality. History and physical report reviewed. Outpatient cardiology note from 01/28/2025 reviewed. Echo report 12/09/2024: LVEF 30-35%. Global hypokinesis. Mild LVH. Normal RV size and systolic function. Moderate left atrial dilation. Moderate MR. Chest x-ray 02/27/2025: Suspected mild pulmonary edema per radiology. Medications Administered Current Inpatient Medications Acetaminophen (Acetaminophen 325 Mg Tab) 650 mg PO Q4H PRN PRN Reason: Pain or Fever Stop: 03/29/25 22:14 Albuterol (Albut/Ipratrop 3mg/0.5mg Neb 3 Ml Vial) 3 ml NEB Q3H PRN; Protocol PRN Reason: Shortness Of Breath Or Wheezing Stop: 03/29/25 22:14 Aspirin (Aspirin 81 Mg Ectab) 81 mg PO QAM FANI Stop: 03/30/25 08:59 Last Admin: 03/02/25 08:48 Dose: 81 mg Atorvastatin Calcium (Atorvastatin 40 Mg Tab) 40 mg PO PM [facility] Stop: 03/30/25 20:59 Last Admin: 03/02/25 20:02 Dose: 40 mg Carvedilol (Carvedilol 25 Mg Tab) 25 mg PO BID FANI Stop: 03/30/25 08:59 Last Admin: 03/02/25 20:02 Dose: 25 mg Dextrose (Dextrose 50% 50 Ml Syringe) 25 - 50 ml IV UD PRN; Protocol PRN Reason: Hypoglycemia Protocol Stop: 03/29/25 22:14 Febuxostat (Febuxostat 40 Mg Tablet) 80 mg PO QAM FANI Stop: 03/30/25 08:59 Last Admin: 03/02/25 08:49 Dose: 80 mg Finasteride (Finasteride 5 Mg Tab) 5 mg PO QAM [facility] Stop: 03/30/25 08:59 Last Admin: 03/02/25 08:49 Dose: 5 mg Furosemide (Furosemide Inj 20 Mg/2 Ml Vial) 20 mg IV QAM FANI Stop: 03/30/25 08:59 Last Admin: 03/01/25 08:19 Dose: 20 mg Glucagon (Glucagon For Inj 1 Mg Vial) 1 mg SQ UD PRN; Protocol PRN Reason: Hypoglycemia Protocol Stop: 03/29/25 22:14 Glucose (Glucose 40% Gel 15 Gm Tube) 15 - 30 gm PO UD PRN; Protocol PRN Reason: Hypoglycemia Protocol Stop: 03/29/25 22:14 Glucose (Glucose 10 Tab/Tube) 4 - 8 tab PO UD PRN; Protocol PRN Reason: Hypoglycemia Protocol Stop: 03/29/25 22:14 Heparin Sodium (Porcine) (Heparin Sod 5,000 Unit/0.5 Ml Vial) 5,000 units SQ Q12 FANI Stop: 03/30/25 08:59 Last Admin: 03/02/25 20:04 Dose: 5,000 units Insulin Aspart (Insulin Aspart Per Unit Charge) 0 units SC ACHS FANI Stop: 03/29/25 22:14 Last Admin: 03/02/25 20:32 Dose: 1 units Insulin Glargine (Lantus Per Unit Charge) 9 units SQ BID FANI Stop: 03/29/25 22:14 Last Admin: 03/02/25 20:32 Dose: 9 units Levothyroxine Sodium (Levothyroxine Sodium 150 Mcg Tablet) 150 mcg PO DAILYBB FANI Stop: 03/30/25 06:29 Last Admin: 03/02/25 06:24 Dose: 150 mcg Magnesium Oxide (Magnesium Oxide 400 Mg Tab) 400 mg PO BID FANI Stop: 03/29/25 22:14 Last Admin: 03/02/25 20:01 Dose: 400 mg Melatonin (Melatonin 3 Mg Tab) 3 mg PO HS PRN PRN Reason: Sleep Stop: 03/29/25 22:14 Miscellaneous (Carbohydrates For Hypoglycemia ) 15 - 30 gm PO UD PRN PRN Reason: Hypoglycemia Protocol Stop: 03/29/25 22:14 Ondansetron HCl (Ondansetron Inj 2 Mg/Ml 2 Ml Vial) 4 mg IV Q6H PRN PRN Reason: Nausea Stop: 03/29/25 22:14 Polyethylene Glycol (Polyethylene (Miralax) 17 Gm Pack) 17 gm PO DAILY PRN PRN Reason: Constipation Stop: 03/29/25 22:14 Sacubitril/Valsartan (Valsartan/Sacubitril 26/24mg Tab) 1 tab PO BID FANI Stop: 04/01/25 20:59 Last Admin: 03/02/25 20:01 Dose: 1 tab Tamsulosin HCl (Tamsulosin Hcl 0.4 Mg Cap) 0.4 mg PO DAILY FANI Stop: 03/30/25 08:59 Last Admin: 03/02/25 08:48 Dose: 0.4 mg Venlafaxine HCl (Venlafaxine Hcl Xr 75 Mg Capxr) 75 mg PO DAILY FANI Stop: 03/30/25 08:59 Last Admin: 03/02/25 08:48 Dose: 75 mg Venlafaxine HCl (Venlafaxine Hcl Xr 150 Mg Capxr) 150 mg PO DAILY FANI Stop: 03/30/25 08:59 Last Admin: 03/02/25 08:51 Dose: 150 mg PG Care Time/CCT Total # of Minutes Spent Total Time Spent with Patient: Total time spent is greater than 50% in coordination of care (as documented) at patient's floor/unit and/or counseling patient: Coding Level of Care Code 60783 INT INP/OBS CARE 3/75MIN Diagnoses HFrEF (heart failure with reduced ejection fraction) I50.20 Dilated cardiomyopathy I42.0 Hypertension I10 Paroxysmal atrial fibrillation I48.0 Acute hypoxemic respiratory failure J96.01 Mitral regurgitation I34.0
--- NOTE | 2025-03-03 09:00 | Billing Data ---
Date of Service February 27, 2025 Coding Level of Care Code 42828 INT INP/OBS CARE
[2025-03-03 11:18] VITALS: BP 112/73; RESP 18; TEMP 97.7; O2SAT 92
--- NOTE | 2025-03-03 11:19 | Cardiology Progress Note ---
Date of Service March 03, 2025 Assessment & Plan (1) HFrEF (heart failure with reduced ejection fraction): (2) Dilated cardiomyopathy: (3) Hypertension: (4) Paroxysmal atrial fibrillation: (5) Acute hypoxemic respiratory failure: (6) Mitral regurgitation: Plan ASSESSMENT/PLAN: 1. Acute on chronic heart failure with reduced EF: He does not appear to be significantly hypervolemic today and feels back to baseline from a breathing standpoint. NYHA class II currently. Low-sodium diet, less than 2000 mg daily. Read labels for meals. Strict I's and O's while hospitalized. Daily weights here and at home. Recommend heart failure program. Entresto initiated on the evening of 03/02/2025. Monitor renal function and electrolytes closely. Given abnormal renal function, would gradually titrate medical therapy and consider SGLT2 inhibitor in the outpatient setting as well as mineralocorticoid receptor antagonist. SGLT2 inhibitor and mineralocorticoid receptor antagonist not initiated at this time given CKD while initiating ARNI. Continue carvedilol. 2. Cardiomyopathy: Reportedly nonischemic. Patient/ report cardiomyopathy for many years and had coronary angiography initially without significant CAD. Optimize medical therapy. Have declined ICD in the outpatient setting but stated that they would consider after further discussion in the outpatient setting with primary steel rigger, Dr. Carias. 3. Mitral regurgitation: Nonsevere. Can be monitored in the outpatient setting. 4. Paroxysmal atrial fibrillation: Sinus rhythm here. Has had 2 subdural hematomas secondary to trauma from falling. Patient/ have declined anticoagulation therapy (for stroke risk reduction) in the outpatient setting. His neurologist recommended against anticoagulation therapy due to prior subdural hematomas. Could consider Watchman device in the outpatient setting if able to tolerate anticoagulation therapy for short period of time and if patient is willing. Further discussions can be held in the outpatient setting with his primary steel rigger. 5. History of pneumonia: There was thought to be aspiration contributing potentially and he does have issues swallowing liquids at times. As per primary hospitalist service. 6. Hypertension: Blood pressure reasonably controlled. Plan as above. Continue current regimen. 7. CKD: Renal function seems to be at baseline. As per primary hospitalist service. 8. Disposition: Can be discharged home from a cardiac perspective. Close follow-up in the heart failure program (personally discussed today with Gauri Manzano PA-C) and with his primary steel rigger, Dr. Carias. Patient care communicated with primary hospitalist, Dr. Corley. Admission and Anticipated Discharge Date Admission Date: February 27, 2025 Subjective Patient was seen earlier today. He believes that his breathing is back to baseline. He denies shortness of breath, chest pain, syncope, near syncope, palpitations, or edema. He feels ready to be discharged. He was unaccompanied. Physical Exam Physical Exam: Gen.: No acute distress. Alert. HEENT: Anicteric sclera. Neck: No JVD. No hepatojugular reflux. Cardiac: Regular. Normal S1-S2. 1/6 systolic murmur. Pulmonary: Decreased breath sounds bilaterally, but otherwise clear to auscultation bilaterally without wheezes, rales, or rhonchi. Abdomen: Soft, nontender, nondistended, with normoactive bowel sounds. No bruits noted. Extremities: 2+ radial pulses bilaterally. 2+ posterior tibialis pulses bilaterally. No edema or cyanosis. Results & Data Vital Signs (Past 12 Hours) Vital Signs Temp Pulse Pulse Resp BP Pulse Ox O2 Del Method 03/03/25 11:17 36.5 C 64 18 112/73 92 Room Air 03/03/25 10:37 Room Air 03/03/25 07:51 61 03/03/25 07:36 36.7 C 69 19 127/80 95 Room Air 03/03/25 02:46 36.6 C 56 L 18 101/68 99 CPAP 03/03/25 02:12 63 12 98 O2 Flow Rate 03/03/25 11:17 03/03/25 10:37 03/03/25 07:51 03/03/25 07:36 03/03/25 02:46 03/03/25 02:12 2 Intake & Output 03/01/25 03/02/25 03/03/25 03/04/25 06:59 06:59 06:59 06:59 Intake Total 300 / 300 100 / 100 Output Total 1300 / 1300 1165 / 1165 1075 / 1075 Balance -1300 / -1300 -865 / -865 -975 / -975 Weight 209 lb 10.554 oz 209 lb 7.026 oz 209 lb 10.554 oz Laboratory Results Laboratory Results - last 24 hr 03/02/25 03/02/25 03/03/25 16:04 20:20 07:36 Sodium Potassium Chloride Carbon Dioxide Anion Gap BUN Creatinine Est Cr Clr Drug Dosing eGFR BUN/Creatinine Ratio Glucose POC Glucose 116 H 200 H 82 Calcium 03/03/25 03/03/25 11:17 11:22 Sodium 141 Potassium 4.0 Chloride 100 Carbon Dioxide 37 H Anion Gap 4 BUN 30 H Creatinine 1.60 H Est Cr Clr Drug Dosing 40.5 eGFR 42.75 BUN/Creatinine Ratio 18.8 Glucose 132 H POC Glucose 128 H Calcium 8.9 Diagnostic Findings Telemetry personally reviewed: Sinus rhythm. Labs ordered and reviewed 03/03/2025: Abnormal but stable renal function, normal potassium. Medications Administered Current Inpatient Medications Acetaminophen (Acetaminophen 325 Mg Tab) 650 mg PO Q4H PRN PRN Reason: Pain or Fever Stop: 03/29/25 22:14 Albuterol (Albut/Ipratrop 3mg/0.5mg Neb 3 Ml Vial) 3 ml NEB Q3H PRN; Protocol PRN Reason: Shortness Of Breath Or Wheezing Stop: 03/29/25 22:14 Aspirin (Aspirin 81 Mg Ectab) 81 mg PO QAM [facility] Stop: 03/30/25 08:59 Last Admin: 03/03/25 09:22 Dose: 81 mg Atorvastatin Calcium (Atorvastatin 40 Mg Tab) 40 mg PO PM FANI Stop: 03/30/25 20:59 Last Admin: 03/02/25 20:02 Dose: 40 mg Carvedilol (Carvedilol 25 Mg Tab) 25 mg PO BID FANI Stop: 03/30/25 08:59 Last Admin: 03/03/25 09:22 Dose: 25 mg Dextrose (Dextrose 50% 50 Ml Syringe) 25 - 50 ml IV UD PRN; Protocol PRN Reason: Hypoglycemia Protocol Stop: 03/29/25 22:14 Febuxostat (Febuxostat 40 Mg Tablet) 80 mg PO QAM [facility] Stop: 03/30/25 08:59 Last Admin: 03/03/25 09:22 Dose: 80 mg Finasteride (Finasteride 5 Mg Tab) 5 mg PO QAM [facility] Stop: 03/30/25 08:59 Last Admin: 03/03/25 09:22 Dose: 5 mg Furosemide (Furosemide Inj 20 Mg/2 Ml Vial) 20 mg IV QAM [facility] Stop: 03/30/25 08:59 Last Admin: 03/01/25 08:19 Dose: 20 mg Glucagon (Glucagon For Inj 1 Mg Vial) 1 mg SQ UD PRN; Protocol PRN Reason: Hypoglycemia Protocol Stop: 03/29/25 22:14 Glucose (Glucose 40% Gel 15 Gm Tube) 15 - 30 gm PO UD PRN; Protocol PRN Reason: Hypoglycemia Protocol Stop: 03/29/25 22:14 Glucose (Glucose 10 Tab/Tube) 4 - 8 tab PO UD PRN; Protocol PRN Reason: Hypoglycemia Protocol Stop: 03/29/25 22:14 Heparin Sodium (Porcine) (Heparin Sod 5,000 Unit/0.5 Ml Vial) 5,000 units SQ Q12 FANI Stop: 03/30/25 08:59 Last Admin: 03/03/25 09:34 Dose: 5,000 units Insulin Aspart (Insulin Aspart Per Unit Charge) 0 units SC ACHS FANI Stop: 03/29/25 22:14 Last Admin: 03/03/25 09:24 Dose: Not Given Insulin Glargine (Lantus Per Unit Charge) 9 units SQ BID FANI Stop: 03/29/25 22:14 Last Admin: 03/03/25 09:22 Dose: 9 units Levothyroxine Sodium (Levothyroxine Sodium 150 Mcg Tablet) 150 mcg PO DAILYBB FANI Stop: 03/30/25 06:29 Last Admin: 03/03/25 06:33 Dose: 150 mcg Magnesium Oxide (Magnesium Oxide 400 Mg Tab) 400 mg PO BID FANI Stop: 03/29/25 22:14 Last Admin: 03/03/25 09:22 Dose: 400 mg Melatonin (Melatonin 3 Mg Tab) 3 mg PO HS PRN PRN Reason: Sleep Stop: 03/29/25 22:14 Miscellaneous (Carbohydrates For Hypoglycemia ) 15 - 30 gm PO UD PRN PRN Reason: Hypoglycemia Protocol Stop: 03/29/25 22:14 Ondansetron HCl (Ondansetron Inj 2 Mg/Ml 2 Ml Vial) 4 mg IV Q6H PRN PRN Reason: Nausea Stop: 03/29/25 22:14 Polyethylene Glycol (Polyethylene (Miralax) 17 Gm Pack) 17 gm PO DAILY PRN PRN Reason: Constipation Stop: 03/29/25 22:14 Sacubitril/Valsartan (Valsartan/Sacubitril 26/24mg Tab) 1 tab PO BID [facility] Stop: 04/01/25 20:59 Last Admin: 03/03/25 09:22 Dose: 1 tab Tamsulosin HCl (Tamsulosin Hcl 0.4 Mg Cap) 0.4 mg PO DAILY FANI Stop: 03/30/25 08:59 Last Admin: 03/03/25 09:22 Dose: 0.4 mg Venlafaxine HCl (Venlafaxine Hcl Xr 75 Mg Capxr) 75 mg PO DAILY FANI Stop: 03/30/25 08:59 Last Admin: 03/03/25 09:22 Dose: 75 mg Venlafaxine HCl (Venlafaxine Hcl Xr 150 Mg Capxr) 150 mg PO DAILY FANI Stop: 03/30/25 08:59 Last Admin: 03/03/25 09:22 Dose: 150 mg PG Care Time/CCT Total # of Minutes Spent Total Time Spent with Patient: Total time spent is greater than 50% in coordination of care (as documented) at patient's floor/unit and/or counseling patient: Coding Level of Care Code 79190 SUB INP/OBS CARE 3/50MIN Diagnoses HFrEF (heart failure with reduced ejection fraction) I50.20 Dilated cardiomyopathy I42.0 Hypertension I10 Paroxysmal atrial fibrillation I48.0 Acute hypoxemic respiratory failure J96.01 Mitral regurgitation I34.0
[2025-03-03 12:15] LABS: BUN Creatinine Ratio 18.8 (10-20); Calcium 8.9 mg/dl (8.6-10.3); Creatinine Clr Calc Pharmacy 40.5 ml/min
--- NOTE | 2025-03-03 14:10 | Discharge Summary ---
Date of Service March 03, 2025 Admission HPI Per Admitting Provider Patient is an 84 y/o M with past medical history of paroxysmal atrial fibrillation (not currently on anticoagulation), HFpEF, history of CVA, osteoarthritis, type 2 diabetes, BPH, CAROLANN (on home CPAP) who comes to the [facility] department due to progressively worsening shortness of breath. Patient has been feeling some shortness of breath and some dyspnea that began a little over a month ago but worsened over this last week. In addition to this, states that he has also been feeling some intermittent chest tightness without radiation or any other associated symptoms. Of note, patient was recently admitted on 12/2024 due to shortness of breath that was found to be associated to multifocal pneumonia plus or minus an acute CHF exacerbation. At that time he was given IV Lasix as management and was noted to have an increase in creatinine that was believed to be related to overdiuresis. He was seen by his amusement ride operator on 01/28/2025 where he also raise a concern of shortness of breath/dyspnea, and at that time he was sent a prescription for albuterol nebulizer treatments, which he has used over this last week that he noted the acute worsening of his shortness of breath with some minimal improvement in his symptoms. At the time that he was being evaluated by his amusement ride operator, he was believed to be euvolemic to exam and, after considering the bump in creatinine from his previous admission, he was not started on diuretic medications. Denies having any associated fevers, chills, weakness, bowel movement changes, nausea/vomiting, or any other associated systemic symptoms. ED Course: Given duoneb x1, given lasix 40 mg IV x1 Labs/Imaging: CBC without leukocytosis, hemoglobin 12.3, platelets 134. CMP without significant electrolyte abnormalities, potassium of..., glucose of 186, Creatinine 1.38 (was 1.5 in 01/20), magnesium 1.9. Pro-Luis of 0.03. Bio fire negative. Chest x-ray showing mild pulmonary edema and cardiomegaly but no changes suggestive of acute pneumonia or other infectious process. Medical History: [Reviewed] Medications: [Reviewed] Surgical History: [Reviewed] Family history: [Reviewed] Allergies: [Reviewed] Social History: [Reviewed] Code Status: FULL Admission Exam (Per Admitting) Constitutional hysical Exam: GENERAL: AAOx3, afebrile, NAD CARDIO: RRR , no r/m/g PULMONARY: decreased breath sounds in bilateral lung bases, rhonchi in upper airways, normal work of breathing, no respiratory distress, oxygen saturation decreased to 89% or 87-88% with exertion and increased to 90-94% with NC at 2 lpm GI: soft, non tender, non distended EXTREMITIES: no swelling or calf tenderness in b/l LE Specialty Data Cardiology SSESSMENT/PLAN: 1. Acute on chronic heart failure with reduced EF: He does not appear to be significantly hypervolemic today and feels back to baseline from a breathing standpoint. NYHA class II currently. Low-sodium diet, less than 2000 mg daily. Read labels for meals. Strict I's and O's while hospitalized. Daily weights here and at home. Recommend heart failure program. Entresto initiated on the evening of 03/02/2025. Monitor renal function and electrolytes closely. Given abnormal renal function, would gradually titrate medical therapy and consider SGLT2 inhibitor in the outpatient setting as well as mineralocorticoid receptor antagonist. SGLT2 inhibitor and mineralocorticoid receptor antagonist not initiated at this time given CKD while initiating ARNI. Continue carvedilol. 2. Cardiomyopathy: Reportedly nonischemic. Patient/ report cardiomyopathy for many years and had coronary angiography initially without significant CAD. Optimize medical therapy. Have declined ICD in the outpatient setting but stated that they would consider after further discussion in the outpatient setting with primary amusement ride operator, Dr. Carias. 3. Mitral regurgitation: Nonsevere. Can be monitored in the outpatient setting. 4. Paroxysmal atrial fibrillation: Sinus rhythm here. Has had 2 subdural hematomas secondary to trauma from falling. Patient/ have declined anticoagulation therapy (for stroke risk reduction) in the outpatient setting. His neurologist recommended against anticoagulation therapy due to prior subdural hematomas. Could consider Watchman device in the outpatient setting if able to tolerate anticoagulation therapy for short period of time and if patient is willing. Further discussions can be held in the outpatient setting with his primary amusement ride operator. 5. History of pneumonia: There was thought to be aspiration contributing potentially and he does have issues swallowing liquids at times. As per primary hospitalist service. 6. Hypertension: Blood pressure reasonably controlled. Plan as above. Continue current regimen. 7. CKD: Renal function seems to be at baseline. As per primary hospitalist service. 8. Disposition: Can be discharged home from a cardiac perspective. Close follow-up in the heart failure program (personally discussed today with Gauri Manzano PA-C) and with his primary amusement ride operator, Dr. Carias. Patient care communicated with primary hospitalist, Dr. Corley. Discharge Data Consultations 02/27/25 20:05 ED Decision to Admit Stat 03/02/25 14:02 Consult Cardiology Routine 03/03/25 13:38 [facility] CHF Program Referral Routine Hospital Course (1) Acute respiratory failure with hypoxia: (2) HFrEF (heart failure with reduced ejection fraction): (3) Paroxysmal atrial fibrillation: (4) Type 2 diabetes mellitus with insulin therapy: (5) BPH with obstruction/lower urinary tract symptoms: (6) CKD (chronic kidney disease), stage III: (7) Obstructive sleep apnea: (8) Hypertension: Plan Patient is an 84 y/o M with past medical history of paroxysmal atrial fibrillation (not currently on anticoagulation), HFrEF, history of CVA, Hypothyroidism, MDD, osteoarthritis, type 2 diabetes, BPH, CAROLANN (on home CPAP) who was admitted for acute hypoxic respiratory failure secondary to CHF exacerbation. AHRF // HFrEF - Patient with episodes of hypoxia at room air and feeling more SOB over the last week - Little improvement with albuterol decreases chance of this being related to bronchospasms, but will add Duoneb prn - TTE from 11/2024 showing EF of 30-35%, moderate LV systolic dysfunction - Given increase in creatinine with lasix 40 mg in previous admission, and due to concern for risk of overdiuresis, will order Lasix 20 mg IV qam for now; monitor renal function while on medication - Negative procal and lack of other clinical sxs to suggest PNA, will defer abx at this time, but if he develops fevers or deteriorates, can consider addition of this - Daily weights - Monitor Is ad Os - Wean off oxygen as tolerated - Admit to Med/Tele Paroxysmal a-fib - NSR in the ED - Not on anticoagulation due to concern of risk for ICH with falls - Monitor on Med/Tele - K goal > 4 and Mg goal > 2 - Continue home meds DM-2 - On home insulin - Hgb A1c from 01/12/2025 was 6.8% - Lantus and SSI - Bsg checks achs Hypothyroidism - Continue home levothyroxine CAROLANN - Continue CPAP MDD - Continue home venlafaxine Dispo: Admit to Med/Tele VTE ppx: Heparin Code status: FULL Coding Level of Care Code 21654 INP/OBS DISCH >30 MIN Diagnoses Acute respiratory failure with hypoxia J96.01 HFrEF (heart failure with reduced ejection fraction) I50.20 Paroxysmal atrial fibrillation I48.0 Type 2 diabetes mellitus with insulin therapy E11.9; Z79.4 BPH with obstruction/lower urinary tract symptoms N40.1; N13.8 CKD (chronic kidney disease), stage III N18.3 Obstructive sleep apnea G47.33 Hypertension I10
[2025-03-03 14:24] VITALS: PULSE 66
== END 2025-03-03 17:05 | disposition home or self-care (01) | DRG 189 ==
LOC: ED 18:35 → 2S 20:51 → SUATTDRO 20:51 → 2S 21:50

== ENCOUNTER 2025-06-24 11:26 | Inpatient (IN) ==
--- NOTE | 2025-06-24 12:05 | Emergency Department Note ---
Impression & Plan Bradycardia, Hypotension, Acute hyperkalemia, Weakness, CRF (chronic renal failure) ED Provider Note NAME: NAVDEEP SAMUEL AGE: 85 SEX: M : 1940 ARRIVES VIA: Walk-In INFORMANT: [Patient][] ED PROVIDER(S): [Yunier Lala MD] CHIEF COMPLAINT: Doctor referred HISTORY OF PRESENT ILLNESS: The patient is an 85-year-old male with known renal disease. He also has a reduced ejection fraction at around 35%. There has been talk of pacemaker placement. The patient's creatinine has been rising lately, he had lab work done yesterday that showed a potassium of 6. Today, he was called and referred to the ER. The patient has not been feeling well for weeks. He is washed out, tired, he has no energy. No fever, no cough or congestion or chest pain. No abdominal pain but, he has had some diarrhea. The diarrhea has been loose and watery, not bloody. Because of the high potassium, he was referred to the ER. Of note, in triage, the patient's blood pressure was low in the 90s systolic. He was bradycardic in the 30s. He was rushed back to a room and I was called to meet him at bedside. PMHx/PSHx/Social Hx: See Below PHYSICAL EXAM: GENERAL: Patient is in no acute distress. HEENT: No acute trauma, normocephalic atraumatic, mucous membranes dry, no nasal congestion. NECK: No stridor, no adenopathy, no meningismus, trachea is midline. LUNGS: Clear to auscultation bilaterally when listening anterior, no wheeze, no rhonchi, breath sounds equal. HEART: Bradycardic and somewhat irregular. Heart tones distant. I cannot really assess for murmurs. ABDOMEN: Soft, nontender, no peritonitis. EXTREMITIES: No cyanosis, full range of motion of all the joints without pain or difficulty. NEUROLOGIC: Oriented x 3, no acute motor or sensory deficits, no focal weakness. SKIN: No jaundice, no diaphoresis. Pale. DIFFERENTIAL DIAGNOSIS: Electrolyte imbalance, renal failure, dehydration, dysrhythmia, anemia, among others. EMERGENCY DEPARTMENT PROCEDURES: MEDICAL DECISION MAKING: There is no leukocytosis. The patient is anemic however, this is a chronic issue. There is no bandemia. No coagulopathy. VBG does show some mild CO2 retention and a very subtle acidosis. Potassium was high at 5.7. There were findings suggesting renal failure with a creatinine of 2, this is above his typical baseline. There is no concerning liver enzyme elevation. Patient appears to be in a euthyroid state. ECG showed a sinus rhythm with frequent PVCs. Cardiac enzyme testing x 1 was not consistent with acute cardiac injury. Cardiac enzyme testing x 1 was not consistent with acute cardiac injury. Urinalysis did not show infection. Lyme disease testing was negative. Chest x- ray did not show heart failure or pneumonia. On exam, patient seemed dehydrated and weak, initial blood pressure was low in the 90s, initial heart rate was low in the 30s. The patient was aggressively managed given his presentation and vital signs. He received 500 cc of IV saline, he was given 1 g of IV calcium. The patient seems improved. His blood pressure is improved, his heart rate is improved, he seems to be more interactive and is resting comfortably. Given the hyperkalemia, the increased creatinine value, his bradycardia, his hypotension, hospitalization, further workup, monitoring is warranted. I spoke with the patient and his family, I spoke with case management, the on- call hospitalist was consulted. Prior/Outside records/notes reviewed: None ECG per my interpretation: Indication was weakness. The ECG shows a sinus rhythm with frequent PVCs. The rate is 64. There is no acute ST elevation. QTc is 443. Continuous Cardiac Monitoring per my interpretation: An order was placed for continuous cardiac monitoring. The monitor shows a rate of 62 with sinus rhythm with PVCs. Imaging/x-ray results per my interpretation: Chest x-ray shows some chronic change, there was no CHF or pneumonia. Chronic Medical/Social conditions affecting care: Chronic renal disease, reduced ejection fraction. Care/Management discussed with: Case management, the on-call hospitalist. Level of care consideration(s): After review of the information above and other included data: --I believe the patient requires escalation of care to admission Critical Care Note: I have personally spent 54 minutes of critical care time in the direct management of this patient. This includes bedside care, interpretation of diagnostic studies, and testing, discussion with consultants, patient, and family members, and other required patient management activities. This 54 minutes is in excess of all separately billable procedures. DISPOSITION: Admission Past Med/Surg History Problem List CRF (chronic renal failure) (Acute) Weakness (Acute) Acute hyperkalemia (Acute) Hypotension (Acute) Bradycardia (Acute) CAROLANN (obstructive sleep apnea) (Acute) WASHBURN (dyspnea on exertion) (Acute) (HFpEF) heart failure with preserved ejection fraction Paroxysmal atrial fibrillation Nonsustained ventricular tachycardia Nonsustained supraventricular tachycardia Bronchospasm CHF (congestive heart failure) (Acute) Abnormality of gait and mobility History of CVA with residual deficit Falls Bradycardia Pain of right calf (Acute) CHF (congestive heart failure) (Acute) Osteoarthritis Osteoarthritis of right shoulder Ischemic stroke 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), 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 Acromioclavicular joint separation, type 3 BPH with obstruction/lower urinary tract symptoms Loss of protective sensation of skin of foot Constipation Left knee DJD Fall (Acute) Low back pain (Acute) Type 2 diabetes mellitus BPH loc w urin obs/LUTS Status post total right knee replacement Postural dizziness Gout attack Hypomagnesemia Hypothyroidism Foot deformity Diabetic peripheral neuropathy associated with type 2 diabetes mellitus Personal history of diabetic foot ulcer Tinea pedis Uncontrolled type 2 diabetes mellitus with neurologic complication, with long- term current use of insulin Obesity Right knee DJD Antiplatelet or antithrombotic long-term use PT'S REPORTS JUST ASPIRIN Vitamin D deficiency Anemia Attention or concentration deficit CKD (chronic kidney disease), stage III Cor pulmonale Dilated cardiomyopathy Per 12/23 cardio note, "Most recent echo with low normal LV systolic function. No current signs or symptoms of pulmonary vascular congestion." Dyslipidemia Erectile dysfunction Lumbosacral radiculopathy at L5 Obstructive sleep apnea CPAP Restrictive lung disease RARE RES. INH USE> WELL CONTROLLED Secondary hyperparathyroidism Sensorineural hearing loss (SNHL) of both ears Acquired claw toe of left foot Acquired claw toe of right foot Acquired hallux valgus of right foot Hypertension Mild asthma Does not use Albuterol, has just in case Chronic back pain History of thyroidectomy Medical History UTI symptoms Aspiration pneumonitis Acute respiratory failure with hypoxia Acute dyspnea Elevated troponin Multifocal pneumonia Acute hypoxemic respiratory failure HFrEF (heart failure with reduced ejection fraction) Risk for falls Mitral regurgitation Acute CVA (cerebrovascular accident) Diabetes mellitus type 2, uncontrolled Injury of cervical spine Fracture of T7 vertebra Personal history of diabetic foot ulcer No open wounds currently, skin being monitored by multiple specialties. Postural dizziness Hx, no issues with currently. Hx of thyroid cancer WITH REMOVAL NO CHEMO Spinal stenosis Diabetes type 2, uncontrolled Gout Benign prostatic hyperplasia Type 2 diabetes mellitus with diabetic neuropathy Surgical History Hx of bilateral cataract extraction History of colonoscopy History of tooth extraction History of tonsillectomy History of cardiac cath H/O: knee surgery Family History Father Myocardial infarction Hypertension Sister Coronary heart disease Hypertension Brother Hypertension Thyroid cancer Mother Pulmonary embolism Grandmother (Maternal) Stroke Other CHF (congestive heart failure) Denies family history of Ovarian cancer Prostate cancer Breast cancer Colorectal cancer Social History Smoking Status: Never smoker Second Hand Exposure: No; Do You Dip or Chew Tobacco: No; Hx Alcohol Use: No Hx Substance Use: No Preferred Language: Sinhala Communication Ability: Effective Visual Impairment: No Limitations Hearing Ability: Normal Inventory Taker Required: No Beliefs That Will Affect Care: None marital status: Current Living Situation: Spouse current occupational status: retired Feels Safe at Home: Yes Childhood Exposure to Second-Hand Smoke: Yes (Uncle and Aunts) Physical Activity Frequency: Does not Exercise Seatbelt Use: always Assistive Devices: Walker Allergies Allergies Allergy/AdvReac Type Severity Reaction Status Date / Time Penicillins Allergy Unknown HAPPENED Verified 06/23/25 14:51 A CHILD--RASH lactose AdvReac Intermediate Gastrointestinal Verified 06/23/25 14:51 Upset Home Meds Home Medications Medication Instructions Recorded Confirmed magnesium oxide 400 mg PO PM 05/28/19 06/24/25 cholecalciferol (vitamin D3) 50 2,000 unit PO QAM 12/25/19 06/24/25 mcg (2,000 unit) tablet (Vitamin D3) multivitamin (Daily Multi-Vitamin 1 tab PO QAM 02/07/23 06/24/25 tablet) blood sugar diagnostic (Contour 03/28/23 06/23/25 Next Test Strips) aspirin 81 mg tablet,delayed 81 mg PO QAM 05/03/23 06/24/25 release (Adult Low Dose Aspirin) albuterol sulfate 90 mcg/actuation 2 puff inhalation Q6H PRN 01/07/25 06/24/25 aerosol inhaler Shortness Of Breath Or Wheezing dutasteride 0.5 mg capsule 0.5 mg PO QAM 01/07/25 06/24/25 venlafaxine 150 mg 150 mg PO DAILY 02/27/25 06/24/25 capsule,extended release 24 hr venlafaxine 75 mg capsule,extended 75 mg PO DAILY 02/27/25 06/24/25 release 24 hr vit C 250 mg-vit E 90 mg-zinc 40 1 tab PO BID 02/27/25 06/24/25 mg-copper 1 [id number] capsule (PreserVision AREDS-2) blood-glucose sensor (Dexcom G7 03/30/25 06/23/25 Sensor device) insulin glargine-yfgn 100 unit/mL 0 unit subcut DAILY 04/07/25 06/24/25 (3 mL) subcutaneous pen (Semglee (insulin glargine-yfgn) Pen) insulin lispro 100 unit/mL 0 sliding scale dose subcut 04/07/25 06/24/25 subcutaneous pen (Admelog SoloStar USEASDIRECTD U-) sacubitril 49 mg-valsartan 51 mg 0 tab PO BID 06/24/25 06/24/25 tablet (Entresto) Previous Rx's Medication Instructions Recorded CPAP Machine #1 ea 02/15/22 clotrimazole 1 % topical cream 1 applic topical BID PRN Rash #90 10/07/24 grams atorvastatin 40 mg tablet (Lipitor) 40 mg PO PM #90 tabs 11/18/24 febuxostat 80 mg tablet (Uloric) 80 mg PO QAM #90 tabs 11/18/24 desloratadine 5 mg tablet 5 mg PO DAILY PRN allergies #90 11/26/24 (Clarinex) tabs silodosin 8 mg capsule (Rapaflo) 8 mg PO DAILY #90 caps 12/16/24 levothyroxine 150 mcg tablet 150 mcg PO DAILYBB #90 tabs 02/05/25 albuterol sulfate 1.25 mg/3 mL 1.25 mg (3 mL) inhalation QID PRN 02/19/25 solution for nebulization shortness of breath or wheezing #90 mL spironolactone 25 mg tablet 25 mg PO DAILY #90 tabs 03/24/25 pen needle, diabetic 32 gauge x #300 ea 03/30/25" carvedilol 25 mg tablet (Coreg) 25 mg PO BID #180 tabs 04/29/25 ketoconazole 2 % topical cream 1 applic topical BID #60 grams 06/24/25 Results & Data (ED) Vital Signs Vital Signs - 24 hr 06/24/25 11:37 06/24/25 12:36 06/24/25 12:42 Temperature 36.3 C L Temperature Source Oral Pulse Rate 36 L 60 61 Pulse Rate [Apical] Pulse Rhythm [Apical] Pulse Strength [Apical] Respiratory Rate 20 17 Respiratory Effort / Characteristics Non-Labored Spontaneous Respiratory Depth Normal Blood Pressure 92/53 L Blood Pressure [Left Arm] Blood Pressure Mean 66 Blood Pressure Mean [Left Arm] Blood Pressure Position [Left Arm] Pulse Oximetry 94 99 Oxygen Delivery Method Room Air Room Air Sepsis Recent Fever Within 48 Hours No Sepsis New/Unexplained Change in Mental Status N/A Sepsis Action Taken by Nursing No Action Required 06/24/25 13:00 06/24/25 15:05 06/24/25 15:18 Temperature Temperature Source Pulse Rate 63 Pulse Rate [Apical] 60 62 Pulse Rhythm [Apical] Regular Pulse Strength [Apical] Normal Respiratory Rate 17 15 16 Respiratory Effort / Characteristics Non-Labored Spontaneous Respiratory Depth Normal Blood Pressure Blood Pressure [Left Arm] 116/67 124/69 Blood Pressure Mean Blood Pressure Mean [Left Arm] 83 87 Blood Pressure Position [Left Arm] Semi-fowlers Pulse Oximetry 97 Oxygen Delivery Method Room Air Room Air Sepsis Recent Fever Within 48 Hours Sepsis New/Unexplained Change in Mental Status Sepsis Action Taken by Nursing 06/24/25 15:31 06/24/25 15:33 06/24/25 15:51 Temperature Temperature Source Pulse Rate 64 61 Pulse Rate [Apical] Pulse Rhythm [Apical] Pulse Strength [Apical] Respiratory Rate 14 10 L Respiratory Effort / Characteristics Respiratory Depth Blood Pressure 121/65 Blood Pressure [Left Arm] Blood Pressure Mean 70 Blood Pressure Mean [Left Arm] Blood Pressure Position [Left Arm] Pulse Oximetry Oxygen Delivery Method Sepsis Recent Fever Within 48 Hours Sepsis New/Unexplained Change in Mental Status Sepsis Action Taken by Nursing 06/24/25 16:00 Temperature Temperature Source Pulse Rate Pulse Rate [Apical] Pulse Rhythm [Apical] Pulse Strength [Apical] Respiratory Rate Respiratory Effort / Characteristics Respiratory Depth Blood Pressure 118/82 Blood Pressure [Left Arm] Blood Pressure Mean 99 Blood Pressure Mean [Left Arm] Blood Pressure Position [Left Arm] Pulse Oximetry Oxygen Delivery Method Sepsis Recent Fever Within 48 Hours Sepsis New/Unexplained Change in Mental Status Sepsis Action Taken by Custodial Medications Current Medication List: was personally reviewed by me Laboratory Data Attestation: I reviewed the patient's lab results. 06/24/25 11:45 06/24/25 11:45 Lab Results 06/24/25 06/24/25 06/24/25 Range/Units 11:45 11:52 12:05 WBC 7.64 (4.8-10.8) K/ul RBC 3.75 L (4.70-6.10) M/uL Hgb 12.0 L (14.0-18.0) g/dl POC Hgb 11.9 L (14.0-18.0) g/dl Hct 34.9 L (42.0-52.0) % POC Hct 35 L (42-52) % MCV 93.1 (80.0-100.0) fL MCH 32.0 (25.0-34.0) pg MCHC 34.4 (32.0-36.0) g/dL RDW Std Deviation 48.7 H (36.4-46.3) fL RDW Coeff of [place] 14.4 (11.5-14.5) % Plt Count 151 (130-400) K/uL MPV 10.5 (9.4-12.4) fL Immature Gran % (Auto) 0.8 % Neut % (Auto) 73.3 % Lymph % (Auto) 16.1 % [place] % (Auto) 7.7 % Eos % (Auto) 1.7 % Baso % (Auto) 0.4 % Neut # (Auto) 5.60 (1.40-6.50) K/uL Lymph # (Auto) 1.23 (1.20-3.40) K/uL [place] # (Auto) 0.59 (0.11-0.59) K/uL Eos # (Auto) 0.13 (0.00-0.50) K/uL Baso # (Auto) 0.03 (0.00-0.20) K/uL Immature Gran # (Auto) 0.06 (0.01-0.20) K/uL PT 11.2 (9.0-12.0) Seconds INR 1.0 (0.9-1.1) APTT 25 (21-31) Seconds PTT Ratio 0.9 VBG pH 7.31 L (7.36-7.41) VBG pCO2 55 H (38-50) mmHg VBG pO2 24 mmHg VBG HCO3 28 mmol/L VBG O2 Saturation < 60.0 % VBG Base Excess 0.4 mEq/L POC Sodium 138 (135-144) mmol/L Sodium 137 (136-145) mmol/L POC Potassium 5.7 H (3.3-5.0) mmol/L Potassium 5.7 H (3.5-5.1) mmol/L POC Chloride 102 (101-112) mmol/L Chloride 104 (98-107) mmol/L Carbon Dioxide 28 (21-32) mmol/L POC Total CO2 25 (24-31) mmol/L Anion Gap 5 (3-11) POC Anion Gap 18.0 (16-25) mmol/L POC BUN 32 H (7-18) mg/dl BUN 34 H (6-23) mg/dl Creatinine 2.00 H (0.6-1.4) mg/dl POC Creatinine 2.1 H (0.6-1.3) mg/dl Est Cr Clr Drug Dosing 31.9 ml/min eGFR 32.51 BUN/Creatinine Ratio 17.0 (10-20) Glucose 140 H (70-99(Fasting)) mg/dl POC Glucose (other) 137 H (70-99) mg/dl Calcium 9.6 (8.6-10.3) mg/dl POC Ioniz Calcium [place] 1.21 (1.12-1.32) mmol/l Magnesium 2.0 (1.7-2.4) mg/dl Total Bilirubin 0.8 (0.2-1.0) mg/dl AST 20 (13-39) U/L ALT 37 (7-52) U/L Alkaline Phosphatase 109 H (34-104) U/L Troponin I High Sens 8.3 (0-20) pg/ml Total Protein 6.8 (6.0-8.3) gm/dl Albumin 3.8 (3.4-5.0) gm/dl Globulin 3.0 (2.5-4.0) gm/dl Albumin/Globulin Ratio 1.3 (0.9-2) TSH 2.482 (0.300-4.500) uIu/ml Urine Color Urine Appearance (Clear) Urine pH (4.5-7.5) Ur Specific [place] (1.000-1.030) Urine Protein (Negative) Urine Glucose (UA) (Negative) Urine Ketones (Negative) Urine Blood (Negative) Urine Nitrite (Negative) Urine Bilirubin (Negative) Urine Urobilinogen (Negative) Ur Leukocyte Esterase (Negative) Urine Comment Lyme Disease Screen Negative (Negative) 06/24/25 Range/Units 14:02 WBC (4.8-10.8) K/ul RBC (4.70-6.10) M/uL Hgb (14.0-18.0) g/dl POC Hgb (14.0-18.0) g/dl Hct (42.0-52.0) % POC Hct (42-52) % MCV (80.0-100.0) fL MCH (25.0-34.0) pg MCHC (32.0-36.0) g/dL RDW Std Deviation (36.4-46.3) fL RDW Coeff of [place] (11.5-14.5) % Plt Count (130-400) K/uL MPV (9.4-12.4) fL Immature Gran % (Auto) % Neut % (Auto) % Lymph % (Auto) % [place] % (Auto) % Eos % (Auto) % Baso % (Auto) % Neut # (Auto) (1.40-6.50) K/uL Lymph # (Auto) (1.20-3.40) K/uL [place] # (Auto) (0.11-0.59) K/uL Eos # (Auto) (0.00-0.50) K/uL Baso # (Auto) (0.00-0.20) K/uL Immature Gran # (Auto) (0.01-0.20) K/uL PT (9.0-12.0) Seconds INR (0.9-1.1) APTT (21-31) Seconds PTT Ratio VBG pH (7.36-7.41) VBG pCO2 (38-50) mmHg VBG pO2 mmHg VBG HCO3 mmol/L VBG O2 Saturation % VBG Base Excess mEq/L POC Sodium (135-144) mmol/L Sodium (136-145) mmol/L POC Potassium (3.3-5.0) mmol/L Potassium (3.5-5.1) mmol/L POC Chloride (101-112) mmol/L Chloride (98-107) mmol/L Carbon Dioxide (21-32) mmol/L POC Total CO2 (24-31) mmol/L Anion Gap (3-11) POC Anion Gap (16-25) mmol/L POC BUN (7-18) mg/dl BUN (6-23) mg/dl Creatinine (0.6-1.4) mg/dl POC Creatinine (0.6-1.3) mg/dl Est Cr Clr Drug Dosing ml/min eGFR BUN/Creatinine Ratio (10-20) Glucose (70-99(Fasting)) mg/dl POC Glucose (other) (70-99) mg/dl Calcium (8.6-10.3) mg/dl POC Ioniz Calcium [place] (1.12-1.32) mmol/l Magnesium (1.7-2.4) mg/dl Total Bilirubin (0.2-1.0) mg/dl AST (13-39) U/L ALT (7-52) U/L Alkaline Phosphatase (34-104) U/L Troponin I High Sens (0-20) pg/ml Total Protein (6.0-8.3) gm/dl Albumin (3.4-5.0) gm/dl Globulin (2.5-4.0) gm/dl Albumin/Globulin Ratio (0.9-2) TSH (0.300-4.500) uIu/ml Urine Color Yellow Urine Appearance Clear (Clear) Urine pH 8.0 H (4.5-7.5) Ur Specific [place] 1.010 (1.000-1.030) Urine Protein Negative (Negative) Urine Glucose (UA) Negative (Negative) Urine Ketones Negative (Negative) Urine Blood Negative (Negative) Urine Nitrite Negative (Negative) Urine Bilirubin Negative (Negative) Urine Urobilinogen Negative (Negative) Ur Leukocyte Esterase Negative (Negative) Urine Comment Lyme Disease Screen (Negative) Administered Medications Discontinued Medications Sodium Chloride (Nss) 500 mls @ 999 mls/hr IV .Q31M ONE Stop: 06/24/25 12:13 Last Infusion: 06/24/25 12:54 Dose: Infused Documented By: Admin: 06/24/25 12:14 Dose: 999 mls/hr Documented By: ABBY Calcium Gluconate () 1,000 mg in 60 mls @ 240 mls/hr IV NOW STA Stop: 06/24/25 12:07 Last Infusion: 06/24/25 12:33 Dose: Infused Documented By: Admin: 06/24/25 12:13 Dose: 240 mls/hr Documented By: AMS Imaging Data Radiologist's Impression: Chest X-Ray 06/24/25 11:43 SINGLE VIEW CHEST CLINICAL HISTORY: Generalized weakness. FINDINGS: An AP, portable, upright chest radiograph is compared to study dated 03-22 and correlated with chest CT dated 10/24/2024. Surgical clips project over the thoracic inlet. The heart is enlarged. The pulmonary vasculature is noncongested. Chronic interstitial thickening is similar to previous. Scarring/atelectasis is noted at the lung bases. No airspace consolidation or large pleural effusion is identified. No pneumothorax is seen. The skeletal structures are osteopenic. The bony thorax is grossly intact. IMPRESSION: Cardiomegaly with no acute cardiopulmonary abnormality identified. ACT 112: Negative or not required by law. Electronically signed by: Yunier Lu M.D. 06/24/2025 12:21 PM Discharge Plan Visit Data Chief Complaint: Referred by Doctor Stated Complaint: HIGH POTASSIUM LEVEL, REF BY DOC ED Provider: Yunier Lala Discharge Problem: Bradycardia, Hypotension, Acute hyperkalemia, Weakness, CRF (chronic renal failure) Patient Disposition: Admitted As Inpatient Condition: Serious Forms Stand Alone Forms: [employer] Prescriptions Prescriptions: No Action atorvastatin [Lipitor] 40 mg tablet 40 mg PO PM Qty: 90 3RF febuxostat [Uloric] 80 mg tablet 80 mg PO QAM Qty: 90 3RF desloratadine [Clarinex] 5 mg tablet 5 mg PO DAILY PRN (Reason: allergies) Qty: 90 3RF Patient Comments: 06/24- last filled 11/29/24 30 day supply silodosin [Rapaflo] 8 mg capsule 8 mg PO DAILY Qty: 90 3RF Rx Instructions: must administer with a meal/food levothyroxine 150 mcg tablet 150 mcg PO DAILYBB Qty: 90 1RF albuterol sulfate 1.25 mg/3 mL solution for nebulization 1.25 mg inhalation QID PRN (Reason: shortness of breath or wheezing) Qty: 90 2RF Patient Comments: 06/24- last filled 02/21 7 day supply ketoconazole 2 % cream 1 applic topical BID Qty: 60 1RF (DME) CPAP Machine Misc See Dose Instructions .ROUTE .MEDSUPPLY Qty: 1 0RF Rx Instructions: ASV EPAP 5-15, PS 5-18, max pressure 25, auto rate T&B aspirin [Adult Low Dose Aspirin] 81 mg tablet,delayed release (DR/EC) 81 mg PO QAM Patient Comments: 06/24- otc unable to verify multivitamin [Daily Multi-Vitamin] Tablet 1 tab PO QAM Patient Comments: 06/24- otc unable to verify (DME) Contour Next Test Strips Strip See Rx Instructions .ROUTE .MEDSUPPLY Rx Instructions: Test blood sugar once daily PRN-Dexcom (DME) Dexcom G7 Sensor Device See Rx Instructions .Route Rx Instructions: As directed (DME) pen needle, diabetic [BD Ultra-Fine Uzma Pen Needle] 32 gauge x 5/32" needle See Dose Instructions .ROUTE .MEDSUPPLY Qty: 300 3RF Rx Instructions: Inject insulin 3 times a day spironolactone 25 mg tablet 25 mg PO DAILY Qty: 90 3RF clotrimazole 1 % cream 1 applic TOP BID PRN (Reason: Rash) Qty: 90 0RF Patient Comments: 06/24- last filled 10/07/24 60 day supply Rx Instructions: apply to affected area of feet for 1 month insulin lispro [Admelog SoloStar U-100 Insulin] 100 unit/mL insulin pen 0 sliding scale dose subcut USEASDIRECTD Patient Comments: 06/24- last filled 10/23/24 30 day supply only doing 5 units with breakfast Rx Instructions: Subcut, per sliding scale, typically 5 units with breakfast; 2 units with lunch; 2 units with supper; MDD 12 units carvedilol [Coreg] 25 mg tablet 25 mg PO BID Qty: 180 3RF insulin glargine-yfgn [Semglee(insulin glarg-yfgn)Pen] 100 unit/mL (3 mL) insulin pen 0 unit subcut DAILY Patient Comments: 06/24- last filled 02/02 125 day supply. Original: 20u subcut daily magnesium oxide 500 mg tablet 400 mg PO PM Patient Comments: 06/24- otc unable to verify cholecalciferol (vitamin D3) [Vitamin D3] 2,000 unit tablet 2,000 unit PO QAM Patient Comments: 06/24- otc unable to verify albuterol sulfate 90 mcg/actuation Hfa Aerosol Inhaler 2 puff INHALATION Q6H PRN (Reason: Shortness Of Breath Or Wheezing) Patient Comments: 06/24- no fill history unable to verify dutasteride 0.5 mg capsule 0.5 mg PO QAM venlafaxine 75 mg capsule,extended release 24hr 75 mg PO DAILY Rx Instructions: TOTAL DOSE 225 MG--TAKES WITH 150 MG CAP. venlafaxine 150 mg capsule,extended release 24hr 150 mg PO DAILY Rx Instructions: TOTAL DOSE 225 MG--TAKES WITH 75 MG CAP. PreserVision AREDS-2 250-90-40-1 mg Capsule 1 tab PO BID Patient Comments: 06/24- otc unable to verify sacubitril-valsartan [Entresto] 49-51 mg tablet 0 tab PO BID Patient Comments: 06/24- last filled 04/21 30 day supply. Original directions: 0.5 tab po BID Referrals Referrals: Tien Jeter MD [Primary Care Provider] - Discharge Problem: Hypotension Qualifiers: Hypotension type: unspecified hypotension type Qualified Code(s): I95.9 - Hypotension, unspecified CRF (chronic renal failure) Qualifiers: Chronic kidney disease stage: unspecified stage Qualified Code(s): N18.9 - Chronic kidney disease, unspecified
[2025-06-24 12:10] LABS: Hematocrit (blood only) 34.9 % (42.0-52.0); Hemoglobin 12.0 g/dl (14.0-18.0); Immature Granulocytes # (auto) 0.06 K/uL (0.01-0.20); Immature Granulocytes % (auto) 0.8 %; Mean Corpuscular Hemoglobin 32.0 pg (25.0-34.0); Mean Corpuscular Volume 93.1 fL (80.0-100.0); Platelet Count 151 K/uL (130-400); RDW Standard Deviation 48.7 fL (36.4-46.3); Red Blood Count 3.75 M/uL (4.70-6.10); White Blood Count 7.64 K/ul (4.8-10.8)
[2025-06-24 12:13] LABS: Base Excess VBG 0.4 mEq/L; HCO3 VBG 28 mmol/L; Oxygen Saturation VBG < 60.0 %; PCO2 VBG 55 mmHg (38-50); PO2 VBG 24 mmHg; pH VBG 7.31 (7.36-7.41)
[2025-06-24] MEDS: CALCIUM GLUCONATE 1,000 MG/60 ML BAG IV STA (12:13)
[2025-06-24] MEDS: SODIUM CHLORIDE 0.9% 500 ML IV ONE (12:14)
[2025-06-24 12:19] LABS: Alanine Aminotransferase 37.0 U/L (7-52); Albumin Globulin Ratio 1.3 (0.9-2); Alkaline Phosphatase 109.0 U/L (34-104); Anion Gap 5.0 (3-11); Bilirubin,Total 0.8 mg/dl (0.2-1.0); Blood Urea Nitrogen 34.0 mg/dl (6-23); Calcium 9.6 mg/dl (8.6-10.3); Carbon Dioxide 28.0 mmol/L (21-32); Chloride 104.0 mmol/L (98-107); Creatinine Clr Calc Pharmacy 31.9 ml/min; Globulin 3.0 gm/dl (2.5-4.0); Glucose 140.0 mg/dl (70-99(Fasting)); Magnesium 2.0 mg/dl (1.7-2.4); Potassium 5.7 mmol/L (3.5-5.1); Sodium 137.0 mmol/L (136-145); Total Protein 6.8 gm/dl (6.0-8.3)
--- NOTE | 2025-06-24 12:23 | XRay Report ---
SINGLE VIEW CHEST CLINICAL HISTORY: Generalized weakness. FINDINGS: An AP, portable, upright chest radiograph is compared to study dated 03-22 and correlated wi th chest CT dated 10/24/2024. Surgical clips project over the thoracic inlet. The heart is enlarged. The pulmonary vasculature is noncongested. Chronic interstitial thickening is similar to previous. Sc arring/atelectasis is noted at the lung bases. No airspace consolidation or large pleural effusion is identified. No pneumothorax is seen. The skeletal structures are osteopenic. The bony thorax is renee sly intact. IMPRESSION: Cardiomegaly with no acute cardiopulmonary abnormality identified. ACT 112: Negative or not required by law. Electronically signed by: Yunier Lu M.D. 06/24/2025 12:21 PM
[2025-06-24 12:30] LABS: INR 1.0 (0.9-1.1); Partial Thromboplastin Time 25 Seconds (21-31); Prothrombin Time 11.2 Seconds (9.0-12.0)
[2025-06-24 12:35] LABS: Thyroid Stimulating Hormone 2.482 uIu/ml (0.300-4.500)
[2025-06-24 14:16] LABS: Appearance Urine Clear (Clear); Glucose Urine UA Negative (Negative)
--- NOTE | 2025-06-24 14:20 | History & Physical Report ---
Date of Service June 24, 2025 Assessment & Plan (1) Acute hyperkalemia: (2) Hypotension: (3) Bradycardia: (4) CAROLANN (obstructive sleep apnea): (5) (HFpEF) heart failure with preserved ejection fraction: (6) Diabetic nephropathy associated with type 2 diabetes mellitus: (7) BPH loc w urin obs/LUTS: (8) Failure to thrive in adult: Plan Pt is an 85 yo male with a past medical hx of HFrEF (EF 30-35% earlier this year), CKD, DMT2, hx thyroid cancer s/p thyroidectomy, hx paroxysmal a fib not on anticoagulation, MDD, CAROLANN on CPAP, and hx of CVA who presents to the hospital on 06/24 for persistent RORO on CKD, hyperkalemia, and failure to thrive. #Hyperkalemia - obtained on outpatient labs of 6.0, so sent to the hospital by outpatient provider - K on admission 5.7, EKG without significant changes, calcium gluconate given by the ED - suspect most likely due to recent initiation of spironolactone, so will hold this - will repeat labs tomorrow am, as EKG stable defer medications to further lower this at it is likely to normalize on own with holding offending agent #Diarrhea, chronic intermittent - given story of very hard to pass stools and then intermittent diarrhea and no appetite and exam today, suspect constipation with overflow diarrhea - will do daily miralax to start to try, educated pt and on overflow diarrhea and they are agreeable to try this #Failure to thrive - likely multifactorial/snowball effect as pt has had multiple CHF exac in the past year per the and the last month has been having very poor intake, poor hydration, poor activity level likely causing further deconditioning - PT/OT - encourage hydration and po intake - will consult branch account manager for nutritional supplementation - ordered orthostatic vitals #Bradycardia - on admission HR was documented once in the 30s, states HR at home has been 30-40s at times - will hold beta blockers - EKG with PVCs only, rate has been okay since being in the hospital thus far but will monitor on PCU in case concerning arrhythmia/hemodynamically significant bradycardia does arise overnight #Hypotension - on admission 90s/50-60s but pt asymptomatic - improved with small IVF bolus - will hold medication one of his BPH medications for now but can restart tomorrow if BP continued to be stable #CKD without RORO - baseline Cr; 1.6-1.9 - Cr on labs 06/15 was 2.2, but now down to 2.0 which is close to baseline again - suspect RORO from 2 weeks ago likely due to new use of spironolactone in someone with very poor oral intake/hydration - no indication for nephrology consult at this time but if kidney function acutely worsens could consider #DMT2 - will do short acting SSI with meals - will hold off on long acting regime right now; glargine and short acting last filled 4-5 months ago per external med refill records and poor po intake noted, can add this depending on how sugars look tonight - am HA1c #HFrEF not in exac - will do echo and pending results may consult cardiology VTE ppx: heparin History of Present Illness Chief Complaint: Weakness, hyperkalemia Primary Care Provider: Tien Jeter MD Pt is an 85 yo male with a past medical hx of HFrEF (EF 30-35% earlier this year), CKD, DMT2, hx thyroid cancer s/p thyroidectomy, hx paroxysmal a fib not on anticoagulation, MDD, CAROLANN on CPAP, and hx of CVA who presents to the hospital on 06/24 for persistent RORO on CKD, hyperkalemia, and failure to thrive. Pt seen at bedside with his Dee. Pt laying down with eyes closed, sl eeping at times but easily arousable. gives the history, but somewhat hard to get clear timeline of defined events leading to failure to thrive. states that he has been declining for awhile now with some declined noted since his stroke in January last year. She states particularly the last month and a half he has been declining with weakness, intermittent diarrhea, poor appetite, and fatigue. She states about a month ago or two he started on Entresto and spironolactone. states he will often not eat very much and notes intermittent feelings of "fullness" even if he has not eaten anything. She states some days he eats well and other days he may just have some crackers and a few small items. She does note his bowel movements are irregular; he sometimes has some watery diarrhea and other times he has very hard and difficult to pass bowel movements. She states he does at times complain of some abdominal discomfort. states he sees cardiology and sees the HF clinic for his low ejection fraction and she states that she "doesn't think he has afib" and that she was told that cardiology was going to do another echo in a few weeks and depending on how that looked they did talk about an ICD device for him. She states he does not complain of chest pain or SOB when walking around but she thinks he does at times seem short of breath when walking around the house and does not walk very far at a time. The notes his heart rate at home has sometimes been in the 30-40s also. She also notes she keeps track of his weights at home and his weights have remained stable at around 205lbs, which he was at home the morning of admission per . She states she first noticed the weakness after his stroke in January of last year and that she states neurology told her he was doing well and that for a time he seemed to be doing well when he had PT services but has gradually seemed to walk around less and then started the last month to sleep more during the day. The pt himself has no concerns or complaints, states "I don't really want to be here" and denies pain anywhere. voices concern about his overall decline, states "he just hasn't been himself the last month." She states he has difficulty with concentrating on tasks and generally weak all the time. Allergies Allergy/AdvReac Type Severity Reaction Status Date / Time Penicillins Allergy Unknown HAPPENED Verified 06/23/25 14:51 A CHILD--RASH lactose AdvReac Intermediate Gastrointestinal Verified 06/23/25 14:51 Upset Home Medications Medication Instructions Recorded Confirmed Type magnesium oxide 400 mg PO PM 05/28/19 06/24/25 History cholecalciferol (vitamin D3) 50 2,000 unit PO QAM 12/25/19 06/24/25 History mcg (2,000 unit) tablet (Vitamin D3) CPAP Machine #1 ea 02/15/22 06/23/25 Rx multivitamin (Daily Multi-Vitamin 1 tab PO QAM 02/07/23 06/24/25 History tablet) blood sugar diagnostic (Contour 03/28/23 06/23/25 History Next Test Strips) aspirin 81 mg tablet,delayed 81 mg PO QAM 05/03/23 06/24/25 History release (Adult Low Dose Aspirin) clotrimazole 1 % topical cream 1 applic topical BID PRN Rash #90 10/07/24 06/24/25 Rx grams atorvastatin 40 mg tablet (Lipitor) 40 mg PO PM #90 tabs 11/18/24 06/24/25 Rx febuxostat 80 mg tablet (Uloric) 80 mg PO QAM #90 tabs 11/18/24 06/24/25 Rx desloratadine 5 mg tablet 5 mg PO DAILY PRN allergies #90 11/26/24 06/24/25 Rx (Clarinex) tabs silodosin 8 mg capsule (Rapaflo) 8 mg PO DAILY #90 caps 12/16/24 06/24/25 Rx albuterol sulfate 90 mcg/actuation 2 puff inhalation Q6H PRN 01/07/25 06/24/25 History aerosol inhaler Shortness Of Breath Or Wheezing dutasteride 0.5 mg capsule 0.5 mg PO QAM 01/07/25 06/24/25 History levothyroxine 150 mcg tablet 150 mcg PO DAILYBB #90 tabs 02/05/25 06/24/25 Rx albuterol sulfate 1.25 mg/3 mL 1.25 mg (3 mL) inhalation QID PRN 02/19/25 06/24/25 Rx solution for nebulization shortness of breath or wheezing #90 mL venlafaxine 150 mg 150 mg PO DAILY 02/27/25 06/24/25 History capsule,extended release 24 hr venlafaxine 75 mg capsule,extended 75 mg PO DAILY 02/27/25 06/24/25 History release 24 hr vit C 250 mg-vit E 90 mg-zinc 40 1 tab PO BID 02/27/25 06/24/25 History mg-copper 1 oz-pfohld-sfakpt capsule (PreserVision AREDS-2) spironolactone 25 mg tablet 25 mg PO DAILY #90 tabs 03/24/25 06/24/25 Rx blood-glucose sensor (Dexcom G7 03/30/25 06/23/25 History Sensor device) pen needle, diabetic 32 gauge x #300 ea 03/30/25 06/23/25 Rx 32" insulin glargine-yfgn 100 unit/mL 0 unit subcut DAILY 04/07/25 06/24/25 History (3 mL) subcutaneous pen (Semglee (insulin glargine-yfgn) Pen) insulin lispro 100 unit/mL 0 sliding scale dose subcut 04/07/25 06/24/25 History subcutaneous pen (Admelog SoloStar USEASDIRECTD U-) carvedilol 25 mg tablet (Coreg) 25 mg PO BID #180 tabs 04/29/25 06/24/25 Rx ketoconazole 2 % topical cream 1 applic topical BID #60 grams 06/24/25 Rx sacubitril 49 mg-valsartan 51 mg 0 tab PO BID 06/24/25 06/24/25 History tablet (Entresto) Past Med/Surg History Problem List Failure to thrive in adult CRF (chronic renal failure) (Acute) Weakness (Acute) Acute hyperkalemia (Acute) Hypotension (Acute) Bradycardia (Acute) CAROLANN (obstructive sleep apnea) (Acute) WASHBURN (dyspnea on exertion) (Acute) (HFpEF) heart failure with preserved ejection fraction Paroxysmal atrial fibrillation Nonsustained ventricular tachycardia Nonsustained supraventricular tachycardia Bronchospasm CHF (congestive heart failure) (Acute) Abnormality of gait and mobility History of CVA with residual deficit Falls Bradycardia Pain of right calf (Acute) CHF (congestive heart failure) (Acute) Osteoarthritis Osteoarthritis of right shoulder Ischemic stroke 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), 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 Acromioclavicular joint separation, type 3 BPH with obstruction/lower urinary tract symptoms Loss of protective sensation of skin of foot Constipation Left knee DJD Fall (Acute) Low back pain (Acute) Type 2 diabetes mellitus BPH loc w urin obs/LUTS Status post total right knee replacement Postural dizziness Gout attack Hypomagnesemia Hypothyroidism Foot deformity Diabetic peripheral neuropathy associated with type 2 diabetes mellitus Personal history of diabetic foot ulcer Tinea pedis Uncontrolled type 2 diabetes mellitus with neurologic complication, with long- term current use of insulin Obesity Right knee DJD Antiplatelet or antithrombotic long-term use PT'S REPORTS JUST ASPIRIN Vitamin D deficiency Anemia Attention or concentration deficit CKD (chronic kidney disease), stage III Cor pulmonale Dilated cardiomyopathy Per 12/23 cardio note, "Most recent echo with low normal LV systolic function. No current signs or symptoms of pulmonary vascular congestion." Dyslipidemia Erectile dysfunction Lumbosacral radiculopathy at L5 Obstructive sleep apnea CPAP Restrictive lung disease RARE RES. INH USE> WELL CONTROLLED Secondary hyperparathyroidism Sensorineural hearing loss (SNHL) of both ears Acquired claw toe of left foot Acquired claw toe of right foot Acquired hallux valgus of right foot Hypertension Mild asthma Does not use Albuterol, has just in case Chronic back pain History of thyroidectomy Medical History UTI symptoms Aspiration pneumonitis Acute respiratory failure with hypoxia Acute dyspnea Elevated troponin Multifocal pneumonia Acute hypoxemic respiratory failure HFrEF (heart failure with reduced ejection fraction) Risk for falls Mitral regurgitation Acute CVA (cerebrovascular accident) Diabetes mellitus type 2, uncontrolled Injury of cervical spine Fracture of T7 vertebra Personal history of diabetic foot ulcer No open wounds currently, skin being monitored by multiple specialties. Postural dizziness Hx, no issues with currently. Hx of thyroid cancer WITH REMOVAL NO CHEMO Spinal stenosis Diabetes type 2, uncontrolled Gout Benign prostatic hyperplasia Type 2 diabetes mellitus with diabetic neuropathy Surgical History Hx of bilateral cataract extraction History of colonoscopy History of tooth extraction History of tonsillectomy History of cardiac cath H/O: knee surgery Family History Father Myocardial infarction Hypertension Sister Coronary heart disease Hypertension Brother Hypertension Thyroid cancer Mother Pulmonary embolism Grandmother (Maternal) Stroke Other CHF (congestive heart failure) Denies family history of Ovarian cancer Prostate cancer Breast cancer Colorectal cancer Social History Smoking Status: Never smoker Second Hand Exposure: No; Do You Dip or Chew Tobacco: No; Hx Alcohol Use: No Hx Substance Use: No Preferred Language: Mauritanian Communication Ability: Effective Visual Impairment: No Limitations Hearing Ability: Normal Health Editor Required: No Beliefs That Will Affect Care: None marital status: Current Living Situation: Spouse current occupational status: retired Other Information That Helps Us Care for You: No Feels Safe at Home: Yes Safety Concerns: Feels Safe At This Time Childhood Exposure to Second-Hand Smoke: Yes (Uncle and Aunts) Physical Activity Frequency: Does not Exercise Seatbelt Use: always Assistive Devices: CPAP, Glasses and Walker Review of Systems Review of Systems: Per HPI. Physical Exam Physical Exam: General: Alert and oriented, no acute distress, HEENT: Normocephalic, moist oral mucosa, Cardio: Regular rate and rhythm on admission Resp: Lungs clear to auscultation b/l, no wheezes or rhonchi, GI: Soft, nondistended, pt winces at deep palpation diffusely although he denies pain, bowel sounds hypoactive Skin: Warm, pink, dry, Extremities: No edema noted Results & Data Results & Data Vital Signs (Past 12 Hours) Vital Signs Temp Pulse Pulse Resp BP BP Pulse Ox 06/24/25 13:00 60 17 116/67 97 06/24/25 12:42 61 17 99 06/24/25 12:36 60 06/24/25 11:37 36.3 C L 36 L 20 92/53 L 94 O2 Del Method 06/24/25 13:00 Room Air 06/24/25 12:42 Room Air 06/24/25 12:36 06/24/25 11:37 Room Air Supervising Physician Co-Signing Physician Notes I personally examined the patient and verified all bender points of history and exam, discussed case, and agree with decision making with Dr West Feels okay whenever I see him. Mostly relates that he does not want to be here. Does not really relay the extensive HPI or review of systems that his gave to resident physician. Vitals noted, in general he is awake and alert fatigued no distress. HEENT normocephalic atraumatic mucous membranes moist. Cardio regular slight bradycardic rate. Abdomen soft nondistended nontender no masses organomegaly. Labs noted, diagnostics noted. Hyperkalemiaprobably from initiation of spironolactone. Fortunately K is not markedly elevated and EKG does not show peaked T's/etc. Hold spironolactone and follow. Failure to thriveappears to be multi factorialdeconditioning and malnutrition is the final common pathway, probably chronic constipation making appetite worse, as well as chronic illness burden. PT/OT eval and treat, start to build a nutrition plan. Otherwise as above Resident Activity Tracking Resident Involvement: Resident Care Provided Care Provided: Adult Hospital Medicine (2) Hypotension Hypotension type: unspecified hypotension type Qualified Code(s): I95.9 - Hypotension, unspecified
[2025-06-24] MEDS ORDERED: ACETAMINOPHEN 325 MG TAB PO PRN (17:20)
[2025-06-24] MEDS ORDERED: ONDANSETRON INJ 2 MG/ML 2 ML VIAL IV PRN (17:20)
[2025-06-24] MEDS ORDERED: CARBOHYDRATES FOR HYPOGLYCEMIA PO PRN (17:20)
[2025-06-24] MEDS ORDERED: GLUCOSE 40% GEL 15 GM TUBE PO PRN (17:20)
[2025-06-24] MEDS ORDERED: DEXTROSE 50% 50 ML SYRINGE IV PRN (17:20)
[2025-06-24] MEDS ORDERED: MELATONIN 3 MG TAB PO PRN (17:20)
[2025-06-24] MEDS ORDERED: GLUCOSE 10 TAB/TUBE PO PRN (17:20)
[2025-06-24] MEDS ORDERED: ALBUTEROL HFA 8 GM INHALER INH PRN (17:20)
[2025-06-24] MEDS ORDERED: GLUCAGON FOR INJ 1 MG VIAL SQ PRN (17:20)
[2025-06-24] MEDS ORDERED: ALBUTEROL 0.5% NEB SOLN 2.5 MG/0.5 ML VIAL INH PRN (17:39)
[2025-06-24] MEDS: INSULIN ASPART PER UNIT CHARGE SC SCH (18:12)
[2025-06-24] MEDS: POLYETHYLENE (MIRALAX) 17 GM PACK PO SCH (18:14)
--- NOTE | 2025-06-24 18:17 | Billing Data ---
Date of Service June 24, 2025 Coding Level of Care Code 39714 INT INP/OBS CARE
[2025-06-24] MEDS: HEPARIN SOD 5,000 UNIT/0.5 ML VIAL SQ SCH (21:10)
[2025-06-24] MEDS: ATORVASTATIN 40 MG TAB PO SCH (21:10)
[2025-06-25] MEDS: LEVOTHYROXINE SODIUM 150 MCG TABLET PO SCH (05:57)
[2025-06-25 06:12] LABS: Hematocrit (blood only) 35.5 % (42.0-52.0); Hemoglobin 12.0 g/dl (14.0-18.0); Immature Granulocytes # (auto) 0.05 K/uL (0.01-0.20); Immature Granulocytes % (auto) 0.5 %; Mean Corpuscular Hemoglobin 31.9 pg (25.0-34.0); Mean Corpuscular Volume 94.4 fL (80.0-100.0); Platelet Count 164 K/uL (130-400); RDW Standard Deviation 49.7 fL (36.4-46.3); Red Blood Count 3.76 M/uL (4.70-6.10); White Blood Count 9.65 K/ul (4.8-10.8)
[2025-06-25 06:43] LABS: Alanine Aminotransferase 38.0 U/L (7-52); Albumin Globulin Ratio 1.3 (0.9-2); Alkaline Phosphatase 101.0 U/L (34-104); Anion Gap 9.0 (3-11); Bilirubin,Total 0.6 mg/dl (0.2-1.0); Blood Urea Nitrogen 37.0 mg/dl (6-23); Calcium 9.7 mg/dl (8.6-10.3); Carbon Dioxide 24.0 mmol/L (21-32); Chloride 106.0 mmol/L (98-107); Creatinine Clr Calc Pharmacy 31.0 ml/min; Globulin 3.0 gm/dl (2.5-4.0); Glucose 80.0 mg/dl (70-99(Fasting)); Potassium 5.3 mmol/L (3.5-5.1); Sodium 139.0 mmol/L (136-145); Total Protein 6.8 gm/dl (6.0-8.3)
[2025-06-25 07:16] LABS: Hemoglobin A1C 6.2 % (4.5-5.6)
[2025-06-25] MEDS: FINASTERIDE 5 MG TAB PO SCH (09:19)
[2025-06-25] MEDS: VENLAFAXINE HCL XR 150 MG CAPXR PO SCH (09:19)
[2025-06-25] MEDS: ASPIRIN 81 MG ECTAB PO SCH (09:19)
[2025-06-25] MEDS: VENLAFAXINE HCL XR 75 MG CAPXR PO SCH (09:19)
[2025-06-25] MEDS: LACTATED RINGER'S 1,000 ML IV SCH (14:03)
--- NOTE | 2025-06-25 14:30 | Hospitalist Progress Note ---
Date of Service June 25, 2025 Assessment & Plan (1) Acute hyperkalemia: (2) Hypotension: (3) Bradycardia: (4) CAROLANN (obstructive sleep apnea): (5) (HFpEF) heart failure with preserved ejection fraction: (6) Diabetic nephropathy associated with type 2 diabetes mellitus: (7) BPH loc w urin obs/LUTS: (8) Failure to thrive in adult: Plan Pt is an 85 yo male with a past medical hx of HFrEF (EF 30-35% earlier this year), CKD, DMT2, hx thyroid cancer s/p thyroidectomy, hx paroxysmal a fib not on anticoagulation, MDD, CAROLANN on CPAP, and hx of CVA who presents to the hospital on 06/24 for persistent RORO on CKD, hyperkalemia, and failure to thrive. #Hyperkalemia - obtained on outpatient labs of 6.0, so sent to the hospital by outpatient provider. K+ 5.7 on admission, EKG w/o significant changes, calcium gluconate given in the ED. Patient recent started on spironolactone, which is likely the cause of this hyperkalemia. - K+ 5.3 this morning - spironolactone hold - telemetry monitoring overnight without actionable events. Can hold off on medications to lower K at this time as it has started to improve with the spironolactone being held #Diarrhea, chronic intermittent - given story of very hard to pass stools and then intermittent diarrhea and no appetite and exam today, suspect constipation with overflow diarrhea. Patient and were educated yesterday on overflow diarrhea and agreeable to increasing bowel regimen. - patient w/o BM this morning. - bowel regimen: miralax daily #Failure to thrive - likely multifactorial/snowball effect as pt has had multiple CHF exacerbations in the past year per the and the last month has been having very poor intake, poor hydration, poor activity level likely causing further deconditioning - PT/OT consulted. PT evaluation today recommending patient complete short-term rehab before safe home discharge. Case management has been discussing options with patient and . Patient does not want to go to rehab and would prefer to go home with home health services. His also expressed that she would like for him to return home with home health v [facility] therapy. - was seen by nutrition/graffiti cleaner today - patient refused all oral nutrition supplement; plan is to try and obtain meal preferences and adding snacks to help meet his nutritional goals. - encourage hydration and po intake - patient remains hemodynamically stable; #Bradycardia - on admission HR was documented once in the 30s, states HR at home has been 30-40s at times - HR today in 60s; telemetry monitoring overnight without actionable events - HRs in 70s - will hold beta blockers - EKG with PVCs only, rate has been okay since being in the hospital thus far but will monitor on PCU in case concerning arrhythmia/hemodynamically significant bradycardia does arise overnight #Hypotension - on admission 90s/50-60s but pt asymptomatic ; improved with small IVF bolus - blood pressures continue to range 100s-120s/70s - holding home medication silodosin for his BPH for now #CKD without RORO - baseline Cr; 1.6-1.9 - Cr on labs 06/15 was 2.2, but now down to 2.0 which is close to baseline again - suspect RORO from 2 weeks ago likely due to new use of spironolactone in someone with very poor oral intake/hydration - no indication for nephrology consult at this time but if kidney function acutely worsens could consider #DMT2 - will do short acting SSI with meals - will hold off on long acting regime right now; glargine and short acting last filled 4-5 months ago per external med refill records and poor po intake noted, can add this depending on how sugars look tonight - am HA1c #HFrEF not in exac - will do echo and pending results may consult cardiology VTE ppx: heparin Dispo: PCU Admission and Anticipated Discharge Date Admission Date: June 24, 2025 Supervising Physician Co-Signing Physician Notes I personally examined the patient and verified all bender points of history and exam, discussed case, and agree with decision making with Dr Alberto No acute complaints. Did poorly with physical therapy but wants to go home instead of rehab. present. Extensive discussions.. Vitals noted, in general he is awake and alert fatigued no distress. HEENT normocephalic atraumatic mucous membranes moist. Breathing unlabored no accessory muscle use good effort. Skin without rashes pallor or icterus. Neuro without focal deficits. Hyperkalemiaprobably from initiation of spironolactone. Fortunately K is not markedly elevated and EKG does not show peaked T's/etc. Trending down. The hyperkalemia was the main reason for admission, but the chronic issues are far more ominous to his long-term health Failure to thriveappears to be multi factorialdeconditioning and malnutrition is the final common pathway, probably chronic constipation making appetite worse, as well as chronic illness burden. PT/OT eval and treat, start to build a nutrition plan. discussed with patient and extensively. In the context of his poor performance with physical therapy today, he was also significantly orthostatic, making me suspect that he is still dehydratedgentle IV fluids (follow closely and we will only give 2 L for now given his history of chronic HFrEFalthough currently he appears to be dry and therefore his HFrEF appears to be compensated) as far as the deconditioning goeswe discussed that if his poor performance with therapy was simply due to dehydration we should hopefully see a better functional status tomorrow, but if he continues to be this week, he would appear weak enough that going home would be pretty recklessobviously he would be allowed to make the decision along with his but I would strongly recommend rehab if this weakness persists. We then had an extensive discussion about the deconditioning malnutrition downward spiral and how generally speaking I do see it to be quite lethal in a lot of patients but that also the only thing to really turn the situation is the patient's efforts in spite of not feeling like it and not wanting to. His expressed a better understanding than him. Otherwise as above Subjective Patient seen and evaluated at bedside this morning. Alert, awake, no acute distress. No acute concerns. No overnight events. Patient states feeling well this morning. Denies chest pain, palpitations, shortness of breath. Ate little breakfast this morning - denies N/V/abdominal pain. Has not been out of bed much since admission. No BM today, however voiding without concern Review of Systems Review of Systems: Per HPI. Physical Exam Constitutional: WD/WN, vitals as above Respiratory: normal respiratory effort, lungs clear to auscultation Cardiovascular: RRR, no murmur, no edema Heart Sounds: normal S1 and normal S2 Gastrointestinal (Abdomen): normal bowel sounds, soft, nontender, no hepatosplenomegaly Musculoskeletal: Head/Neck/Chest: normocephalic and head atraumatic Extremities: extremities normal to inspection Skin: no rashes, warm and dry Neurologic: PERRL, EOMI, accommodation nl, no face palsy, no dysarthria CN's II-XI intact bilaterally Psychiatric: A+Ox3, euthymic affect Results & Data Results & Data Vital Signs (Past 12 Hours) Vital Signs Temp Pulse Pulse Resp BP Pulse Ox O2 Del Method 06/25/25 11:06 36.8 C 67 18 105/67 98 Room Air 06/25/25 07:10 36.6 C 62 18 98/64 L 97 Room Air 06/25/25 05:50 64 06/25/25 03:29 36.7 C 69 18 127/68 98 CPAP 06/25/25 03:05 81 18 91 FiO2 06/25/25 11:06 06/25/25 07:10 06/25/25 05:50 06/25/25 03:29 06/25/25 03:05 21 Resident Activity Tracking Resident Involvement: Resident Care Provided Care Provided: Adult Hospital Medicine (2) Hypotension Hypotension type: unspecified hypotension type Qualified Code(s): I95.9 - Hypotension, unspecified
--- NOTE | 2025-06-25 14:48 | XCELERA ---
[id number] \\[id number]
[2025-06-25] MEDS: POLYETHYLENE (MIRALAX) 17 GM PACK PO ONE (17:58)
--- NOTE | 2025-06-25 18:02 | Billing Data ---
Date of Service June 25, 2025 Coding Level of Care Code 76628 SUB INP/OBS CARE MIN
--- NOTE | 2025-06-26 06:55 | Electrocardiogram Report ---
Test Reason : Blood Pressure : */* mmHG Vent. Rate : 64 BPM Atrial Rate : 64 BPM P-R Int : 156 ms QRS Dur : 120 ms QT Int : 430 ms P-R-T Axes : 43 19 64 degrees QTcB Int : 443 ms Sinus rhythm with frequent Premature ventricular complexes Incomplete left bundle block Borderline ECG When compared with ECG of 27-Feb-2025 18:42, Premature ventricular complexes are now Present Confirmed by Isreal Franco ([id number]) on 06/26/2025 6:55:09 AM Referred By: Confirmed By: Isreal Franco
[2025-06-26 08:35] LABS: Hematocrit (blood only) 32.2 % (42.0-52.0); Hemoglobin 11.2 g/dl (14.0-18.0); Mean Corpuscular Hemoglobin 32.5 pg (25.0-34.0); Mean Corpuscular Volume 93.3 fL (80.0-100.0); Platelet Count 132 K/uL (130-400); RDW Standard Deviation 49.4 fL (36.4-46.3); Red Blood Count 3.45 M/uL (4.70-6.10); White Blood Count 7.57 K/ul (4.8-10.8)
[2025-06-26 08:55] LABS: Anion Gap 7.0 (3-11); Blood Urea Nitrogen 34.0 mg/dl (6-23); Calcium 9.0 mg/dl (8.6-10.3); Carbon Dioxide 24.0 mmol/L (21-32); Chloride 108.0 mmol/L (98-107); Creatinine Clr Calc Pharmacy 32.4 ml/min; Glucose 68.0 mg/dl (70-99(Fasting)); Potassium 5.3 mmol/L (3.5-5.1); Sodium 139.0 mmol/L (136-145)
--- NOTE | 2025-06-26 15:14 | Discharge Summary ---
Date of Service June 26, 2025 Admission HPI Per Admitting Provider Pt is an 85 yo male with a past medical hx of HFrEF (EF 30-35% earlier this year), CKD, DMT2, hx thyroid cancer s/p thyroidectomy, hx paroxysmal a fib not on anticoagulation, MDD, CAROLANN on CPAP, and hx of CVA who presents to the hospital on 06/24 for persistent RORO on CKD, hyperkalemia, and failure to thrive. Pt seen at bedside with his Dee. Pt laying down with eyes closed, sleeping at times but easily arousable. gives the history, but somewhat hard to get clear timeline of defined events leading to failure to thrive. states that he has been declining for awhile now with some declined noted since his stroke in January last year. She states particularly the last month and a half he has been declining with weakness, intermittent diarrhea, poor appetite, and fatigue. She states about a month ago or two he started on Entresto and spironolactone. states he will often not eat very much and notes intermittent feelings of "fullness" even if he has not eaten anything. She states some days he eats well and other days he may just have some crackers and a few small items. She does note his bowel movements are irregular; he sometimes has some watery diarrhea and other times he has very hard and difficult to pass bowel movements. She states he does at times complain of some abdominal discomfort. states he sees cardiology and sees the HF clinic for his low ejection fraction and she states that she "doesn't think he has afib" and that she was told that cardiology was going to do another echo in a few weeks and depending on how that looked they did talk about an ICD device for him. She states he does not complain of chest pain or SOB when walking around but she thinks he does at times seem short of breath when walking around the house and does not walk very far at a time. The notes his heart rate at home has sometimes been in the 30-40s also. She also notes she keeps track of his weights at home and his weights have remained stable at around 205lbs, which he was at home the morning of admission per . She states she first noticed the weakness after his stroke in January of last year and that she states neurology told her he was doing well and that for a time he seemed to be doing well when he had PT services but has gradually seemed to walk around less and then started the last month to sleep more during the day. The pt himself has no concerns or complaints, states "I don't really want to be here" and denies pain anywhere. voices concern about his overall decline, states "he just hasn't been himself the last month." She states he has difficulty with concentrating on tasks and generally weak all the time. Admission Exam Per Admitting Provider General: Alert and oriented, no acute distress, HEENT: Normocephalic, moist oral mucosa, Cardio: Regular rate and rhythm on admission Resp: Lungs clear to auscultation b/l, no wheezes or rhonchi, GI: Soft, nondistended, pt winces at deep palpation diffusely although he denies pain, bowel sounds hypoactive Skin: Warm, pink, dry, Extremities: No edema noted Principal Diagnosis hyperkalemia failure to thrive Discharge Exam Constitutional WD/WN, vitals as above Respiratory normal respiratory effort, lungs clear to auscultation Cardiovascular RRR, no murmur, no edema Heart Sounds: normal S1 and normal S2 Gastrointestinal (Abdomen) normal bowel sounds, soft, nontender, no hepatosplenomegaly Musculoskeletal Head/Neck/Chest: normocephalic and head atraumatic Extremities: extremities normal to inspection Skin no rashes, warm and dry Neurologic PERRL, EOMI, accommodation nl, no face palsy, no dysarthria CN's II-XI intact bilaterally Psychiatric A+Ox3, euthymic affect Discharge Data Allergies Allergy/AdvReac Type Severity Reaction Status Date / Time Penicillins Allergy Unknown HAPPENED Verified 06/23/25 14:51 A CHILD--RASH lactose AdvReac Intermediate Gastrointestinal Verified 06/23/25 14:51 Upset Consultations 06/24/25 12:51 ED Decision to Admit Stat Hospital Course (1) Acute hyperkalemia: (2) Hypotension: (3) Bradycardia: (4) CAROLANN (obstructive sleep apnea): (5) (HFpEF) heart failure with preserved ejection fraction: (6) Diabetic nephropathy associated with type 2 diabetes mellitus: (7) BPH loc w urin obs/LUTS: (8) Failure to thrive in adult: Plan Pt is an 85 yo male with a past medical hx of HFrEF (EF 30-35% earlier this year), CKD, DMT2, hx thyroid cancer s/p thyroidectomy, hx paroxysmal a fib not on anticoagulation, MDD, CAROLANN on CPAP, and hx of CVA who presents to the hospital on 06/24 for persistent RORO on CKD, hyperkalemia, and failure to thrive. #Hyperkalemia - obtained on outpatient labs of 6.0, so sent to the hospital by outpatient provider. K+ 5.7 on admission, EKG w/o significant changes, calcium gluconate given in the ED. Patient recent started on spironolactone, which is likely the cause of this hyperkalemia. K+ remains stable this morning at 5.3. Telemetry monitoring have been without actionable events. Has not needed medication management to help with potassium lowering. Will hold spironolactone on discharge. #Diarrhea, chronic intermittent - given story of very hard to pass stools and then intermittent diarrhea and no appetite and exam today, suspect constipation with overflow diarrhea. Patient and were educated yesterday on overflow diarrhea and agreeable to increasing bowel regimen. Continuing to have bowel movements during admission. Continue miralax daily. #Failure to thrive - likely multifactorial/snowball effect as pt has had multiple CHF exacerbations in the past year per the and the last month has been having very poor intake, poor hydration, poor activity level likely causing further deconditioning - PT/OT consulted. PT evaluation today recommending patient complete short-term rehab before safe home discharge. Case management has been discussing options with patient and . Patient does not want to go to rehab and would prefer to go home with home health services. His also expressed that she would like for him to return home with home health. For now, plan to discharge home with home health. has given patients ultimatum of home tx for 3wks. If he does not work well with them/improve in that time, pt would be agrreable to going to short-term rehab. - Patient was also seen by nutrition/artificial breeding technician who has encouraged him with supplement nutrition with supplemental protein shakes/bars/boost drinks etc. Also encouraged to increase oral intake and hydration on discharge. #Bradycardia - on admission HR was documented once in the 30s, states HR at home has been 30-40s at times - HR today in 60s; telemetry monitoring overnight without actionable events - HRs in 60s. Home carvedilol dose decreased to 12.5mg po bid (from 25 po bid) to be started on discharge. #Hypotension - on admission 90s/50-60s but pt asymptomatic ; improved with small IVF bolus - blood pressures continue to range 100s-120s/70s. Home BPH medication was held due to hypotension/orthostasis - however plan to continue on discharge. #CKD without RORO - baseline Cr; 1.6-1.9 - Cr on labs 06/15 was 2.2, but now down to 1.9 on morning of discharge which is near baseline. - suspect RORO from 2 weeks ago likely due to new use of spironolactone in someone with very poor oral intake/hydration - no indication for nephrology consult at this time but if kidney function acutely worsens could consider #DMT2 - will do short acting SSI with meals - will hold off on long acting regime right now; glargine and short acting last filled 4-5 months ago per external med refill records and poor po intake noted, can add this depending on how sugars look tonight - A1c now 6.2%. Decreased long-acting home insulin dose from 20 units to 12 units. #HFrEF not in exac - echo repeated during admission and unchanged from prior. EF 25-30%, mild improvement of mitral regurgitation VTE ppx: heparin Dispo: PCU Total Time Total Time Spent Total Time Spent (In Minutes): >30 Total Time Includes: Examination of the Patient, Discharge Planning and Medication Reconciliation Discharge Plan Discharge Items Patient Disposition: Home - Home Health Services Reason For Visit: HYPERKALEMIA, FAILURE TO THRIVE Discharge Diagnosis: hyperkalemia failure to thrive Condition on Discharge: Serious Activity: Per Instructions section Non-emergency contact: Primary Care Provider and Apprentice Pattern Maker Call non-emergency contact if: you have any medication questions, your symptoms worsen and your pain is not controlled Follow-up/Referrals: Pro,Tien Tony MD [Primary Care Provider] - Diet: Heart Healthy and Low Sodium (2gm) Addtl Attending Provider Instructions: You were admitted to [facility] for high potassium levels and failure to thrive. Your ptoassium levels were elevated likely due to recent spironolactone - we recommend discontinuing this medication after discharge. You were also evaluated by physical and occupational therapy during admission. You will be discharged home with home health services. Please work with PT/OT during your scheduled visits and complete the exercises a few times daily. Continue to perform your activities of daily living. Home carvedilol dose was decreased due to low heart rate. Stop taking carvedilol 25mg 2x daily. Start carvedilol 12.5 mg twice daily. Can continue taking the rest of your home medications as prescribed. Follow-up with PCP to discuss when to resume. Please also discuss with PCP in regard to insulin regimen - can decrease long-acting insulin from 20 units to 12 units due to recent A1c now 6.2%. Recommend sodium restriction of <2g sodium daily. Avoid using/eating prepackaged foods and adding extra salt to meals. Please follow-up with your PCP and nurse supervisor within 1-2 weeks of discharge. Pending Studies at Discharge: No Stand-Alone Forms: My [facility] [employer], Smoking Cessation Medications and DC Order Prescriptions: New carvedilol 12.5 mg tablet 12.5 mg PO BID Qty: 30 0RF Rx Instructions: must administer with a meal/food Continued atorvastatin [Lipitor] 40 mg tablet 40 mg PO PM Qty: 90 3RF febuxostat [Uloric] 80 mg tablet 80 mg PO QAM Qty: 90 3RF desloratadine [Clarinex] 5 mg tablet 5 mg PO DAILY PRN (Reason: allergies) Qty: 90 3RF Patient Comments: 06/24- last filled 11/29/24 30 day supply silodosin [Rapaflo] 8 mg capsule 8 mg PO DAILY Qty: 90 3RF Rx Instructions: must administer with a meal/food levothyroxine 150 mcg tablet 150 mcg PO DAILYBB Qty: 90 1RF albuterol sulfate 1.25 mg/3 mL solution for nebulization 1.25 mg inhalation QID PRN (Reason: shortness of breath or wheezing) Qty: 90 2RF Patient Comments: 06/24- last filled 02/21 7 day supply ketoconazole 2 % cream 1 applic topical BID Qty: 60 1RF (DME) CPAP Machine Misc See Dose Instructions .ROUTE .MEDSUPPLY Qty: 1 0RF Rx Instructions: ASV EPAP 5-15, PS 5-18, max pressure 25, auto rate T&B aspirin [Adult Low Dose Aspirin] 81 mg tablet,delayed release (DR/EC) 81 mg PO QAM Patient Comments: 06/24- otc unable to verify multivitamin [Daily Multi-Vitamin] Tablet 1 tab PO QAM Patient Comments: 06/24- otc unable to verify (DME) Contour Next Test Strips Strip See Rx Instructions .ROUTE .MEDSUPPLY Rx Instructions: Test blood sugar once daily PRN-Dexcom (DME) Dexcom G7 Sensor Device See Rx Instructions .Route Rx Instructions: As directed (DME) pen needle, diabetic 32 gauge x 5/32" needle See Dose Instructions .ROUTE .MEDSUPPLY Qty: 300 3RF Rx Instructions: Inject insulin 3 times a day clotrimazole 1 % cream 1 applic TOP BID PRN (Reason: Rash) Qty: 90 0RF Patient Comments: 06/24- last filled 10/07/24 60 day supply Rx Instructions: apply to affected area of feet for 1 month insulin lispro [Admelog SoloStar U-100 Insulin] 100 unit/mL insulin pen 0 sliding scale dose subcut USEASDIRECTD Patient Comments: 06/24- last filled 10/23/24 30 day supply only doing 5 units with breakfast Rx Instructions: Subcut, per sliding scale, typically 4 units with breakfast; 0-2 units with lunch; 0-2 units with supper; MDD 12 units insulin glargine-yfgn [Semglee(insulin glarg-yfgn)Pen] 100 unit/mL (3 mL) insulin pen 20 unit subcut DAILY Patient Comments: 06/24- last filled 02/02 125 day supply. Original: 20u subcut daily magnesium oxide 500 mg tablet 400 mg PO PM Patient Comments: 06/24- otc unable to verify cholecalciferol (vitamin D3) [Vitamin D3] 2,000 unit tablet 2,000 unit PO QAM Patient Comments: 06/24- otc unable to verify albuterol sulfate 90 mcg/actuation Hfa Aerosol Inhaler 2 puff INHALATION Q6H PRN (Reason: Shortness Of Breath Or Wheezing) Patient Comments: 06/24- no fill history unable to verify dutasteride 0.5 mg capsule 0.5 mg PO QAM venlafaxine 75 mg capsule,extended release 24hr 75 mg PO DAILY Rx Instructions: TOTAL DOSE 225 MG--TAKES WITH 150 MG CAP. venlafaxine 150 mg capsule,extended release 24hr 150 mg PO DAILY Rx Instructions: TOTAL DOSE 225 MG--TAKES WITH 75 MG CAP. PreserVision AREDS-2 250-90-40-1 mg Capsule 1 tab PO BID Patient Comments: 06/24- otc unable to verify sacubitril-valsartan [Entresto] 49-51 mg tablet 0 tab PO BID Patient Comments: 06/24- last filled 04/21 30 day supply. Original directions: 0.5 tab po BID Discontinued spironolactone 25 mg tablet 25 mg PO DAILY Qty: 90 3RF carvedilol [Coreg] 25 mg tablet 25 mg PO BID Qty: 180 3RF Discharge Orders: Discharge Order (Routine); Ordered 06/26/25 Ordered By: Donna Alberto Admission Data Admit Date/Time: 06/24/25 15:09 Attending Provider: Jason Leslie Admit Provider: Zeny West Primary Care Provider: Tien Jeter Other Providers: Harish Vargas Other Interventions: Discharge Summary Assessment (RN) Last Done: 06/26/25 16:16 Supervising Physician Co-Signing Physician Notes I personally examined the patient and verified all bender points of history and exam, discussed case, and agree with decision making with Dr Alberto feels okay. Very much wants to go home. present. Extensive discussionssee below. Vitals noted, in general he is awake and alert pleasant no distress. HEENT normocephalic atraumatic mucous membranes moist. Breathing unlabored no accessory muscle use good effort. Skin without rashes pallor or icterus. Neuro without focal deficits. He is able to slowly, but steadily, get out of bed and stand on his ownat the time I am seeing him in his room is too crowded on the roommate side to be able to have him ambulate to the hallway, but he is able to navigate a very tight space getting out of bed walking about 5 feet turning 90 degrees to the left walking about another 5 feet, turning 180 degrees and back tracking and getting back into bed under his own power. Hyperkalemiaprobably from initiation of spironolactone. Fortunately K is not markedly elevated and EKG does not show peaked T's/etc. Trending down. The hyperkalemia was the main reason for admission, but the chronic issues are far more ominous to his long-term healthStop spironolactone, repeat basic metabolic panel SundayI suspect the K will normalize over time. Failure to thriveappears to be multi factorialdeconditioning and malnutrition is the final common pathway, probably chronic constipation making appetite worse, as well as chronic illness burden. Extensive discussions on deconditioning and malnutritionhe is now starting to express a better understanding of it. I still overall feel that he would do better at rehab given that it would jumpstart the process, but he is doing well enough that home is not reckless. His is willing to supervise him at homebut notes that if he is not trying and not making progress over the next 3 weeks she is adamant that he goes to rehabI felt this was a fair compromise between what the and I feel and what he is adamant about. He agrees as well. Discussed therapy, discussed movement, discussed activity, discussed nutrition. Discussed right now getting to 2000 clark regardless of the means other than avoiding sodium (less than 2000 mg of sodium less than 500 at each meal) and then discussed as he gets stronger getting back to more of a Mediterranean kind of a dietbut that right now getting adequate nutrition is going to be more important than what exactly the nutrition is. Outpatient therapy. Close and ongoing outpatient follow-up. Chronic systolic CHF (chronic HFrEF)stopped spironolactone due to hyperkalemia. Reduced carvedilol due to bradycardia. Outpatient follow-up, ongoing medication titration diabetes on [id number] 6.2reduced Lantus. Discussed to continue to follow his sugars as we may be able to reduce his insulins further over time. Otherwise as above Safe/stable for home. Basic metabolic panel Sunday. Resident Activity Tracking Resident Involvement: Resident Care Provided Care Provided: Adult Hospital Medicine
[2025-06-26 15:50] VITALS: BP 128/86; PULSE 76; RESP 16; TEMP 97.7; O2SAT 97
--- NOTE | 2025-06-26 18:21 | Billing Data ---
Date of Service June 26, 2025 Coding Level of Care Code 02338 INP/OBS DISCH >30 MIN
== END 2025-06-26 16:44 | disposition home health service (06) | DRG 641 ==
LOC: ED 11:26 → 2S 15:09

== ENCOUNTER 2025-08-18 10:02 | Observation (INO) ==
--- NOTE | 2025-08-18 10:13 | Emergency Department Note ---
Impression & Plan Stroke-like symptom, Diplopia ED Provider Note NAME: NAVDEEP SAMUEL AGE: 85 SEX: M : 1940 ARRIVES VIA: Ambulance INFORMANT: Patient, EMS ED PROVIDER(S): Tien Hussein DO CHIEF COMPLAINT: Strokelike symptoms HPI: The patient is an 85-year-old male who presented to the emergency department for strokelike symptoms. The patient started having difficulty with his vision and right sided weakness on Sunday. He called his family doctor today to be seen but was sent to the emergency department by ambulance for further evaluation. Patient denies having any headache or trauma. He denies having any vomiting. The patient states that he has double vision but is not constant. He says at this time he only complains of right sided weakness. The patient's been able to ambulate with some difficulty. The patient states he has been compliant with his outpatient medications otherwise. He is notices blood sugars have been at their normal level. ROS: See above HPI for pertinent positives & negatives. A total of 10 systems reviewed and were otherwise negative. PAST MEDICAL HISTORY: See Below PAST SURGICAL HISTORY: See Below FAMILY HISTORY: See Below SOCIAL HISTORY: See Below HOME MEDICATIONS: See Below ALLERGIES: See Below VITALS: See Below PHYSICAL EXAMINATION: GENERAL: Patient is awake alert in no acute distress patient is resting comfortably and showing no signs of anxiety EYES: The conjunctivae are clear. The pupils are round and reactive. Extraocular muscles are intact. EARS, NOSE, MOUTH AND THROAT: The nose is without any evidence of any deformity. NECK: The neck is nontender and supple. RESPIRATORY: Normal respiratory effort is noted there is no evidence of wheezing rhonchi or rales CARDIOVASCULAR: Regular rate and rhythm noted there no murmurs rubs or gallops normal S1 normal S2. GASTROINTESTINAL: The abdomen is soft. Abdomen is nontender. MUSCULOSKELETAL/EXTREMITIES: There is no evidence of gross deformity full range of motion is noted in the hips and shoulders. SKIN: There is no obvious evidence of any rash. There are no petechiae, pallor or cyanosis noted. NEUROLOGIC: The patient is awake alert and oriented x 3. Strength was symmetric. There is no facial droop. Speech was clear. The patient is able to hold each leg off the bed for greater than 5 seconds. There is no drift in the upper extremities. MEDICAL DECISION MAKING: The patient is an 85-year-old male who presented to the emergency department for an evaluation of strokelike symptoms. The patient was having diplopia over the weekend. He called his family doctor for an appointment but was referred to the emergency department. The patient also has been having intermittent episodes of right sided weakness. His has been noticing this especially in the right leg. I discussed the patient's laboratory and radiographic studies with him and his significant other. Given his past medical history as well as his findings I do feel the patient would be a better candidate for inpatient management. For this reason I discussed his condition with the on-call [facility] hospitalist. They have agreed to evaluate the patient in the emergency department for further management and disposition. Triage Nursing notes reviewed. Prior medical records reviewed Vital Signs: reviewed and remarkable for no significant abnormalities Differential diagnosis: Infection, dehydration, metabolic abnormality, hypo/hyperglycemia, electrolyte disturbance, anemia, hypoxia, cardiac sources, intracerebral event, toxicologic, neurologic, as well as other pathologies. ER treatment provided: See below Diagnostics interpreted by me: ECG: EKG was obtained in the emergency department. My interpretation is sinus rhythm at 72 bpm. PVCs were noted. Incomplete left bundle branch block pattern was appreciated with nonspecific ST and T wave abnormalities. This was compared to a tracing from June 24, 2025. No changes were noted. Cardiac Monitoring: An order was placed for continuous cardiac monitoring. The monitor shows a rate of 75 bpm with sinus rhythm. Laboratory studies: As stated above and show below. Imaging studies: See below. Radiographic imaging was reviewed by myself Consultation(s): Dr. Adkins who is on for the [facility] group was notified about the patient. Past Med/Surg History Problem List Diplopia (Acute) Stroke-like symptom (Acute) Right sided weakness Diplopia History of vertebral fracture T7. 2020 CKD (chronic kidney disease) Renal cyst Elevated PSA Failure to thrive in adult CRF (chronic renal failure) (Acute) Weakness (Acute) Acute hyperkalemia (Acute) Hypotension (Acute) Bradycardia (Acute) CAROLANN (obstructive sleep apnea) (Acute) WASHBURN (dyspnea on exertion) (Acute) (HFpEF) heart failure with preserved ejection fraction Paroxysmal atrial fibrillation Nonsustained ventricular tachycardia Nonsustained supraventricular tachycardia Bronchospasm CHF (congestive heart failure) (Acute) Abnormality of gait and mobility History of CVA with residual deficit Falls Bradycardia Pain of right calf (Acute) CHF (congestive heart failure) (Acute) Osteoarthritis Osteoarthritis of right shoulder Ischemic stroke 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), 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 Acromioclavicular joint separation, type 3 BPH with obstruction/lower urinary tract symptoms Loss of protective sensation of skin of foot Constipation Left knee DJD Fall (Acute) Low back pain (Acute) Type 2 diabetes mellitus BPH loc w urin obs/LUTS Status post total right knee replacement Postural dizziness Gout attack Hypomagnesemia Hypothyroidism Foot deformity Diabetic peripheral neuropathy associated with type 2 diabetes mellitus Personal history of diabetic foot ulcer Tinea pedis Uncontrolled type 2 diabetes mellitus with neurologic complication, with long- term current use of insulin Obesity Right knee DJD Antiplatelet or antithrombotic long-term use PT'S REPORTS JUST ASPIRIN Vitamin D deficiency Anemia Attention or concentration deficit CKD (chronic kidney disease), stage III Cor pulmonale Dilated cardiomyopathy Per 12/23 cardio note, "Most recent echo with low normal LV systolic function. No current signs or symptoms of pulmonary vascular congestion." Dyslipidemia Erectile dysfunction Lumbosacral radiculopathy at L5 Obstructive sleep apnea CPAP Restrictive lung disease RARE RES. INH USE> WELL CONTROLLED Secondary hyperparathyroidism Sensorineural hearing loss (SNHL) of both ears Acquired claw toe of left foot Acquired claw toe of right foot Acquired hallux valgus of right foot Hypertension Mild asthma Does not use Albuterol, has just in case Chronic back pain History of thyroidectomy Medical History UTI symptoms Aspiration pneumonitis Acute respiratory failure with hypoxia Acute dyspnea Elevated troponin Multifocal pneumonia Acute hypoxemic respiratory failure HFrEF (heart failure with reduced ejection fraction) Risk for falls Mitral regurgitation Acute CVA (cerebrovascular accident) Diabetes mellitus type 2, uncontrolled Injury of cervical spine Fracture of T7 vertebra Personal history of diabetic foot ulcer No open wounds currently, skin being monitored by multiple specialties. Postural dizziness Hx, no issues with currently. Hx of thyroid cancer WITH REMOVAL NO CHEMO Spinal stenosis Diabetes type 2, uncontrolled Gout Benign prostatic hyperplasia Type 2 diabetes mellitus with diabetic neuropathy Surgical History Hx of bilateral cataract extraction History of colonoscopy History of tooth extraction History of tonsillectomy History of cardiac cath [place] MANY YEARS AGO> NO STENTS H/O: knee surgery RIGHT Family History Father Myocardial infarction Hypertension Sister Coronary heart disease Hypertension Brother Hypertension Thyroid cancer Mother Pulmonary embolism Grandmother (Maternal) Stroke Other CHF (congestive heart failure) Denies family history of Ovarian cancer Prostate cancer Breast cancer Colorectal cancer Social History Smoking Status: Never smoker Second Hand Exposure: No; Do You Dip or Chew Tobacco: No; Hx Alcohol Use: No Hx Substance Use: No Preferred Language: Kazakh Communication Ability: Effective Visual Impairment: No Limitations Hearing Ability: Normal Screen Printing 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 Required: No Beliefs That Will Affect Care: None marital status: Current Living Situation: Spouse current occupational status: retired Feels Safe at Home: Yes Childhood Exposure to Second-Hand Smoke: Yes (Uncle and Aunts) Physical Activity Frequency: Does not Exercise Seatbelt Use: always Assistive Devices: Walker and Other Allergies Allergies Allergy/AdvReac Type Severity Reaction Status Date / Time Penicillins Allergy Unknown HAPPENED Verified 07/22/25 15:09 A CHILD--RASH lactose AdvReac Intermediate Gastrointestinal Verified 07/22/25 15:09 Upset Home Meds Home Medications Medication Instructions Recorded Confirmed magnesium oxide 400 mg PO PM 05/28/19 07/22/25 cholecalciferol (vitamin D3) 50 2,000 unit PO QAM 12/25/19 07/22/25 mcg (2,000 unit) tablet (Vitamin D3) blood sugar diagnostic (Contour 03/28/23 07/22/25 Next Test Strips) aspirin 81 mg tablet,delayed 81 mg PO QAM 05/03/23 07/22/25 release (Adult Low Dose Aspirin) albuterol sulfate 90 mcg/actuation 2 puff inhalation Q6H PRN 01/07/25 07/22/25 aerosol inhaler Shortness Of Breath Or Wheezing venlafaxine 150 mg 150 mg PO DAILY 02/27/25 07/22/25 capsule,extended release 24 hr venlafaxine 75 mg capsule,extended 75 mg PO DAILY 02/27/25 07/22/25 release 24 hr vit C 250 mg-vit E 90 mg-zinc 40 1 tab PO BID 02/27/25 07/22/25 mg-copper 1 bd-noehoi-rspwrl capsule (PreserVision AREDS-2) blood-glucose sensor (Dexcom G7 03/30/25 07/22/25 Sensor device) insulin lispro 100 unit/mL 0 sliding scale dose subcut 04/07/25 07/22/25 subcutaneous pen (Admelog SoloStar USEASDIRECTD U-) insulin glargine-yfgn 100 unit/mL 12 unit subcut DAILY 06/30/25 07/22/25 (3 mL) subcutaneous pen (Semglee (insulin glargine-yfgn) Pen) Previous Rx's Medication Instructions Recorded CPAP Machine #1 ea 02/15/22 clotrimazole 1 % topical cream 1 applic topical BID PRN Rash #90 10/07/24 grams atorvastatin 40 mg tablet (Lipitor) 40 mg PO PM #90 tabs 11/18/24 febuxostat 80 mg tablet (Uloric) 80 mg PO QAM #90 tabs 11/18/24 desloratadine 5 mg tablet 5 mg PO DAILY PRN allergies #90 11/26/24 (Clarinex) tabs silodosin 8 mg capsule (Rapaflo) 8 mg PO DAILY #90 caps 12/16/24 albuterol sulfate 1.25 mg/3 mL 1.25 mg (3 mL) inhalation QID PRN 02/19/25 solution for nebulization shortness of breath or wheezing #90 mL pen needle, diabetic 32 gauge x #300 ea 03/30/25" ketoconazole 2 % topical cream 1 applic topical BID #60 grams 06/24/25 carvedilol 12.5 mg tablet 12.5 mg PO BID #30 tabs 06/26/25 silodosin 8 mg capsule 8 mg PO DAILY #30 caps 07/07/25 gabapentin 100 mg capsule 100 mg PO DAILY #30 caps 07/22/25 sacubitril 49 mg-valsartan 51 mg 0.5 tab PO BID #45 tabs 07/27/25 tablet (Entresto) levothyroxine 150 mcg tablet 150 mcg PO DAILYBB #90 tabs 08/14/25 Results & Data (ED) Vital Signs Vital Signs - 24 hr 08/18/25 09:56 08/18/25 10:08 08/18/25 10:13 Temperature 36.3 C L Temperature Source Oral Pulse Rate 78 76 Pulse Rate [Apical] 70 Pulse Rate from SpO2 Sensor Pulse Rhythm Regular Pulse Rhythm [Apical] Regular Pulse Strength Normal Pulse Strength [Apical] Normal Respiratory Rate 12 18 Respiratory Effort / Characteristics Non-Labored Spontaneous Non-Labored Spontaneous Respiratory Depth Normal Normal Respiratory Pattern Regular Regular Blood Pressure 139/84 Blood Pressure [Right Arm] 113/70 Blood Pressure Mean 102 Blood Pressure Mean [Right Arm] 84 Pulse Oximetry 98 98 Oxygen Delivery Method Room Air Room Air Sepsis Recent Fever Within 48 Hours No Sepsis New/Unexplained Change in Mental Status No Sepsis Action Taken by Nursing No Action Required 08/18/25 11:30 08/18/25 13:00 08/18/25 13:42 Temperature Temperature Source Pulse Rate 76 75 79 Pulse Rate [Apical] Pulse Rate from SpO2 Sensor 75 74 Pulse Rhythm Pulse Rhythm [Apical] Pulse Strength Pulse Strength [Apical] Respiratory Rate 18 15 12 Respiratory Effort / Characteristics Respiratory Depth Respiratory Pattern Blood Pressure 124/85 142/96 H 144/82 H Blood Pressure [Right Arm] Blood Pressure Mean 108 111 102 Blood Pressure Mean [Right Arm] Pulse Oximetry 98 98 Oxygen Delivery Method Sepsis Recent Fever Within 48 Hours Sepsis New/Unexplained Change in Mental Status Sepsis Action Taken by Nursing 08/18/25 14:00 Temperature Temperature Source Pulse Rate 75 Pulse Rate [Apical] Pulse Rate from SpO2 Sensor Pulse Rhythm Pulse Rhythm [Apical] Pulse Strength Pulse Strength [Apical] Respiratory Rate 22 Respiratory Effort / Characteristics Respiratory Depth Respiratory Pattern Blood Pressure 132/74 Blood Pressure [Right Arm] Blood Pressure Mean 93 Blood Pressure Mean [Right Arm] Pulse Oximetry Oxygen Delivery Method Sepsis Recent Fever Within 48 Hours Sepsis New/Unexplained Change in Mental Status Sepsis Action Taken by [facility] Medications Current Medication List: was personally reviewed by me Laboratory Data Attestation: I reviewed the patient's lab results. 08/18/25 10:17 08/18/25 10:17 Lab Results 08/18/25 08/18/25 08/18/25 Range/Units 10:17 10:22 10:31 WBC 7.42 (4.8-10.8) K/ul RBC 3.68 L (4.70-6.10) M/uL Hgb 12.3 L (14.0-18.0) g/dl POC Hgb 11.6 L (14.0-18.0) g/dl Hct 35.4 L (42.0-52.0) % POC Hct 34 L (42-52) % MCV 96.2 (80.0-100.0) fL MCH 33.4 (25.0-34.0) pg MCHC 34.7 (32.0-36.0) g/dL RDW Std Deviation 44.6 (36.4-46.3) fL RDW Coeff of [place] 12.7 (11.5-14.5) % Plt Count 151 (130-400) K/uL MPV 10.4 (9.4-12.4) fL Immature Gran % (Auto) 0.4 % Neut % (Auto) 65.8 % Lymph % (Auto) 22.4 % [place] % (Auto) 8.2 % Eos % (Auto) 2.7 % Baso % (Auto) 0.5 % Neut # (Auto) 4.88 (1.40-6.50) K/uL Lymph # (Auto) 1.66 (1.20-3.40) K/uL [place] # (Auto) 0.61 H (0.11-0.59) K/uL Eos # (Auto) 0.20 (0.00-0.50) K/uL Baso # (Auto) 0.04 (0.00-0.20) K/uL Immature Gran # (Auto) 0.03 (0.01-0.20) K/uL PT 10.7 (9.0-12.0) Seconds INR 1.0 (0.9-1.1) APTT 23 (21-31) Seconds PTT Ratio 0.8 POC Sodium 141 (135-144) mmol/L Sodium 140 (136-145) mmol/L POC Potassium 4.2 (3.3-5.0) mmol/L Potassium 4.1 (3.5-5.1) mmol/L POC Chloride 100 L (101-112) mmol/L Chloride 103 (98-107) mmol/L Carbon Dioxide 31 (21-32) mmol/L POC Total CO2 27 (24-31) mmol/L Anion Gap 6 (3-11) POC Anion Gap 19.0 (16-25) mmol/L POC BUN 26 H (7-18) mg/dl BUN 25 H (6-23) mg/dl Creatinine 1.57 H (0.6-1.4) mg/dl POC Creatinine 1.6 H (0.6-1.3) mg/dl Est Cr Clr Drug Dosing 41.5 ml/min eGFR 43.46 BUN/Creatinine Ratio 15.9 (10-20) Glucose 127 H (70-99(Fasting)) mg/dl POC Glucose 118 H (70-99) mg/dl POC Glucose (other) 123 H (70-99) mg/dl Calcium 9.1 (8.6-10.3) mg/dl POC Ioniz Calcium Lizette 1.19 (1.12-1.32) mmol/l Magnesium 1.9 (1.7-2.4) mg/dl Total Bilirubin 0.6 (0.2-1.0) mg/dl AST 18 (13-39) U/L ALT 16 (7-52) U/L Alkaline Phosphatase 103 (34-104) U/L Troponin I High Sens 12.5 (0-20) pg/ml Total Protein 6.5 (6.0-8.3) gm/dl Albumin 3.5 (3.4-5.0) gm/dl Globulin 3.0 (2.5-4.0) gm/dl Albumin/Globulin Ratio 1.2 (0.9-2) Urine Color Urine Appearance (Clear) Urine pH (4.5-7.5) Ur Specific [place] (1.000-1.030) Urine Protein (Negative) Urine Glucose (UA) (Negative) Urine Ketones (Negative) Urine Blood (Negative) Urine Nitrite (Negative) Urine Bilirubin (Negative) Urine Urobilinogen (Negative) Ur Leukocyte Esterase (Negative) Urine Comment 08/18/25 Range/Units 11:08 WBC (4.8-10.8) K/ul RBC (4.70-6.10) M/uL Hgb (14.0-18.0) g/dl POC Hgb (14.0-18.0) g/dl Hct (42.0-52.0) % POC Hct (42-52) % MCV (80.0-100.0) fL MCH (25.0-34.0) pg MCHC (32.0-36.0) g/dL RDW Std Deviation (36.4-46.3) fL RDW Coeff of Shelby (11.5-14.5) % Plt Count (130-400) K/uL MPV (9.4-12.4) fL Immature Gran % (Auto) % Neut % (Auto) % Lymph % (Auto) % [place] % (Auto) % Eos % (Auto) % Baso % (Auto) % Neut # (Auto) (1.40-6.50) K/uL Lymph # (Auto) (1.20-3.40) K/uL [place] # (Auto) (0.11-0.59) K/uL Eos # (Auto) (0.00-0.50) K/uL Baso # (Auto) (0.00-0.20) K/uL Immature Gran # (Auto) (0.01-0.20) K/uL PT (9.0-12.0) Seconds INR (0.9-1.1) APTT (21-31) Seconds PTT Ratio POC Sodium (135-144) mmol/L Sodium (136-145) mmol/L POC Potassium (3.3-5.0) mmol/L Potassium (3.5-5.1) mmol/L POC Chloride (101-112) mmol/L Chloride (98-107) mmol/L Carbon Dioxide (21-32) mmol/L POC Total CO2 (24-31) mmol/L Anion Gap (3-11) POC Anion Gap (16-25) mmol/L POC BUN (7-18) mg/dl BUN (6-23) mg/dl Creatinine (0.6-1.4) mg/dl POC Creatinine (0.6-1.3) mg/dl Est Cr Clr Drug Dosing ml/min eGFR BUN/Creatinine Ratio (10-20) Glucose (70-99(Fasting)) mg/dl POC Glucose (70-99) mg/dl POC Glucose (other) (70-99) mg/dl Calcium (8.6-10.3) mg/dl POC Ioniz Calcium Lizette (1.12-1.32) mmol/l Magnesium (1.7-2.4) mg/dl Total Bilirubin (0.2-1.0) mg/dl AST (13-39) U/L ALT (7-52) U/L Alkaline Phosphatase (34-104) U/L Troponin I High Sens (0-20) pg/ml Total Protein (6.0-8.3) gm/dl Albumin (3.4-5.0) gm/dl Globulin (2.5-4.0) gm/dl Albumin/Globulin Ratio (0.9-2) Urine Color Yellow Urine Appearance Slightly Cloudy (Clear) Urine pH 7.0 (4.5-7.5) Ur Specific [place] 1.015 (1.000-1.030) Urine Protein Negative (Negative) Urine Glucose (UA) Negative (Negative) Urine Ketones Negative (Negative) Urine Blood Negative (Negative) Urine Nitrite Negative (Negative) Urine Bilirubin Negative (Negative) Urine Urobilinogen Negative (Negative) Ur Leukocyte Esterase Negative (Negative) Urine Comment Administered Medications Discontinued Medications Aspirin (Aspirin 81 Mg Ectab) 81 mg PO NOW STA Stop: 08/18/25 13:46 Last Admin: 08/18/25 14:09 Dose: 81 mg Documented By: MR Ioversol (Optiray 320 125ml) 120 ml IV ONCE ONE Stop: 08/18/25 10:55 Last Admin: 08/18/25 10:55 Dose: 120 ml Documented By: BANDAR Imaging Data Attestation: I personally reviewed and interpreted this imaging study as follows: My Impression: 1 view chest x-ray was obtained in the emergency department. My interpretation is no free air or definite infiltrate, final report below. Radiologist's Impression: Chest X-Ray 08/18/25 10:08 XR chest 1V portable HISTORY: 85 years-old Male neuro deficit, acute stroke suspected acute stroke like symptoms COMPARISON: Chest radiograph 06/24/2025 TECHNIQUE: AP view of the chest FINDINGS: Cardiomediastinal and hilar silhouettes are unchanged. No pneumothorax, pleural effusion, airspace consolidation or pulmonary edema. Degenerative changes of the shoulders and spine. Surgical clips project over the lower neck. IMPRESSION: No acute process. ACT 112: Negative or not required by law. The above report was generated using voice recognition software. It may contain grammatical, syntax or spelling errors. Electronically signed by: Allen Staley M.D. 08/18/2025 10:[address] 08/18/25 10:08 CT SCAN OF THE BRAIN WITHOUT IV CONTRAST CLINICAL HISTORY: Neurological deficit. Stroke like symptoms. COMPARISON STUDY: CT of the brain dated 10/24/2024 TECHNIQUE: Unenhanced CT scan of the brain is performed from the vertex to the skull base. Images are reviewed in the axial, sagittal, coronal planes. A dose lowering technique was utilized adhering to the principles of ALARA. FINDINGS: Brain parenchyma: There is age-related involutional change noting moderate to advanced confluent subcortical and periventricular microangiopathic disease. There is no hemorrhage, mass effect, or evidence of acute territorial ischemia by CT criteria. Calvert-white matter differentiation is preserved. No extra-axial fluid collection is seen. Ventricles, sulci, cisterns: Prominent secondary to involutional change. Intracranial vasculature: There is atherosclerotic calcification of the cavernous carotid arteries. Calvarium: Unremarkable. Sinuses and mastoids: There is trace mucosal thickening in the left maxillary antrum. The paranasal sinuses are otherwise clear. There is a small right mastoid effusion. The left mastoid air cells are well pneumatized. Orbits: The bony orbits are grossly intact. There are bilateral ocular lens implants. IMPRESSION: There is no hemorrhage, mass effect, or evidence of acute territorial ischemia by CT criteria. ACT 112: Negative or not required by law. Electronically signed by: Yunier Lu M.D. 08/18/2025 11:08 AM Head CTA 08/18/25 10:08 CT angio head w con CLINICAL HISTORY: 85 years-old Male with neuro deficit, acute stroke suspected. Acute stroke like symptoms COMPARISON STUDY: Head CT same day TECHNIQUE: Following the IV administration of 120 cc of Optiray, CT angiogram of the brain was performed from the skull base to the vertex. Images are reviewed in the axial, sagittal, and coronal planes. 3-D MIPS images are created and assessed. IV contrast was administered without complication. All measurements were obtained according to NASCET criteria. A dose lowering technique was utilized adhering to the principles of ALARA. FINDINGS: CT BRAIN: Dictated separately. Involutional changes with chronic microvascular ischemic disease CT ANGIOGRAM OF THE BRAIN: The imaged bilateral internal carotid arteries are patent. The bilateral anterior and middle cerebral arteries are also patent. The vertebrobasilar system and posterior cerebral arteries are widely patent. There is no aneurysm, high-grade stenosis, or proximal branch occlusion identified. Dural sinuses appear patent. IMPRESSION: Unremarkable CTA of the head. ACT 112: Negative or not required by law. The above report was generated using voice recognition software. It may contain grammatical, syntax or spelling errors. Electronically signed by: Allen Staley M.D. 08/18/2025 11:15 AM Neck CTA 08/18/25 10:08 CT ANGIOGRAPHY OF THE NECK WITH CONTRAST CLINICAL HISTORY: neuro deficit, acute stroke suspected COMPARISON STUDY: No previous studies for comparison. Technique: CT angiography of the carotid and vertebral arteries was obtained using Optiray and 3D reconstruction on an independent workstation. NASCET criteria was utilized. Automated exposure control was utilized for the study. A dose lowering technique was utilized adhering to the principles of ALARA. CT DOSE: 1207.56 mGy.cm Findings: The visualized portions lung apices are unremarkable. The patient appears be status post a prior thyroidectomy. There is no pathologic cervical lymphadenopathy. There is no evidence of vertebral artery occlusion or dissection. There is a 40% narrowing of the right vertebral artery at the C4 level secondary to degenerative changes within the cervical spine. There is no evidence of carotid artery occlusion dissection or hemodynamically significant stenosis. IMPRESSION: No evidence of hemodynamically significant carotid or vertebral artery stenosis. No evidence of carotid or vertebral artery occlusion or dissection. ACT 112: Negative or not required by law. Electronically signed by: Jet Rivero M.D. 08/18/2025 11:12 AM Discharge Plan Visit Data Chief Complaint: TIA Symptoms Stated Complaint: BLURRED VISION, R LEG HEAVINESS ED Provider: Tien Hussein Discharge Problem: Stroke-like symptom, Diplopia Patient Disposition: Admitted As Inpatient Condition: Fair Discharge Instructions Interventions: ED Discharge Assessment Last Done: 08/18/25 13:44 Forms Stand Alone Forms: My [facility] Prescriptions Prescriptions: No Action atorvastatin [Lipitor] 40 mg tablet 40 mg PO PM Qty: 90 3RF febuxostat [Uloric] 80 mg tablet 80 mg PO QAM Qty: 90 3RF desloratadine [Clarinex] 5 mg tablet 5 mg PO DAILY PRN (Reason: allergies) Qty: 90 3RF Patient Comments: 06/24- last filled 11/29/24 30 day supply silodosin [Rapaflo] 8 mg capsule 8 mg PO DAILY Qty: 90 3RF Rx Instructions: must administer with a meal/food albuterol sulfate 1.25 mg/3 mL solution for nebulization 1.25 mg inhalation QID PRN (Reason: shortness of breath or wheezing) Qty: 90 2RF Patient Comments: 06/24- last filled 02/21 7 day supply ketoconazole 2 % cream 1 applic topical BID Qty: 60 1RF sacubitril-valsartan [Entresto] 49-51 mg tablet 0.5 tab PO BID Qty: 45 3RF levothyroxine 150 mcg tablet 150 mcg PO DAILYBB Qty: 90 1RF (DME) CPAP Machine Misc See Dose Instructions .ROUTE .MEDSUPPLY Qty: 1 0RF Rx Instructions: ASV EPAP 5-15, PS 5-18, max pressure 25, auto rate T&B aspirin [Adult Low Dose Aspirin] 81 mg tablet,delayed release (DR/EC) 81 mg PO QAM Patient Comments: 06/24- otc unable to verify (DME) Contour Next Test Strips Strip See Rx Instructions .ROUTE .MEDSUPPLY Rx Instructions: Test blood sugar once daily PRN-Dexcom (DME) Dexcom G7 Sensor Device See Rx Instructions .Route Rx Instructions: As directed (DME) pen needle, diabetic 32 gauge x 5/32" needle See Dose Instructions .ROUTE .MEDSUPPLY Qty: 300 3RF Rx Instructions: Inject insulin 3 times a day clotrimazole 1 % cream 1 applic TOP BID PRN (Reason: Rash) Qty: 90 0RF Patient Comments: 06/24- last filled 10/07/24 60 day supply Rx Instructions: apply to affected area of feet for 1 month insulin lispro [Admelog SoloStar U-100 Insulin] 100 unit/mL insulin pen 0 sliding scale dose subcut USEASDIRECTD Patient Comments: 06/24- last filled 10/23/24 30 day supply only doing 5 units with breakfast Rx Instructions: Subcut, per sliding scale, typically 4 units with breakfast; 0-2 units with lunch; 0-2 units with supper; MDD 12 units silodosin 8 mg capsule 8 mg PO DAILY Qty: 30 2RF Rx Instructions: must administer with a meal/food insulin glargine-yfgn [Semglee(insulin glarg-yfgn)Pen] 100 unit/mL (3 mL) insulin pen 12 unit subcut DAILY Patient Comments: 06/24- last filled 02/02 125 day supply. Original: 20u subcut daily 06/30-Per dc summary and patient is taking 12 units daily gabapentin 100 mg capsule 100 mg PO DAILY Qty: 30 2RF magnesium oxide 500 mg tablet 400 mg PO PM Patient Comments: 06/24- otc unable to verify cholecalciferol (vitamin D3) [Vitamin D3] 2,000 unit tablet 2,000 unit PO QAM Patient Comments: 06/24- otc unable to verify albuterol sulfate 90 mcg/actuation Hfa Aerosol Inhaler 2 puff INHALATION Q6H PRN (Reason: Shortness Of Breath Or Wheezing) Patient Comments: 06/24- no fill history unable to verify venlafaxine 75 mg capsule,extended release 24hr 75 mg PO DAILY Rx Instructions: TOTAL DOSE 225 MG--TAKES WITH 150 MG CAP. venlafaxine 150 mg capsule,extended release 24hr 150 mg PO DAILY Rx Instructions: TOTAL DOSE 225 MG--TAKES WITH 75 MG CAP. PreserVision AREDS-2 250-90-40-1 mg Capsule 1 tab PO BID Patient Comments: 06/24- otc unable to verify carvedilol 12.5 mg tablet 12.5 mg PO BID Qty: 30 0RF Rx Instructions: must administer with a meal/food Referrals Referrals: ProTien MD [Primary Care Provider] -
[2025-08-18 10:41] LABS: Hematocrit (blood only) 35.4 % (42.0-52.0); Hemoglobin 12.3 g/dl (14.0-18.0); Immature Granulocytes # (auto) 0.03 K/uL (0.01-0.20); Immature Granulocytes % (auto) 0.4 %; Mean Corpuscular Hemoglobin 33.4 pg (25.0-34.0); Mean Corpuscular Volume 96.2 fL (80.0-100.0); Platelet Count 151 K/uL (130-400); RDW Standard Deviation 44.6 fL (36.4-46.3); Red Blood Count 3.68 M/uL (4.70-6.10); White Blood Count 7.42 K/ul (4.8-10.8)
--- NOTE | 2025-08-18 10:52 | XRay Report ---
XR chest 1V portable HISTORY: 85 years-old Male neuro deficit, acute stroke suspected acute stroke like symptoms COMPARISON: Chest radiograph 06/24/2025 TECHNIQUE: AP view of the chest FINDINGS: Cardiomediastinal and hilar silhouettes are unchanged. No pneumothorax, pleural effusion, airspace co nsolidation or pulmonary edema. Degenerative changes of the shoulders and spine. Surgical clips proje ct over the lower neck. IMPRESSION: No acute process. ACT 112: Negative or not required by law. The above report was generated using voice recognition software. It may contain grammatical, syntax o r spelling errors. Electronically signed by: Allen Staley M.D. 08/18/2025 10:51 AM
[2025-08-18] MEDS: OPTIRAY 320 125ml IV ONE (10:55)
[2025-08-18 11:00] LABS: Alanine Aminotransferase 16.0 U/L (7-52); Albumin Globulin Ratio 1.2 (0.9-2); Albumin Level 3.5 gm/dl (3.4-5.0); Alkaline Phosphatase 103.0 U/L (34-104); Anion Gap 6.0 (3-11); Bilirubin,Total 0.6 mg/dl (0.2-1.0); Blood Urea Nitrogen 25.0 mg/dl (6-23); Calcium 9.1 mg/dl (8.6-10.3); Carbon Dioxide 31.0 mmol/L (21-32); Chloride 103.0 mmol/L (98-107); Creatinine Clr Calc Pharmacy 41.5 ml/min; Globulin 3.0 gm/dl (2.5-4.0); Glucose 127.0 mg/dl (70-99(Fasting)); Magnesium 1.9 mg/dl (1.7-2.4); Potassium 4.1 mmol/L (3.5-5.1); Sodium 140.0 mmol/L (136-145); Total Protein 6.5 gm/dl (6.0-8.3)
--- NOTE | 2025-08-18 11:09 | CT Scan Report ---
CT SCAN OF THE BRAIN WITHOUT IV CONTRAST CLINICAL HISTORY: Neurological deficit. Stroke like symptoms. COMPARISON STUDY: CT of the brain dated 10/24/2024 TECHNIQUE: Unenhanced CT scan of the brain is performed from the vertex to the skull base. Images are reviewed in the axial, sagittal, coronal planes. A dose lowering technique was utilized adhering to the principles of ALARA. FINDINGS: Brain parenchyma: There is age-related involutional change noting moderate to advanced confluent subc ortical and periventricular microangiopathic disease. There is no hemorrhage, mass effect, or evidenc e of acute territorial ischemia by CT criteria. Calvert-white matter differentiation is preserved. No ex tra-axial fluid collection is seen. Ventricles, sulci, cisterns: Prominent secondary to involutional change. Intracranial vasculature: There is atherosclerotic calcification of the cavernous carotid arteries. Calvarium: Unremarkable. Sinuses and mastoids: There is trace mucosal thickening in the left maxillary antrum. The paranasal s inuses are otherwise clear. There is a small right mastoid effusion. The left mastoid air cells are w ell pneumatized. Orbits: The bony orbits are grossly intact. There are bilateral ocular lens implants. IMPRESSION: There is no hemorrhage, mass effect, or evidence of acute territorial ischemia by CT manuel tinoco. ACT 112: Negative or not required by law. Electronically signed by: Yunier Lu M.D. 08/18/2025 11:08 AM
[2025-08-18 11:11] LABS: INR 1.0 (0.9-1.1); Partial Thromboplastin Time 23 Seconds (21-31); Prothrombin Time 10.7 Seconds (9.0-12.0)
--- NOTE | 2025-08-18 11:15 | CT Scan Report ---
CT ANGIOGRAPHY OF THE NECK WITH CONTRAST CLINICAL HISTORY: neuro deficit, acute stroke suspected COMPARISON STUDY: No previous studies for comparison. Technique: CT angiography of the carotid and vertebral arteries was obtained using Optiray and 3D rec onstruction on an independent workstation. NASCET criteria was utilized. Automated exposure control was utilized for the study. A dose lowering technique was utilized adhering to the principles of ALA RA. CT DOSE: 1207.56 mGy.cm Findings: The visualized portions lung apices are unremarkable. The patient appears be status post a prior thyroidectomy. There is no pathologic cervical lymphadenopathy. There is no evidence of vertebral artery occlusion or dissection. There is a 40% narrowing of the rig ht vertebral artery at the C4 level secondary to degenerative changes within the cervical spine. There is no evidence of carotid artery occlusion dissection or hemodynamically significant stenosis. IMPRESSION: No evidence of hemodynamically significant carotid or vertebral artery stenosis. No evidence of carot id or vertebral artery occlusion or dissection. ACT 112: Negative or not required by law. Electronically signed by: Jet Rivero M.D. 08/18/2025 11:12 AM
--- NOTE | 2025-08-18 11:16 | CT Scan Report ---
CT angio head w con CLINICAL HISTORY: 85 years-old Male with neuro deficit, acute stroke suspected. Acute stroke like symptoms COMPARISON STUDY: Head CT same day TECHNIQUE: Following the IV administration of 120 cc of Optiray, CT angiogram of the brain was perfor med from the skull base to the vertex. Images are reviewed in the axial, sagittal, and coronal planes . 3-D MIPS images are created and assessed. IV contrast was administered without complication. All me asurements were obtained according to NASCET criteria. A dose lowering technique was utilized adherin g to the principles of ALARA. FINDINGS: CT BRAIN: Dictated separately. Involutional changes with chronic microvascular ischemic disease CT ANGIOGRAM OF THE BRAIN: The imaged bilateral internal carotid arteries are patent. The bilateral anterior and middle cerebral arteries are also patent. The vertebrobasilar system and posterior cerebral arteries are widely wynn nt. There is no aneurysm, high-grade stenosis, or proximal branch occlusion identified. Dural sinuses appear patent. IMPRESSION: Unremarkable CTA of the head. ACT 112: Negative or not required by law. The above report was generated using voice recognition software. It may contain grammatical, syntax o r spelling errors. Electronically signed by: Allen Staley M.D. 08/18/2025 11:15 AM
[2025-08-18 11:32] LABS: Appearance Urine Slightly Cloudy (Clear); Glucose Urine UA Negative (Negative)
--- NOTE | 2025-08-18 12:02 | History & Physical Report ---
Date of Service August 18, 2025 Assessment & Plan (1) Diplopia: (2) Right sided weakness: (3) Paroxysmal atrial fibrillation: (4) (HFpEF) heart failure with preserved ejection fraction: Plan This patient is an 85-year-old male with a history of PAF no longer on anticoagulation due to history of falls with subdural hematoma x 2, multiple falls, chronic HFrEF, HTN, CKD stage III, BPH, DM 2, thyroid cancer s/p thyroidectomy, CVA, CAROLANN on CPAP, MDD, chronic constipation who presents to the ED with blurry and occasional double vision over the last 3 to 4 days as well as intermittent right acute on chronic heaviness. He has previous right sided weakness from old stroke.. He did have a fall 3 days prior where he slid down and hit the back of his head on a closet but that was after his blurry vision had started. He did have a moderate in severity headache on the evening of 1 0/20 but this resolved on its own. Denies nausea/vomiting, no abdominal pain/constipation/diarrhea. His reports his blood sugars have been much more elevated over the last month since his insulin dose was lowered on a previous discharge. They have been in the 280s-290s but never greater than 300. In the ED, he had laboratory workup which was at his baseline as far as his CKD stage III and chronic mild anemia, but otherwise normal including a normal troponin. He had a CT of the head which was negative and a CT angiogram of the head and neck which were negative. Due to the symptoms being present for several days, he is not a TNKase candidate. He will be admitted for further workup for stroke. #Diplopia/blurry vision/right-sided weakness/history of CVA-he certainly has risk factors for stroke given that he has PAF and is not on anticoagulation and has a history of stroke, HTN, and longstanding DM 2. CT head negative, CTA head and neck negative for LVO or aneurysm. No abnormalities or focal deficits on examination at the time of admission. Certainly could be occipital stroke versus primary ocular issue although would be strange to be occurring in both eyes if related to retinal issue. No evidence of a red or painful eye that would indicate an issue with glaucoma. His blood sugars have been elevated in the high 200s at home over the last few weeks-perhaps the blurry vision is related to this? - Admit to PCU for arrhythmia monitoring - Follow NIH stroke scale every shift, neurochecks every 2 hours -Continue aspirin, high intensity statin - Check HgbA1c, lipid panel - Check MRI of the brain with and without contrast - Check echo for thrombus - Consult neurology for further evaluation - PT/OT/speech therapy consulted - He has an appointment scheduled with his dog bather on 08/21 that he should keep for after discharge #PAF not on anticoagulation secondary to falls with history of SDH-currently in sinus rhythm - Monitor on telemetry - If found to have a stroke, would definitely need to have discussion of risk versus benefit of restarting anticoagulation versus going for Watchman procedure - Keep electrolytes replete-monitor BMP, magnesium #Chronic HFrEF/HTN-currently euvolemic and blood pressures are fairly normal to mildly elevated over his usual. EF persistently 30-35% and follows with CHF clinic. Is still debating about whether or not to have ICD placed - Permissive hypertension-hold home Entresto for now - Okay to continue carvedilol with hold parameters #CKD stage III/BPH-creatinine around baseline at 1.5. No current issues with urinary retention and follows with urology as well as nephrology - Follow BMP - Avoid nephrotoxins and really dose medications-he did receive IV contrast dye for CTAs and MRI contrast dye however would avoid IV fluids in the setting of heart failure - Continue Rapaflo-can be brought from home #DM 2 with neuropathy-with hyperglycemia lately at home as his insulin dose was decreased last admission - Accu-Cheks AC and at bedtime - Continue Lantus 12 units and NovoLog sliding scale-adjust as needed - Check HgbA1c in the a.m. - Continue gabapentin 100 mg p.o. at bedtime #Chronic normocytic anemia-Hgb mildly low at 12.3, normocytic, likely secondary to chronic kidney disease - Check iron studies, B12, folate in the morning #Thyroid cancer s/p thyroidectomy-recent TSH was normal - Continue home levothyroxine #CAROLANN on CPAP-bring home CPAP in #MDD-no acute issues but patient has a very flat affect and patient's reports that he is acting more withdrawn lately - Continue home venlafaxine #Chronic constipation with overflow incontinence-this was a previous issue which is now resolved - Monitor for constipation DVT prophylaxis-heparin SQ, SCDs Disposition-admit to PCU, PT/OT evals placed History of Present Illness Chief Complaint: Blurry vision, right sided weakness Primary Care Provider: Tien Jeter MD This patient is an 85-year-old male with a history of PAF no longer on anticoagulation due to history of falls with subdural hematoma x 2, multiple falls, chronic HFrEF, HTN, CKD stage III, BPH, DM 2, thyroid cancer s/p thyroidectomy, CVA, CAROLANN on CPAP, MDD, chronic constipation who presents to the ED with blurry and occasional double vision over the last 3 to 4 days as well as intermittent right acute on chronic heaviness. He has previous right sided weakness from old stroke.. He did have a fall 3 days prior where he slid down and hit the back of his head on a closet but that was after his blurry vision had started. He did have a moderate in severity headache on the evening of 08/17 but this resolved on its own. Denies nausea/vomiting, no abdominal pain/constipation/diarrhea. His reports his blood sugars have been much more elevated over the last month since his insulin dose was lowered on a previous discharge. They have been in the 280s-290s but never greater than 300. In the ED, he had laboratory workup which was at his baseline as far as his CKD stage III and chronic mild anemia, but otherwise normal including a normal troponin. He had a CT of the head which was negative and a CT angiogram of the head and neck which were negative. Due to the symptoms being present for several days, he is not a TNKase candidate. He will be admitted for further workup for stroke. Allergies Allergy/AdvReac Type Severity Reaction Status Date / Time Penicillins Allergy Unknown HAPPENED Verified 07/22/25 15:09 A CHILD--RASH lactose AdvReac Intermediate Gastrointestinal Verified 07/22/25 15:09 Upset Home Medications Medication Instructions Recorded Confirmed Type magnesium oxide 400 mg PO PM 05/28/19 07/22/25 History cholecalciferol (vitamin D3) 50 2,000 unit PO QAM 12/25/19 07/22/25 History mcg (2,000 unit) tablet (Vitamin D3) CPAP Machine #1 ea 02/15/22 07/22/25 Rx blood sugar diagnostic (Contour 03/28/23 07/22/25 History Next Test Strips) aspirin 81 mg tablet,delayed 81 mg PO QAM 05/03/23 07/22/25 History release (Adult Low Dose Aspirin) clotrimazole 1 % topical cream 1 applic topical BID PRN Rash #90 10/07/24 07/22/25 Rx grams atorvastatin 40 mg tablet (Lipitor) 40 mg PO PM #90 tabs 11/18/24 07/22/25 Rx febuxostat 80 mg tablet (Uloric) 80 mg PO QAM #90 tabs 11/18/24 07/22/25 Rx desloratadine 5 mg tablet 5 mg PO DAILY PRN allergies #90 11/26/24 07/22/25 Rx (Clarinex) tabs silodosin 8 mg capsule (Rapaflo) 8 mg PO DAILY #90 caps 12/16/24 07/22/25 Rx albuterol sulfate 90 mcg/actuation 2 puff inhalation Q6H PRN 01/07/25 07/22/25 History aerosol inhaler Shortness Of Breath Or Wheezing albuterol sulfate 1.25 mg/3 mL 1.25 mg (3 mL) inhalation QID PRN 02/19/25 07/22/25 Rx solution for nebulization shortness of breath or wheezing #90 mL venlafaxine 150 mg 150 mg PO DAILY 02/27/25 07/22/25 History capsule,extended release 24 hr venlafaxine 75 mg capsule,extended 75 mg PO DAILY 02/27/25 07/22/25 History release 24 hr vit C 250 mg-vit E 90 mg-zinc 40 1 tab PO BID 02/27/25 07/22/25 History mg-copper 1 [id number] capsule (PreserVision AREDS-2) blood-glucose sensor (Dexcom G7 03/30/25 07/22/25 History Sensor device) pen needle, diabetic 32 gauge x #300 ea 03/30/25 07/22/25 Rx 5/32" insulin lispro 100 unit/mL 0 sliding scale dose subcut 04/07/25 07/22/25 History subcutaneous pen (Admelog SoloStar USEASDIRECTD U-) ketoconazole 2 % topical cream 1 applic topical BID #60 grams 06/24/25 07/22/25 Rx carvedilol 12.5 mg tablet 12.5 mg PO BID #30 tabs 06/26/25 07/22/25 Rx insulin glargine-yfgn 100 unit/mL 12 unit subcut DAILY 06/30/25 07/22/25 History (3 mL) subcutaneous pen (Semglee (insulin glargine-yfgn) Pen) silodosin 8 mg capsule 8 mg PO DAILY #30 caps 07/07/25 07/22/25 Rx gabapentin 100 mg capsule 100 mg PO DAILY #30 caps 07/22/25 07/22/25 Rx sacubitril 49 mg-valsartan 51 mg 0.5 tab PO BID #45 tabs 07/27/25 Rx tablet (Entresto) levothyroxine 150 mcg tablet 150 mcg PO DAILYBB #90 tabs 08/14/25 Rx Past Med/Surg History Problem List Right sided weakness Diplopia History of vertebral fracture T7. 2020 CKD (chronic kidney disease) Renal cyst Elevated PSA Failure to thrive in adult CRF (chronic renal failure) (Acute) Weakness (Acute) Acute hyperkalemia (Acute) Hypotension (Acute) Bradycardia (Acute) CAROLANN (obstructive sleep apnea) (Acute) WASHBURN (dyspnea on exertion) (Acute) (HFpEF) heart failure with preserved ejection fraction Paroxysmal atrial fibrillation Nonsustained ventricular tachycardia Nonsustained supraventricular tachycardia Bronchospasm CHF (congestive heart failure) (Acute) Abnormality of gait and mobility History of CVA with residual deficit Falls Bradycardia Pain of right calf (Acute) CHF (congestive heart failure) (Acute) Osteoarthritis Osteoarthritis of right shoulder Ischemic stroke 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), 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 Acromioclavicular joint separation, type 3 BPH with obstruction/lower urinary tract symptoms Loss of protective sensation of skin of foot Constipation Left knee DJD Fall (Acute) Low back pain (Acute) Type 2 diabetes mellitus BPH loc w urin obs/LUTS Status post total right knee replacement Postural dizziness Gout attack Hypomagnesemia Hypothyroidism Foot deformity Diabetic peripheral neuropathy associated with type 2 diabetes mellitus Personal history of diabetic foot ulcer Tinea pedis Uncontrolled type 2 diabetes mellitus with neurologic complication, with long- term current use of insulin Obesity Right knee DJD Antiplatelet or antithrombotic long-term use PT'S REPORTS JUST ASPIRIN Vitamin D deficiency Anemia Attention or concentration deficit CKD (chronic kidney disease), stage III Cor pulmonale Dilated cardiomyopathy Per 12/23 cardio note, "Most recent echo with low normal LV systolic function. No current signs or symptoms of pulmonary vascular congestion." Dyslipidemia Erectile dysfunction Lumbosacral radiculopathy at L5 Obstructive sleep apnea CPAP Restrictive lung disease RARE RES. INH USE> WELL CONTROLLED Secondary hyperparathyroidism Sensorineural hearing loss (SNHL) of both ears Acquired claw toe of left foot Acquired claw toe of right foot Acquired hallux valgus of right foot Hypertension Mild asthma Does not use Albuterol, has just in case Chronic back pain History of thyroidectomy Medical History UTI symptoms Aspiration pneumonitis Acute respiratory failure with hypoxia Acute dyspnea Elevated troponin Multifocal pneumonia Acute hypoxemic respiratory failure HFrEF (heart failure with reduced ejection fraction) Risk for falls Mitral regurgitation Acute CVA (cerebrovascular accident) Diabetes mellitus type 2, uncontrolled Injury of cervical spine Fracture of T7 vertebra Personal history of diabetic foot ulcer No open wounds currently, skin being monitored by multiple specialties. Postural dizziness Hx, no issues with currently. Hx of thyroid cancer WITH REMOVAL NO CHEMO Spinal stenosis Diabetes type 2, uncontrolled Gout Benign prostatic hyperplasia Type 2 diabetes mellitus with diabetic neuropathy Surgical History Hx of bilateral cataract extraction History of colonoscopy History of tooth extraction History of tonsillectomy History of cardiac cath [place] MANY YEARS AGO> NO STENTS H/O: knee surgery RIGHT Family History Father Myocardial infarction Hypertension Sister Coronary heart disease Hypertension Brother Hypertension Thyroid cancer Mother Pulmonary embolism Grandmother (Maternal) Stroke Other CHF (congestive heart failure) Denies family history of Ovarian cancer Prostate cancer Breast cancer Colorectal cancer Social History Smoking Status: Never smoker Second Hand Exposure: No; Do You Dip or Chew Tobacco: No; Hx Alcohol Use: No Hx Substance Use: No Preferred Language: Macanese Communication Ability: Effective Visual Impairment: No Limitations Hearing Ability: Normal Wire Temperer Required: No Beliefs That Will Affect Care: None marital status: Current Living Situation: Spouse current occupational status: retired Feels Safe at Home: Yes Childhood Exposure to Second-Hand Smoke: Yes (Uncle and Aunts) Physical Activity Frequency: Does not Exercise Seatbelt Use: always Assistive Devices: Walker and Other Review of Systems Review of Systems: All systems reviewed & are unremarkable except as noted in HPI & below Physical Exam Constitutional: WD/WN, vitals as above Eyes: PERRL, conjunctivae normal, anicteric sclerae normal visual cobos by confrontation and EOM intact bilaterally; no anisocoria and no nystagmus ENMT: external ear and nose normal, oropharynx normal Neck: trachea midline, no thyromegaly Respiratory: normal respiratory effort, lungs clear to auscultation Cardiovascular: RRR, no murmur, no edema Chest (Breasts): Chest: normal inspection of chest Gastrointestinal (Abdomen): normal bowel sounds, soft, nontender, no hepatosplenomegaly Musculoskeletal: Extremities: extremities normal to inspection; no cyanosis and no clubbing Skin: no rashes, warm and dry Neurologic: normal touch/pain/proprioception, CN's II-XI intact bilaterally, moves all extremities and awake; no focal motor deficits and not confused Speech / Cognition: normal speech, no expressive aphasia and no receptive aphasia Motor/Sensory: no tremor, no pronator drift and no sensory deficit Coordination: normal ithaxs-cr-drwq test, normal ydpw-sg-mopp test and normal rapid alternating movements Very flat affect Psychiatric: Orientation: alert, oriented x 3 and cooperative Affect: + flat affect Lymphatic: no lymphedema Results & Data Results & Data Vital Signs (Past 12 Hours) Vital Signs Temp Pulse Pulse Resp BP BP Pulse Ox 08/18/25 11:30 76 18 124/85 98 08/18/25 10:13 76 08/18/25 10:08 70 18 113/70 98 08/18/25 09:56 36.3 C L 78 12 139/84 98 O2 Del Method 08/18/25 11:30 08/18/25 10:13 08/18/25 10:08 Room Air 08/18/25 09:56 Room Air Laboratory Results CBC, PT/PTT/INR, CMP, magnesium, troponin, UA reviewed Diagnostic Findings CT head, CTA head and neck, and CXR all reviewed ECG Additional Comments: ECG on 08/18/2025 at 10:34 AM with sinus rhythm with PVCs and PACs, rate 72, incomplete LBBB, unchanged from previous Code Status & VTE Plan Code Status Full code VTE Prophylaxis Plan VTE Prophylaxis will be ordered: Yes PG Care Time/CCT Total # of Minutes Spent Total Time Spent with Patient: Total time spent is greater than 50% in coordination of care (as documented) at patient's floor/unit and/or counseling patient: Coding Level of Care Code 20243 INT INP/OBS CARE 3/75MIN Diagnoses Diplopia H53.2 Right sided weakness R53.1 Paroxysmal atrial fibrillation I48.0 (HFpEF) heart failure with preserved ejection fraction I50.30
[2025-08-18] MEDS: ASPIRIN 81 MG ECTAB PO STA (14:09)
[2025-08-18] MEDS: GADOBUTROL 65ML VIAL IV ONE (14:37)
[2025-08-18] MEDS ORDERED: GLUCAGON FOR INJ 1 MG VIAL SQ PRN (15:12)
[2025-08-18] MEDS ORDERED: ALBUTEROL HFA 8 GM INHALER INH PRN (15:12)
[2025-08-18] MEDS ORDERED: ACETAMINOPHEN 325 MG TAB PO PRN (15:12)
[2025-08-18] MEDS ORDERED: CARBOHYDRATES FOR HYPOGLYCEMIA PO PRN (15:12)
[2025-08-18] MEDS ORDERED: GLUCOSE 10 TAB/TUBE PO PRN (15:12)
[2025-08-18] MEDS ORDERED: PHARMACIST DISCHARGE MED REC CONSULT PRN (15:12)
[2025-08-18] MEDS ORDERED: DEXTROSE 50% 50 ML SYRINGE IV PRN (15:12)
[2025-08-18] MEDS ORDERED: GLUCOSE 40% GEL 15 GM TUBE PO PRN (15:12)
[2025-08-18] MEDS ORDERED: ONDANSETRON INJ 2 MG/ML 2 ML VIAL IV PRN (15:12)
--- NOTE | 2025-08-18 15:13 | Magnetic Resonance Report ---
MR brain wo/w con HISTORY: 85 years-old Male Diplopia, right sided weakness, assess for stroke acute stroke like sympt oms COMPARISON: CTA head of same day, brain MR 08/21/2024 TECHNIQUE: Multiplanar multisequence MRI of the brain was obtained with and without IV contrast. FINDINGS: Motion degraded exam. Chronic lacunar infarcts of the basal ganglia. No acute territorial infarcts id entified. There is a 5 mm focus of restricted diffusion within the left central aspect of the midbrai n on image 17 series 3 with intermediate signal on ADC map and increased T2/FLAIR signal. Midline str uctures are within normal limits. Degenerative changes of the cervical spine. No acute intracranial hemorrhage, midline shift, abnormal extra-axial collection, hydrocephalus or in tra-axial mass. Involutional changes with extensive T2/FLAIR hyperintense foci throughout the white m atter. Cerebral venous sinuses and major arterial flow voids appear patent. Skull and soft tissues ar e within normal limits. Prior bilateral lens repair. Mastoid air cells are clear. No significant para nasal sinus disease. No abnormal enhancement. IMPRESSION: 1. 5 mm acute lacunar infarct of the midbrain. 2. No acute or subacute territorial infarct. 3. Involutional changes with extensive chronic microvascular ischemic disease. 4. No abnormal enhancement. ACT 112: Negative or not required by law. The above report was generated using voice recognition software. It may contain grammatical, syntax o r spelling errors. Electronically signed by: Allen Staley M.D. 08/18/2025 3:11 PM
[2025-08-18] MEDS: INSULIN ASPART PER UNIT CHARGE SC SCH (17:15)
--- NOTE | 2025-08-18 17:24 | Neurology Consultation ---
Date of Consultation August 18, 2025 Assessment & Plan (1) Brainstem stroke: 85-year-old male presenting with a 4-day history of horizontal diplopia and right sided weakness, his symptoms have modestly improved, however. A brain MRI does reveal an acute stroke within the left posterior midbrain which is congruent with his presenting neurological signs and symptoms. On examination this afternoon, he does not have significant difficulty with ocular motility and his double vision has resolved, he does have a subtle left upper lid ptosis as well as mild right lower facial weakness and a subtle right hemiparesis. His voice is hoarse sounding although this issue is chronic according to his spouse. His CT angiography of the head and neck did not reveal any significant vascular lesions. A fairly recent lipid panel indicates excellent response to atorvastatin. This stroke occurs while taking aspirin 81 mg/day. There is mention of a history of paroxysmal atrial fibrillation in looking at previous cardiology notes. However, this recent stroke is more consistent with a lacunar infarct related to small vessel disease, rather than cardioembolism. I would recommend dual antiplatelet therapy, aspirin 81 mg/day and clopidogrel 75 mg/day for 3 weeks, we then discontinue aspirin in favor of clopidogrel monotherapy going forward. He may continue with atorvastatin at the current dosage as his LDL is already below 70. His type 2 diabetes mellitus appears to be doing reasonably well, hemoglobin A1c this past May was 6.2, he should continue to follow with either his PCP or presidential support specialist for ongoing management of this condition. He does have a mild diabetic peripheral neuropathy, does not require further evaluation at this time, may continue with gabapentin. Consultations with physical therapy, Occupational Therapy, speech therapy. Although this patient may have a history of atrial fibrillation, his recent stroke is more consistent with a lacunar infarct, rather than an embolic event. If there is no evidence of atrial fibrillation on telemetry, I would be hesitant to recommend anticoagulation given his history of intracranial hemorrhage and fall risk. It may be worthwhile to obtain 30-day mobile cardiac outpatient telemetry. If he has been having episodes of paroxysmal atrial fibrillation, may follow-up with cardiology to discuss whether or not he may be a candidate for the Watchman procedure. Again, this most recent stroke does not appear to be cardioembolic, however. Please call with any questions. History of Present Illness Reason for Consultation: Stroke Requesting Physician: Lucille Attending Physician: Bea Adkins MD History of Present Illness The patient is an 85-year-old male with a chief complaint horizontal diplopia and right sided weakness that began about 4 days ago, he had some difficulty bearing weight on the right leg and had been complaining of a feeling of right leg heaviness as well. His symptoms have been mildly improving since onset. Past medical history notable for congestive heart failure, type 2 diabetes mellitus, hypertension, dyslipidemia, obstructive sleep apnea and previous stroke resulting in right sided weakness, but with a fairly good recovery. He is , lives with his spouse, spouse and sister at bedside at the time of my assessment. He takes aspirin, atorvastatin, and Entresto as an outpatient. History also notable for mild diabetic peripheral neuropathy. A CT of the head at time of presentation was negative for hemorrhage or acute process, CT angiography of the head and neck were negative for significant vascular lesion. There was a 40% stenosis within the right vertebral artery, likely due to spinal degenerative change. I did independently review his brain MRI. There is evidence of an acute stroke within the posterior aspect of the left midbrain. There is fairly extensive chronic cerebrovascular disease throughout both cerebral hemispheres as well. There is mild age-related atrophy. Currently, he denies headache and reports that his double vision has resolved. His voice is chronically hoarse, denies any difficulty with swallowing. He complains of a subtle feeling of heaviness affecting the right leg as well as some mild loss of dexterity affecting the right hand. 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 He has several children, none of whom live in the area. Allergies Allergy/AdvReac Type Severity Reaction Status Date / Time Penicillins Allergy Unknown HAPPENED Verified 07/22/25 15:09 A CHILD--RASH lactose AdvReac Intermediate Gastrointestinal Verified 07/22/25 15:09 Upset Home Medications Medication Instructions Recorded Confirmed Type magnesium oxide 400 mg PO PM 05/28/19 07/22/25 History cholecalciferol (vitamin D3) 50 2,000 unit PO QAM 12/25/19 07/22/25 History mcg (2,000 unit) tablet (Vitamin D3) CPAP Machine #1 ea 02/15/22 07/22/25 Rx blood sugar diagnostic (Contour 03/28/23 07/22/25 History Next Test Strips) aspirin 81 mg tablet,delayed 81 mg PO QAM 05/03/23 07/22/25 History release (Adult Low Dose Aspirin) clotrimazole 1 % topical cream 1 applic topical BID PRN Rash #90 10/07/24 07/22/25 Rx grams atorvastatin 40 mg tablet (Lipitor) 40 mg PO PM #90 tabs 11/18/24 07/22/25 Rx febuxostat 80 mg tablet (Uloric) 80 mg PO QAM #90 tabs 11/18/24 07/22/25 Rx desloratadine 5 mg tablet 5 mg PO DAILY PRN allergies #90 11/26/24 07/22/25 Rx (Clarinex) tabs silodosin 8 mg capsule (Rapaflo) 8 mg PO DAILY #90 caps 12/16/24 07/22/25 Rx albuterol sulfate 90 mcg/actuation 2 puff inhalation Q6H PRN 01/07/25 07/22/25 History aerosol inhaler Shortness Of Breath Or Wheezing albuterol sulfate 1.25 mg/3 mL 1.25 mg (3 mL) inhalation QID PRN 02/19/25 07/22/25 Rx solution for nebulization shortness of breath or wheezing #90 mL venlafaxine 150 mg 150 mg PO DAILY 02/27/25 07/22/25 History capsule,extended release 24 hr venlafaxine 75 mg capsule,extended 75 mg PO DAILY 02/27/25 07/22/25 History release 24 hr vit C 250 mg-vit E 90 mg-zinc 40 1 tab PO BID 02/27/25 07/22/25 History mg-copper 1 vi-[id number]-niteun capsule (PreserVision AREDS-2) blood-glucose sensor (Dexcom G7 03/30/25 07/22/25 History Sensor device) pen needle, diabetic 32 gauge x #300 ea 03/30/25 07/22/25 Rx " insulin lispro 100 unit/mL 0 sliding scale dose subcut 04/07/25 07/22/25 History subcutaneous pen (Admelog SoloStar USEASDIRECTD U-) ketoconazole 2 % topical cream 1 applic topical BID #60 grams 06/24/25 07/22/25 Rx carvedilol 12.5 mg tablet 12.5 mg PO BID #30 tabs 06/26/25 07/22/25 Rx insulin glargine-yfgn 100 unit/mL 12 unit subcut DAILY 06/30/25 07/22/25 History (3 mL) subcutaneous pen (Semglee (insulin glargine-yfgn) Pen) silodosin 8 mg capsule 8 mg PO DAILY #30 caps 07/07/25 07/22/25 Rx gabapentin 100 mg capsule 100 mg PO DAILY #30 caps 07/22/25 07/22/25 Rx sacubitril 49 mg-valsartan 51 mg 0.5 tab PO BID #45 tabs 07/27/25 Rx tablet (Entresto) levothyroxine 150 mcg tablet 150 mcg PO DAILYBB #90 tabs 08/14/25 Rx Patient History Medical History UTI symptoms Aspiration pneumonitis Acute respiratory failure with hypoxia Acute dyspnea Elevated troponin Multifocal pneumonia Acute hypoxemic respiratory failure HFrEF (heart failure with reduced ejection fraction) Risk for falls Mitral regurgitation Acute CVA (cerebrovascular accident) Diabetes mellitus type 2, uncontrolled Injury of cervical spine Fracture of T7 vertebra Personal history of diabetic foot ulcer No open wounds currently, skin being monitored by multiple specialties. Postural dizziness Hx, no issues with currently. Hx of thyroid cancer WITH REMOVAL NO CHEMO Spinal stenosis Diabetes type 2, uncontrolled Gout Benign prostatic hyperplasia Type 2 diabetes mellitus with diabetic neuropathy Surgical History Hx of bilateral cataract extraction History of colonoscopy History of tooth extraction History of tonsillectomy History of cardiac cath [place] MANY YEARS AGO> NO STENTS H/O: knee surgery RIGHT Family History Father Myocardial infarction Hypertension Sister Coronary heart disease Hypertension Brother Hypertension Thyroid cancer Mother Pulmonary embolism Grandmother (Maternal) Stroke Other CHF (congestive heart failure) Denies family history of Ovarian cancer Prostate cancer Breast cancer Colorectal cancer Social History Smoking Status: Never smoker Second Hand Exposure: No; Do You Dip or Chew Tobacco: No; Hx Alcohol Use: No Hx Substance Use: No Preferred Language: Spanish Communication Ability: Effective Visual Impairment: No Limitations Hearing Ability: Normal Blood Bank Business Manager Required: No Beliefs That Will Affect Care: None marital status: Current Living Situation: Spouse current occupational status: retired Other Information That Helps Us Care for You: No Feels Safe at Home: Yes Safety Concerns: Feels Safe At This Time Childhood Exposure to Second-Hand Smoke: Yes (Uncle and Aunts) Physical Activity Frequency: Does not Exercise Seatbelt Use: always Assistive Devices: Walker and Other Review of Systems Constitutional: no fever Eyes: as per Subjective / HPI and + diplopia; no blind spots Ear, Nose, Mouth, Throat: no hearing loss Respiratory: no dyspnea Cardiovascular: no palpitations Gastrointestinal: no nausea and no vomiting Genitourinary: no dysuria Musculoskeletal: no myalgia Integumentary: no rash Neurologic: as per Subjective / HPI, + gait abnormality, + localized weakness, + lack of coordination and + abnormal speech; no tremor(s), no headache(s), no confusion and no memory loss Psychiatric: no depression and no anxiety Hematologic / Lymphatic: no easy bleeding and no easy bruising Exam (Neuro) Constitutional: well developed and well nourished; no acute distress Eyes: normal visual cobos by confrontation, + eyelid abnormality (Mild left upper lid ptosis), PERRL and EOM intact bilaterally; no nystagmus Neurologic: Oriented to:: Person, Place and Time Memory: Short Term Intact and Remote Intact Attention: Span Intact and Concentration Intact Speech Fluency: Dysarthria; negative Dysfluency Speech Aphasia: negative Aphasia Fund of Knowledge: Current Events, Past History and Vocabulary Cranial Nerves: Normal II, III, IV, , V, VIII, IX, X, XI and XII; Abnorm VII (Mild right lower facial droop) Motor Strength: Hemiparesis (Very mild) Laterality: Right Motor Tone: Normal Lower Extremities and Normal Upper Extremities Muscle Bulk/Involuntary Movements: No Involuntary Movements; negative Muscle Atrophy Sensation: Light Touch Intact and Proprioception Intact; negative Pain/Temperature Intact Coordination: Finger-Nose Abnormal Laterality: Right and Heel-Kevin Abnormal Laterality: Right Deep Tendon Reflexes: Rt Triceps: 1+, Lt Triceps: 1+, Rt Biceps: 1+, Lt Biceps: 1+, Rt Brachioradialis: 1+, Lt Brachioradialis: 1+, Rt Patellar: 1+, Lt Patellar: 1+, Rt Ankle: 0 and Lt Ankle: 0 Special Tests: negative Babinski Present Details: Patient has a right upper extremity pronator drift, mild proximal weakness for the right upper limb, he has a very mild right lower facial droop, slightly reduced facility of fine finger movements for the right hand, subtle orbit on the right with arm roll, mild dysmetria with [id number] on the right. Results & Data Vital Signs (Past 12 Hours) Vital Signs Temp Pulse Pulse Resp BP BP Pulse Ox 08/18/25 15:44 36.9 C 74 18 132/77 98 08/18/25 14:00 75 22 132/74 08/18/25 13:42 79 12 144/82 H 08/18/25 13:00 75 15 142/96 H 98 08/18/25 11:30 76 18 124/85 98 08/18/25 10:13 76 08/18/25 10:08 70 18 113/70 98 08/18/25 09:56 36.3 C L 78 12 139/84 98 O2 Del Method 08/18/25 15:44 Room Air 08/18/25 14:00 08/18/25 13:42 08/18/25 13:00 08/18/25 11:30 08/18/25 10:13 08/18/25 10:08 Room Air 08/18/25 09:56 Room Air Laboratory Results WBC 7.42, hemoglobin 12.3, platelet count 151, sodium 140, potassium 4.1, creatinine 1.57, glucose 127, calcium 9.3, magnesium 1.8. Lipid panel from this past May reviewed. Triglycerides 195, cholesterol 93, LDL 27, HDL 27. Hemoglobin A1c from this past May was 6.2, was 6.8 this past December. Diagnostic Findings Electrocardiogram, sinus rhythm with occasional PVCs and PACs, 72 bpm. Echocardiogram, mildly dilated left ventricle with severely reduced systolic function, ejection fraction 25 to 30%, global hypokinesis, moderate concentric LVH, left atrium mildly dilated, no ASD I did review a heart failure clinic note from July 16, 2025 which indicates a history of paroxysmal atrial fibrillation. He has had 2 subdural hematomas in the context of trauma previously. Anticoagulation has not been recommended due to history of intracranial hemorrhage and fall risk in this patient. Coding Level of Care Code 95615 INT INP/OBS CARE 3/75MIN Diagnoses Brainstem stroke I63.9 Time Spent (min) 90 Comment Total time includes patient contact, chart review, counseling, note preparation
[2025-08-18] MEDS: CLOPIDOGREL BISULFATE 75 MG TAB PO ONE (17:48)
[2025-08-18] MEDS: HEPARIN SOD 5,000 UNIT/0.5 ML VIAL SQ SCH (20:23)
[2025-08-18] MEDS: ATORVASTATIN 40 MG TAB PO SCH (20:23)
[2025-08-18] MEDS: GABAPENTIN 100 MG CAP PO SCH (20:23)
[2025-08-18] MEDS: MAGNESIUM OXIDE 400 MG TAB PO SCH (20:23)
--- NOTE | 2025-08-18 21:05 | XCELERA ---
[id number] \\[id number]
[2025-08-19] MEDS: LEVOTHYROXINE SODIUM 150 MCG TABLET PO SCH (05:01)
[2025-08-19 06:13] LABS: Hematocrit (blood only) 34.4 % (42.0-52.0); Hemoglobin 12.2 g/dl (14.0-18.0); Immature Granulocytes # (auto) 0.02 K/uL (0.01-0.20); Immature Granulocytes % (auto) 0.3 %; Mean Corpuscular Hemoglobin 33.5 pg (25.0-34.0); Mean Corpuscular Volume 94.5 fL (80.0-100.0); Platelet Count 155 K/uL (130-400); RDW Standard Deviation 43.6 fL (36.4-46.3); Red Blood Count 3.64 M/uL (4.70-6.10); White Blood Count 7.39 K/ul (4.8-10.8)
[2025-08-19 06:34] LABS: Anion Gap 7.0 (3-11); Blood Urea Nitrogen 23.0 mg/dl (6-23); Calcium 9.0 mg/dl (8.6-10.3); Carbon Dioxide 29.0 mmol/L (21-32); Chloride 105.0 mmol/L (98-107); Cholesterol 113.0 mg/dl (0-200); Creatinine Clr Calc Pharmacy 40.7 ml/min; Glucose 98.0 mg/dl (70-99(Fasting)); HDL Cholesterol 29.0 mg/dl; Potassium 4.2 mmol/L (3.5-5.1); Sodium 141.0 mmol/L (136-145); Triglycerides 211.0 mg/dl (0-150)
[2025-08-19 07:48] LABS: Hemoglobin A1C 5.9 % (4.5-5.6)
[2025-08-19 07:49] VITALS: RESP 19
[2025-08-19] MEDS: LANTUS PER UNIT CHARGE SC SCH (09:06)
[2025-08-19] MEDS: VENLAFAXINE HCL XR 75 MG CAPXR PO SCH (09:07)
[2025-08-19] MEDS: VENLAFAXINE HCL XR 150 MG CAPXR PO SCH (09:07)
[2025-08-19] MEDS: CLOPIDOGREL BISULFATE 75 MG TAB PO SCH (09:07)
[2025-08-19] MEDS: FEBUXOSTAT 40 MG TABLET PO SCH (09:07)
[2025-08-19] MEDS: ASPIRIN 81 MG ECTAB PO SCH (09:07)
[2025-08-19] MEDS: CHOLECALCIFEROL 25 MCG (1000 UNITS) TAB PO SCH (09:07)
[2025-08-19] MEDS: TAMSULOSIN HCL 0.4 MG CAP PO SCH (09:07)
[2025-08-19 12:22] VITALS: BP 113/75; PULSE 70; TEMP 98.1; O2SAT 99
--- NOTE | 2025-08-19 12:28 | Pharmacy Report ---
- Date of Service August 19, 2025 - Pharmacy CVA/TIA Medication Review Medications to Prevent Stroke handout has been added to the patients discharge packet. Antiplatelet(s) * aspirin 81mg PO daily * Clopidogrel 75mg PO daily * DAPT x3 weeks than clopidogrel monotherapy Cholesterol * High intensity statin: atorvastatin 40 mg daily DVT Prophylaxis * SCD knee Therapeutic Anticoagulation * Hx Afib/Aflutter noted, but anticoagulation is being deferred until discharge due to risk of falls. * Cardiology consideration for watchman procedure recommended by Neurology. Type 2 Diabetes * Patient has T2DM, but per Dr. Adkins, a diabetes medication with proven CVD benefit will be deferred to their outpatient provider due to familiarity with risks/benefits of such therapies. "Medications to prevent stroke" handout has already been added to the patient's discharge packet, which instructs the patient to follow up with their outpatient provider to evaluate which diabetes medication with proven CVD benefit is best for them
--- NOTE | 2025-08-19 12:59 | Discharge Summary ---
Discharge Summary Date of Service August 19, 2025 Principal Dx & Hospital Course #1 = Principal Diagnosis (1) Brainstem stroke: (2) Paroxysmal atrial fibrillation: (3) (HFpEF) heart failure with preserved ejection fraction: Plan This patient is an 85-year-old male with a history of PAF no longer on anticoagulation due to history of falls with subdural hematoma x 2, multiple falls, chronic HFrEF, HTN, CKD stage III, BPH, DM 2, thyroid cancer s/p thyroidectomy, CVA, CAROLANN on CPAP, MDD, chronic constipation who presents to the ED with blurry and occasional double vision over the last 3 to 4 days as well as intermittent right sided acute on chronic heaviness. He has previous right sided weakness from old stroke.. He did have a fall 3 days prior where he slid down and hit the back of his head on a closet but that was after his blurry vision had started. He did have a moderate in severity headache on the evening of 1020 but this resolved on its own. Denies nausea/vomiting, no abdominal pain/constipation/diarrhea. His reports his blood sugars have been much more elevated over the last month since his insulin dose was lowered on a previous discharge. They have been in the 280s-290s but never greater than 300. In the ED, he had laboratory workup which was at his baseline as far as his CKD stage III and chronic mild anemia, but otherwise normal including a normal troponin. He had a CT of the head which was negative and a CT angiogram of the head and neck which were negative. Due to the symptoms being present for several days, he is not a TNKase candidate. He was admitted for further workup for stroke. # Acute ischemic midbrain CVA/diplopia/blurry vision/right-sided weakness/history of CVA-he certainly has risk factors for stroke given that he has PAF and is not on anticoagulation and has a history of stroke, HTN, and longstanding DM 2. CT head negative, CTA head and neck negative for LVO or aneurysm. No abnormalities or focal deficits on examination at the time of admission. MRI of the brain confirmed left central lacunar midbrain stroke 5 mm in size. He also had old chronic lacunar infarcts in the basal ganglia. Seen by neurology who thought this was a small vessel ischemic stroke and not embolic from atrial fibrillation. Echocardiogram with severely reduced EF similar to previous with EF 25-30%, mild pulmonary hypertension, moderate MR, negative bubble study. He had normal sinus rhythm on his monitor throughout hospitalization. His HgbA1c is well-controlled at 5.9% and his BPs are well-controlled. - Recommend dual antiplatelet therapy with Plavix and aspirin x 3 weeks, followed by Plavix alone indefinitely -Lipid panel excellent-continue atorvastatin 40 mg daily - Recommend defer to PCP to add on SGLT 2 inhibitor or GLP-1 agonist for diab etic management in the setting of cerebrovascular disease as recommended by guidelines -PT/OT recommend home with home health-ordered - He has an appointment scheduled with his filter helper on 08/21 that he should keep for after discharge #PAF not on anticoagulation secondary to falls with history of SDH-currently in sinus rhythm, remained in sinus rhythm throughout hospitalization. He does follow with cardiology. He does not need to restart anticoagulation as per neurology as this is a small lacunar infarct likely from small vessel disease. - Consider 30-day event monitor as an outpatient with cardiology but he is high risk for anticoagulation due to history of multiple falls and previous subdural hematomas -Could consider Watchman device-discussed with his personal manager staffing #Chronic HFrEF/HTN-currently euvolemic and blood pressures are fairly normal to mildly elevated over his usual. EF persistently 30 % and follows with CHF clinic. Is still debating about whether or not to have ICD placed - Permissive hypertension-held home Entresto but can resume on discharge -continue carvedilol #CKD stage III/BPH-creatinine around baseline at 1.5. No current issues with urinary retention and follows with urology as well as nephrology - Avoid nephrotoxins and really dose medications - Continue Rapaflo #DM 2 with neuropathy-with hyperglycemia lately at home as his insulin dose was decreased last admission. Here his glucose was very well-controlled on similar doses of insulin that are prescribed at home. Suspect his diet at home is high carbohydrate which was confirmed by his .. HgbA1c well-controlled at 5.2% - Continue Lantus 12 units and NovoLog sliding scale-adjust as needed with PCP - Continue gabapentin 100 mg p.o. at bedtime #Chronic normocytic anemia-Hgb mildly low at 12.3, normocytic, likely secondary to chronic kidney disease -Follow-up as an outpatient with PCP #Thyroid cancer s/p thyroidectomy-recent TSH was normal - Continue home levothyroxine #CAROLANN on CPAP-continue home CPAP #MDD-no acute issues but patient has a very flat affect and patient's reports that he is acting more withdrawn lately - Continue home venlafaxine #Chronic constipation with overflow incontinence-this was a previous issue which is now resolved - Monitor for constipation DVT prophylaxis-heparin SQ, SCDs Disposition-stable for dc to home with home PT/OT Notes For Next Care Provider May need adjustment of insulin Medication Changes From Visit see list Admission HPI Per Admitting Provider This patient is an 85-year-old male with a history of PAF no longer on anticoagulation due to history of falls with subdural hematoma x 2, multiple falls, chronic HFrEF, HTN, CKD stage III, BPH, DM 2, thyroid cancer s/p thyroidectomy, CVA, CAROLANN on CPAP, MDD, chronic constipation who presents to the ED with blurry and occasional double vision over the last 3 to 4 days as well as intermittent right acute on chronic heaviness. He has previous right sided weakness from old stroke.. He did have a fall 3 days prior where he slid down and hit the back of his head on a closet but that was after his blurry vision had started. He did have a moderate in severity headache on the evening of 1020 but this resolved on its own. Denies nausea/vomiting, no abdominal pain/constipation/diarrhea. His reports his blood sugars have been much more elevated over the last month since his insulin dose was lowered on a previous discharge. They have been in the 280s-290s but never greater than 300. In the ED, he had laboratory workup which was at his baseline as far as his CKD stage III and chronic mild anemia, but otherwise normal including a normal troponin. He had a CT of the head which was negative and a CT angiogram of the head and neck which were negative. Due to the symptoms being present for several days, he is not a TNKase candidate. He will be admitted for further workup for stroke. Discharge Exam Constitutional WD/WN, vitals as above Eyes PERRL, conjunctivae normal, anicteric sclerae normal visual cobos by confrontation and EOM intact bilaterally; no anisocoria and no nystagmus Neck trachea midline, no thyromegaly Respiratory normal respiratory effort, lungs clear to auscultation Cardiovascular RRR, no murmur, no edema Chest (Breasts) Chest: normal inspection of chest Gastrointestinal (Abdomen) normal bowel sounds, soft, nontender, no hepatosplenomegaly Musculoskeletal Extremities: extremities normal to inspection; no cyanosis and no clubbing Skin no rashes, warm and dry Neurologic normal touch/pain/proprioception, CN's II-XI intact bilaterally, moves all extremities and awake; no focal motor deficits and not confused Speech / Cognition: normal speech, no expressive aphasia and no receptive aphasi a Motor/Sensory: no tremor, no pronator drift and no sensory deficit Coordination: normal [id number] test, normal amxh-hg-tcpi test and normal rapid alternating movements Psychiatric Orientation: alert, oriented x 3 and cooperative Affect: + flat affect Lymphatic no lymphedema Discharge Plan Discharge Items Patient Disposition: Home - Self-Care Reason For Visit: BLURRED VISION, RIGHT SIDED WEAKNESS Discharge Diagnosis: Acute ischemic stroke of the midbrain Condition on Discharge: Fair Activity: As commented below Lifting: Gradually increase as tolerated Exercise/Sports: Gradually increase as tolerated Exercise Comment: with home PT/OT Non-emergency contact: Primary Care Provider Call non-emergency contact if: you have any medication questions and your symptoms worsen Follow-up/Referrals: ProTien MD [Primary Care Provider] - 08/25/25 11:00 am (Hospital follow up scheduled for August 25, 2025 at 11:00 am) Diet: Carb Consistent or DM2 and Low Sodium (2gm) Addtl Attending Provider Instructions: You were admitted with blurry and double vision and right sided weakness which was secondary to a new stroke in your brainstem. Fortunately this was small. The neurologist saw you and recommended treatment with a new blood thinner called Plavix to be taken along with your aspirin for 19 more days. After that, stop the aspirin and continue with the Plavix. It is not felt that your stroke came from your atrial fibrillation as it was such a small stroke. Please follow-up with your manager staffing and primary care physician to further discuss however at this time, it is not felt that it is necessary for you to be on a stronger blood thinner like Eliquis as you are before. It was a pleasure taking care of you! If you have any questions about your care before your hospital follow-up visit with your primary care provider, please call [phone] and ask to be transferred to the [facility] Medicine office. Sincerely, Bea Adkins M.D. Risk Factors for Stroke: You can reduce your chances of stroke by working with your medical provider to adopt a healthy lifestyle. Some specific ways to lower your chance of stroke are: * If you are a smoker, now is the time to stop smoking cigarettes * If you are diabetic, improve the control of your blood sugars * Avoid excessive amounts of alcohol * Control high blood pressure * Lose weight if you are overweight * Be sure to lead an active lifestyle * Eat a healthy diet low in salt, cholesterol and fat You should know about other risk factors for stroke that you are unable to control. These include: * Age 55 years or older * Male gender * Certain racial groups: , or / * Family History of Stroke, Mini stroke or Heart Attack * Sickle Cell Disease Follow Up: It is important for you to keep your follow up appointments with your medical provider. Who to Call and When: Medical Emergencies: Call 911 immediately if you experience any of the following warning signs and symptoms of Stroke: * Sudden numbness or weakness of the face, arm or leg, especially on one side of the body * Sudden confusion, trouble speaking or understanding * Sudden trouble seeing in one or both eyes * Sudden trouble walking, dizziness, loss of balance or coordination * Sudden severe headache with no cause Do not delay calling 911 if you experience any warning signs or symptoms of a stroke. Delay in seeking medical attention may affect what treatments can be given to you. Pending Studies at Discharge: No Stand-Alone Forms: My [facility], Smoking Cessation, Medications to Prevent Stroke Medications and DC Order Prescriptions: New clopidogrel 75 mg Tablet 75 mg PO QAM Qty: 30 0RF Continued atorvastatin [Lipitor] 40 mg tablet 40 mg PO PM Qty: 90 3RF febuxostat [Uloric] 80 mg tablet 80 mg PO QAM Qty: 90 3RF desloratadine [Clarinex] 5 mg tablet 5 mg PO DAILY PRN (Reason: allergies) Qty: 90 3RF Patient Comments: 06/24- last filled 11/29/24 30 day supply silodosin [Rapaflo] 8 mg capsule 8 mg PO DAILY Qty: 90 3RF Rx Instructions: must administer with a meal/food albuterol sulfate 1.25 mg/3 mL solution for nebulization 1.25 mg inhalation QID PRN (Reason: shortness of breath or wheezing) Qty: 90 2RF Patient Comments: 06/24- last filled 02/21 7 day supply ketoconazole 2 % cream 1 applic topical BID Qty: 60 1RF sacubitril-valsartan [Entresto] 49-51 mg tablet 0.5 tab PO BID Qty: 45 3RF levothyroxine 150 mcg tablet 150 mcg PO DAILYBB Qty: 90 1RF (DME) CPAP Machine Misc See Dose Instructions .ROUTE .MEDSUPPLY Qty: 1 0RF Rx Instructions: ASV EPAP 5-15, PS 5-18, max pressure 25, auto rate T&B (DME) Contour Next Test Strips Strip See Rx Instructions .ROUTE .MEDSUPPLY Rx Instructions: Test blood sugar once daily PRN-Dexcom ([facility] [place] Dexcom G7 Sensor Device See Rx Instructions .Route Rx Instructions: As directed ([facility] [place]) pen needle, diabetic 32 gauge x 5/32" needle See Dose Instructions .ROUTE .MEDSUPPLY Qty: 300 3RF Rx Instructions: Inject insulin 3 times a day clotrimazole 1 % cream 1 applic TOP BID PRN (Reason: Rash) Qty: 90 0RF Patient Comments: 06/24- last filled 10/07/24 60 day supply Rx Instructions: apply to affected area of feet for 1 month insulin lispro [Admelog SoloStar U-100 Insulin] 100 unit/mL insulin pen 0 sliding scale dose subcut USEASDIRECTD Patient Comments: 06/24- last filled 10/23/24 30 day supply only doing 5 units with breakfast Rx Instructions: Subcut, per sliding scale, typically 4 units with breakfast; 0-2 units with lunch; 0-2 units with supper; MDD 12 units insulin glargine-yfgn [Semglee(insulin glarg-yfgn)Pen] 100 unit/mL (3 mL) in sulin pen 12 unit subcut DAILY Patient Comments: 06/24- last filled 02/02 125 day supply. Original: 20u subcut daily 06/30-Per dc summary and patient is taking 12 units daily magnesium oxide 500 mg tablet 400 mg PO PM Patient Comments: 06/24- otc unable to verify cholecalciferol (vitamin D3) [Vitamin D3] 2,000 unit tablet 2,000 unit PO QAM Patient Comments: 06/24- otc unable to verify albuterol sulfate 90 mcg/actuation Hfa Aerosol Inhaler 2 puff INHALATION Q6H PRN (Reason: Shortness Of Breath Or Wheezing) Patient Comments: 06/24- no fill history unable to verify aspirin [Adult Low Dose Aspirin] 81 mg tablet,delayed release (DR/EC) 81 mg PO QAM 19 Days Qty: 19 0RF Patient Comments: 06/24- otc unable to verify Rx Instructions: Then stop after 19 more days venlafaxine 75 mg capsule,extended release 24hr 75 mg PO DAILY Rx Instructions: TOTAL DOSE 225 MG--TAKES WITH 150 MG CAP. venlafaxine 150 mg capsule,extended release 24hr 150 mg PO DAILY Rx Instructions: TOTAL DOSE 225 MG--TAKES WITH 75 MG CAP. PreserVision AREDS-2 250-90-40-1 mg Capsule 1 tab PO BID Patient Comments: 06/24- otc unable to verify carvedilol 12.5 mg tablet 12.5 mg PO BID Qty: 30 0RF Rx Instructions: must administer with a meal/food Changed gabapentin 100 mg capsule 100 mg PO HS Qty: 30 2RF Discontinued silodosin 8 mg capsule 8 mg PO DAILY Qty: 30 2RF Rx Instructions: must administer with a meal/food Discharge Orders: Discharge Order (Routine); Ordered 08/19/25 Ordered By: Bea Ruggiero/Other Patient Handouts: Discharge Instructions for Stroke Admission Data Admit Date/Time: 08/18/25 13:13 Attending Provider: Bea Adkins Admit Provider: Bea Adkins Primary Care Provider: Tien Jeter Other Providers: Keyshawn Willett; Bea Adkins Other Interventions: Discharge Summary Assessment (RN) Last Done: 08/19/25 13:37 Hospital Stay Data Consultations 08/18/25 11:59 ED Decision to Admit Stat 08/18/25 13:11 Consult Neurology Routine Diagnostic Imagining Performed 08/18/25 10:08 CT angio head w con Stat CT angio neck with con Stat CT head/brain wo con Stat 08/18/25 13:11 MR brain wo/w con Urgent Pending Results Patient Have Any Pending Studies at Discharge: No Discharge Instructions Given to Patient (Per Discharging Provider) You were admitted with blurry and double vision and right sided weakness which was secondary to a new stroke in your brainstem. Fortunately this was small. The neurologist saw you and recommended treatment with a new blood thinner called Plavix to be taken along with your aspirin for 19 more days. After that, stop the aspirin and continue with the Plavix. It is not felt that your stroke came from your atrial fibrillation as it was such a small stroke. Please follow-up with your manager staffing and primary care physician to further discuss however at this time, it is not felt that it is necessary for you to be on a stronger blood thinner like Eliquis as you are before. It was a pleasure taking care of you! If you have any questions about your care before your hospital follow-up visit with your primary care provider, please call [phone] and ask to be transferred to the [facility] Medicine office. Sincerely, Bea Adkins M.D. Risk Factors for Stroke: You can reduce your chances of stroke by working with your medical provider to adopt a healthy lifestyle. Some specific ways to lower your chance of stroke are: * If you are a smoker, now is the time to stop smoking cigarettes * If you are diabetic, improve the control of your blood sugars * Avoid excessive amounts of alcohol * Control high blood pressure * Lose weight if you are overweight * Be sure to lead an active lifestyle * Eat a healthy diet low in salt, cholesterol and fat You should know about other risk factors for stroke that you are unable to control. These include: * Age 55 years or older * Male gender * Certain racial groups: , or / * Family History of Stroke, Mini stroke or Heart Attack * Sickle Cell Disease Follow Up: It is important for you to keep your follow up appointments with your medical provider. Who to Call and When: Medical Emergencies: Call 911 immediately if you experience any of the following warning signs and symptoms of Stroke: * Sudden numbness or weakness of the face, arm or leg, especially on one side of the body * Sudden confusion, trouble speaking or understanding * Sudden trouble seeing in one or both eyes * Sudden trouble walking, dizziness, loss of balance or coordination * Sudden severe headache with no cause Do not delay calling 911 if you experience any warning signs or symptoms of a stroke. Delay in seeking medical attention may affect what treatments can be given to you. Total Time Total Time Spent Total Time Spent (In Minutes): 35 min Total Time Includes: Examination of the Patient, Discharge Planning and Medication Reconciliation Coding Level of Care Code 07553 INP/OBS DISCH >30 MIN Diagnoses Brainstem stroke I63.9 Paroxysmal atrial fibrillation I48.0 (HFpEF) heart failure with preserved ejection fraction I50.30
[2025-08-19] MEDS: STROKE PATIENT DISCHARGE STA (13:42)
--- NOTE | 2025-08-21 14:49 | Pharmacy Report ---
Pharmacist Stroke Counseling - Date of Service August 21, 2025 - Scope: Pharmacy has been consulted to provide medication discharge counseling for this patient admitted with ischemic stroke as per the Pharmacist Discharge Counseling for Stroke Patients Protocol. - Medications on Discharge: Home Medications Medication Instructions Recorded Confirmed magnesium oxide 400 mg PO PM 05/28/19 08/20/25 cholecalciferol (vitamin D3) 50 2,000 unit PO QAM 12/25/19 08/20/25 mcg (2,000 unit) tablet (Vitamin D3) blood sugar diagnostic (Contour 03/28/23 08/20/25 Next Test Strips) albuterol sulfate 90 mcg/actuation 2 puff inhalation Q6H PRN 01/07/25 08/20/25 aerosol inhaler Shortness Of Breath Or Wheezing venlafaxine 150 mg 150 mg PO DAILY 02/27/25 08/20/25 capsule,extended release 24 hr venlafaxine 75 mg capsule,extended 75 mg PO DAILY 02/27/25 08/20/25 release 24 hr vit C 250 mg-vit E 90 mg-zinc 40 1 tab PO BID 02/27/25 08/20/25 mg-copper 1 fa-ndoxfp-madwrz capsule (PreserVision AREDS-2) blood-glucose sensor (Dexcom G7 03/30/25 08/20/25 Sensor device) insulin lispro 100 unit/mL 0 sliding scale dose subcut 04/07/25 08/20/25 subcutaneous pen (Admelog SoloStar USEASDIRECTD U-) insulin glargine-yfgn 100 unit/mL 12 unit subcut DAILY 06/30/25 08/20/25 (3 mL) subcutaneous pen (Semglee (insulin glargine-yfgn) Pen) New Rx's Medication Instructions Recorded CPAP Machine #1 ea 02/15/22 clotrimazole 1 % topical cream 1 applic topical BID PRN Rash #90 10/07/24 grams atorvastatin 40 mg tablet (Lipitor) 40 mg PO PM #90 tabs 11/18/24 febuxostat 80 mg tablet (Uloric) 80 mg PO QAM #90 tabs 11/18/24 desloratadine 5 mg tablet 5 mg PO DAILY PRN allergies #90 11/26/24 (Clarinex) tabs silodosin 8 mg capsule (Rapaflo) 8 mg PO DAILY #90 caps 12/16/24 albuterol sulfate 1.25 mg/3 mL 1.25 mg (3 mL) inhalation QID PRN 02/19/25 solution for nebulization shortness of breath or wheezing #90 mL pen needle, diabetic 32 gauge x #300 ea 03/30/25" ketoconazole 2 % topical cream 1 applic topical BID #60 grams 06/24/25 carvedilol 12.5 mg tablet 12.5 mg PO BID #30 tabs 06/26/25 sacubitril 49 mg-valsartan 51 mg 0.5 tab PO BID #45 tabs 07/27/25 tablet (Entresto) levothyroxine 150 mcg tablet 150 mcg PO DAILYBB #90 tabs 08/14/25 aspirin 81 mg tablet,delayed 81 mg PO QAM 19 days #19 tabs 08/19/25 release (Adult Low Dose Aspirin) clopidogrel 75 mg tablet 75 mg PO QAM #30 tabs 08/19/25 gabapentin 100 mg capsule 100 mg PO HS #30 caps 08/19/25 - Action: The above medications, specifically ones for stroke treatment/prophylaxis, have been reviewed in detail with the patient and/or patient telephone service representative(s) prior to discharge. This includes indication, common adverse reactions, drug interactions, and medication administration. Medication counseling has been employed using the teach-back method to ensure understanding. - Outcome: The patient and/or patient telephone service representative(s) have demonstrated understanding of the medications. Additional comments: * Clopidogrel picked up from pharmacy, patient has been taking without issue * Discussed with patient's , understands plan of aspirin + clopidogrel x 19 more days and then clopidogrel monotherapy * No concerns at this time Thank you for allowing pharmacy to be involved in the care of this patient. Please call [phone] with any additional questions
--- NOTE | 2025-08-21 21:48 | Electrocardiogram Report ---
Test Reason : Blood Pressure : */* mmHG Vent. Rate : 72 BPM Atrial Rate : 75 BPM P-R Int : 168 ms QRS Dur : 110 ms QT Int : 440 ms P-R-T Axes : 51 21 50 degrees QTcB Int : 481 ms Sinus rhythm with occasional Premature ventricular complexes and Premature atrial complexes Low voltage QRS Incomplete left bundle block Prolonged QT Abnormal ECG When compared with ECG of 24-Jun-2025 11:50, No significant change Confirmed by Isreal Franco ([id number]) on 08/21/2025 9:47:49 PM Referred By: Confirmed By: Isreal Franco
== END 2025-08-19 14:37 | disposition home or self-care (01) ==
LOC: SUATTDRO → ED 10:02 → 2S 10:02